=== PATIENT | female | born 1965 | race Caucasian/White ===

== ENCOUNTER → 2017-05-14 15:26 | Outpatient (CLI) | payer OTHER, SELFPAY ==
--- NOTE | 2017-05-14 15:35 | XR_ITS ---
EXAM: XR thoracic spine 2 V HISTORY: Mid back pain ITS.REASON: MID BACK PAIN COMPARISON: None FINDINGS: Normal alignment. No fracture or dislocation. No lytic or blastic change. No significant degenerative change. The disc spaces are preserved. There is minimal thoracic curvature convex left. IMPRESSION: No acute finding
--- NOTE | 2017-05-14 15:36 | XR_ITS ---
EXAM: XR lumbar spine min 4V HISTORY: ITS.REASON: MID BACK PAIN ORDERING PHYSICIAN: RODERICK Olivia PATIENT AGE: 51 years COMPARISON: None FINDINGS: Normal alignment. No fracture or dislocation. No lytic or blastic change. Mild degenerative disc disease is present at L3-L4 with minimal anterolisthesis of L3 of 3 mm and small anterior osteophytes at L4 and L5 IMPRESSION: Mild degenerative disc disease L3-L4
== END ==
PROVIDERS: PCP Family Medicine; Visit Provider Physician Assistant
DX: M54.6 Pain in thoracic spine (principal); M54.5 Low back pain
CPT/HCPCS: 72072; 72110

== ENCOUNTER 2017-12-16 16:59 | Observation (INO) ==
[2017-12-16 18:06] LABS: Basophils # 0.1 K/mm3 (0-0.2); Basophils % 0.7 % (0.1-2.0); Eosinophils % 0.7 % (0.1-12.0); Hematocrit 35.6 % (37.0-47.0); Hemoglobin 12.3 g/dL (12.2-16.2); Lymphocytes # 1.6 K/mm3 (0.7-4.5); Lymphocytes % 23.8 K/mm3 (10-50); Mean Corpuscular HGB Conc 34.5 g/dL (31.8-35.4); Mean Corpuscular Hemoglobin 30.7 pg (27.0-31.2); Mean Platelet Volume 7.4 fl (7.4-10.4); Monocytes # 0.4 K/mm3 (0.1-1.0); Monocytes % 5.2 % (1.7-9.3); Neutrophils # 4.8 K/mm3 (1.8-7.8); Neutrophils % 69.7 % (37.0-80.0); Platelet Count 164 K/mm3 (142-424); Red Cell Distribution Width 14.8 % (11.5-17.5); White Blood Count 6.9 K/mm3 (4.8-10.8)
[2017-12-16 18:23] LABS: Calcium 8.2 mg/dL (8.5-10.1)
[2017-12-16 18:27] LABS: Potassium 4.5 mmoL/L (3.5-5.1)
[2017-12-16 18:33] LABS: Anion Gap 20.5 mEq/L (5-15)
--- NOTE | 2017-12-16 18:57 | Emergency Department Note ---
ED Disposition Clinical Impression: Alcohol withdrawal Qualifiers: Complication of substance-induced condition: uncomplicated Qualified Code(s): F10.230 - Alcohol dependence with withdrawal, uncomplicated Disposition: Still a Patient Condition on Discharge: Fair - Critical Care Critical Care Time: No Attestation: On 12/16/17, the high probability of a clinically significant, sudden or life threatening deterioration of the following system(s) required my full and direct attention, intervention and personal management. The time I documented below is in addition to time spent performing reported procedures but includes the following listed in this critical care notation. Medical Decision Making - Pal Inquiry Pt receiving controlled substance: Yes Pal was queried for this patient: No Reason not queried -: Emergent pt cond-no time Risks and benefits of using a controlled substance: were not discussed with pt by me Comment: Ativan for alcohol withdrawal Vital Signs: 12/16/17 17:48 12/16/17 18:47 12/16/17 19:25 Temperature 97.9 F Temperature Source Oral Pulse Rate [Right Brachial] 92 H 71 93 H Respiratory Rate 18 20 16 Blood Pressure [Right Arm] 139/82 148/68 130/69 Blood Pressure Mean [Right Arm] 101 94 89 Blood Pressure Source [Right Arm] Automatic Cuff Automatic Cuff Blood Pressure Position [Right Arm] Sitting Sitting 02 Sat by Pulse Oximetry 96 100 98 Oxygen Delivery Method Room Air Room Air Oxygen Flow Rate (LPM) 12/16/17 19:37 12/16/17 20:00 12/16/17 20:45 Temperature Temperature Source Pulse Rate [Right Brachial] 81 83 Respiratory Rate 18 16 Blood Pressure [Right Arm] 130/69 123/72 Blood Pressure Mean [Right Arm] 89 89 Blood Pressure Source [Right Arm] Automatic Cuff Blood Pressure Position [Right Arm] Supine 02 Sat by Pulse Oximetry 94 L 96 88 L Oxygen Delivery Method Room Air Room Air Oxygen Flow Rate (LPM) 2 - Lab Data Lab Results 12/16/17 17:35: PT 12.4 H, INR 1.21 H 12/16/17 17:35: Total Bilirubin 2.7 H, Direct Bilirubin 1.0 H, Indirect Bilirubin 1.7 H, AST 202 H, ALT 98 H, Alkaline Phosphatase 110, Troponin I < 0.02, Total Protein 8.3 H, Albumin 4.5 12/16/17 17:55: WBC 6.9, RBC 4.00 L, Hgb 12.3, Hct 35.6 L, MCV 89.0, MCH 30.7, MCHC 34.5, RDW 14.8, Plt Count 164, MPV 7.4, Neut % (Auto) 69.7, Lymph % (Auto) 23.8, [place] % (Auto) 5.2, Eos % (Auto) 0.7, Baso % (Auto) 0.7, Neut # (Auto) 4.8 , Lymph # (Auto) 1.6, [place] # (Auto) 0.4, Eos # (Auto) 0.0, Baso # (Auto) 0.1 12/16/17 17:55: Sodium 119 L, Potassium 4.5, Chloride 77 L, Carbon Dioxide 26, Anion Gap 20.5 H, BUN 20 H, Creatinine 1.64 H, Estimated Creat Clear 36, Estimated GFR 33 L, Est GFR ( Amer) 40 L, Glucose 94, Calcium 8.2 L 12/16/17 17:55: Magnesium 1.0 L, Plasma/Serum Alcohol 0 12/16/17 19:49: Urine Color Yellow, Urine Appearance Clear, Urine pH 6.0, Ur Specific [place] 1.020, Urine Protein Negative, Urine Glucose (UA) Negative, Urine Ketones 2+, Urine Blood Negative, Urine Nitrate Negative, Urine Bilirubin Negative, Urine Urobilinogen 1.0, Ur Leukocyte Esterase Negative, Urine RBC 3-5 , Urine WBC 3-5, Ur Squamous Epith Cells 5-10, Amorphous Sediment Trace, Urine Bacteria 1+, Urine Mucus 1+ 12/16/17 19:49: Urine Opiates Screen Negative, Urine Methadone Screen Negative, Ur Barbituates Screen Negative, Ur Phencyclidine Scrn Negative, Ur Amphetamines Screen Negative, U Benzodiazepines Scrn Positive H, Urine Cocaine Screen Negative, U Marijuana (THC) Screen Negative Result diagrams: 12/16/17 17:55 12/16/17 17:55 Orders (Tests/Meds): ED MEDICATIONS Generic Name Dose Route Start Last Admin Trade Name Freq PRN Reason Stop Dose Admin Multivitamins 10 ml/ Thiamine 1,015 mls @ 150 mls/hr 12/16/17 19:45 12/16/17 20:00 HCl 100 mg/ Magnesium Sulfate IV 12/17/17 02:30 150 mls/hr 2 gm/ Lactated Ringer's .[id number] TERE Administration Discontinued Medications Generic Name Dose Route Start Last Admin Trade Name Osman PRN Reason Stop Dose Admin Folic Acid 1 mg 12/16/17 19:38 12/16/17 19:59 Folic Acid 1mg Tablet PO 12/16/17 19:39 1 mg ONCE ONE Administration Sodium Chloride 1,000 mls @ 999 mls/hr 12/16/17 18:15 12/16/17 18:27 Sod Chlor 0.9% 1000ml Bag IV 12/16/17 19:15 999 mls/hr .[id number] TERE Administration Lorazepam 2 mg 12/16/17 19:39 12/16/17 20:00 Ativan 2mg/Ml Vial IV 12/16/17 19:40 2 mg ONCE ONE Administration Ondansetron HCl 4 mg 12/16/17 18:07 12/16/17 18:26 Zofran 4mg/2ml Vial IV 12/16/17 18:08 4 mg ONCE ONE Administration ORDERS Category Date Time Status CT head/brain wo con Stat Cat Scan 12/16/17 18:57 Taken XR chest portable Stat Exams 12/16/17 19:39 Ordered - CT Data CT Scan: Head Time Received: 19:[address] Reviewed: Yes: I have viewed the radiologist's interpretation Findings Narrative: No acute findings - ECG Data Tracing #1 EKG interpreted by Sivakumar Norman MD: Rhythm: sinus Rate: 83 [place]: normal Ectopy: none Conduction: normal ST Segment Changes: none T Wave Changes: none Q Waves: none No evidence of acute ischemia or injury - Physician Consults Physician Consulted: [facility] Time: 19:30 Reason -: Admission Comment/Response: Agrees to admit the patient to the hospital. We discussed the patient's clinical information, including history, exam, laboratory and radiology results and ED course. Per hospital procedure, I will write temporary bridge inpatient orders on the patient. Specific orders requested by the admitting physician: Serax alcohol withdrawal protocol, rally pack General Adult HPI - General Chief complaint: Urogenital-Female Stated complaint: unable to void Time Seen by Provider: 12/16/17 19:20 Mode of Arrival: Family Vehicle Limitations: No Limitations Description of Symptoms (Recalled from ER Triage Doc. by RN): C/O UNABLE TO VOID DESPITE DRINKING 6 BOTTLES OF WATER TODAY AND DIARRHEA. PATIENT IS HAVING TREMORS AND WHEN QUESTIONED STATES SHE NORMALLY DRINKS ALCOHOL DAILY BUT HAS HAD NO ALCOHOL TODAY. JESUS MANUEL BROUGHT HER TO HOSPITAL AND LEFT HER. 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 Admits to 1/5 of tequila a day for the past 3-4 days along with 3-4 beers. Denies any drug use. Today he is very shaky because she has not drank at all today. History of alcohol withdrawal in the past, states that she was admitted for the same thing last year but also her kidneys shut down and she was transferred to [facility]. She states that she was not ill prior to this. She has had some nausea and vomiting today. - Related Data Home Medications Medication Instructions Recorded Confirmed Unobtainable 12/16/17 12/16/17 Allergies Allergy/AdvReac Type Severity Reaction Status Date / Time No Known Allergies Allergy Verified 12/16/17 17:[address] [facility] History I have reviewed the patient's past medical history: Yes Medical History: Denies:: Cancer, Diabetes Mellitus Type 1, Diabetes Mellitus Type 2, MRSA Amputation: No - Social History Alcohol Intake: current Alcohol Intake Frequency:: 0-2 drinks per day - Psychiatric History Expresses thoughts of harming self/others: None Suicide Plan Description: No Plan ROS Obtained: Yes All systems reviewed & no additional complaints - Constitutional Constitutional: Denies fever(s), Reports weakness - Cardiovascular Cardiovascular: Denies chest pain - Respiratory Respiratory: No cough, No dyspnea - Gastrointestinal Gastrointestingal: Reports: nausea, vomiting. Denies: abdominal pain, diarrhea - Neurologic Neurologic: Denies headache(s) Physical Exam - General General appearance: alert Comment: Tremulous - Head Head exam: atraumatic, normocephalic, normal inspection - Eye Eye exam: Present: normal appearance, PERRL, EOMI - ENT ENT exam: Present: mucous membranes moist - Neck Neck exam: Present: normal inspection, full ROM, trachea midline. Absent: meningismus, lymphadenopathy - Chest Chest inspection: Present: normal inspection, symmetric chest wall rise. Absent : tenderness - Respiratory Respiratory exam: Present: normal lung sounds bilaterally. Absent: respiratory distress - Cardiovascular Cardiovascular exam: Present: regular rate, normal rhythm. Absent: JVD - Abdominal Exam Abdominal exam: Present: soft, normal bowel sounds. Absent: distention, tenderness, guarding - Extremities Exam Extremities exam: Present: normal inspection, full ROM, normal capillary refill. Absent: calf tenderness - Neurological Exam Neurological exam: Present: alert, oriented X3, CN II-XII intact. Absent: motor sensory deficit - Psychiatric Psychiatric exam: Present: normal affect, normal mood - Skin Skin exam: Present: warm, dry, intact, normal color
[2017-12-16 19:50] LABS: INR 1.21 (0.9-1.1); Prothrombin Time 12.4 seconds (9.4-11.8)
[2017-12-16 19:55] LABS: Microscopic, Urine URINE MICROSCOPIC (MICROSCOPIC)
[2017-12-16 19:58] LABS: Appearance,Urine CLEAR (Clear); Blood, Urine Negative (Negative); Color,Urine YELLOW (Yellow); Glucose,Urine (UA) Negative (Negative); Ketones,Urine 2+ (Negative); Leukocyte Esterase,Urine Negative (Negative); Protein,Urine Negative (Negative)
[2017-12-16 20:02] LABS: Alanine Aminotransferase 98 U/L (12-78); Albumin Level 4.5 gm/dL (3.4-5.0); Alkaline Phosphatase 110 U/L (46-116); Aspartate Amino Transferase 202 U/L (15-37); Bilirubin,Indirect 1.7 mg/dL (0.0-0.9); Bilirubin,Total 2.7 mg/dL (0.2-1.0); Total Protein,Serum 8.3 gm/dL (6.4-8.2)
[2017-12-16 20:10] LABS: Amphetamine/Metha Screen,Urine Negative ng/mL (<1000); Barbiturates Screen,Urine Negative ng/mL (<200); Benzodiazepines Screen,Urine Positive ng/mL (<200); Cannabinoid Screen,Urine Negative ng/mL (<50); Cocaine Screen,Urine Negative ng/mL (<300); Methadone Screen,Urine Negative ng/mL (<300); Opiate Screen,Urine Negative ng/mL (<300); Phencyclidine Screen,Urine Negative ng/mL (<25)
[2017-12-16 20:25] LABS: Amorphous Sediment,Urine Trace /lpf; Bacteria,Urine 1+ /lpf; Bilirubin,Urine Negative (Negative); Mucus,Urine 1+ /lpf
[2017-12-16 22:22] LABS: Thyroid Stimulating Hormone 28.63 uIU/ml (0.358-3.740)
[2017-12-17 06:15] LABS: Albumin Level 3.7 gm/dL (3.4-5.0); Albumin/Globulin Ratio 1.2 (1.1-1.8); Anion Gap 10.5 mEq/L (5-15); Calcium 8.4 mg/dL (8.5-10.1); Globulin 3.2 gm/dl (1.3-3.2); Potassium 3.5 mmoL/L (3.5-5.1); Total Protein,Serum 6.9 gm/dL (6.4-8.2)
--- NOTE | 2017-12-17 07:49 | Pharmacy Consult Notes ---
[facility] Pharmacy VTE Monitoring - Patient Demographics Admission date: 12/16/17 Report Date: 12/17/17 Time: 07:49 Allergies/Adverse Reactions: Patient Allergies No Known Allergies Allergy (Verified 12/16/17 17:55) Height: 1.56 m Weight: 62.709 kg Patient Problems: Current Active Problems Alcohol withdrawal (Acute) - VTE Risk Labs: VTE Related Lab Results Hgb 12.3 g/dL (12.2-16.2) 12/16/17 17:55 Hct 35.6 % (37.0-47.0) L 12/16/17 17:55 Plt Count 164 K/mm3 (142-424) 12/16/17 17:55 PT 12.4 seconds (9.4-11.8) H 12/16/17 17:35 INR 1.21 (0.9-1.1) H 12/16/17 17:35 APTT 29.5 seconds (23.6-34.0) 12/16/17 21:50 BUN 18 mg/dL (7-18) 12/17/17 05:46 Creatinine 1.27 mg/dL (0.55-1.02) H D 12/17/17 05:46 Estimated Creat Clear 51 mL/min (0-300) 12/17/17 05:46 Was VTE Risk Assessment Performed: No VTE Score: 3 VTE Risk Level: Low Risk - Prophylaxis VTE Prophylaxis Ordered?: Yes Types of VTE Prophylaxis: TEDS Knee High Location of Applied Device: Bilateral Lower Extremeties - VTE Diagnosis Confirmed Treatment or plan recommended: Continue Current Treatment
--- NOTE | 2017-12-17 08:28 | History & Physical Report ---
*Admission Date: 12/16/17 <RojelioCaleb jaimesa 12/17/17 08:47> *Chief complaint: alcohol withdrawal, decreased UOP, fall at home <Babak Jacqueline 12/17/17 08:47> *History of present illness: Further to above history, she states she started drinking again because she became depressed over some family issues. She had not been eating at home or taking her maintenance medications for past 5 days. When she fell last night prior to arrival, she did hit the back of her head. Her head CT in ER was OK. Of note, she was hospitalized at in November 2016 with acute renal failure, hyponatremia, alcoholic pancreatitis and alcoholic hepatitis. <Patrick Rios - 12/17/17 09:13> Ms. Quinones is a 52-year-old female who is an alcoholic and had quit drinking up until a month ago. She states 2 nights ago she had approximately 1/5 of alcohol and fell in her bathtub. Last night she did not have any alcohol, but was unable to urinate. She drank 6 bottles of water and still could not urinate. She called a friend to bring her to the hospital. She did fall again last night at home and hurt her upper back. <BabakJacqueline 12/17/17 08:47> [facility] History Medical History: Reports:: Hyperlipidemia, Hypertension Denies:: Cancer, Diabetes Mellitus Type 1, Diabetes Mellitus Type 2, MRSA < Jacqueline Hilliard 12/17/17 08:47> Other Medical History: Reports: Hypothyroidism, Thyroid Disease <Jacqueline Hilliard 12/17/17 08:47> Comment: ETOH abuse, Alcoholic pancreatitis, Alcoholic hepatitis <Jacqueline Hilliard 12/17/17 08:47> Other Surgeries: Yes: Cardiac Catheterization, Cholecystectomy, , Tubal Ligation <Jacqueline Hilliard 12/17/17 08:47> Amputation: No <Jacqueline Hilliard 12/17/17 08:47> Fractures: No <Jacqueline Hilliard 12/17/17 08:47> - *Social History Educational Level: Attended College <Jacqueline Hilliard 12/17/17 08:47> Alcohol Intake: former <Jacqueline Hilliard 12/17/17 08:47> Alcohol Intake Frequency:: 0-2 drinks per day <BabakJacqueline - 12/17/17 08:47> Occupational Status: employed <Jacqueline Hilliard 12/17/17 08:47> Housing: house <RojelioJacqueline jaimes 12/17/17 08:47> Household Members: none <RojelioJacqueline jaimes 12/17/17 08:47> - Psychiatric History Expresses thoughts of harming self/others: None <Jacqueline Hilliard 12/17/17 08: 47> Suicide Plan Description: No Plan <Jacqueline Hilliard 12/17/17 08:47> *Family Hx:: Diabetes, Hypertension, Stroke <Jacqueline Hilliard 12/17/17 08:47> Review of Systems - Constitutional Reports weakness, Denies body ache(s), Denies chills <Jacqueline Hilliard 08:47> - Eyes Denies blurry vision, Denies double vision <Jacqueline Hilliard 12/17/17 08:47> - ENT Reports nasal congestion, Denies dizziness, Denies sore throat <Jacqueline Hilliard 12/17/17 08:47> - *Cardiovascular Denies chest pain, Denies shortness of breath <Jacqueline Hilliard 12/17/17 08:47> - *Respiratory Reports cough, Denies chest congestion, Denies shortness of breath <Jacqueline Hilliard 12/17/17 08:47> - *Gastrointestinal Denies abdominal pain, Denies loose stools, Denies nausea, Denies vomiting < Jacqueline Hilliard 12/17/17 08:47> - *Genitourinary Reports difficulty urinating, Denies painful urination <Jacqueline Hilliard 08:47> - *Musculoskeletal Reports back pain (upper back), Denies joint pain <Jacqueline Hilliard 12/17/17 08 :47> - *Neurologic Reports weakness, Denies headache(s), Denies dizziness <Jacqueline Hilliard 08:47> Meds Home Medications Medication Instructions Recorded Confirmed Type Unobtainable 12/16/17 12/16/17 History <Patrick Rios - 12/17/17 09:13> Allergies Allergy/AdvReac Type Severity Reaction Status Date / Time No Known Allergies Allergy Verified 12/16/17 17:55 <Patrick Rios - 12/17/17 09:13> Exam Vital signs and Labs for Last 24 Hours: Temp Pulse Resp BP Pulse Ox 98.0 F 84 18 118/67 92 L 12/17/17 07:55 12/17/17 07:55 12/17/17 07:55 12/17/17 07:55 12/17/17 07:55 Laboratory Results - last 24 hr 12/16/17 17:35: PT 12.4 H, INR 1.21 H 12/16/17 17:35: Total Bilirubin 2.7 H, Direct Bilirubin 1.0 H, Indirect Bilirubin 1.7 H, AST 202 H, ALT 98 H, Alkaline Phosphatase 110, Troponin I < 0.02, Total Protein 8.3 H, Albumin 4.5 12/16/17 17:55: WBC 6.9, RBC 4.00 L, Hgb 12.3, Hct 35.6 L, MCV 89.0, MCH 30.7, MCHC 34.5, RDW 14.8, Plt Count 164, MPV 7.4, Neut % (Auto) 69.7, Lymph % (Auto) 23.8, [place] % (Auto) 5.2, Eos % (Auto) 0.7, Baso % (Auto) 0.7, Neut # (Auto) 4.8 , Lymph # (Auto) 1.6, [place] # (Auto) 0.4, Eos # (Auto) 0.0, Baso # (Auto) 0.1 12/16/17 17:55: Sodium 119 L, Potassium 4.5, Chloride 77 L, Carbon Dioxide 26, Anion Gap 20.5 H, BUN 20 H, Creatinine 1.64 H, Estimated Creat Clear 36, Estimated GFR 33 L, Est GFR ( Amer) 40 L, Glucose 94, Calcium 8.2 L 12/16/17 17:55: Magnesium 1.0 L, Plasma/Serum Alcohol 0 12/16/17 19:49: Urine Color Yellow, Urine Appearance Clear, Urine pH 6.0, Ur Specific [place] 1.020, Urine Protein Negative, Urine Glucose (UA) Negative, Urine Ketones 2+, Urine Blood Negative, Urine Nitrate Negative, Urine Bilirubin Negative, Urine Urobilinogen 1.0, Ur Leukocyte Esterase Negative, Urine RBC 3-5 , Urine WBC 3-5, Ur Squamous Epith Cells 5-10, Amorphous Sediment Trace, Urine Bacteria 1+, Urine Mucus 1+ 12/16/17 19:49: Urine Opiates Screen Negative, Urine Methadone Screen Negative, Ur Barbituates Screen Negative, Ur Phencyclidine Scrn Negative, Ur Amphetamines Screen Negative, U Benzodiazepines Scrn Positive H, Urine Cocaine Screen Negative, U Marijuana (THC) Screen Negative 12/16/17 21:50: APTT 29.5 12/16/17 21:50: Phosphorus 2.9 12/16/17 21:50: Magnesium 2.3 H D, TSH 28.63 H 12/17/17 05:46: Sodium 127 L, Potassium 3.5 D, Chloride 90 L, Carbon Dioxide 30 , Anion Gap 10.5, BUN 18, Creatinine 1.27 H D, Estimated Creat Clear 51, Estimated GFR 44 L, Est GFR ( Amer) 53 L D, Glucose 88, Calcium 8.4 L, Total Bilirubin 2.0 H, AST 130 H D, ALT 70 D, Alkaline Phosphatase 91, Total Protein 6.9, Albumin 3.7 D, Globulin 3.2, Albumin/Globulin Ratio 1.2 <Patrick Rios - 12/17/17 09:13> Temp Pulse Resp BP Pulse Ox 98.0 F 84 18 118/67 92 L 12/17/17 07:55 12/17/17 07:55 12/17/17 07:55 12/17/17 07:55 12/17/17 07:55 Laboratory Results - last 24 hr 12/16/17 17:35: PT 12.4 H, INR 1.21 H 12/16/17 17:35: Total Bilirubin 2.7 H, Direct Bilirubin 1.0 H, Indirect Bilirubin 1.7 H, AST 202 H, ALT 98 H, Alkaline Phosphatase 110, Troponin I < 0.02, Total Protein 8.3 H, Albumin 4.5 12/16/17 17:55: WBC 6.9, RBC 4.00 L, Hgb 12.3, Hct 35.6 L, MCV 89.0, MCH 30.7, MCHC 34.5, RDW 14.8, Plt Count 164, MPV 7.4, Neut % (Auto) 69.7, Lymph % (Auto) 23.8, [place] % (Auto) 5.2, Eos % (Auto) 0.7, Baso % (Auto) 0.7, Neut # (Auto) 4.8 , Lymph # (Auto) 1.6, [place] # (Auto) 0.4, Eos # (Auto) 0.0, Baso # (Auto) 0.1 12/16/17 17:55: Sodium 119 L, Potassium 4.5, Chloride 77 L, Carbon Dioxide 26, Anion Gap 20.5 H, BUN 20 H, Creatinine 1.64 H, Estimated Creat Clear 36, Estimated GFR 33 L, Est GFR ( Amer) 40 L, Glucose 94, Calcium 8.2 L 12/16/17 17:55: Magnesium 1.0 L, Plasma/Serum Alcohol 0 12/16/17 19:49: Urine Color Yellow, Urine Appearance Clear, Urine pH 6.0, Ur Specific [place] 1.020, Urine Protein Negative, Urine Glucose (UA) Negative, Urine Ketones 2+, Urine Blood Negative, Urine Nitrate Negative, Urine Bilirubin Negative, Urine Urobilinogen 1.0, Ur Leukocyte Esterase Negative, Urine RBC 3-5 , Urine WBC 3-5, Ur Squamous Epith Cells 5-10, Amorphous Sediment Trace, Urine Bacteria 1+, Urine Mucus 1+ 12/16/17 19:49: Urine Opiates Screen Negative, Urine Methadone Screen Negative, Ur Barbituates Screen Negative, Ur Phencyclidine Scrn Negative, Ur Amphetamines Screen Negative, U Benzodiazepines Scrn Positive H, Urine Cocaine Screen Negative, U Marijuana (THC) Screen Negative 12/16/17 21:50: APTT 29.5 12/16/17 21:50: Phosphorus 2.9 12/16/17 21:50: Magnesium 2.3 H D, TSH 28.63 H 12/17/17 05:46: Sodium 127 L, Potassium 3.5 D, Chloride 90 L, Carbon Dioxide 30 , Anion Gap 10.5, BUN 18, Creatinine 1.27 H D, Estimated Creat Clear 51, Estimated GFR 44 L, Est GFR ( Amer) 53 L D, Glucose 88, Calcium 8.4 L, Total Bilirubin 2.0 H, AST 130 H D, ALT 70 D, Alkaline Phosphatase 91, Total Protein 6.9, Albumin 3.7 D, Globulin 3.2, Albumin/Globulin Ratio 1.2 <Jacqueline Hilliard - 12/17/17 08:47> I & O for Last 24 hours: Intake & Output 12/14/17 12/15/17 12/16/17 12/17/17 11:59 11:59 11:59 11:59 Intake Total 2230 / 2230 Output Total 1300 / 1300 Balance 930 / 930 Weight 138 lb 4 oz <Patrick Rios - 12/17/17 09:13> Intake & Output 12/14/17 12/15/17 12/16/17 12/17/17 11:59 11:59 11:59 11:59 Intake Total 2230 / 2230 Output Total 1300 / 1300 Balance 930 / 930 Weight 138 lb 4 oz <Jacqueline Hilliard 12/17/17 08:47> - Constitutional no acute distress <Jacqueline Hilliard 12/17/17 08:47> - *Routine HEENT Exam Head: Present: normocephalic, atraumatic <Jacqueline Hilliard 12/17/17 08:47> Eye: Present: EOMI, PERRL <Jacqueline Hilliard 12/17/17 08:47> ENT: Present: mucous membranes dry <Jacqueline Hilliard 12/17/17 08:47> - *Routine Neck Exam Present: supple, full ROM <Jacqueline Hilliard 12/17/17 08:47> - *Routine Respiratory Exam Present: CTA bilaterally <Jacqueline Hilliard 12/17/17 08:47> - *Routine Cardiovascular Exam Present: RRR <Jacqueline Hilliard 12/17/17 08:47> - *Routine Abdominal Exam Present: soft, normoactive bowel sounds. Absent: tenderness <Jacqueline Hilliard 12/17/17 08:47> - *Routine Extremities Exam Absent: edema <Jacqueline Hilliard 12/17/17 08:47> - Routine Back/Spine/Pelvis Exam Back/Spine: Present: vertebral tenderness (T-spine) <BabakJacqueline 12/17/17 08:47> - *Routine Skin Exam Present: intact <BabakJacqueline 12/17/17 08:47> - *Routine Neurological Exam Present: alert, oriented X3 <BabakJacqueline - 12/17/17 08:47> shaky <Jacqueline Hilliard - 12/17/17 08:47> H&P: Result - Labs Labs: Short CBC 12/16/17 Range/Units 17:55 WBC 6.9 (4.8-10.8) K/mm3 Hgb 12.3 (12.2-16.2) g/dL Hct 35.6 L (37.0-47.0) % Plt Count 164 (142-424) K/mm3 BMP 12/16/17 12/17/17 17:55 05:46 Sodium 119 L 127 L Potassium 4.5 3.5 D Chloride 77 L 90 L Carbon Dioxide 26 30 BUN 20 H 18 Creatinine 1.64 H 1.27 H D Glucose 94 88 Calcium 8.2 L 8.4 L Cardiac Enzymes 12/16/17 Range/Units 17:35 Troponin I < 0.02 (0.00-0.06) ng/ml Liver Function 12/16/17 12/17/17 Range/Units 17:35 05:46 Total Bilirubin 2.7 H 2.0 H (0.2-1.0) mg/dL Direct Bilirubin 1.0 H (0.0-0.2) mg/dL AST 202 H 130 H D (15-37) U/L ALT 98 H 70 D (12-78) U/L Alkaline Phosphatase 110 91 (46-116) U/L Albumin 4.5 3.7 D (3.4-5.0) gm/dL Urine 12/16/17 Range/Units 19:49 Urine Color Yellow (Yellow) Urine Appearance Clear (Clear) Urine pH 6.0 (5.0-8.5) Ur Specific [place] 1.020 (1.005-1.030) Urine Protein Negative (Negative) Urine Glucose (UA) Negative (Negative) <Patrick Rios - 12/17/17 09:13> <Jacqueline Hilliard - 12/17/17 08:47> - Impressions Head CT and CXR - normal <RojelioCaleb jaimesa - 12/17/17 08:47> Assessment and Plan (1) Alcohol abuse Current visit: Yes Status: Acute Category: Social Hx Code(s): F10.10 - Alcohol abuse, uncomplicated (2) Decreased urine output Current visit: Yes Status: Acute Category: Medical Code(s): R34 - Anuria and oliguria (3) Fall at home Current visit: Yes Status: Acute Category: Medical Code(s): W19.XXXA - Unspecified fall, initial encounter; Y92.009 - Unspecified place in unspecified non-institutional (private) residence as the place of occurrence of the external cause (4) Hypertension Current visit: Yes Status: Chronic Category: Medical Code(s): I10 - Essential (primary) hypertension (5) Hyperlipidemia Current visit: Yes Status: Chronic Category: Medical Code(s): E78.5 - Hyperlipidemia, unspecified (6) Alcohol withdrawal Current visit: Yes Status: Acute Qualifiers: Complication of substance-induced condition: uncomplicated Qualified Code(s ): F10.230 - Alcohol dependence with withdrawal, uncomplicated Category: Medical Code(s): F10.239 - Alcohol dependence with withdrawal, unspecified (7) Back pain Current visit: Yes Status: Acute Category: Medical Code(s): M54.9 - Dorsalgia, unspecified <Jacqueline Hilliard - 12/17/17 08:25> (1) Acute renal failure Current visit: Yes Status: Acute Category: Medical Code(s): N17.9 - Acute kidney failure, unspecified (2) Hyponatremia Current visit: Yes Status: Acute Category: Medical Code(s): E87.1 - Hypo- osmolality and hyponatremia (3) Alcohol withdrawal Current visit: Yes Status: Acute Qualifiers: Complication of substance-induced condition: uncomplicated Qualified Code(s ): F10.230 - Alcohol dependence with withdrawal, uncomplicated Category: Medical Code(s): F10.239 - Alcohol dependence with withdrawal, unspecified (4) Alcohol abuse Current visit: Yes Status: Acute Category: Social Hx Code(s): F10.10 - Alcohol abuse, uncomplicated (5) Fall at home Current visit: Yes Status: Acute Category: Medical Code(s): W19.XXXA - Unspecified fall, initial encounter; Y92.009 - Unspecified place in unspecified non-institutional (private) residence as the place of occurrence of the external cause (6) Hypertension Current visit: Yes Status: Chronic Category: Medical Code(s): I10 - Essential (primary) hypertension (7) Hyperlipidemia Current visit: Yes Status: Chronic Category: Medical Code(s): E78.5 - Hyperlipidemia, unspecified (8) Back pain Current visit: Yes Status: Acute Category: Medical Code(s): M54.9 - Dorsalgia, unspecified (9) Hypothyroidism Current visit: Yes Status: Acute Category: Medical Code(s): E03.9 - Hypothyroidism, unspecified (10) Hypertriglyceridemia Current visit: Yes Status: Acute Category: Medical Code(s): E78.1 - Pure hyperglyceridemia <Patrick Rios - 12/17/17 09:13> - Assessment and plan all Dx Assessment and Plan for all problems:: Patient seen and examined. She is still tremulous and unsteady when OOB. Will add IV normal saline and continue to monitor electolytes and renal function. Will resume her Synthroid. <Patrick Rios - 12/17/17 09:13> We will start on IV fluids and continue alcohol withdrawal protocol. Will get an x-ray of the back. Will get pancreatic enzymes. <Jacqueline Hilliard - 12/17/17 08:47>
[2017-12-17 11:40] LABS: Chol/HDL Ratio 5.9 (1-3.5)
[2017-12-18 05:32] LABS: Albumin Level 4.1 gm/dL (3.4-5.0); Albumin/Globulin Ratio 1.1 (1.1-1.8); Anion Gap 8.7 mEq/L (5-15); Globulin 3.6 gm/dl (1.3-3.2); Potassium 3.7 mmoL/L (3.5-5.1); Total Protein,Serum 7.7 gm/dL (6.4-8.2)
[2017-12-18 05:59] LABS: Calcium 9.3 mg/dL (8.5-10.1)
--- NOTE | 2017-12-18 08:19 | Progress Note ---
<Jacqueline Hilliard - Last Filed: 12/18/17 08:16> Internal Medicine - PN: Subj *Date: 12/18/17 *Time: 08:16 Interval history: Patient states she is feeling much better today. She denies any abdominal pain and is much more awake and alert. She states she did not rest well last night due to being in the hospital. She wants to go home today. Exam Vital signs and Labs for Last 24 Hours: Temp Pulse Resp BP Pulse Ox 97.8 F 80 18 144/87 94 L 12/18/17 08:00 12/18/17 08:00 12/18/17 08:00 12/18/17 08:00 12/18/17 08:00 Laboratory Results - last 24 hr 12/17/17 05:46: Amylase 27 12/17/17 05:46: Lipase 398 H 12/17/17 05:46: Triglycerides 269 H, Cholesterol 288 H, LDL Cholesterol 185 H, VLDL Cholesterol 54 H, HDL Cholesterol 49, Cholesterol/HDL Ratio 5.9 H 12/18/17 04:35: Sodium 133 L, Potassium 3.7, Chloride 95 L, Carbon Dioxide 33 H , Anion Gap 8.7, BUN 16, Creatinine 1.07 H, Estimated Creat Clear 60, Estimated GFR 54 L, Est GFR ( Amer) 65 D, Glucose 109 H D, Calcium 9.3 D, Total Bilirubin 1.0, AST 150 H, ALT 83 H, Alkaline Phosphatase 101, Total Protein 7.7 , Albumin 4.1 D, Globulin 3.6 H, Albumin/Globulin Ratio 1.1 I & O for Last 24 hours: Intake & Output 12/15/17 12/16/17 12/17/17 12/18/17 11:59 11:59 11:59 11:59 Intake Total 2230 / 2230 2556 / 2556 Output Total 1700 / 1700 3750 / 3750 Balance 530 / 530 -1194 / -1194 Weight 138 lb 4 oz 138 lb 3.959 oz - Constitutional no acute distress - *Routine Respiratory Exam Present: CTA bilaterally - *Routine Cardiovascular Exam Present: RRR - *Routine Abdominal Exam Present: soft, normoactive bowel sounds. Absent: tenderness - *Routine Extremities Exam Absent: edema Assessment and Plan (1) Acute renal failure Status: Acute Category: Medical Code(s): N17.9 - Acute kidney failure, unspecified (2) Hyponatremia Status: Acute Category: Medical Code(s): E87.1 - Hypo-osmolality and hyponatremia (3) Alcohol withdrawal Status: Acute Qualifiers: Complication of substance-induced condition: uncomplicated Qualified Code(s ): F10.230 - Alcohol dependence with withdrawal, uncomplicated Category: Medical Code(s): F10.239 - Alcohol dependence with withdrawal, unspecified (4) Alcohol abuse Status: Acute Category: Social Hx Code(s): F10.10 - Alcohol abuse, uncomplicated (5) Fall at home Status: Acute Category: Medical Code(s): W19.XXXA - Unspecified fall, initial encounter; Y92.009 - Unspecified place in unspecified non-institutional (private) residence as the place of occurrence of the external cause (6) Hypertension Status: Chronic Category: Medical Code(s): I10 - Essential (primary) hypertension (7) Hyperlipidemia Status: Chronic Category: Medical Code(s): E78.5 - Hyperlipidemia, unspecified (8) Back pain Status: Acute Category: Medical Code(s): M54.9 - Dorsalgia, unspecified (9) Hypothyroidism Status: Acute Category: Medical Code(s): E03.9 - Hypothyroidism, unspecified (10) Hypertriglyceridemia Status: Acute Category: Medical Code(s): E78.1 - Pure hyperglyceridemia - Assessment and plan all Dx Assessment and Plan for all problems:: Electrolytes and renal function have improved. Patient's lipase was slightly elevated yesterday, but she denies any pain today. She was able to eat a large breakfast and has been drinking without any pain. She can possibly be discharged home today. Will discuss with Dr. Rios. <Patrick Rios - Last Filed: 12/18/17 18:37> Internal Medicine - PN: Subj *Date: 12/18/17 *Time: 18:36 Exam Vital signs and Labs for Last 24 Hours: Temp Pulse Resp BP Pulse Ox 97.8 F 80 18 144/87 94 L 12/18/17 08:00 12/18/17 08:00 12/18/17 08:00 12/18/17 08:00 12/18/17 08:00 Laboratory Results - last 24 hr 12/18/17 04:35: Sodium 133 L, Potassium 3.7, Chloride 95 L, Carbon Dioxide 33 H , Anion Gap 8.7, BUN 16, Creatinine 1.07 H, Estimated Creat Clear 60, Estimated GFR 54 L, Est GFR ( Amer) 65 D, Glucose 109 H D, Calcium 9.3 D, Total Bilirubin 1.0, AST 150 H, ALT 83 H, Alkaline Phosphatase 101, Total Protein 7.7 , Albumin 4.1 D, Globulin 3.6 H, Albumin/Globulin Ratio 1.1 I & O for Last 24 hours: Intake & Output 12/16/17 12/17/17 12/18/17 12/19/17 11:59 11:59 11:59 11:59 Intake Total 2230 / 2230 2556 / 2556 Output Total 1700 / 1700 3750 / 3750 Balance 530 / 530 -1194 / -1194 Weight 138 lb 4 oz 138 lb 3.959 oz Assessment and Plan (1) Acute renal failure Status: Acute Category: Medical Code(s): N17.9 - Acute kidney failure, unspecified (2) Hyponatremia Status: Acute Category: Medical Code(s): E87.1 - Hypo-osmolality and hyponatremia (3) Alcohol withdrawal Status: Acute Qualifiers: Complication of substance-induced condition: uncomplicated Qualified Code(s ): F10.230 - Alcohol dependence with withdrawal, uncomplicated Category: Medical Code(s): F10.239 - Alcohol dependence with withdrawal, unspecified (4) Alcohol abuse Status: Acute Category: Social Hx Code(s): F10.10 - Alcohol abuse, uncomplicated (5) Fall at home Status: Acute Category: Medical Code(s): W19.XXXA - Unspecified fall, initial encounter; Y92.009 - Unspecified place in unspecified non-institutional (private) residence as the place of occurrence of the external cause (6) Hypertension Status: Chronic Category: Medical Code(s): I10 - Essential (primary) hypertension (7) Hyperlipidemia Status: Chronic Category: Medical Code(s): E78.5 - Hyperlipidemia, unspecified (8) Back pain Status: Acute Category: Medical Code(s): M54.9 - Dorsalgia, unspecified (9) Hypothyroidism Status: Acute Category: Medical Code(s): E03.9 - Hypothyroidism, unspecified (10) Hypertriglyceridemia Status: Acute Category: Medical Code(s): E78.1 - Pure hyperglyceridemia - Assessment and plan all Dx Assessment and Plan for all problems:: Patient seen and examined. Labs improved. She is more alert and less tremulous. SHe is stable for discharge today.
--- NOTE | 2017-12-18 10:59 | Discharge Summary ---
General - General Admission date:: 12/16/17 <Patrick Rios - 12/18/17 18:40> 12/16/17 <RojeliotheodoreJacqueline - 12/18/17 11:01> Discharge date: 12/18/17 <Jacqueline Hilliard - 12/18/17 11:01> HPI HPI: Ms. Quinones is a 52-year-old female who is an alcoholic and had quit drinking up until a month ago. She states 2 nights ago she had approximately 1/ 5 of alcohol and fell in her bathtub. Last night she did not have any alcohol, but was unable to urinate. She drank 6 bottles of water and still could not urinate. She called a friend to bring her to the hospital. She did fall again last night at home and hurt her upper back. Further to above history, she states she started drinking again because she became depressed over some family issues. She had not been eating at home or taking her maintenance medications for the past 5 days. When she fell last night prior to arrival, she did hit the back of her head. Her head CT in ER was OK. She was hospitalized at in November 2016 with acute renal failure, hyponatremia, alcoholic pancreatitis and alcoholic hepatitis. <Jacqueline Hilliard - 12/18/17 11:01> Hospital Course Hospital Course: Patient was started on IVF's and the alcohol withdrawal protocol. Her electrolytes were abnormal and her renal function was elevated. Pancreatic enzymes were ordered and her lipase was slightly elevated. She did c /o pain in her back from her fall but an x-ray showed no fracture. She began feeling better and her electrolytes and renal function improved. She was able to eat without problems and was stable to be discharged home. AA was discussed with the patient. <RojeliotheodoreJacqueline - 12/18/17 11:01> Objective Vital signs: Temp Pulse Resp BP Pulse Ox 97.8 F 80 18 144/87 94 L 12/18/17 08:00 12/18/17 08:00 12/18/17 08:00 12/18/17 08:00 12/18/17 08:00 <Patrick Rios - 12/18/17 18:40> Temp Pulse Resp BP Pulse Ox 97.8 F 80 18 144/87 94 L 12/18/17 08:00 12/18/17 08:00 12/18/17 08:00 12/18/17 08:00 12/18/17 08:00 <Jacqueline Hilliard - 12/18/17 11:01> Narrative: - Constitutional no acute distress - *Routine HEENT Exam Head: Present: normocephalic, atraumatic Eye: Present: EOMI, PERRL ENT: Present: mucous membranes dry - *Routine Neck Exam Present: supple, full ROM - *Routine Respiratory Exam Present: CTA bilaterally - *Routine Cardiovascular Exam Present: RRR - *Routine Abdominal Exam Present: soft, normoactive bowel sounds. Absent: tenderness - *Routine Extremities Exam Absent: edema - Routine Back/Spine/Pelvis Exam Back/Spine: Present: vertebral tenderness (T-spine) - *Routine Skin Exam Present: intact - *Routine Neurological Exam Present: alert, oriented X3 shaky <Jacqueline Hilliard - 12/18/17 11:01> Results Labs on day of discharge: Labs from last 24 hours 12/18/17 04:35 Sodium 133 L Potassium 3.7 Chloride 95 L Carbon Dioxide 33 H Anion Gap 8.7 BUN 16 Creatinine 1.07 H Estimated Creat Clear 60 Estimated GFR 54 L Est GFR ( Amer) 65 D Glucose 109 H D Calcium 9.3 D Total Bilirubin 1.0 AST 150 H ALT 83 H Alkaline Phosphatase 101 Total Protein 7.7 Albumin 4.1 D Globulin 3.6 H Albumin/Globulin Ratio 1.1 <Patrick Rios - 12/18/17 18:40> Labs from last 24 hours 12/18/17 12/17/17 12/17/17 04:35 05:46 05:46 Sodium 133 L Potassium 3.7 Chloride 95 L Carbon Dioxide 33 H Anion Gap 8.7 BUN 16 Creatinine 1.07 H Estimated Creat Clear 60 Estimated GFR 54 L Est GFR ( Amer) 65 D Glucose 109 H D Calcium 9.3 D Total Bilirubin 1.0 AST 150 H ALT 83 H Alkaline Phosphatase 101 Total Protein 7.7 Albumin 4.1 D Globulin 3.6 H Albumin/Globulin Ratio 1.1 Triglycerides 269 H Cholesterol 288 H LDL Cholesterol 185 H VLDL Cholesterol 54 H HDL Cholesterol 49 Cholesterol/HDL Ratio 5.9 H Amylase Lipase 398 H 12/17/17 05:46 Sodium Potassium Chloride Carbon Dioxide Anion Gap BUN Creatinine Estimated Creat Clear Estimated GFR Est GFR ( Amer) Glucose Calcium Total Bilirubin AST ALT Alkaline Phosphatase Total Protein Albumin Globulin Albumin/Globulin Ratio Triglycerides Cholesterol LDL Cholesterol VLDL Cholesterol HDL Cholesterol Cholesterol/HDL Ratio Amylase 27 Lipase <Jacqueline Hilliard - 12/18/17 11:01> DS: Diagnosis - Discharge Diagnosis (1) Acute renal failure Status: Acute (2) Hyponatremia Status: Acute (3) Alcohol withdrawal Status: Acute (4) Alcohol abuse Status: Acute (5) Fall at home Status: Acute (6) Hypertension Status: Chronic (7) Hyperlipidemia Status: Chronic (8) Back pain Status: Acute (9) Hypothyroidism Status: Acute (10) Hypertriglyceridemia Status: Acute <Jacqueline Hilliard - 12/18/17 09:18> (1) Acute renal failure Status: Acute (2) Hyponatremia Status: Acute (3) Alcohol withdrawal Status: Acute (4) Alcohol abuse Status: Acute (5) Fall at home Status: Acute (6) Hypertension Status: Chronic (7) Hyperlipidemia Status: Chronic (8) Back pain Status: Acute (9) Hypothyroidism Status: Acute (10) Hypertriglyceridemia Status: Acute <Patrick Rios - 12/18/17 18:40> Discharge Plan - Patient Discharge Instructions ACTIVITY: Continue current activity <Jacqueline Hilliard - 12/18/17 11:01> DIET: low fat, low cholesterol, other (NO ALCOHOL) <Jacqueline Hilliard - 12/18/17 11:01> Additional Instructions: NO ALCOHOL <Patrick Rios - 12/18/17 18:40> Patient Instructions: Acute Renal Failure, DI for Alcohol Abuse, DI for Hyponatremia <Patrick Rios - 12/18/17 18:40> Forms: <Patrick Rios - 12/18/17 18:40> - Follow up Plan Follow up with: Patrick Rios MD [Primary Care Provider] - < Patrick Rios - 12/18/17 18:40> Disposition: Home, Self-Care <Patrick Rios - 12/18/17 18:40> Home Medications: Home Medications Medication Instructions Recorded Confirmed Type ALPRAZolam [Xanax 0.5mg tab] 0.5 mg PO BIDP PRN 12/17/17 12/17/17 History Allopurinol [Allopurinol 100mg 100 mg PO DAILY 12/17/17 12/17/17 History tablet] Cetirizine HCl [Zyrtec] 10 mg PO DAILY 12/17/17 12/17/17 History Citalopram Hydrobromide [Celexa] 20 mg PO DAILY 12/17/17 12/17/17 History Gabapentin [Gabapentin 300mg Cap] 300 mg PO TID 12/17/17 12/17/17 History Gemfibrozil 600 mg PO DAILY 12/17/17 12/17/17 History Levothyroxine Sodium 112 mcg PO DAILY 12/17/17 12/17/17 History [Levothyroxine 112mcg (0.112mg) Tab] Lisinopril [Lisinopril 20mg Tab] 20 mg PO DAILY 12/17/17 12/17/17 History Mometasone Furoate [Nasonex] 2 sprays NS DAILY 12/17/17 12/17/17 History Potassium Chloride [Klor-Con 10mEq 10 meq PO DAILY 12/17/17 12/17/17 History tab] <Patrick Rios - 12/18/17 18:40> Prescriptions/Medication Reconciliation: Continue Levothyroxine Sodium [Levothyroxine 112mcg (0.112mg) Tab] 112 mcg PO DAILY Mometasone Furoate [Nasonex] 2 sprays NS DAILY Gemfibrozil 600 mg PO DAILY Citalopram Hydrobromide [Celexa] 20 mg PO DAILY Cetirizine HCl [Zyrtec] 10 mg PO DAILY ALPRAZolam [Xanax 0.5mg tab] 0.5 mg PO BIDP PRN PRN Reason: Anxiety Allopurinol [Allopurinol 100mg tablet] 100 mg PO DAILY Gabapentin [Gabapentin 300mg Cap] 300 mg PO TID Potassium Chloride [Klor-Con 10mEq tab] 10 meq PO DAILY Lisinopril [Lisinopril 20mg Tab] 20 mg PO DAILY <Patrick Rios - 12/18/17 18:40> - Additional Information Additional Information: Concur with plan for discharge as outlined above. She is strongly advised to avoid alcohol and is provided information on local AA meeting by our perinatal social worker. <Patrick Rios - 12/18/17 18:40>
== END 2017-12-18 09:20 | disposition home or self-care (01) ==
LOC: ER 16:59 → 2ND 16:59
PROVIDERS: ADMIT Family Medicine; ATTEND Family Medicine

== ENCOUNTER → 2018-08-04 08:48 | Outpatient (CLI) | payer MEDICAID, SELFPAY ==
--- NOTE | 2018-08-04 08:51 | MM_ITS ---
MM Dig screening mamm BI w/CAD ORDERING PHYSICIAN : Patrick Rios MD PATIENT AGE: 53 years GENDER: Female COMPARISON: We were awaiting outside studies from [facility] but study will be dictated at this time without such however there are [id number], [facility] 2011 INDICATION: ITS.REASON: Routine screening mammogram. No hormones. No new complaints. TECHNIQUE: Standard CC and MLO images were obtained. R2 CAD reviewed. FINDINGS: Dense slightly heterogeneous breast bilaterally decreases sensitivity of mammography. However no discrete or significant new areas of concern visualized either breast. However I would encourage a bilateral follow-up ongoing in one year. No dominant mass nor suspicious calcifications IMPRESSION: Dense breast pattern bilaterally-decreases sensitivity of mammography . however no discrete or unique new areas of concern identified . No discrete change since prior studies . Bilateral follow-up in one year recommended & would be encouraged/emphasized BI-RADS Category: 2 Benign Finding(s) RECOMMENDED FOLLOW-UP: 1YR 1 YEAR FOLLOW-UP (A letter has been sent to the patient regarding results of the study.)
== END ==
PROVIDERS: PCP Family Medicine; Visit Provider Family Medicine
DX: Z12.31 Encounter for screening mammogram for malignant neoplasm of breast (principal)
CPT/HCPCS: 77067

== ENCOUNTER → 2018-09-14 11:48 | Outpatient (CLI) | payer MEDICAID, SELFPAY ==
[2018-09-14 12:30] LABS: Basophils % 0.2 % (0.1-2.0); Eosinophils % 0.2 % (0.1-12.0); Hematocrit 43.6 % (37.0-47.0); Hemoglobin 14.7 g/dL (12.2-16.2); Lymphocytes # 1.1 K/mm3 (0.7-4.5); Lymphocytes % 13.5 % (10-50); Mean Corpuscular HGB Conc 33.8 g/dL (31.8-35.4); Mean Corpuscular Hemoglobin 31.6 pg (27.0-31.2); Mean Corpuscular Volume 93.4 fl (81-99); Mean Platelet Volume 7.5 fl (7.4-10.4); Monocytes # 0.5 K/mm3 (0.1-1.0); Monocytes % 5.9 % (1.7-9.3); Neutrophils # 6.4 K/mm3 (1.8-7.8); Neutrophils % 80.1 % (37.0-80.0); Platelet Count 171 K/mm3 (142-424); Red Blood Count 4.67 M/mm3 (4.20-5.40); Red Cell Distribution Width 14.8 % (11.5-17.5)
[2018-09-14 13:18] LABS: Alanine Aminotransferase 121 U/L (12-78); Albumin Level 4.7 gm/dL (3.4-5.0); Albumin/Globulin Ratio 1.3 (1.1-1.8); Alkaline Phosphatase 142 U/L (46-116); Anion Gap 13.5 mEq/L (5-15); Aspartate Amino Transferase 142 U/L (15-37); Bilirubin,Total 1.5 mg/dL (0.2-1.0); Blood Urea Nitrogen 26 mg/dL (7-18); Calcium 9.7 mg/dL (8.5-10.1); Carbon Dioxide 31 mmol/L (21.0-32.0); Chloride 90 mmol/L (98-107); Creatinine,Serum 1.03 mg/dL (0.55-1.02); Estimated Glomerular Filt Rate 56 ml/min (>60); GFR (African American) 68 ML/MIN (>60); Globulin 3.6 gm/dl (1.3-3.2); Glucose 119 mg/dL (74-106); Potassium 4.5 mmoL/L (3.5-5.1); Sodium 130 mmol/L (136-145); Thyroid Stimulating Hormone 1.54 uIU/ml (0.358-3.740); Total Protein,Serum 8.3 gm/dL (6.4-8.2)
[2018-09-16 13:53] LABS: Vitamin B12 465 pg/mL (232-1245)
[2018-09-16 13:54] LABS: Folate 9.5 ng/mL (>3.0)
[2018-09-18 06:19] LABS: Vitamin B1 117.9 nmol/L (66.5-200.0)
== END ==
PROVIDERS: Visit Provider Specialist
DX: G62.9 Polyneuropathy, unspecified (principal); M79.601 Pain in right arm; M79.602 Pain in left arm; M79.604 Pain in right leg; M79.605 Pain in left leg; R20.2 Paresthesia of skin
CPT/HCPCS: 36415; 80053; 82607; 82746; 84425; 84443; 85025

== ENCOUNTER → 2019-02-22 12:27 | Outpatient (POV) | payer OTHER, SELFPAY | PROVIDERS: Visit Provider Specialist | DX: M79.604 Pain in right leg (principal); M79.605 Pain in left leg; R20.2 Paresthesia of skin; M79.601 Pain in right arm; M79.602 Pain in left arm | CPT/HCPCS: 95886; 95911 ==

== ENCOUNTER → 2019-04-05 16:34 | Outpatient (CLI) | payer OTHER, SELFPAY ==
--- NOTE | 2019-04-05 16:45 | XR_ITS ---
PROCEDURE: XR RIBS LT MIN 3V W CXR1V CLINICAL INDICATION: LEFT RIB PAIN Posttraumatic pain, left lateral and posterior rib pain COMPARISON: CXR1VP XR chest portable from 12/16/2017 FINDINGS: A frontal view of the chest shows elevated right hemidiaphragm vascular crowding in the right lung base. Multiple views of the left ribs were obtained. No definite fracture or dislocation. There is a vague lucency through the left 6th rib anterior laterally seen only on one view and may be due to artifact. Consider follow-up in 7-[address] with 3D reformats if pain persists. IMPRESSION: No definite acute finding. Dictated by: Dav Hines MD 04/05/2019 17:50 Electronically signed by Dav Hines MD in [place] 04/05/2019 17:50
== END ==
PROVIDERS: PCP Family Medicine; Visit Provider Family Medicine
DX: R07.89 Other chest pain (principal)
CPT/HCPCS: 71101

== ENCOUNTER 2019-04-15 21:01 | Inpatient (IN) ==
[2019-04-15 21:45] LABS: Basophils % 0.2 % (0.1-2.0); Eosinophils # 0.1 K/mm3 (0.0-0.4); Eosinophils % 0.6 % (0.1-12.0); Hematocrit 38.6 % (37.0-47.0); Hemoglobin 12.2 g/dL (12.2-16.2); Lymphocytes # 1.4 K/mm3 (0.7-4.5); Mean Corpuscular HGB Conc 31.7 g/dL (31.8-35.4); Mean Corpuscular Volume 103.7 fl (81-99); Monocytes # 0.7 K/mm3 (0.1-1.0); Monocytes % 4.8 % (1.7-9.3); Neutrophils % 85.3 % (37.0-80.0); Platelet Count 256 K/mm3 (142-424); Red Blood Count 3.72 M/mm3 (4.20-5.40); Red Cell Distribution Width 15.4 % (11.5-17.5); White Blood Count 15.2 K/mm3 (4.8-10.8)
[2019-04-15 21:48] LABS: ABG Base Excess -2.4 mmol/L (-2.4-2.3); ABG HCO3 22.9 mmhg (22.0-26.0); ABG PCO2 40.5 mmhg (35.0-45.0); ABG PH 7.37 mmol/L (7.35-7.45); ABG PO2 103.2 mmhg (80-100); ABG TCO2 24.1 mmhg (23-27)
[2019-04-15 21:52] LABS: Allen's Test Non Applicable; Oxygen 3LPM %
[2019-04-15 22:04] LABS: Albumin Level 1.9 gm/dL (3.4-5.0); Albumin/Globulin Ratio 0.4 (1.1-1.8); Anion Gap 16.9 mEq/L (5-15); Bilirubin,Total 4.1 mg/dL (0.2-1.0); Calcium 6.6 mg/dL (8.5-10.1); Globulin 4.9 gm/dl (1.3-3.2); Total Protein,Serum 6.8 gm/dL (6.4-8.2)
[2019-04-15 22:06] LABS: Microscopic, Urine URINE MICROSCOPIC (MICROSCOPIC)
[2019-04-15 22:10] LABS: Appearance,Urine CLEAR (Clear); Bilirubin,Urine Negative (Negative); Blood, Urine Negative (Negative); Color,Urine YELLOW (Yellow); Glucose,Urine (UA) Negative (Negative); Ketones,Urine Negative (Negative); Leukocyte Esterase,Urine Negative (Negative); Protein,Urine Negative (Negative); Specific Gravity, Urine <= 1.005 (1.005-1.030); Urobilinogen,Urine 0.2 EU/dl (0.2)
[2019-04-15 22:19] LABS: Amphetamine/Metha Screen,Urine Negative ng/mL (<1000); Barbiturates Screen,Urine Negative ng/mL (<200); Benzodiazepines Screen,Urine Positive ng/mL (<200); Cannabinoid Screen,Urine Negative ng/mL (<50); Cocaine Screen,Urine Negative ng/mL (<300); Methadone Screen,Urine Negative ng/mL (<300); Opiate Screen,Urine Negative ng/mL (<300); Phencyclidine Screen,Urine Negative ng/mL (<25)
[2019-04-15 22:21] LABS: Anisocytosis 1+; Lymphocytes % 9 % (10-50); Macrocytosis 1+; Monocytes % 4 % (2-9); Neutrophils % 87 % (42-76); Total Cells Counted 100
--- NOTE | 2019-04-15 22:28 | Emergency Department Note ---
ED Disposition Clinical Impression: Severe sepsis with acute organ dysfunction Cirrhosis of liver with ascites Qualifiers: Hepatic cirrhosis type: alcoholic cirrhosis Qualified Code(s): K70.31 - Alcoholic cirrhosis of liver with ascites Hypothyroidism Qualifiers: Hypothyroidism type: acquired Qualified Code(s): E03.9 - Hypothyroidism, unspecified Community acquired pneumonia Qualifiers: Laterality: unspecified laterality Qualified Code(s): J18.9 - Pneumonia, unspecified organism Disposition: Admitted As Inpatient Condition on Discharge: Fair - Critical Care Critical Care Time: No Attestation: On 04/15/19, the high probability of a clinically significant, sudden or life threatening deterioration of the following system(s) required my full and direct attention, intervention and personal management. The time I documented below is in addition to time spent performing reported procedures but includes the following listed in this critical care notation. Medical Decision Making - Medical Records Medical records reviewed: Yes: I reviewed the patient's medical records. - Pal Inquiry Pt receiving controlled substance: No Vital Signs: 04/15/19 21:16 04/15/19 21:36 Temperature 99.2 F Temperature Source Oral Pulse Rate 107 H Pulse Rate [Right] 116 H Respiratory Rate 22 Blood Pressure [Right Arm] 142/83 H Blood Pressure Mean [Right Arm] 102 Blood Pressure Source [Right Arm] Automatic Cuff Blood Pressure Position [Right Arm] Supine 02 Sat by Pulse Oximetry 91 L Oxygen Delivery Method Room Air - Lab Data Lab results reviewed: Yes: I reviewed the patient's lab results. Lab Results 04/15/19 00:00: TSH 2.22 D, Thyroxine (T4) 9.3 04/15/19 21:30: PT 15.0 H, INR 1.47 H 04/15/19 21:33: WBC 15.2 H, RBC 3.72 L, Hgb 12.2, Hct 38.6, MCV 103.7 H, MCH 32.8 H, MCHC 31.7 L, RDW 15.4, Plt Count 256, MPV 9.0, Neut % (Auto) 85.3 H, Lymph % (Auto) 9.0 L, [place] % (Auto) 4.8, Eos % (Auto) 0.6, Baso % (Auto) 0.2, Neut # (Auto) 13.0 H, Lymph # (Auto) 1.4, [place] # (Auto) 0.7, Eos # (Auto) 0.1, Baso # (Auto) 0.0, Total Counted 100, Neutrophils % (Manual) 87 H, Lymphocytes % (Manual) 9 L, Monocytes % (Manual) 4, Platelet Estimate Normal, RBC Morphology Not Reportable, Anisocytosis 1+, Macrocytosis 1+ 04/15/19 21:33: Sodium 125 L, Potassium 3.9, Chloride 90 L, Carbon Dioxide 22, Anion Gap 16.9 H, BUN 5 L, Creatinine 0.78, Estimated Creat Clear 89, Estimated GFR 77, Est GFR ( Amer) 93, Glucose 97, Calcium 6.6 L, Total Bilirubin 4.1 H, AST 79 H, ALT 21, Alkaline Phosphatase 294 H, Total Protein 6.8, Albumin 1.9 L, Globulin 4.9 H, Albumin/Globulin Ratio 0.4 L, Amylase 5 L, Lipase 68 L, Plasma/Serum Alcohol 50 04/15/19 21:33: Lactate 2.1 H 04/15/19 21:33: APTT 38.6 H D 04/15/19 21:33: Troponin I < 0.02 04/15/19 21:45: Specimen Source Right brachial, O2 % 3lpm, ABG pH 7.37, ABG pCO2 40.5, ABG pO2 103.2 H, ABG HCO3 22.9, ABG Total CO2 24.1, ABG Base Excess -2.4, Dav Test Non applicable 04/15/19 21:49: Influenza Type A Ag Negative, Influenza Type B Ag Negative 04/15/19 21:49: Group A Strep Rapid Negative 04/15/19 22:01: Urine Color Yellow, Urine Appearance Clear, Urine pH 6.0, Ur Specific Laie <= 1.005, Urine Protein Negative, Urine Glucose (UA) Negative, Urine Ketones Negative, Urine Blood Negative, Urine Nitrate Negative, Urine Bilirubin Negative, Urine Urobilinogen 0.2, Ur Leukocyte Esterase Negative, Urine WBC Occasional, Ur Squamous Epith Cells Occasional 04/15/19 22:01: Urine Opiates Screen Negative, Urine Methadone Screen Negative, Ur Barbituates Screen Negative, Ur Phencyclidine Scrn Negative, Ur Amphetamines Screen Negative, U Benzodiazepines Scrn Positive H, Urine Cocaine Screen Negative, U Marijuana (THC) Screen Negative 04/15/19 22:37: Ammonia 32 Result diagrams: 04/15/19 21:33 04/15/19 21:33 Orders (Tests/Meds): ED MEDICATIONS Generic Name Dose Route Start Last Admin Trade Name Freq PRN Reason Stop Dose Admin Azithromycin 500 mg/ Sodium 250 mls @ 250 mls/hr 04/15/19 23:30 04/15/19 23:57 Chloride IV 04/29/19 23:29 250 mls/hr Q24H TERE Administration Protocol Ceftriaxone Sodium 1 gm/ 50 mls @ 100 mls/hr 04/15/19 23:30 04/15/19 23:43 Sodium Chloride IV 04/29/19 23:29 100 mls/hr Q24H TERE Administration Protocol Discontinued Medications Generic Name Dose Route Start Last Admin Trade Name Freq PRN Reason Stop Dose Admin Albuterol/Ipratropium 3 ml 04/15/19 21:28 04/15/19 21:34 Duoneb 3ml Neb IH 04/15/19 21:29 3 ml ONCE ONE Administration Ioversol 75 ml 04/16/19 00:00 04/15/19 22:30 Rad-Optiray 350 100ml Vial IV 04/16/19 00:01 75 ml ONCE ONE Administration Protocol Methylprednisolone Sodium Succinate 125 mg 04/15/19 21:28 04/15/19 22:08 Solu-Medrol 125mg/2ml Vial IV 04/15/19 21:29 125 mg ONCE ONE Administration Sodium Chloride 10 ml 04/16/19 00:00 04/15/19 22:30 Rad-Saline Flush 10ml Syringe IV 04/16/19 00:01 10 ml ONCE ONE Administration ORDERS Category Date Time Status CT abdomen pelvis w con Stat Cat Scan 04/15/19 21:28 Taken XR chest AP Stat Exams 04/15/19 21:28 Taken Hepatitis Panel (4) Stat Lab 04/15/19 22:37 Received Troponin I Q3H Lab 04/16/19 02:30 Ordered Troponin I Q3H Lab 04/16/19 05:30 Ordered Blood Culture Stat Micro 04/15/19 21:33 Received Strep Screen Confirmation Stat Micro 04/15/19 21:49 Received ABG [Arterial Blood Gas] Stat RT 04/15/19 21:28 Ordered Arterial Blood Gas Routine RT 04/15/19 21:45 Results - Radiology Data #1 Image(s): Chest Image Reviewed: Yes I reviewed the patient's radiology image Preliminary Findings: Abnormal (bilat inflitrates ) - CT Data CT Scan: Abdomen, Pelvis Time Received: 00:[address] Reviewed: Yes: I have viewed the radiologist's interpretation Preliminary Findings: Abnormal (ascites ) - ECG Data Tracing #1 Arrhythmias present: sinus tach Ischemic changes: non-specific ST-T wave changes - Physician Consults Physician Consulted: chato Reason -: Admission - TATIANA Score for Non-Stemi Age of Patient: 50-59 years old Heart Rate: 110-149 bpm Systolic Blood Pressure: 140-159 mmHg Serum Creatinine: 0.40-0.79 mg/dl CHF [place] Class: I-No CHF Other Risk Factors: None Non-Stemi Risk Score: 93 Resp/SOB HPI - General Chief Complaint: Shortness of Breath/Dyspnea Stated Complaint: SOB,Fluid,Cough Time Seen by Provider: 04/15/19 21:30 Mode of Arrival: Wheelchair Source of Information: Patient, Medical Record Limitations: No Limitations Description of Symptoms (Recalled from ER Triage Doc. by RN): Pt c/o SOA since yest. states she has fluid build up for 2 weeks - History of Present Illness progressive abd swelling and sob over the last 2 weeks with leg edema and has hx of etoh use and cirrhosis MD Complaint: shortness of breath, cough Onset (ago): day(s) Severity: moderate Known history of: other (liver disease ) Associated symptoms: denies other symptoms Treatment prior to arrival: none - Related Data Home oxygen amount: none Home Medications Medication Instructions Recorded Confirmed ALPRAZolam [Xanax 0.5mg tab] 0.5 mg PO BIDP PRN 12/17/17 04/15/19 Gemfibrozil 600 mg PO DAILY 12/17/17 04/15/19 Levothyroxine Sodium 112 mcg PO DAILY 12/17/17 04/15/19 [Levothyroxine 112mcg (0.112mg) Tab] Potassium Chloride [Klor-Con 10mEq 10 meq PO DAILY 12/17/17 04/15/19 tab] lisinopriL [Lisinopril 20mg Tab] 20 mg PO DAILY 12/17/17 04/15/19 albuterol sulfate 90 mcg/actuation 1 inh INHALATION Q4-6H PRN 10/03/18 04/15/19 breath activated powder inhaler ropinirole 1 mg tablet 1 mg PO DAILY #30 tab 10/03/18 04/15/19 Thiamine HCl [Vitamin B-1] 100 mg PO DAILY 11/09/18 04/15/19 fluoxetine 20 mg capsule 20 mg PO DAILY #30 cap 03/08/19 04/15/19 gabapentin 400 mg capsule 400 mg PO TID #90 cap 03/08/19 04/15/19 omeprazole 20 mg capsule,delayed 20 mg PO DAILY #30 cap 03/08/19 04/15/19 release ranitidine 300 mg tablet 300 mg PO QHS #30 tab 03/08/19 04/15/19 Allergies Allergy/AdvReac Type Severity Reaction Status Date / Time No Known Allergies Allergy Verified 03/08/19 11:32 [facility] History - Hepatitis A Screen Drug use history?: No High risk sexual behaviors?: No History of sexually transmitted infection?: No Currently employed?: No Childcare worker?: No Do you have indoor plumbing?: Yes Do you have electricity?: Yes Attestation statement:: This patient has been screened for Hepatitis A risk factors. I have reviewed the patient's past medical history: Yes Medical History: Reports:: Anxiety, Depression, Hyperlipidemia, Hypertension, Seizures Denies:: Cancer, Diabetes Mellitus Type 1, Diabetes Mellitus Type 2, Internal Pacemaker, Lung Disease, MRSA Other Medical History: Reports: Hypothyroidism, Thyroid Disease Comment: ETOH abuse, Alcoholic pancreatitis, Alcoholic hepatitis Other Surgeries: Yes: Cardiac Catheterization, Cholecystectomy, , Tubal Ligation. No: Pacemaker Amputation: No Fractures: No - Social History Smoking Status: Current every day smoker Tobacco Type: cigarettes # Packs/Day (cigarettes): 1 Alcohol Intake: current Alcohol Intake Frequency:: a few times a week Occupational Status: employed Housing: house Household Members: none - Psychiatric History Pschychiatric History:: Reports:: Anxiety, Depression Family Hx:: Diabetes, Hypertension, Stroke ROS Obtained: Yes All systems reviewed & no additional complaints - Constitutional Constitutional: Denies fever(s) - Eyes Eyes: Denies change in vision - ENT Ears, Nose, Mouth, and Throat: Denies sore throat - Cardiovascular Cardiovascular: Denies chest pain - Respiratory Respiratory: Yes as per HPI, Yes cough, Yes non-productive cough, No coughing up blood - Gastrointestinal Gastrointestingal: Reports: as per HPI, abdominal pain. Denies: black, tarry stools, vomiting - Genitourinary Female Genitourinary: Denies hematuria, Denies pelvic pain - Musculoskeletal Musculoskeletal: Denies joint pain, Denies joint swelling, Denies limited range of motion - Integumentary/Breasts Skin/Breast: Denies rash - Neurologic Neurologic: Reports as per HPI, Denies focal weakness, Denies seizure-like activity Physical Exam - General General appearance: alert - Head Head exam: normocephalic - Eye Eye exam: Present: PERRL, EOMI. Absent: scleral icterus - ENT ENT exam: Present: mucous membranes dry - Neck Neck exam: Present: trachea midline - Respiratory Respiratory exam: Present: other (dec bs bilat ). Absent: respiratory distress - Cardiovascular Cardiovascular exam: Present: regular rate, systolic murmur, +S4. Absent: rubs - Abdominal Exam Abdominal exam: Present: soft, ascites. Absent: guarding, rebound, rigidity Abdominal tenderness: Present: moderate - Extremities Exam Extremities exam: Present: pedal edema. Absent: calf tenderness - Neurological Exam Neurological exam: Present: alert, oriented X3, CN II-XII intact - Psychiatric Psychiatric exam: Present: normal affect - Skin Skin exam: Absent: rash
[2019-04-15 22:33] LABS: Squamous Epithelial Cell,Urine Occasional #/hpf (0-5); WBC,Urine Occasional #/hpf (0-3)
[2019-04-16 00:06] LABS: INR 1.47 (0.9-1.1)
[2019-04-16 00:35] LABS: Thyroid Stimulating Hormone 2.22 uIU/ml (0.358-3.740)
--- NOTE | 2019-04-16 07:26 | Pharmacy Consult Notes ---
[facility] Pharmacy VTE Monitoring - Patient Demographics Admission date: 04/15/19 Report Date: 04/16/19 Time: 07:26 Allergies/Adverse Reactions: Patient Allergies No Known Allergies Allergy (Verified 03/08/19 11:32) Height: 1.55 m Weight: 69.144 kg Patient Problems: Current Active Problems Hypothyroidism (Acute) Cirrhosis of liver with ascites (Acute) Severe sepsis with acute organ dysfunction (Acute) Community acquired pneumonia (Acute) - VTE Risk Labs: VTE Related Lab Results Hgb 12.2 g/dL (12.2-16.2) 04/15/19 21:33 Hct 38.6 % (37.0-47.0) 04/15/19 21:33 Plt Count 256 K/mm3 (142-424) 04/15/19 21:33 PT 15.0 seconds (9.4-11.8) H 04/15/19 21:30 INR 1.47 (0.9-1.1) H 04/15/19 21:30 APTT 38.6 seconds (23.6-34.0) H D 04/15/19 21:33 BUN 5 mg/dL (7-18) L 04/15/19 21:33 Creatinine 0.78 mg/dL (0.55-1.02) 04/15/19 21:33 Estimated Creat Clear 89 mL/min (50-200) 04/15/19 21:33 Was VTE Risk Assessment Performed: Yes VTE Score: 2 - Prophylaxis VTE Prophylaxis Ordered?: Yes Types of VTE Prophylaxis: TEDS Knee High Location of Applied Device: Bilateral Lower Extremeties - VTE Diagnosis Confirmed Treatment or plan recommended: Continue Current Treatment
--- NOTE | 2019-04-16 08:44 | History & Physical Report ---
*Admission Date: 04/15/19 <Jacqueline Hilliard 04/16/19 08:55> *Chief complaint: shortness of breath, swelling <Jacqueline Hilliard 04/16/19 08:55> *History of present illness: Ms. Quinones is a 53-year-old female with a history of hypertension, hyperlipidemia, alcohol abuse, alcoholic hepatitis, alcoholic pancreatitis, cirrhosis, and hypothyroidism. She states she fell at work a few weeks ago injuring her back. She was seen in the office on 04/05/2019 and had an x-ray of the ribs which showed no fracture. She states she went back to work, but had significant pain. She then started developing some swelling in her abdomen. This progressively got worse. Yesterday she started coughing and began getting short of breath. She also began having some diarrhea. She presented to the emergency room for evaluation and treatment and was found to have a pneumonia and cirrhosis with a moderate amount of ascites. She was admitted for further evaluation and treatment. <Jacqueline Hilliard 04/16/19 08:55> [facility] History I have reviewed the patient's past medical history: Yes <Jacqueline Hilliard 04/16/19 08:55> Medical History: Reports:: Anxiety, Depression, Hyperlipidemia, Hypertension, Seizures Denies:: Cancer, Diabetes Mellitus Type 1, Diabetes Mellitus Type 2, Internal Pacemaker, Lung Disease, MRSA <Jacqueline Hilliard 04/16/19 08:55> *Have you ever received a pneumonia vaccine?: Yes <Jacqueline Hilliard 04/16/19 08:55> *Have you received a flu vaccine this season?: Yes <Jacqueline Hilliard 04/16/19 08:55> Other Medical History: Reports: Arthritis, Hypothyroidism, Thyroid Disease, Other (ETOH abuse, Alcoholic pancreatitis, alcoholic hepatitis, Cirrhosis) <Jacqueline Hilliard 04/16/19 08:55> Other Surgeries: Yes: Cardiac Catheterization, Cholecystectomy, Colonoscopy, C- section, Tubal Ligation. No: Pacemaker <Jacqueline Hilliard 04/16/19 08:55> Amputation: No <Jacqueline Hilliard 04/16/19 08:55> Fractures: No <Jacqueline Hilliard 04/16/19 08:55> - *Social History Educational Level: Attended College <Jacqueline Hilliard - 04/16/19 08:55> Smoking Status: Light tobacco smoker [facility] 08[facility]> Tobacco Type: cigarettes <[facility] 04/16/19 08:55> # Packs/Day (cigarettes): 1 <[facility] 04/16/19 08:55> Alcohol Intake: current <[facility] 04/16/19 08:55> Alcohol Intake Frequency:: 3 or more drinks per day <[facility] 04/16/19 08:55> Substance Use Type: crack/cocaine <[facility] 04/16/19 08:55> *Occupational Status:: employed <[facility] 04/16/19 08:55> [facility]: [facility]> Household Members: none <[facility] 04/16/19 08:55> *Travel in the last 8 weeks: None <[facility] 04/16/19 08:55> - Psychiatric History Pschychiatric History:: Reports:: Anxiety, Depression <[facility] 04/16/19 08:55> Family Hx:: Cancer, Diabetes, Hypertension, Stroke <[facility] 04/16/19 08:55> Review of Systems - Constitutional Reports weakness, Denies fever(s), Denies headache(s) [facility] 08[facility]55> - Eyes Denies blurry vision, Denies double vision <[facility] 04/16/19 08:55> - ENT Denies nasal congestion, Denies sore throat <[facility] 04/16/19 08:55> - *Cardiovascular Reports shortness of breath, Reports leg swelling, Denies chest pain <[facility] 04/16/19 08:55> - *Respiratory Reports chest congestion, Reports cough, Reports shortness of breath <[facility] 04/16/19 08:55> - *Gastrointestinal Reports loose stools, Denies abdominal pain, Denies nausea, Denies vomiting <[facility] 04/16/19 08:55> - *Genitourinary Denies difficulty urinating, Denies painful urination <Jacqueline Hilliard - 04/16/19 08:55> - *Musculoskeletal Reports back pain, Denies joint pain <Jacqueline Hilliard - 04/16/19 08:55> - *Neurologic Reports weakness, Denies localized weakness, Denies headache(s), Denies seizure- like activity, Denies dizziness <Jacqueline Hilliard - 04/16/19 08:55> Meds Home Medications Medication Instructions Recorded Confirmed Type ALPRAZolam [Xanax 0.5mg tab] 0.5 mg PO TIDP PRN 12/17/17 04/16/19 History Levothyroxine Sodium 112 mcg PO DAILY 12/17/17 04/16/19 History [Levothyroxine 112mcg (0.112mg) Tab] lisinopriL [Lisinopril 20mg Tab] 20 mg PO DAILY 12/17/17 04/16/19 History albuterol sulfate 90 mcg/actuation 2 puffs INHALATION Q4HP PRN 10/03/18 04/16/19 History breath activated powder inhaler ropinirole 1 mg tablet 1 mg PO HS #30 tab 10/03/18 04/16/19 History Thiamine HCl [Vitamin B-1] 100 mg PO DAILY 11/09/18 04/16/19 History fluoxetine 20 mg capsule 20 mg PO HS #30 cap 03/08/19 04/16/19 History gabapentin 400 mg capsule 400 mg PO TID #90 cap 03/08/19 04/16/19 History omeprazole 20 mg capsule,delayed 20 mg PO DAILY #30 cap 03/08/19 04/16/19 History release ranitidine 300 mg tablet 300 mg PO HS #30 tab 03/08/19 04/16/19 History Gemfibrozil 600 mg PO DAILY 04/16/19 04/16/19 History <Patrick Rios - 04/17/19 09:38> Allergies Allergy/AdvReac Type Severity Reaction Status Date / Time No Known Allergies Allergy Verified 03/08/19 11:32 <Patrick Rios - 04/17/19 09:38> Exam Vital signs and Labs for Last 24 Hours: Temp Pulse Resp BP Pulse Ox 97.9 F 111 H 20 123/68 91 L 04/16/19 08:00 04/16/19 08:00 04/16/19 08:00 04/16/19 08:00 04/16/19 08:00 Laboratory Results - last 24 hr 04/15/19 00:00: TSH 2.22 D, Thyroxine (T4) 9.3 04/15/19 21:30: PT 15.0 H, INR 1.47 H 04/15/19 21:33: WBC 15.2 H, RBC 3.72 L, Hgb 12.2, Hct 38.6, MCV 103.7 H, MCH 32.8 H, MCHC 31.7 L, RDW 15.4, Plt Count 256, MPV 9.0, Neut % (Auto) 85.3 H, Lymph % (Auto) 9.0 L, Yell % (Auto) 4.8, Eos % (Auto) 0.6, Baso % (Auto) 0.2, Neut # (Auto) 13.0 H, Lymph # (Auto) 1.4, Yell # (Auto) 0.7, Eos # (Auto) 0.1, Baso # (Auto) 0.0, Total Counted 100, Neutrophils % (Manual) 87 H, Lymphocytes % (Manual) 9 L, Monocytes % (Manual) 4, Platelet Estimate Normal, RBC Morphology Not Reportable, Anisocytosis 1+, Macrocytosis 1+ 04/15/19 21:33: Sodium 125 L, Potassium 3.9, Chloride 90 L, Carbon Dioxide 22, Anion Gap 16.9 H, BUN 5 L, Creatinine 0.78, Estimated Creat Clear 89, Estimated GFR 77, Est GFR ( Amer) 93, Glucose 97, Calcium 6.6 L, Total Bilirubin 4.1 H, AST 79 H, ALT 21, Alkaline Phosphatase 294 H, Total Protein 6.8, Albumin 1.9 L, Globulin 4.9 H, Albumin/Globulin Ratio 0.4 L, Amylase 5 L, Lipase 68 L, Plasma/Serum Alcohol 50 04/15/19 21:33: Lactate 2.1 H 04/15/19 21:33: APTT 38.6 H D 04/15/19 21:33: Troponin I < 0.02 04/15/19 21:45: Specimen Source Right brachial, O2 % 3lpm, ABG pH 7.37, ABG pCO2 40.5, ABG pO2 103.2 H, ABG HCO3 22.9, ABG Total CO2 24.1, ABG Base Excess -2.4, Dav Test Non applicable 04/15/19 21:49: Influenza Type A Ag Negative, Influenza Type B Ag Negative 04/15/19 21:49: Group A Strep Rapid Negative 04/15/19 22:01: Urine Color Yellow, Urine Appearance Clear, Urine pH 6.0, Ur Specific [place] <= 1.005, Urine Protein Negative, Urine Glucose (UA) Negative, Urine Ketones Negative, Urine Blood Negative, Urine Nitrate Negative, Urine Bilirubin Negative, Urine Urobilinogen 0.2, Ur Leukocyte Esterase Negative, Urine WBC Occasional, Ur Squamous Epith Cells Occasional 04/15/19 22:01: Urine Opiates Screen Negative, Urine Methadone Screen Negative, Ur Barbituates Screen Negative, Ur Phencyclidine Scrn Negative, Ur Amphetamines Screen Negative, U Benzodiazepines Scrn Positive H, Urine Cocaine Screen Negative, U Marijuana (THC) Screen Negative 04/15/19 22:37: Ammonia 32 04/16/19 02:16: Troponin I < 0.02 04/16/19 02:16: Lactate 1.7 04/16/19 05:44: Troponin I < 0.02 04/16/19 09:45: Stl Aeromonas (PCR) Not detected, Stl C. cayetanensis PCR Not detected, Stool Rotavirus (PCR) Not detected, Stl Adenov F 40/41 PCR Not detected, Stool Astrovirus (PCR) Not detected, Stool Campylobacter PCR Not detected, Stl C.difficile Tox PCR Not detected, Stool Cryptosporidium PCR Not detected, Stl E.coli Shiga Tox PCR Not detected, Stool E coli O157 PCR Not detected, Stl Enterotoxigenic E PCR Not detected, Stool EPEC (PCR) Not detected, Stool EAEC (PCR) Not detected, Stl E. histolytica PCR Not detected, Stool Giardia Lamblia PCR Not detected, Stool Salmonella PCR Not detected, Stool Sapovirus (PCR) Not detected, Stl P. shigelloides PCR Not detected, Stl Shigella/EIEC PCR Not detected, St Y.enterocolitica PCR Not detected, Stool Vibrio (PCR) Not detected, Stl Vibrio cholerae PCR Not detected, Stl Norovirus GI/GII PCR Not detected 04/16/19 12:07: Fluid RBC (Auto) < 10, Fld Tot Nucleated Cell 64 <Patrick Rios - 04/17/19 09:38> Temp Pulse Resp BP Pulse Ox 98.0 F 116 H 20 140/82 93 L 04/16/19 04:00 04/16/19 04:00 04/16/19 04:00 04/16/19 04:00 04/16/19 04:00 Laboratory Results - last 24 hr 04/15/19 00:00: TSH 2.22 D, Thyroxine (T4) 9.3 04/15/19 21:30: PT 15.0 H, INR 1.47 H 04/15/19 21:33: WBC 15.2 H, RBC 3.72 L, Hgb 12.2, Hct 38.6, MCV 103.7 H, MCH 32.8 H, MCHC 31.7 L, RDW 15.4, Plt Count 256, MPV 9.0, Neut % (Auto) 85.3 H, Lymph % (Auto) 9.0 L, Yell % (Auto) 4.8, Eos % (Auto) 0.6, Baso % (Auto) 0.2, Neut # (Auto) 13.0 H, Lymph # (Auto) 1.4, Yell # (Auto) 0.7, Eos # (Auto) 0.1, Baso # (Auto) 0.0, Total Counted 100, Neutrophils % (Manual) 87 H, Lymphocytes % (Manual) 9 L, Monocytes % (Manual) 4, Platelet Estimate Normal, RBC Morphology Not Reportable, Anisocytosis 1+, Macrocytosis 1+ 04/15/19 21:33: Sodium 125 L, Potassium 3.9, Chloride 90 L, Carbon Dioxide 22, Anion Gap 16.9 H, BUN 5 L, Creatinine 0.78, Estimated Creat Clear 89, Estimated GFR 77, Est GFR ( Amer) 93, Glucose 97, Calcium 6.6 L, Total Bilirubin 4.1 H, AST 79 H, ALT 21, Alkaline Phosphatase 294 H, Total Protein 6.8, Albumin 1.9 L, Globulin 4.9 H, Albumin/Globulin Ratio 0.4 L, Amylase 5 L, Lipase 68 L, Plasma/Serum Alcohol 50 04/15/19 21:33: Lactate 2.1 H 04/15/19 21:33: APTT 38.6 H D 04/15/19 21:33: Troponin I < 0.02 04/15/19 21:45: Specimen Source Right brachial, O2 % 3lpm, ABG pH 7.37, ABG pCO2 40.5, ABG pO2 103.2 H, ABG HCO3 22.9, ABG Total CO2 24.1, ABG Base Excess -2.4, Dav Test Non applicable 04/15/19 21:49: Influenza Type A Ag Negative, Influenza Type B Ag Negative 04/15/19 21:49: Group A Strep Rapid Negative 04/15/19 22:01: Urine Color Yellow, Urine Appearance Clear, Urine pH 6.0, Ur Specific [place] <= 1.005, Urine Protein Negative, Urine Glucose (UA) Negative, Urine Ketones Negative, Urine Blood Negative, Urine Nitrate Negative, Urine Bilirubin Negative, Urine Urobilinogen 0.2, Ur Leukocyte Esterase Negative, Urine WBC Occasional, Ur Squamous Epith Cells Occasional 04/15/19 22:01: Urine Opiates Screen Negative, Urine Methadone Screen Negative, Ur Barbituates Screen Negative, Ur Phencyclidine Scrn Negative, Ur Amphetamines Screen Negative, U Benzodiazepines Scrn Positive H, Urine Cocaine Screen Negative, U Marijuana (THC) Screen Negative 04/15/19 22:37: Ammonia 32 04/16/19 02:16: Troponin I < 0.02 04/16/19 02:16: Lactate 1.7 04/16/19 05:44: Troponin I < 0.02 <Jacqueline Hilliard - 04/16/19 08:55> I & O for Last 24 hours: Intake & Output 04/14/19 04/15/19 04/16/19 04/17/19 11:59 11:59 11:59 11:59 Intake Total 40 / 40 Output Total 1300 / 1300 Balance -1260 / -1260 Weight 152 lb 7 oz <Patrick Rios - 04/17/19 09:38> Intake & Output 04/13/19 04/14/19 04/15/19 04/16/19 11:59 11:59 11:59 11:59 Intake Total 40 / 40 Output Total 1300 / 1300 Balance -1260 / -1260 Weight 152 lb 7 oz <Jacqueline Hilliard - 04/16/19 08:55> - Constitutional no acute distress <Jacqueline Hilliard 04/16/19 08:55> - *Routine Respiratory Exam Present: decreased breath sounds, wheezes <Jacqueline Hilliard 04/16/19 08:55> - *Routine Cardiovascular Exam Present: RRR <Caleb Hilliarda 04/16/19 08:55> - *Routine Abdominal Exam Present: soft, normoactive bowel sounds, distended. Absent: tenderness [facility] 04/16/[facility] 08:55> - *Routine Extremities Exam Present: edema (bilateral LE's). Absent: cyanosis, clubbing [facility] 04/16/19 08:55> - *Routine Skin Exam Present: warm. Absent: rash [facility] 04/16/19 08:55> - *Routine Neurological Exam Present: alert, oriented X3 <[facility] 04/16/19 08:55> H&P: Result - Impressions CXR - Diffuse bilateral alveolar disease which may be due to pulmonary edema or pneumonia. Abdominal CT 1. Cirrhosis with moderate amount diffuse ascites and splenomegaly. 2. Bilateral lower lobe pneumonia with trace bilateral effusions. 3. Mild diffuse thickening of the colon which may be seen with cirrhosis. Colitis is also considered. <Jacqueline Hilliard 04/16/19 08:55> Assessment and Plan (1) Community acquired pneumonia Current visit: Yes Status: Acute Qualifiers: Laterality: unspecified laterality Qualified Code(s): J18.9 - Pneumonia, unspecified organism Category: Medical Code(s): J18.9 - Pneumonia, unspecified organism (2) Diarrhea Current visit: Yes Status: Acute Category: Medical Code(s): R19.7 - Diarrhea, unspecified (3) Cirrhosis of liver with ascites Current visit: Yes Status: Chronic Qualifiers: Hepatic cirrhosis type: alcoholic cirrhosis Qualified Code(s): K70.31 - Alcoholic cirrhosis of liver with ascites Category: Medical Code(s): K74.60 - Unspecified cirrhosis of liver; R18.8 - Other ascites (4) Back pain Current visit: No Status: Acute Category: Medical Code(s): M54.9 - Dorsalgia, unspecified (5) Hyponatremia Current visit: No Status: Acute Category: Medical Code(s): E87.1 - Hypo- osmolality and hyponatremia (6) Hypothyroidism Current visit: Yes Status: Chronic Qualifiers: Hypothyroidism type: acquired Qualified Code(s): E03.9 - Hypothyroidism, unspecified Category: Medical Code(s): E03.9 - Hypothyroidism, unspecified (7) Alcohol abuse Current visit: No Status: Chronic Category: Medical Code(s): F10.10 - Alcohol abuse, uncomplicated (8) Hyperlipidemia Current visit: No Status: Chronic Category: Medical Code(s): E78.5 - Hyperlipidemia, unspecified (9) Hypertension Current visit: No Status: Chronic Category: Medical Code(s): I10 - Essential (primary) hypertension <Jacqueline Hilliard - 04/16/19 08:41> (1) Community acquired pneumonia Current visit: Yes Status: Acute Qualifiers: Laterality: unspecified laterality Qualified Code(s): J18.9 - Pneumonia, unspecified organism Category: Medical Code(s): J18.9 - Pneumonia, unspecified organism (2) Diarrhea Current visit: Yes Status: Acute Category: Medical Code(s): R19.7 - Diarrhea, unspecified (3) Cirrhosis of liver with ascites Current visit: Yes Status: Chronic Qualifiers: Hepatic cirrhosis type: alcoholic cirrhosis Qualified Code(s): K70.31 - Alcoholic cirrhosis of liver with ascites Category: Medical Code(s): K74.60 - Unspecified cirrhosis of liver; R18.8 - Other ascites (4) Back pain Current visit: No Status: Acute Category: Medical Code(s): M54.9 - Dorsalgia, unspecified (5) Hyponatremia Current visit: No Status: Acute Category: Medical Code(s): E87.1 - Hypo- osmolality and hyponatremia (6) Hypothyroidism Current visit: Yes Status: Chronic Qualifiers: Hypothyroidism type: acquired Qualified Code(s): E03.9 - Hypothyroidism, unspecified Category: Medical Code(s): E03.9 - Hypothyroidism, unspecified (7) Alcohol abuse Current visit: No Status: Chronic Category: Medical Code(s): F10.10 - Alcohol abuse, uncomplicated (8) Hyperlipidemia Current visit: No Status: Chronic Category: Medical Code(s): E78.5 - Hyperlipidemia, unspecified (9) Hypertension Current visit: No Status: Chronic Category: Medical Code(s): I10 - Essential (primary) hypertension (10) Decompensated liver disease Current visit: Yes Status: Acute Category: Medical Code(s): K74.69 - Other cirrhosis of liver <Patrick Rios - 04/17/19 09:38> - Assessment and plan all Dx Assessment and Plan for all problems:: Concur with above assessment and plan. Her MELD score is 16. <Patrick Rios Brian - 04/17/19 09:38> We will start the patient on Lasix and spironolactone and discontinue her lisinopril. We will start neb treatments as well as an alcohol withdrawal protocol. We will order a paracentesis and get a diarrhea panel. Will await culture results. <Jacqueline Hilliard - 04/16/19 08:55>
[2019-04-16 12:55] LABS: RBC,Body Fluid < 10 cells/uL (< 10 X 10^3); TNC,Body Fluid 64 cells/uL (< 1000)
[2019-04-16 13:48] LABS: Appearance,Body Fld. Normal
[2019-04-16 13:54] LABS: Mononuclear WBCs,Body Fluid 86 %; Polynuclear WBC,Body Fluid 14 %
--- NOTE | 2019-04-16 14:14 | Cardiology Report ---
APPROVED REPORT EXAM: Comprehensive 2D, Doppler, and color-flow Echocardiogram Borough Coordinator: Jacinta Lewis CRT Ht: 5 ft 1 in Wt: 150lbs BSA: 1.67 BP: 142/83 mmHg Indications: sob, sepsis, tristan pleural effusions, cirrhosis, ascites, htn, hld, smoker 2D Dimensions LVOT 1.81 cm (M/F) 1.5-2.5 M-Mode Dimensions RVDd 2.15 cm (0.9-2.6)LVDd 3.85 cm (3.5-5.7) LVDs 1.88 cm (3.5-5.7)IVSd 1.64 cm (0.6-1.1) PWd 0.54 cm (0.6-1.1)EF (Teich) 82.90% FS 51.20% EDV (Teich) 63.90 mL ESV (Teich) 10.90 mL LV Diastology E/A Ratio 7.07 Mitral Valve MV A Velocity 14.00 (40-130 cm/s) Left Ventricle Left atrium is mildly enlarged, left ventricle is normal size, mild concentric left ventricular hypertrophy, visually estimated ejection fraction 55 to 60% with no regional wall motion abnormality. Right Ventricle Right atrium and right ventricle are normal size and contractility. Aortic Valve Aortic valve is minimally thickened and fibrosed. There is no aortic stenosis aortic insufficiency. Mitral Valve Mitral valve is grossly normal, there is mild mitral regurgitation. Tricuspid Valve Tricuspid valve is grossly normal, there is mild tricuspid regurgitation. Tricuspid regurgitation jet velocity is inadequate for calculation of the right ventricular systolic pressure, Pulmonic Valve Pulmonic valve is poorly visualized. Great Vessels Aortic root is normal size. Pericardium No significant pericardial effusion noted. Conclusion 1. Mildly in the left atrium, normal left ventricular size, mild concentric left ventricular hypertrophy, visually estimated ejection fraction 55 to 60% with no regional wall motion abnormality, grade 1 diastolic dysfunction seen without tissue Doppler evidence of raise left atrial pressure. 2. Mild mitral and tricuspid regurgitation. 3. No significant pericardial effusion noted. Electronically signed by : Luan Herring, 04/16/2019 14:13:50
--- NOTE | 2019-04-16 16:36 | Electrocardiograph Report ---
APPROVED REPORT Exam: Resting ECG HR:111 bpm ECG Measurements Heart Rate 111 AXES DC 144 P 27 QRSd 64 QRS -13 QT 354 T34 QTc 481 <Conclusion> Sinus tachycardia Isolated Q wave in III, poor R-wave progression Abnormal ECG Electronically signed by : Clifford Eastman, 04/16/2019 16:35:35
[2019-04-17 06:48] LABS: Albumin Level 1.9 gm/dL (3.4-5.0); Albumin/Globulin Ratio 0.5 (1.1-1.8); Bilirubin,Total 2.3 mg/dL (0.2-1.0); Globulin 3.8 gm/dl (1.3-3.2); Total Protein,Serum 5.7 gm/dL (6.4-8.2)
[2019-04-17 06:49] LABS: Calcium 6.7 mg/dL (8.5-10.1)
[2019-04-17 06:54] LABS: Basophils % 0.1 % (0.1-2.0); Eosinophils # 0.1 K/mm3 (0.0-0.4); Eosinophils % 0.4 % (0.1-12.0); Hematocrit 31.8 % (37.0-47.0); Lymphocytes # 1.2 K/mm3 (0.7-4.5); Lymphocytes % 9.2 % (10-50); Mean Corpuscular HGB Conc 31.6 g/dL (31.8-35.4); Mean Corpuscular Volume 101.2 fl (81-99); Mean Platelet Volume 9.4 fl (7.4-10.4); Monocytes # 0.6 K/mm3 (0.1-1.0); Monocytes % 4.8 % (1.7-9.3); Neutrophils # 11.6 K/mm3 (1.8-7.8); Neutrophils % 85.6 % (37.0-80.0); Platelet Count 197 K/mm3 (142-424); Red Blood Count 3.14 M/mm3 (4.20-5.40); Red Cell Distribution Width 15.3 % (11.5-17.5); White Blood Count 13.5 K/mm3 (4.8-10.8)
[2019-04-17 08:27] LABS: Hepatitis B Surface Antigen Negative (Negative)
[2019-04-17 09:26] LABS: Lymphocytes % 5 % (10-50); Monocytes % 3 % (2-9); Neutrophils % 91 % (42-76); Total Cells Counted 100
[2019-04-17 09:52] LABS: Anisocytosis 1+; Macrocytosis 1+
--- NOTE | 2019-04-17 10:24 | Progress Note ---
Internal Medicine - PN: Subj *Date: 04/17/19 *Time: 10:21 Interval history: She continues with cough which is minimally productive. She was more dyspneic through the night and started on nasal oxygen and O2 sats have been in the low 90s. She denies chest pain. She underwent paracentesis yesterday with removal of 4 L of fluid. This was followed with an albumin infusion. Exam Vital signs and Labs for Last 24 Hours: Temp Pulse Resp BP Pulse Ox 98.4 F 118 H 24 100/58 L 91 L 04/17/19 08:00 04/17/19 08:00 04/17/19 08:00 04/17/19 08:00 04/17/19 08:00 Laboratory Results - last 24 hr 04/16/19 09:45: Stl Aeromonas (PCR) Not detected, Stl C. cayetanensis PCR Not detected, Stool Rotavirus (PCR) Not detected, Stl Adenov F 40/41 PCR Not detected, Stool Astrovirus (PCR) Not detected, Stool Campylobacter PCR Not detected, Stl C.difficile Tox PCR Not detected, Stool Cryptosporidium PCR Not detected, Stl E.coli Shiga Tox PCR Not detected, Stool E coli O157 PCR Not detected, Stl Enterotoxigenic E PCR Not detected, Stool EPEC (PCR) Not detected, Stool EAEC (PCR) Not detected, Stl E. histolytica PCR Not detected, Stool Giardia Lamblia PCR Not detected, Stool Salmonella PCR Not detected, Stool Sapovirus (PCR) Not detected, Stl P. shigelloides PCR Not detected, Stl Shigella/EIEC PCR Not detected, St Y.enterocolitica PCR Not detected, Stool Vibrio (PCR) Not detected, Stl Vibrio cholerae PCR Not detected, Stl Norovirus GI/GII PCR Not detected 04/16/19 12:07: Fluid Source Peritoneal fluid, Fluid Volume 33, Fluid Appearance Normal, Fluid RBC (Auto) < 10, Fld Tot Nucleated Cell 64, Fld Polynuclear WBCs % 14, Fld Mononuclear WBCs % 86 04/17/19 06:10: WBC 13.5 H, RBC 3.14 L, Hgb 10.0 L, Hct 31.8 L, MCV 101.2 H, MCH 32.0 H, MCHC 31.6 L, RDW 15.3, Plt Count 197, MPV 9.4, Neut % (Auto) 85.6 H, Lymph % (Auto) 9.2 L, [place] % (Auto) 4.8, Eos % (Auto) 0.4, Baso % (Auto) 0.1, Neut # (Auto) 11.6 H, Lymph # (Auto) 1.2, [place] # (Auto) 0.6, Eos # (Auto) 0.1, Baso # (Auto) 0.0, Total Counted 100, Neutrophils % (Manual) 91 H, Lymphocytes % (Manual) 5 L, Monocytes % (Manual) 3, Basophils % (Manual) 1.0, Platelet Estimate Normal, Anisocytosis 1+, Macrocytosis 1+ 04/17/19 06:10: Sodium 135 L, Potassium 4.0, Chloride 99, Carbon Dioxide 29 D, Anion Gap 11.0, BUN 6 L, Creatinine 0.64, Estimated Creat Clear 106, Estimated GFR 97, Est GFR ( Amer) 117 D, Glucose 119 H, Calcium 6.7 L, Total Bilirubin 2.3 H, AST 54 H D, ALT 15 D, Alkaline Phosphatase 216 H, Total Protein 5.7 L, Albumin 1.9 L, Globulin 3.8 H, Albumin/Globulin Ratio 0.5 L I & O for Last 24 hours: Intake & Output 04/14/19 04/15/19 04/16/19 04/17/19 11:59 11:59 11:59 11:59 Intake Total 40 / 40 1400 / 1400 Output Total 1300 / 1300 Balance -1260 / -1260 1400 / 1400 Weight 152 lb 7 oz 147 lb 1 oz Microbiology Reports for the Last 24 Hours: Microbiology 04/16/19 12:43 Sputum - Expectorated Sputum Gram Stain - Final Narrative: She is awake and alert. No respiratory distress. Chest reveals coarse breath sounds with scattered rhonchi. No wheezes. Heart is regular. Abdomen is distended but softer and less tense. No tenderness. Assessment and Plan (1) Community acquired pneumonia Current visit: Yes Status: Acute Qualifiers: Laterality: unspecified laterality Qualified Code(s): J18.9 - Pneumonia, unspecified organism Category: Medical Code(s): J18.9 - Pneumonia, unspecified organism (2) Diarrhea Current visit: Yes Status: Acute Category: Medical Code(s): R19.7 - Di arrhea, unspecified (3) Cirrhosis of liver with ascites Current visit: Yes Status: Chronic Qualifiers: Hepatic cirrhosis type: alcoholic cirrhosis Qualified Code(s): K70.31 - Alcoholic cirrhosis of liver with ascites Category: Medical Code(s): K74.60 - Unspecified cirrhosis of liver; R18.8 - Other ascites (4) Back pain Current visit: No Status: Acute Category: Medical Code(s): M54.9 - Dorsalgia, unspecified (5) Hyponatremia Current visit: No Status: Acute Category: Medical Code(s): E87.1 - Hypo- osmolality and hyponatremia (6) Hypothyroidism Current visit: Yes Status: Chronic Qualifiers: Hypothyroidism type: acquired Qualified Code(s): E03.9 - Hypothyroidism, unspecified Category: Medical Code(s): E03.9 - Hypothyroidism, unspecified (7) Alcohol abuse Current visit: No Status: Chronic Category: Medical Code(s): F10.10 - Alcohol abuse, uncomplicated (8) Hyperlipidemia Current visit: No Status: Chronic Category: Medical Code(s): E78.5 - Hyperlipidemia, unspecified (9) Hypertension Current visit: No Status: Chronic Category: Medical Code(s): I10 - Essential (primary) hypertension (10) Decompensated liver disease Current visit: Yes Status: Acute Category: Medical Code(s): K74.69 - Other cirrhosis of liver - Assessment and plan all Dx Assessment and Plan for all problems:: Continue nasal oxygen. Repeat chest x-ray. Sputum culture is pending. Blood pressure has been lower since her paracentesis. She remains tachycardic. Will cautiously start a beta-kelley but would like to keep her MAP ideally above 80 but at least above 70. She is encouraged to be out of bed as much as possible. We will plan to check echocardiogram on Friday to rule out alcoholic cardiomyopathy. GI consultation on Friday for EGD to check for varices. Renal functions are stable. Sodium has improved to 135 and bilirubin is down to 2.4 giving her a MELD score of 14 today. No signs of alcohol withdrawal as yet. Condition remains guarded
[2019-04-17 11:59] LABS: ABG Base Excess 3.3 mmol/L (-2.4-2.3); ABG HCO3 27.1 mmhg (22.0-26.0); ABG Oxygen Saturation 99 % (90-100); ABG PCO2 38.3 mmhg (35.0-45.0); ABG PH 7.47 mmol/L (7.35-7.45); ABG PO2 124.6 mmhg (80-100); ABG TCO2 28.2 mmhg (23-27)
[2019-04-17 12:01] LABS: Allen's Test Acceptable; Oxygen NRB 100% %
[2019-04-17 17:53] LABS: Hepatitis C Antibody <0.1 s/co ratio (0.0-0.9)
[2019-04-18 06:57] LABS: Basophils % 0.1 % (0.1-2.0); Eosinophils % 0.1 % (0.1-12.0); Hematocrit 30.4 % (37.0-47.0); Hemoglobin 9.6 g/dL (12.2-16.2); Lymphocytes # 0.8 K/mm3 (0.7-4.5); Lymphocytes % 10.6 % (10-50); Mean Corpuscular HGB Conc 31.5 g/dL (31.8-35.4); Mean Corpuscular Volume 102.6 fl (81-99); Monocytes # 0.4 K/mm3 (0.1-1.0); Monocytes % 5.4 % (1.7-9.3); Neutrophils # 6.5 K/mm3 (1.8-7.8); Neutrophils % 83.8 % (37.0-80.0); Platelet Count 144 K/mm3 (142-424); Red Blood Count 2.97 M/mm3 (4.20-5.40); Red Cell Distribution Width 15.2 % (11.5-17.5); White Blood Count 7.8 K/mm3 (4.8-10.8)
[2019-04-18 07:11] LABS: Albumin Level 1.7 gm/dL (3.4-5.0); Albumin/Globulin Ratio 0.5 (1.1-1.8); Bilirubin,Total 1.7 mg/dL (0.2-1.0); Globulin 3.5 gm/dl (1.3-3.2); Total Protein,Serum 5.2 gm/dL (6.4-8.2)
[2019-04-18 07:17] LABS: Calcium 6.6 mg/dL (8.5-10.1)
--- NOTE | 2019-04-18 09:02 | Progress Note ---
Internal Medicine - PN: Subj *Date: 04/18/19 *Time: 08:58 Interval history: She became hypoxic through the day yesterday and was placed on nonrebreather mask which improved her oxygenation but she did not tolerate this well. She was then switched to Vapotherm and did well the rest of the day and slept well last night. She looks and feels better this morning. She is less short of breath. She still has a cough which is mostly nonproductive. She actually feels hungry this morning. Exam Vital signs and Labs for Last 24 Hours: Temp Pulse Resp BP Pulse Ox 98.0 F 91 H 22 100/56 L 98 04/18/19 08:00 04/18/19 08:00 04/18/19 08:00 04/18/19 08:00 04/18/19 08:00 Laboratory Results - last 24 hr 04/15/19 22:37: Hepatitis A IgM Ab Negative, Hep Bs Antigen Negative, Hep B Core IgM Ab Negative, Hepatitis C Antibody <0.1 04/16/19 12:07: Fluid Glucose 141, Fluid Total Protein 0.8, Fluid Albumin 0.3, Fluid LDH 49 04/17/19 06:10: Total Counted 100, Neutrophils % (Manual) 91 H, Lymphocytes % (Manual) 5 L, Monocytes % (Manual) 3, Basophils % (Manual) 1.0, Platelet Estimate Normal, Anisocytosis 1+, Macrocytosis 1+ 04/17/19 11:18: Specimen Source Right radial, O2 % Nrb 100%, ABG pH 7.47 H, ABG pCO2 38.3, ABG pO2 124.6 H, ABG HCO3 27.1 H, ABG Total CO2 28.2 H, ABG O2 Saturation 99, ABG Base Excess 3.3 H, Dav Test Acceptable 04/18/19 06:15: WBC 7.8 D, RBC 2.97 L, Hgb 9.6 L, Hct 30.4 L, MCV 102.6 H, MCH 32.3 H, MCHC 31.5 L, RDW 15.2, Plt Count 144 D, MPV 9.0, Neut % (Auto) 83.8 H, Lymph % (Auto) 10.6, [place] % (Auto) 5.4, Eos % (Auto) 0.1, Baso % (Auto) 0.1, Neut # (Auto) 6.5, Lymph # (Auto) 0.8, [place] # (Auto) 0.4, Eos # (Auto) 0.0, Baso # (Auto) 0.0 04/18/19 06:15: Sodium 139, Potassium 4.0, Chloride 102, Carbon Dioxide 30, Anion Gap 11.0, BUN 8 D, Creatinine 0.69, Estimated Creat Clear 98, Estimated GFR 89, Est GFR ( Amer) 107, Glucose 128 H, Calcium 6.6 L, Total Bilirubin 1.7 H, AST 63 H, ALT 19 D, Alkaline Phosphatase 188 H, Total Protein 5.2 L, Albumin 1.7 L D, Globulin 3.5 H, Albumin/Globulin Ratio 0.5 L I & O for Last 24 hours: Intake & Output 04/15/19 04/16/19 04/17/19 04/18/19 11:59 11:59 11:59 11:59 Intake Total 40 / 40 1400 / 1400 940 / 940 Output Total 1300 / 1300 200 / 200 Balance -1260 / -1260 1400 / 1400 740 / 740 Weight 152 lb 7 oz 147 lb 1 oz 147 lb 8 oz Microbiology Reports for the Last 24 Hours: Microbiology 04/15/19 21:33 Blood Blood Culture - Preliminary NO GROWTH AFTER 48 HOURS 04/15/19 21:33 Blood Blood Culture - Preliminary NO GROWTH AFTER 48 HOURS 04/15/19 21:49 Throat Group A Streptococcus Screen ([facility]) - Final Negative for Group A Streptococcus. 04/16/19 12:12 Ascites Fluid Body Fluid Culture - Preliminary NO GROWTH AFTER 24 HOURS 04/16/19 12:43 Sputum - Expectorated Sputum Gram Stain - Final 04/16/19 12:43 Sputum - Expectorated Sputum Sputum Culture - Preliminary Narrative: She is sitting on the side of the bed eating her breakfast. She is much more awake and alert. No respiratory distress. Breath sounds are diminished throughout both lung jarrett with a few rhonchi. No wheezes. Heart is regular. Extremities show 1+ pedal edema. Assessment and Plan (1) Community acquired pneumonia Current visit: Yes Status: Acute Qualifiers: Laterality: unspecified laterality Qualified Code(s): J18.9 - Pneumonia, unspecified organism Category: Medical Code(s): J18.9 - Pneumonia, unspecified organism (2) Diarrhea Current visit: Yes Status: Acute Category: Medical Code(s): R19.7 - Diarrhea, unspecified (3) Cirrhosis of liver with ascites Current visit: Yes Status: Chronic Qualifiers: Hepatic cirrhosis type: alcoholic cirrhosis Qualified Code(s): K70.31 - Alcoholic cirrhosis of liver with ascites Category: Medical Code(s): K74.60 - Unspecified cirrhosis of liver; R18.8 - Other ascites (4) Back pain Current visit: No Status: Acute Category: Medical Code(s): M54.9 - Dorsalgia, unspecified (5) Hyponatremia Current visit: No Status: Acute Category: Medical Code(s): E87.1 - Hypo- osmolality and hyponatremia (6) Hypothyroidism Current visit: Yes Status: Chronic Qualifiers: Hypothyroidism type: acquired Qualified Code(s): E03.9 - Hypothyroidism, unspecified Category: Medical Code(s): E03.9 - Hypothyroidism, unspecified (7) Alcohol abuse Current visit: No Status: Chronic Category: Medical Code(s): F10.10 - [place] abuse, uncomplicated (8) Hyperlipidemia Current visit: No Status: Chronic Category: Medical Code(s): E78.5 - Hyperlipidemia, unspecified (9) Hypertension Current visit: No Status: Chronic Category: Medical Code(s): I10 - Essential (primary) hypertension (10) Decompensated liver disease Current visit: Yes Status: Acute Category: Medical Code(s): K74.69 - Other cirrhosis of liver - Assessment and plan all Dx Assessment and Plan for all problems:: Clinically is improved. Sodium is now normal. H&H is stable. Bilirubin has decreased to 1.7. We will have respiratory therapy try to wean the Vapotherm some today. GI consult for tomorrow.
[2019-04-19 06:17] LABS: Basophils % 0.1 % (0.1-2.0); Eosinophils # 0.2 K/mm3 (0.0-0.4); Eosinophils % 1.5 % (0.1-12.0); Hemoglobin 9.9 g/dL (12.2-16.2); INR 1.51 (0.9-1.1); Lymphocytes % 10.4 % (10-50); Mean Corpuscular Volume 102.8 fl (81-99); Mean Platelet Volume 8.8 fl (7.4-10.4); Monocytes # 0.3 K/mm3 (0.1-1.0); Monocytes % 3.5 % (1.7-9.3); Neutrophils # 8.3 K/mm3 (1.8-7.8); Neutrophils % 84.4 % (37.0-80.0); Platelet Count 131 K/mm3 (142-424); Prothrombin Time 15.4 seconds (9.4-11.8); Red Blood Count 3.11 M/mm3 (4.20-5.40); Red Cell Distribution Width 15.3 % (11.5-17.5); White Blood Count 9.8 K/mm3 (4.8-10.8)
[2019-04-19 06:25] LABS: Albumin Level 1.7 gm/dL (3.4-5.0); Albumin/Globulin Ratio 0.5 (1.1-1.8); Anion Gap 10.6 mEq/L (5-15); Bilirubin,Total 1.9 mg/dL (0.2-1.0); Globulin 3.6 gm/dl (1.3-3.2); Total Protein,Serum 5.3 gm/dL (6.4-8.2)
[2019-04-19 06:31] LABS: Calcium 6.8 mg/dL (8.5-10.1)
--- NOTE | 2019-04-19 08:08 | Progress Note ---
<Erica Foreman - Last Filed: 04/19/19 08:11> Internal Medicine - PN: Subj *Date: 04/19/19 *Time: 08:11 Interval history: Patient states she does not feel well. Her back hurts. She was only able to sleep for brief intervals. Heat to the back helped somewhat. She is not eating very much. She denies nausea. Bowels are moving. She denies shortness of breath. Remains on Vapotherm. Patient states she has anxiety attacks. Nursing states they have tried to wean her oxygen during the night. O2 sats remained stable but patient stated she was short of breath. Sputum culture positive for Klebsiella pneumonia Exam Vital signs and Labs for Last 24 Hours: Temp Pulse Resp BP Pulse Ox 98.4 F 91 H 18 103/59 L 95 04/19/19 04:00 04/19/19 04:00 04/19/19 04:00 04/19/19 04:00 04/19/19 04:00 Laboratory Results - last 24 hr 04/17/19 06:10: Cortisol 4.9 04/19/19 04:15: Stl Aeromonas (PCR) Not detected, Stl C. cayetanensis PCR Not detected, Stool Rotavirus (PCR) Not detected, Stl Adenov F 40/41 PCR Not detected, Stool Astrovirus (PCR) Not detected, Stool Campylobacter PCR Not detected, Stl C.difficile Tox PCR Not detected, Stool Cryptosporidium PCR Not detected, Stl E.coli Shiga Tox PCR Not detected, Stool E coli O157 PCR Not detected, Stl Enterotoxigenic E PCR Not detected, Stool EPEC (PCR) Not detected, Stool EAEC (PCR) Not detected, Stl E. histolytica PCR Not detected, Stool Giardia Lamblia PCR Not detected, Stool Salmonella PCR Not detected, Stool Sapovirus (PCR) Not detected, Stl P. shigelloides PCR Not detected, Stl Shigella/EIEC PCR Not detected, St Y.enterocolitica PCR Not detected, Stool Vibrio (PCR) Not detected, Stl Vibrio cholerae PCR Not detected, Stl Norovirus GI/GII PCR Not detected 04/19/19 05:44: WBC 9.8 D, RBC 3.11 L, Hgb 9.9 L, Hct 32.0 L, MCV 102.8 H, MCH 31.8 H, MCHC 31.0 L, RDW 15.3, Plt Count 131 L, MPV 8.8, Neut % (Auto) 84.4 H, Lymph % (Auto) 10.4, Leon % (Auto) 3.5, Eos % (Auto) 1.5, Baso % (Auto) 0.1, Neut # (Auto) 8.3 H, Lymph # (Auto) 1.0, Leon # (Auto) 0.3, Eos # (Auto) 0.2, Baso # (Auto) 0.0 04/19/19 05:44: PT 15.4 H, INR 1.51 H 04/19/19 05:44: Sodium 139, Potassium 3.6, Chloride 103, Carbon Dioxide 29, Anion Gap 10.6, BUN 10, Creatinine 0.62, Estimated Creat Clear 109, Estimated GFR 100, Est GFR ( Amer) 121, Glucose 101 D, Calcium 6.8 L, Total Bilirubin 1.9 H, AST 108 H D, ALT 29 D, Alkaline Phosphatase 191 H, Total Protein 5.3 L, Albumin 1.7 L, Globulin 3.6 H, Albumin/Globulin Ratio 0.5 L I & O for Last 24 hours: Intake & Output 04/16/19 04/17/19 04/18/19 04/19/19 11:59 11:59 11:59 11:59 Intake Total 40 / 40 1400 / 1400 940 / 940 760 / 760 Output Total 1300 / 1300 200 / 200 200 / 200 Balance -1260 / -1260 1400 / 1400 740 / 740 560 / 560 Weight 152 lb 7 oz 147 lb 1 oz 147 lb 8 oz 147 lb Microbiology Reports for the Last 24 Hours: Microbiology 04/16/19 12:43 Sputum - Expectorated Sputum Gram Stain - Final 04/16/19 12:43 Sputum - Expectorated Sputum Sputum Culture - Preliminary Klebsiella pneumoniae ozaenae 04/16/19 12:12 Ascites Fluid Body Fluid Culture - Preliminary NO GROWTH AFTER 48 HOURS Radiology Reports for the Last 24 Hours: 04/17/2019 chest x-ray IMPRESSION: Progression of diffuse bilateral airspace disease consistent with worsening diffuse bilateral pneumonia - Constitutional no acute distress Comments: Sitting on bedside commode. - *Routine Respiratory Exam Present: CTA bilaterally (Anteriorly and posteriorly) - *Routine Cardiovascular Exam Present: RRR - *Routine Abdominal Exam Present: normoactive bowel sounds, distended - *Routine Extremities Exam Absent: edema - *Routine Neurological Exam Present: alert, oriented X3 Assessment and Plan (1) Community acquired pneumonia Current visit: Yes Status: Acute Qualifiers: Laterality: unspecified laterality Qualified Code(s): J18.9 - Pneumonia, unspecified organism Category: Medical Code(s): J18.9 - Pneumonia, unspecified organism (2) Diarrhea Current visit: Yes Status: Acute Category: Medical Code(s): R19.7 - Diarrhea, unspecified (3) Cirrhosis of liver with ascites Current visit: Yes Status: Chronic Qualifiers: Hepatic cirrhosis type: alcoholic cirrhosis Qualified Code(s): K70.31 - Alcoholic cirrhosis of liver with ascites Category: Medical Code(s): K74.60 - Unspecified cirrhosis of liver; R18.8 - Other ascites (4) Back pain Current visit: No Status: Acute Category: Medical Code(s): M54.9 - Dorsalgia, unspecified (5) Hyponatremia Current visit: No Status: Acute Category: Medical Code(s): E87.1 - Hypo- osmolality and hyponatremia (6) Hypothyroidism Current visit: Yes Status: Chronic Qualifiers: Hypothyroidism type: acquired Qualified Code(s): E03.9 - Hypothyroidism, unspecified Category: Medical Code(s): E03.9 - Hypothyroidism, unspecified (7) Alcohol abuse Current visit: No Status: Chronic Category: Medical Code(s): F10.10 - Alcohol abuse, uncomplicated (8) Hyperlipidemia Current visit: No Status: Chronic Category: Medical Code(s): E78.5 - Hyperlipidemia, unspecified (9) Hypertension Current visit: No Status: Chronic Category: Medical Code(s): I10 - Essential (primary) hypertension (10) Decompensated liver disease Current visit: Yes Status: Acute Category: Medical Code(s): K74.69 - Other cirrhosis of liver (11) Klebsiella pneumoniae pneumonia Current visit: Yes Status: Acute Category: Medical Code(s): J15.0 - Pneumonia due to Klebsiella pneumoniae - Assessment and plan all Dx Assessment and Plan for all problems:: Continue with current antibiotics. Culture reveals sensitivity to Rocephin. Continue to try to wean from Vapotherm. Gastroenterology to see patient today. <Patrick Rios - Last Filed: 04/19/19 13:58> Internal Medicine - PN: Subj *Date: 04/19/19 *Time: 13:56 Exam Vital signs and Labs for Last 24 Hours: Temp Pulse Resp BP Pulse Ox 98.4 F 76 20 93/55 L 100 04/19/19 12:00 04/19/19 12:00 04/19/19 12:00 04/19/19 12:00 04/19/19 12:00 Laboratory Results - last 24 hr 04/17/19 06:10: Cortisol 4.9 04/19/19 04:15: Stl Aeromonas (PCR) Not detected, Stl C. cayetanensis PCR Not detected, Stool Rotavirus (PCR) Not detected, Stl Adenov F 40/41 PCR Not detected, Stool Astrovirus (PCR) Not detected, Stool Campylobacter PCR Not detected, Stl C.difficile Tox PCR Not detected, Stool Cryptosporidium PCR Not detected, Stl E.coli Shiga Tox PCR Not detected, Stool E coli O157 PCR Not detected, Stl Enterotoxigenic E PCR Not detected, Stool EPEC (PCR) Not detected, Stool EAEC (PCR) Not detected, Stl E. histolytica PCR Not detected, Stool Giardia Lamblia PCR Not detected, Stool Salmonella PCR Not detected, Stool Sapovirus (PCR) Not detected, Stl P. shigelloides PCR Not detected, Stl Shigella/EIEC PCR Not detected, St Y.enterocolitica PCR Not detected, Stool Vibrio (PCR) Not detected, Stl Vibrio cholerae PCR Not detected, Stl Norovirus GI/GII PCR Not detected 04/19/19 05:44: WBC 9.8 D, RBC 3.11 L, Hgb 9.9 L, Hct 32.0 L, MCV 102.8 H, MCH 31.8 H, MCHC 31.0 L, RDW 15.3, Plt Count 131 L, MPV 8.8, Neut % (Auto) 84.4 H, Lymph % (Auto) 10.4, Leon % (Auto) 3.5, Eos % (Auto) 1.5, Baso % (Auto) 0.1, Neut # (Auto) 8.3 H, Lymph # (Auto) 1.0, Leon # (Auto) 0.3, Eos # (Auto) 0.2, Baso # (Auto) 0.0 04/19/19 05:44: PT 15.4 H, INR 1.51 H 04/19/19 05:44: Sodium 139, Potassium 3.6, Chloride 103, Carbon Dioxide 29, Anion Gap 10.6, BUN 10, Creatinine 0.62, Estimated Creat Clear 109, Estimated GFR 100, Est GFR ( Amer) 121, Glucose 101 D, Calcium 6.8 L, Total Bilirubin 1.9 H, AST 108 H D, ALT 29 D, Alkaline Phosphatase 191 H, Total Protein 5.3 L, Albumin 1.7 L, Globulin 3.6 H, Albumin/Globulin Ratio 0.5 L I & O for Last 24 hours: Intake & Output 04/17/19 04/18/19 04/19/19 04/20/19 11:59 11:59 11:59 11:59 Intake Total 1400 / 1400 940 / 940 760 / 760 Output Total 200 / 200 200 / 200 Balance 1400 / 1400 740 / 740 560 / 560 Weight 147 lb 1 oz 147 lb 8 oz 147 lb Microbiology Reports for the Last 24 Hours: Microbiology 04/16/19 12:12 Ascites Fluid Gram Stain - Final 04/16/19 12:12 Ascites Fluid Body Fluid Culture - Preliminary NO GROWTH AFTER 72 HOURS 04/16/19 12:43 Sputum - Expectorated Sputum Gram Stain - Final 04/16/19 12:43 Sputum - Expectorated Sputum Sputum Culture - Preliminary Klebsiella pneumoniae ozaenae Gram Positive Cocci Assessment and Plan (1) Community acquired pneumonia Current visit: Yes Status: Acute Qualifiers: Laterality: unspecified laterality Qualified Code(s): J18.9 - Pneumonia, unspecified organism Category: Medical Code(s): J18.9 - Pneumonia, unspecified organism (2) Diarrhea Current visit: Yes Status: Acute Category: Medical Code(s): R19.7 - Diarrhea, unspecified (3) Cirrhosis of liver with ascites Current visit: Yes Status: Chronic Qualifiers: Hepatic cirrhosis type: alcoholic cirrhosis Qualified Code(s): K70.31 - Alcoholic cirrhosis of liver with ascites Category: Medical Code(s): K74.60 - Unspecified cirrhosis of liver; R18.8 - Other ascites (4) Back pain Current visit: No Status: Acute Category: Medical Code(s): M54.9 - Dorsalgia, unspecified (5) Hyponatremia Current visit: No Status: Acute Category: Medical Code(s): E87.1 - Hypo- osmolality and hyponatremia (6) Hypothyroidism Current visit: Yes Status: Chronic Qualifiers: Hypothyroidism type: acquired Qualified Code(s): E03.9 - Hypothyroidism, unspecified Category: Medical Code(s): E03.9 - Hypothyroidism, unspecified (7) Alcohol abuse Current visit: No Status: Chronic Category: Medical Code(s): F10.10 - Alcohol abuse, uncomplicated (8) Hyperlipidemia Current visit: No Status: Chronic Category: Medical Code(s): E78.5 - Hyperlipidemia, unspecified (9) Hypertension Current visit: No Status: Chronic Category: Medical Code(s): I10 - Essential (primary) hypertension (10) Decompensated liver disease Current visit: Yes Status: Acute Category: Medical Code(s): K74.69 - Other cirrhosis of liver (11) Klebsiella pneumoniae pneumonia Current visit: Yes Status: Acute Category: Medical Code(s): J15.0 - Pneumonia due to Klebsiella pneumoniae - Assessment and plan all Dx Assessment and Plan for all problems:: * Patient seen and examined this AM. Concur with above. She complains of dyspnea but her O2 sats are satisfactory on Vapotherm. Sputum cultures growing Klebsiella sensitive to the Rocephin. We will continue current treatment and repeat chest x-ray today. Because of persistent complaints of back pain will infiltrate the thoracic spine. Labs reviewed. MELD score today is 13. GI consult pending
--- NOTE | 2019-04-19 09:03 | Progress Note ---
Internal Medicine - PN: Subj *Date: 04/19/19 *Time: 09:02 Exam Vital signs and Labs for Last 24 Hours: Temp Pulse Resp BP Pulse Ox 98.6 F 69 22 145/90 H 100 04/19/19 08:00 04/19/19 08:00 04/19/19 08:00 04/19/19 08:00 04/19/19 08:00 Laboratory Results - last 24 hr 04/17/19 06:10: Cortisol 4.9 04/19/19 04:15: Stl Aeromonas (PCR) Not detected, Stl C. cayetanensis PCR Not detected, Stool Rotavirus (PCR) Not detected, Stl Adenov F 40/41 PCR Not detected, Stool Astrovirus (PCR) Not detected, Stool Campylobacter PCR Not detected, Stl C.difficile Tox PCR Not detected, Stool Cryptosporidium PCR Not detected, Stl E.coli Shiga Tox PCR Not detected, Stool E coli O157 PCR Not detected, Stl Enterotoxigenic E PCR Not detected, Stool EPEC (PCR) Not detected, Stool EAEC (PCR) Not detected, Stl E. histolytica PCR Not detected, Stool Giardia Lamblia PCR Not detected, Stool Salmonella PCR Not detected, Stool Sapovirus (PCR) Not detected, Stl P. shigelloides PCR Not detected, Stl Shigella/EIEC PCR Not detected, St Y.enterocolitica PCR Not detected, Stool Vibrio (PCR) Not detected, Stl Vibrio cholerae PCR Not detected, Stl Norovirus GI/GII PCR Not detected 04/19/19 05:44: WBC 9.8 D, RBC 3.11 L, Hgb 9.9 L, Hct 32.0 L, MCV 102.8 H, MCH 31.8 H, MCHC 31.0 L, RDW 15.3, Plt Count 131 L, MPV 8.8, Neut % (Auto) 84.4 H, Lymph % (Auto) 10.4, [place] % (Auto) 3.5, Eos % (Auto) 1.5, Baso % (Auto) 0.1, Neut # (Auto) 8.3 H, Lymph # (Auto) 1.0, [place] # (Auto) 0.3, Eos # (Auto) 0.2, Baso # (Auto) 0.0 04/19/19 05:44: PT 15.4 H, INR 1.51 H 04/19/19 05:44: Sodium 139, Potassium 3.6, Chloride 103, Carbon Dioxide 29, Anion Gap 10.6, BUN 10, Creatinine 0.62, Estimated Creat Clear 109, Estimated GFR 100, Est GFR ( Amer) 121, Glucose 101 D, Calcium 6.8 L, Total Bilirubin 1.9 H, AST 108 H D, ALT 29 D, Alkaline Phosphatase 191 H, Total Protein 5.3 L, Albumin 1.7 L, Globulin 3.6 H, Albumin/Globulin Ratio 0.5 L I & O for Last 24 hours: Intake & Output 04/16/19 04/17/19 04/18/19 04/19/19 23:59 23:59 23:59 23:59 Intake Total 1320 / 1320 700 / 700 600 / 1120 520 / 520 Output Total 1300 / 1300 200 / 200 200 / 200 Balance 20 / 20 500 / 500 600 / 1120 320 / 320 Weight 69.144 kg 66.706 kg 66.905 kg 66.678 kg Microbiology Reports for the Last 24 Hours: Microbiology 04/16/19 12:43 Sputum - Expectorated Sputum Gram Stain - Final 04/16/19 12:43 Sputum - Expectorated Sputum Sputum Culture - Preliminary Klebsiella pneumoniae ozaenae 04/16/19 12:12 Ascites Fluid Body Fluid Culture - Preliminary NO GROWTH AFTER 48 HOURS Assessment and Plan (1) Community acquired pneumonia Current visit: Yes Status: Acute Qualifiers: Laterality: unspecified laterality Qualified Code(s): J18.9 - Pneumonia, unspecified organism Category: Medical Code(s): J18.9 - Pneumonia, unspecified organism (2) Diarrhea Current visit: Yes Status: Acute Category: Medical Code(s): R19.7 - Diarrhea, unspecified (3) Cirrhosis of liver with ascites Current visit: Yes Status: Chronic Qualifiers: Hepatic cirrhosis type: alcoholic cirrhosis Qualified Code(s): K70.31 - Alcoholic cirrhosis of liver with ascites Category: Medical Code(s): K74.60 - Unspecified cirrhosis of liver; R18.8 - Other ascites (4) Back pain Current visit: No Status: Acute Category: Medical Code(s): M54.9 - Dorsalgia, unspecified (5) Hyponatremia Current visit: No Status: Acute Category: Medical Code(s): E87.1 - Hypo- osmolality and hyponatremia (6) Hypothyroidism Current visit: Yes Status: Chronic Qualifiers: Hypothyroidism type: acquired Qualified Code(s): E03.9 - Hypothyroidism, unspecified Category: Medical Code(s): E03.9 - Hypothyroidism, unspecified (7) Alcohol abuse Current visit: No Status: Chronic Category: Medical Code(s): F10.10 - Alcohol abuse, uncomplicated (8) Hyperlipidemia Current visit: No Status: Chronic Category: Medical Code(s): E78.5 - Hyperlipidemia, unspecified (9) Hypertension Current visit: No Status: Chronic Category: Medical Code(s): I10 - Essential (primary) hypertension (10) Decompensated liver disease Current visit: Yes Status: Acute Category: Medical Code(s): K74.69 - Other cirrhosis of liver (11) Klebsiella pneumoniae pneumonia Current visit: Yes Status: Acute Category: Medical Code(s): J15.0 - Pneumonia due to Klebsiella pneumoniae The patient's infection will respond to the chosen ABx?: Yes Is the patient receiving the right drug, dose, and route?: Yes Could a more targeted ABx be ordered?: No (KLEBSIELLA SENSITIVE TO ROCEPHIN)
--- NOTE | 2019-04-19 13:04 | Consult Report ---
*Admission Date: 04/15/19 *Reason for consult:: cirrhosis/anemia/ *History of present illness: This is a 53-year-old female with a past medical history of hypertension, hyperlipidemia, alcohol abuse, alcoholic hepatitis, alcoholic pancreatitis, cirrhosis, and hypothyroidism. She reports that she is a daily alcohol user for many years and has attempted rehab and AA meetings multiple times before. She believes she may have been told she had cirrhosis about 3 years ago but has never followed up with any providers about it or seen gastroenterology regarding this issue. She came to the hospital with complaints of shortness of breath and was found to have bilateral lower lobe pneumonia and sepsis. She also had moderate amount of ascites. She reports that she has had increase in her abdominal girth and swelling in her lower legs and ankles for the past 3 weeks. In the ER, she underwent CT scan which showed cirrhosis with a moderate amount of ascites and splenomegaly. It also showed some mild diffuse thickening of the colon consistent with her cirrhosis. Upon arrival, she had a hemoglobin of 1 2.2, macrocytic hyperchromic, with a bilirubin of 4.1 and was found to have a meld score of 26 at the time. She underwent paracentesis removed 4 L of fluid and has been rehydrated by IV. After rehydration, her Hgb dropped to around 10 and has held steady for 3 days, still hyperchromic/macrocytic. She has had no melena or hematochezia or hematemesis. She was started on Lasix and spironolactone and DC'd her lisinopril. Patient is also had some diarrhea, no nausea vomiting or fever, and we are waiting a stool panel. [facility] History Medical History: Reports:: Anxiety, Depression, Hyperlipidemia, Hypertension, Seizures Denies:: Cancer, Diabetes Mellitus Type 1, Diabetes Mellitus Type 2, Internal Pacemaker, Lung Disease, MRSA *Have you ever received a pneumonia vaccine?: Yes *Have you received a flu vaccine this season?: Yes Other Medical History: Reports: Arthritis, Hypothyroidism, Thyroid Disease, Other (ETOH abuse, Alcoholic pancreatitis, alcoholic hepatitis, Cirrhosis) Other Surgeries: Yes: Cardiac Catheterization, Cholecystectomy, Colonoscopy, C- section, Tubal Ligation. No: Pacemaker Amputation: No Fractures: No - *Social History Educational Level: Attended College Smoking Status: Light tobacco smoker Tobacco Type: cigarettes # Packs/Day (cigarettes): 1 Alcohol Intake: current Alcohol Intake Frequency:: 3 or more drinks per day Substance Use Type: crack/cocaine *Occupational Status:: employed Housing: house Household Members: none *Travel in the last 8 weeks: None - Psychiatric History Pschychiatric History:: Reports:: Anxiety, Depression Family Hx:: Cancer, Diabetes, Hypertension, Stroke Review of Systems - Constitutional Reports fatigue, Reports weight gain, Denies body ache(s), Denies chills, Denies fever(s) - Eyes Denies blurry vision, Denies loss of vision - ENT Reports dizziness, Denies hoarseness, Denies pain with swallowing - *Cardiovascular Reports shortness of breath, Reports generalized swelling, Reports leg swelling, Reports fast heart rate - *Respiratory Reports chest congestion, Reports cough, Reports shortness of breath, Denies coughing up blood - *Gastrointestinal Reports change in bowel habits, Reports loose stools, Denies belching, Denies difficulty swallowing, Denies vomiting blood, Denies bright, red blood in stoo ls, Denies black, tarry stools, Denies nausea, Denies vomiting - *Musculoskeletal Reports back pain, Denies abnormal walking Comments: recent fall - Integumentary/Breasts Denies yellowing of the skin, Denies itching, Denies sores - *Neurologic Reports weakness, Denies localized weakness, Denies headache(s), Denies seizure- like activity, Denies dizziness - Endocrine Denies cold intolerance, Denies excessive sweating - Hematologic/Lymphatic Denies easy bleeding, Denies easy bruising Meds Home Medications Medication Instructions Recorded Confirmed Type ALPRAZolam [Xanax 0.5mg tab] 0.5 mg PO TIDP PRN 12/17/17 04/16/19 History Levothyroxine Sodium 112 mcg PO DAILY 12/17/17 04/16/19 History [Levothyroxine 112mcg (0.112mg) Tab] lisinopriL [Lisinopril 20mg Tab] 20 mg PO DAILY 12/17/17 04/16/19 History albuterol sulfate 90 mcg/actuation 2 puffs INHALATION Q4HP PRN 10/03/18 04/16/19 History breath activated powder inhaler ropinirole 1 mg tablet 1 mg PO HS #30 tab 10/03/18 04/16/19 History Thiamine HCl [Vitamin B-1] 100 mg PO DAILY 11/09/18 04/16/19 History fluoxetine 20 mg capsule 20 mg PO HS #30 cap 03/08/19 04/16/19 History gabapentin 400 mg capsule 400 mg PO TID #90 cap 03/08/19 04/16/19 History omeprazole 20 mg capsule,delayed 20 mg PO DAILY #30 cap 03/08/19 04/16/19 History release ranitidine 300 mg tablet 300 mg PO HS #30 tab 03/08/19 04/16/19 History Gemfibrozil 600 mg PO DAILY 04/16/19 04/16/19 History Allergies Allergy/AdvReac Type Severity Reaction Status Date / Time No Known Allergies Allergy Verified 03/08/19 11:32 Exam Vital signs and Labs for Last 24 Hours: Temp Pulse Resp BP Pulse Ox 98.6 F 69 22 145/90 H 100 04/19/19 08:00 04/19/19 08:00 04/19/19 08:00 04/19/19 08:00 04/19/19 08:00 Laboratory Results - last 24 hr 04/17/19 06:10: Cortisol 4.9 04/19/19 04:15: Stl Aeromonas (PCR) Not detected, Stl C. cayetanensis PCR Not detected, Stool Rotavirus (PCR) Not detected, Stl Adenov F 40/41 PCR Not detected, Stool Astrovirus (PCR) Not detected, Stool Campylobacter PCR Not detected, Stl C.difficile Tox PCR Not detected, Stool Cryptosporidium PCR Not detected, Stl E.coli Shiga Tox PCR Not detected, Stool E coli O157 PCR Not detected, Stl Enterotoxigenic E PCR Not detected, Stool EPEC (PCR) Not detected, Stool EAEC (PCR) Not detected, Stl E. histolytica PCR Not detected, Stool Giardia Lamblia PCR Not detected, Stool Salmonella PCR Not detected, Stool Sap ovirus (PCR) Not detected, Stl P. shigelloides PCR Not detected, Stl Shigella/EIEC PCR Not detected, St Y.enterocolitica PCR Not detected, Stool Vibrio (PCR) Not detected, Stl Vibrio cholerae PCR Not detected, Stl Norovirus GI/GII PCR Not detected 04/19/19 05:44: WBC 9.8 D, RBC 3.11 L, Hgb 9.9 L, Hct 32.0 L, MCV 102.8 H, MCH 31.8 H, MCHC 31.0 L, RDW 15.3, Plt Count 131 L, MPV 8.8, Neut % (Auto) 84.4 H, Lymph % (Auto) 10.4, [place] % (Auto) 3.5, Eos % (Auto) 1.5, Baso % (Auto) 0.1, Neut # (Auto) 8.3 H, Lymph # (Auto) 1.0, [place] # (Auto) 0.3, Eos # (Auto) 0.2, Baso # (Auto) 0.0 04/19/19 05:44: PT 15.4 H, INR 1.51 H 04/19/19 05:44: Sodium 139, Potassium 3.6, Chloride 103, Carbon Dioxide 29, Anion Gap 10.6, BUN 10, Creatinine 0.62, Estimated Creat Clear 109, Estimated GFR 100, Est GFR ( Amer) 121, Glucose 101 D, Calcium 6.8 L, Total Bilirubin 1.9 H, AST 108 H D, ALT 29 D, Alkaline Phosphatase 191 H, Total Protein 5.3 L, Albumin 1.7 L, Globulin 3.6 H, Albumin/Globulin Ratio 0.5 L I & O for Last 24 hours: Intake & Output 04/17/19 04/18/19 04/19/19 04/20/19 11:59 11:59 11:59 11:59 Intake Total 1400 940 760 Output Total 200 200 Balance 1400 740 560 Weight 66.706 kg 66.905 kg 66.678 kg Microbiology Reports for the Last 24 Hours: Microbiology 04/16/19 12:12 Ascites Fluid Gram Stain - Final 04/16/19 12:12 Ascites Fluid Body Fluid Culture - Preliminary NO GROWTH AFTER 72 HOURS 04/16/19 12:43 Sputum - Expectorated Sputum Gram Stain - Final 04/16/19 12:43 Sputum - Expectorated Sputum Sputum Culture - Preliminary Klebsiella pneumoniae ozaenae Gram Positive Cocci - Constitutional mild distress, chronically ill appearing, disheveled, cooperative - *Routine HEENT Exam Head: Present: normocephalic, atraumatic Eye: Present: EOMI ENT: Present: mucous membranes moist - *Routine Neck Exam Present: full ROM. Absent: JVD - Routine Chest/Breast/Axilla Exam Chest wall: Absent: tenderness - *Routine Respiratory Exam Present: decreased breath sounds. Absent: rales, respiratory distress, rhonchi - *Routine Cardiovascular Exam Present: RRR, tachycardia - *Routine Abdominal Exam Present: soft, distended. Absent: tenderness, rebound, guarding, rigid, mass, hernia, bruit - *Routine Extremities Exam Present: edema. Absent: cyanosis Comments: edema bilat LE - *Routine Skin Exam Present: dry, warm. Absent: cyanosis, wounds - *Routine Neurological Exam Present: alert, oriented X3, moving all extremities, normal speech. Absent: altered mental status, facial asymmetry - Routine Psychiatric Exam Present: normal affect, normal thought process Internal Medicine - CN: Reslt - Labs CBC & Chem 7: 04/19/19 05:44 04/19/19 05:44 Labs: Short CBC 04/19/19 Range/Units 05:44 WBC 9.8 D (4.8-10.8) K/mm3 Hgb 9.9 L (12.2-16.2) g/dL Hct 32.0 L (37.0-47.0) % Plt Count 131 L (142-424) K/mm3 BMP 04/19/19 05:44 Sodium 139 Potassium 3.6 Chloride 103 Carbon Dioxide 29 BUN 10 Creatinine 0.62 Glucose 101 D Calcium 6.8 L Liver Function 04/19/19 Range/Units 05:44 Total Bilirubin 1.9 H (0.2-1.0) mg/dL AST 108 H D (15-37) U/L ALT 29 D (12-78) U/L Alkaline Phosphatase 191 H (46-116) U/L Albumin 1.7 L (3.4-5.0) gm/dL - ABG Interpretation ABG results: 04/15/19 04/17/19 21:45 11:18 ABG pH 7.37 7.47 H ABG pCO2 40.5 38.3 ABG pO2 103.2 H 124.6 H ABG HCO3 22.9 27.1 H ABG Total CO2 24.1 28.2 H ABG O2 Saturation 99 ABG Base Excess -2.4 3.3 H - Imaging and Cardiology CT scan - abdomen Additional comments: TECHNIQUE: IV Contrast: 75ML OPTIRAY 350 Oral Contrast none Axial images obtained with sagittal and coronal reformats. All CT scans at the facility use one or more dose reduction, viz: automated exposure control, ma/kV adjustment per patient size (including targeted exams where dose is matched to indication, i.e. head), or iterative reconstruction technique. FINDINGS: LOWER THORAX: Ill-defined patchy infiltrates are present in both lower lobes within the right middle lobe, right lower lobe, lingula, and left lower lobe. There are trace bilateral effusions. ABDOMEN & PELVIS: Cirrhotic appearing liver. Mild amount of diffuse ascites. Mild splenomegaly at 15 cm. The adrenal glands, pancreas, and kidneys have an unremarkable appearance. There is a moderate amount of ascites throughout the abdomen and pelvis. There is a Travis catheter present. No intestinal obstruction or free air. There is diffuse subcutaneous edema. No acute bony findings. There is mild diffuse thickening of the colon which may be seen with cirrhosis/portal hypertension and ascites. Colitis is also consideration. No evidence of appendicitis. IMPRESSION: 1. Cirrhosis with moderate amount diffuse ascites and splenomegaly. 2. Bilateral lower lobe pneumonia with trace bilateral effusions. 3. Mild diffuse thickening of the colon which may be seen with cirrhosis. Colitis is also considered. Dictated by: Dav Hines MD 04/16/2019 04:33 Electronically signed by Dav Hines MD in [place] 04/16/2019 04:33 Assessment and Plan (1) Community acquired pneumonia Current visit: Yes Status: Acute Qualifiers: Laterality: unspecified laterality Qualified Code(s): J18.9 - Pneumonia, unspecified organism Category: Medical Code(s): J18.9 - Pneumonia, unspecified organism (2) Diarrhea Current visit: Yes Status: Acute Category: Medical Code(s): R19.7 - Diarrhea, unspecified Awaiting stool panel. Mild diffuse thickening of the colon consistent with her cirrhosis with ascites/anasarca versus withdrawal complication versus possible gastroenteritis versus colitis. If stool panel negative, recommend dicyclomine q6 PRN and follow up as an outpatient in the office. (3) Cirrhosis of liver with ascites Current visit: Yes Status: Chronic Qualifiers: Hepatic cirrhosis type: alcoholic cirrhosis Qualified Code(s): K70.31 - Alcoholic cirrhosis of liver with ascites Category: Medical Code(s): K74.60 - Unspecified cirrhosis of liver; R18.8 - Other ascites Patient reports chronic alcoholism and believes she had a cirrhosis diagnosis about 3 years ago but has never followed up. She has tried and failed rehab and AA meetings previously but is open to the suggestion today. We will check full liver work-up to find if there is any exacerbating underlying liver disease including autoimmune markers, AFP, hepatitis panel, hemochromatosis gene with iron levels, alpha 1 antitrypsin, celiac panel, Winslow fibrosure. Recommend low- sodium diet and she is already on Lasix and spironolactone recommend she continue all 3 of those as an outpatient. Recommend consult for case management team to discuss rehab options and give information regarding AA meetings etc. in this area. Upon arrival labs showed a meld score of 26. This level of potential liver failure would normally place her as a candidate for Consultation for liver transplant. However given that she is still actively drinking alcohol, she would not be a candidate. Likely her anemia is related to splenomegaly and cirrhosis given that it is macrocytic and hyperchromic recommend we check a Hemoccult anyway. She will likely need an endoscopy but can do this as an outpatient. I recommend she follow-up in our office after discharge. (4) Back pain Current visit: No Status: Acute Category: Medical Code(s): M54.9 - Dorsalgia, unspecified (5) Hyponatremia Current visit: No Status: Acute Category: Medical Code(s): E87.1 - Hypo- osmolality and hyponatremia (6) Hypothyroidism Current visit: Yes Status: Chronic Qualifiers: Hypothyroidism type: acquired Qualified Code(s): E03.9 - Hypothyroidism, unspecified Category: Medical Code(s): E03.9 - Hypothyroidism, unspecified (7) Alcohol abuse Current visit: No Status: Chronic Category: Medical Code(s): F10.10 - Alcohol abuse, uncomplicated She admits to chronic alcohol use. Has tried and failed rehab and AA meetings previously but is still open to the conversation. Case management referral (8) Hyperlipidemia Current visit: No Status: Chronic Category: Medical Code(s): E78.5 - Hyperlipidemia, unspecified (9) Hypertension Current visit: No Status: Chronic Category: Medical Code(s): I10 - Essential (primary) hypertension (10) Decompensated liver disease Current visit: Yes Status: Acute Category: Medical Code(s): K74.69 - Other cirrhosis of liver See above plan for cirrhosis (11) Klebsiella pneumoniae pneumonia Current visit: Yes Status: Acute Category: Medical Code(s): J15.0 - Pneumonia due to Klebsiella pneumoniae
--- NOTE | 2019-04-20 08:22 | Progress Note ---
<Erica Foreman - Last Filed: 04/20/19 08:24> Internal Medicine - PN: Subj *Date: 04/20/19 *Time: 08:24 Interval history: Patient slept very little during the night. She was up numerous times to the bedside commode with diarrhea stools. She states she thinks she had about 10. She feels she had about 4 during the day yesterday. She is trying to eat but the food choices have not been good with tuna and chicken salad. We will have dietitian to see her. She feels her back might be just a little bit better. She denies difficulty with breathing and chest pain. Was seen by GI yesterday with the following comments: Hepatic cirrhosis type: alcoholic cirrhosis Qualified Code(s): K70.31 - Alcoholic cirrhosis of liver with ascites Category: Medical Code(s): K74.60 - Unspecified cirrhosis of liver; R18.8 - Other ascites Patient reports chronic alcoholism and believes she had a cirrhosis diagnosis about 3 years ago but has never followed up. She has tried and failed rehab and AA meetings previously but is open to the suggestion today. We will check full liver work-up to find if there is any exacerbating underlying liver disease including autoimmune markers, AFP, hepatitis panel, hemochromatosis gene with iron levels, alpha 1 antitrypsin, celiac panel, Winslow fibrosure. Recommend low- sodium diet and she is already on Lasix and spironolactone recommend she continue all 3 of those as an outpatient. Recommend consult for case management team to discuss rehab options and give information regarding AA meetings etc. in this area. Upon arrival labs showed a meld score of 26. This level of potential liver failure would normally place her as a candidate for Consultation [facility] for liver transplant. However given that she is still actively drinking alcohol, she would not be a candidate. Likely her anemia is related to splenomegaly and cirrhosis given that it is macrocytic and hyperchromic recommend we check a Hemoccult anyway. She will likely need an endoscopy but can do this as an outpatient. I recommend she follow-up in our office after discharge. Chest x-ray revealed improved pneumonia. Thoracic spine x-ray was negative. Exam Vital signs and Labs for Last 24 Hours: Temp Pulse Resp BP Pulse Ox 98.4 F 88 20 137/80 94 L 04/20/19 07:45 04/20/19 07:45 04/20/19 07:45 04/20/19 07:45 04/20/19 07:45 Laboratory Results - last 24 hr 04/19/19 12:50: Stool Occult Blood Negative 04/19/19 13:39: Ferritin 405 H 04/19/19 13:39: Ammonia 67 H I & O for Last 24 hours: Intake & Output 04/17/19 04/18/19 04/19/19 04/20/19 11:59 11:59 11:59 11:59 Intake Total 1400 / 1400 940 / 940 760 / 760 840 / 840 Output Total 200 / 200 200 / 200 Balance 1400 / 1400 740 / 740 560 / 560 840 / 840 Weight 147 lb 1 oz 147 lb 8 oz 147 lb 143 lb Microbiology Reports for the Last 24 Hours: Microbiology 04/16/19 12:12 Ascites Fluid Gram Stain - Final 04/16/19 12:12 Ascites Fluid Body Fluid Culture - Preliminary NO GROWTH AFTER 72 HOURS 04/16/19 12:43 Sputum - Expectorated Sputum Gram Stain - Final 04/16/19 12:43 Sputum - Expectorated Sputum Sputum Culture - Preliminary Klebsiella pneumoniae ozaenae Gram Positive Cocci Radiology Reports for the Last 24 Hours: 04/19/2019 repeat chest x-ray IMPRESSION: Persistent but slightly improved diffuse bilateral pneumonia with some increasing density in the right lung base which may be due to developing atelectatic changes. 04/19/2019 thoracic spine x-ray IMPRESSION: No acute finding of the thoracic spine. - Constitutional no acute distress - *Routine Respiratory Exam Comments: Few bibasilar crackles - *Routine Cardiovascular Exam Present: RRR - *Routine Abdominal Exam Present: distended Comments: Hyperactive bowel sounds - *Routine Extremities Exam Absent: edema, calf tenderness - *Routine Neurological Exam Present: alert, oriented X3 Assessment and Plan (1) Community acquired pneumonia Current visit: Yes Status: Acute Qualifiers: Laterality: unspecified laterality Qualified Code(s): J18.9 - Pneumonia, unspecified organism Category: Medical Code(s): J18.9 - Pneumonia, unspecified organism (2) Diarrhea Current visit: Yes Status: Acute Category: Medical Code(s): R19.7 - Diarrhea, unspecified (3) Cirrhosis of liver with ascites Current visit: Yes Status: Chronic Qualifiers: Hepatic cirrhosis type: alcoholic cirrhosis Qualified Code(s): K70.31 - Alcoholic cirrhosis of liver with ascites Category: Medical Code(s): K74.60 - Unspecified cirrhosis of liver; R18.8 - Other ascites (4) Back pain Current visit: No Status: Acute Category: Medical Code(s): M54.9 - Dorsalgia, unspecified (5) Hyponatremia Current visit: No Status: Acute Category: Medical Code(s): E87.1 - Hypo- osmolality and hyponatremia (6) Hypothyroidism Current visit: Yes Status: Chronic Qualifiers: Hypothyroidism type: acquired Qualified Code(s): E03.9 - Hypothyroidism, unspecified Category: Medical Code(s): E03.9 - Hypothyroidism, unspecified (7) Alcohol abuse Current visit: No Status: Chronic Category: Medical Code(s): F10.10 - Alcohol abuse, uncomplicated (8) Hyperlipidemia Current visit: No Status: Chronic Category: Medical Code(s): E78.5 - Hyperlipidemia, unspecified (9) Hypertension Current visit: No Status: Chronic Category: Medical Code(s): I10 - Essential (primary) hypertension (10) Decompensated liver disease Current visit: Yes Status: Acute Category: Medical Code(s): K74.69 - Other cirrhosis of liver (11) Klebsiella pneumoniae pneumonia Current visit: Yes Status: Acute Category: Medical Code(s): J15.0 - Pneumonia due to Klebsiella pneumoniae - Assessment and plan all Dx Assessment and Plan for all problems:: We will consult dietary for food preferences for her special diet. We will add Imodium for the diarrhea. Repeat labs in the a.m. <Patrick Rios - Last Filed: 04/20/19 08:47> Internal Medicine - PN: Subj *Date: 04/20/19 *Time: 08:45 Exam Vital signs and Labs for Last 24 Hours: Temp Pulse Resp BP Pulse Ox 98.4 F 88 20 137/80 94 L 04/20/19 07:45 04/20/19 07:45 04/20/19 07:45 04/20/19 07:45 04/20/19 07:45 Laboratory Results - last 24 hr 04/19/19 12:50: Stool Occult Blood Negative 04/19/19 13:39: Ferritin 405 H 04/19/19 13:39: Ammonia 67 H I & O for Last 24 hours: Intake & Output 04/17/19 04/18/19 04/19/19 04/20/19 11:59 11:59 11:59 11:59 Intake Total 1400 / 1400 940 / 940 760 / 760 840 / 840 Output Total 200 / 200 200 / 200 Balance 1400 / 1400 740 / 740 560 / 560 840 / 840 Weight 147 lb 1 oz 147 lb 8 oz 147 lb 143 lb Microbiology Reports for the Last 24 Hours: Microbiology 04/16/19 12:12 Ascites Fluid Gram Stain - Final 04/16/19 12:12 Ascites Fluid Body Fluid Culture - Preliminary NO GROWTH AFTER 72 HOURS 04/16/19 12:43 Sputum - Expectorated Sputum Gram Stain - Final 04/16/19 12:43 Sputum - Expectorated Sputum Sputum Culture - Preliminary Klebsiella pneumoniae ozaenae Gram Positive Cocci Assessment and Plan (1) Community acquired pneumonia Current visit: Yes Status: Acute Qualifiers: Laterality: unspecified laterality Qualified Code(s): J18.9 - Pneumonia, unspecified organism Category: Medical Code(s): J18.9 - Pneumonia, unspecified organism (2) Diarrhea Current visit: Yes Status: Acute Category: Medical Code(s): R19.7 - Diarrhea, unspecified (3) Cirrhosis of liver with ascites Current visit: Yes Status: Chronic Qualifiers: Hepatic cirrhosis type: alcoholic cirrhosis Qualified Code(s): K70.31 - Alcoholic cirrhosis of liver with ascites Category: Medical Code(s): K74.60 - Unspecified cirrhosis of liver; R18.8 - Other ascites (4) Back pain Current visit: No Status: Acute Category: Medical Code(s): M54.9 - Dorsalgia, unspecified (5) Hyponatremia Current visit: No Status: Acute Category: Medical Code(s): E87.1 - Hypo- osmolality and hyponatremia (6) Hypothyroidism Current visit: Yes Status: Chronic Qualifiers: Hypothyroidism type: acquired Qualified Code(s): E03.9 - Hypothyroidism, unspecified Category: Medical Code(s): E03.9 - Hypothyroidism, unspecified (7) Alcohol abuse Current visit: No Status: Chronic Category: Medical Code(s): F10.10 - Alcohol abuse, uncomplicated (8) Hyperlipidemia Current visit: No Status: Chronic Category: Medical Code(s): E78.5 - Hyperlipidemia, unspecified (9) Hypertension Current visit: No Status: Chronic Category: Medical Code(s): I10 - Essential (primary) hypertension (10) Decompensated liver disease Current visit: Yes Status: Acute Category: Medical Code(s): K74.69 - Other cirrhosis of liver (11) Klebsiella pneumoniae pneumonia Current visit: Yes Status: Acute Category: Medical Code(s): J15.0 - Pneumonia due to Klebsiella pneumoniae - Assessment and plan all Dx Assessment and Plan for all problems:: Patient seen and examined this AM. Concur with above. GI consult noted and appreciated. Her CXR yesterday showed improvement. Will continue to wean Vapotherm.
[2019-04-20 09:10] LABS: Hepatitis B Surface Antigen Negative (Negative)
--- NOTE | 2019-04-20 14:14 | Pharmacy Consult Notes ---
- Pharmacy Consult Date: 04/20/19 Time: 14:11 Referring provider: DR. ANDERS Reason for Consult:: VANCOMYCIN DOSING Allergies and ADEs:: Allergies Allergy/AdvReac Type Severity Reaction Status Date / Time No Known Allergies Allergy Verified 03/08/19 11:32 Home Medications:: Home Medications Medication Instructions Recorded Confirmed Type ALPRAZolam [Xanax 0.5mg tab] 0.5 mg PO TIDP PRN 12/17/17 04/16/19 History Levothyroxine Sodium 112 mcg PO DAILY 12/17/17 04/16/19 History [Levothyroxine 112mcg (0.112mg) Tab] lisinopriL [Lisinopril 20mg Tab] 20 mg PO DAILY 12/17/17 04/16/19 History albuterol sulfate 90 mcg/actuation 2 puffs INHALATION Q4HP PRN 10/03/18 04/16/19 History breath activated powder inhaler ropinirole 1 mg tablet 1 mg PO HS #30 tab 10/03/18 04/16/19 History Thiamine HCl [Vitamin B-1] 100 mg PO DAILY 11/09/18 04/16/19 History fluoxetine 20 mg capsule 20 mg PO HS #30 cap 03/08/19 04/16/19 History gabapentin 400 mg capsule 400 mg PO TID #90 cap 03/08/19 04/16/19 History omeprazole 20 mg capsule,delayed 20 mg PO DAILY #30 cap 03/08/19 04/16/19 History release ranitidine 300 mg tablet 300 mg PO HS #30 tab 03/08/19 04/16/19 History Gemfibrozil 600 mg PO DAILY 04/16/19 04/16/19 History Height: 1.55 m Weight: 64.864 kg Laboratory Results:: Laboratory Results - last 24 hr 04/19/19 12:50: Stool Occult Blood Negative 04/19/19 13:39: Ferritin 405 H 04/19/19 13:39: Ammonia 67 H Medical History: Reports:: Anxiety, Depression, Hyperlipidemia, Hypertension, Seizures Denies:: Cancer, Diabetes Mellitus Type 1, Diabetes Mellitus Type 2, Internal Pacemaker, Lung Disease, MRSA Assessment and Plan (1) Community acquired pneumonia Current visit: Yes Status: Acute Qualifiers: Laterality: unspecified laterality Qualified Code(s): J18.9 - Pneumonia, unspecified organism Category: Medical Code(s): J18.9 - Pneumonia, unspecified organism (2) Diarrhea Current visit: Yes Status: Acute Category: Medical Code(s): R19.7 - Diarrhea, unspecified (3) Cirrhosis of liver with ascites Current visit: Yes Status: Chronic Qualifiers: Hepatic cirrhosis type: alcoholic cirrhosis Qualified Code(s): K70.31 - Alcoholic cirrhosis of liver with ascites Category: Medical Code(s): K74.60 - Unspecified cirrhosis of liver; R18.8 - Other ascites (4) Back pain Current visit: No Status: Acute Category: Medical Code(s): M54.9 - Dorsalgia, unspecified (5) Hyponatremia Current visit: No Status: Acute Category: Medical Code(s): E87.1 - Hypo- osmolality and hyponatremia (6) Hypothyroidism Current visit: Yes Status: Chronic Qualifiers: Hypothyroidism type: acquired Qualified Code(s): E03.9 - Hypothyroidism, unspecified Category: Medical Code(s): E03.9 - Hypothyroidism, unspecified (7) Alcohol abuse Current visit: No Status: Chronic Category: Medical Code(s): F10.10 - Alcohol abuse, uncomplicated (8) Hyperlipidemia Current visit: No Status: Chronic Category: Medical Code(s): E78.5 - Hyperlipidemia, unspecified (9) Hypertension Current visit: No Status: Chronic Category: Medical Code(s): I10 - Essential (primary) hypertension (10) Decompensated liver disease Current visit: Yes Status: Acute Category: Medical Code(s): K74.69 - Other cirrhosis of liver (11) Klebsiella pneumoniae pneumonia Current visit: Yes Status: Acute Category: Medical Code(s): J15.0 - Pneumonia due to Klebsiella pneumoniae - Assessment and plan all Dx Assessment and Plan for all problems:: BASED ON PATIENT'S FACTORS, RECOMMEND STARTING WITH VANCOMYCIN 1000 MG Q12H AT THIS TIME.
[2019-04-20 14:48] LABS: Hepatitis C Antibody <0.1 s/co ratio (0.0-0.9)
[2019-04-21 06:26] LABS: Basophils % 0.1 % (0.1-2.0); Eosinophils # 0.2 K/mm3 (0.0-0.4); Eosinophils % 2.2 % (0.1-12.0); Hematocrit 30.4 % (37.0-47.0); Hemoglobin 9.7 g/dL (12.2-16.2); Lymphocytes # 1.5 K/mm3 (0.7-4.5); Lymphocytes % 14.7 % (10-50); Mean Corpuscular HGB Conc 31.8 g/dL (31.8-35.4); Mean Corpuscular Volume 101.5 fl (81-99); Monocytes # 0.5 K/mm3 (0.1-1.0); Monocytes % 4.3 % (1.7-9.3); Neutrophils # 8.2 K/mm3 (1.8-7.8); Neutrophils % 78.7 % (37.0-80.0); Platelet Count 135 K/mm3 (142-424); Red Blood Count 2.99 M/mm3 (4.20-5.40); White Blood Count 10.4 K/mm3 (4.8-10.8)
[2019-04-21 06:50] LABS: Albumin Level 1.8 gm/dL (3.4-5.0); Albumin/Globulin Ratio 0.5 (1.1-1.8); Anion Gap 11.3 mEq/L (5-15); Bilirubin,Total 1.4 mg/dL (0.2-1.0); Globulin 3.6 gm/dl (1.3-3.2); Total Protein,Serum 5.4 gm/dL (6.4-8.2)
[2019-04-21 06:57] LABS: Calcium 6.8 mg/dL (8.5-10.1)
[2019-04-21 06:57] LABS: ABG Oxygen Saturation 98 % (90-100)
--- NOTE | 2019-04-21 07:40 | Progress Note ---
<Erica Foreman - Last Filed: 04/21/19 07:37> Internal Medicine - PN: Subj *Date: 04/21/19 *Time: 07:37 Interval history: Patient states she feels a little bit better this morning. She was able to eat more yesterday. She has to watch her ability of food intake at a time. She has had less diarrhea. She had 3 stools during the night. Her abdomen is more comfortable. Back pain is less. She states that heat helps. She denies shortness of breath and is being weaned from the Vapotherm. No function is good. Potassium is low at 3.3. Sputum grew an additional bacteria staph aureus and vancomycin was added to her antibiotic regime Exam Vital signs and Labs for Last 24 Hours: Temp Pulse Resp BP Pulse Ox 97.6 F 77 21 103/58 L 96 04/21/19 04:00 04/21/19 04:00 04/21/19 04:00 04/21/19 04:00 04/21/19 04:00 Laboratory Results - last 24 hr 04/15/19 21:45: ABG O2 Saturation 98 04/19/19 13:39: Iron 44, TIBC 108 L, Iron Saturation 41, Unsaturated IBC 64 L, Opbpy-2-Joruvzjyysg 234 H, Tumor Marker AFP 6.8, Endomysial IgA Ab Negative, Hepatitis A IgM Ab Negative, Hep Bs Antigen Negative, Hep B Core IgM Ab Negative, Hepatitis C Antibody <0.1 04/21/19 05:30: WBC 10.4, RBC 2.99 L, Hgb 9.7 L, Hct 30.4 L, MCV 101.5 H, MCH 32.3 H, MCHC 31.8, RDW 16.0, Plt Count 135 L, MPV 9.0, Neut % (Auto) 78.7, Lymph % (Auto) 14.7, [place] % (Auto) 4.3, Eos % (Auto) 2.2, Baso % (Auto) 0.1, Neut # (Auto) 8.2 H, Lymph # (Auto) 1.5, Montgomery # (Auto) 0.5, Eos # (Auto) 0.2, Baso # (Auto) 0.0 04/21/19 05:30: Sodium 136, Potassium 3.3 L, Chloride 100, Carbon Dioxide 28, Anion Gap 11.3, BUN 8, Creatinine 0.54 L, Estimated Creat Clear 119, Estimated GFR 118, Est GFR ( Amer) 142, Glucose 89, Calcium 6.8 L, Total Bilirubin 1.4 H, AST 90 H, ALT 44 D, Alkaline Phosphatase 164 H, Total Protein 5.4 L, Albumin 1.8 L, Globulin 3.6 H, Albumin/Globulin Ratio 0.5 L I & O for Last 24 hours: Intake & Output 04/18/19 04/19/19 04/20/19 04/21/19 11:59 11:59 11:59 11:59 Intake Total 940 / 940 760 / 760 840 / 840 600 / 600 Output Total 200 / 200 200 / 200 Balance 740 / 740 560 / 560 840 / 840 600 / 600 Weight 147 lb 8 oz 147 lb 143 lb 140 lb 0.7 oz Microbiology Reports for the Last 24 Hours: Microbiology 04/15/19 21:33 Blood Blood Culture - Final NO GROWTH AFTER 5 DAYS 04/15/19 21:33 Blood Blood Culture - Final NO GROWTH AFTER 5 DAYS 04/16/19 12:43 Sputum - Expectorated Sputum Gram Stain - Final 04/16/19 12:43 Sputum - Expectorated Sputum Sputum Culture - Final Klebsiella pneumoniae ozaenae Staphylococcus aureus 04/16/19 12:12 Ascites Fluid Gram Stain - Final 04/16/19 12:12 Ascites Fluid Body Fluid Culture - Preliminary NO GROWTH AFTER 4 DAYS - Constitutional no acute distress Comments: Sitting up in the bed and appears comfortable. She smiles with conversation. - *Routine Respiratory Exam Present: CTA bilaterally (Anteriorly and posteriorly with better air movement) - *Routine Cardiovascular Exam Present: RRR - *Routine Abdominal Exam Present: distended (ascites) Comments: Hyperactive bowel sounds - *Routine Extremities Exam Present: edema (1+) - *Routine Neurological Exam Present: alert, oriented X3 - Routine Psychiatric Exam Comments: Relaxed this a.m. Assessment and Plan (1) Community acquired pneumonia Current visit: Yes Status: Acute Qualifiers: Laterality: unspecified laterality Qualified Code(s): J18.9 - Pneumonia, unspecified organism Category: Medical Code(s): J18.9 - Pneumonia, unspecified organism (2) Diarrhea Current visit: Yes Status: Acute Category: Medical Code(s): R19.7 - Diarrhea, unspecified (3) Cirrhosis of liver with ascites Current visit: Yes Status: Chronic Qualifiers: Hepatic cirrhosis type: alcoholic cirrhosis Qualified Code(s): K70.31 - Alcoholic cirrhosis of liver with ascites Category: Medical Code(s): K74.60 - Unspecified cirrhosis of liver; R18.8 - Other ascites (4) Back pain Current visit: No Status: Acute Category: Medical Code(s): M54.9 - Dorsalgia, unspecified (5) Hyponatremia Current visit: No Status: Acute Category: Medical Code(s): E87.1 - Hypo- osmolality and hyponatremia (6) Hypothyroidism Current visit: Yes Status: Chronic Qualifiers: Hypothyroidism type: acquired Qualified Code(s): E03.9 - Hypothyroidism, unspecified Category: Medical Code(s): E03.9 - Hypothyroidism, unspecified (7) Alcohol abuse Current visit: No Status: Chronic Category: Medical Code(s): F10.10 - Alcohol abuse, uncomplicated (8) Hyperlipidemia Current visit: No Status: Chronic Category: Medical Code(s): E78.5 - Hyperlipidemia, unspecified (9) Hypertension Current visit: No Status: Chronic Category: Medical Code(s): I10 - Essential (primary) hypertension (10) Decompensated liver disease Current visit: Yes Status: Acute Category: Medical Code(s): K74.69 - Other cirrhosis of liver (11) Klebsiella pneumoniae pneumonia Current visit: Yes Status: Acute Category: Medical Code(s): J15.0 - Pneumonia due to Klebsiella pneumoniae (12) Staphylococcus aureus pneumonia Current visit: Yes Status: Acute Category: Medical Code(s): J15.211 - Pneumonia due to Methicillin susceptible Staphylococcus aureus (13) Hypokalemia Current visit: Yes Status: Acute Category: Medical Code(s): E87.6 - Hypokalemia - Assessment and plan all Dx Assessment and Plan for all problems:: Vancomycin has been added to antibiotic med regime. We will add low-dose potassium continue to monitor potassium. Continue to wean from Vapotherm <Patrick Rios - Last Filed: 04/21/19 08:25> Internal Medicine - PN: Subj *Date: 04/21/19 *Time: 08:23 Exam Vital signs and Labs for Last 24 Hours: Temp Pulse Resp BP Pulse Ox 97.6 F 77 21 103/58 L 96 12/11/19 04:00 04/21/19 04:00 04/21/19 04:00 04/21/19 04:00 04/21/19 04:00 Laboratory Results - last 24 hr 04/15/19 21:45: ABG O2 Saturation 98 04/19/19 13:39: Iron 44, TIBC 108 L, Iron Saturation 41, Unsaturated IBC 64 L, Gdtgl-1-Jjasysrynwt 234 H, Tumor Marker AFP 6.8, Endomysial IgA Ab Negative, Hepatitis A IgM Ab Negative, Hep Bs Antigen Negative, Hep B Core IgM Ab Negative, Hepatitis C Antibody <0.1 04/21/19 05:30: WBC 10.4, RBC 2.99 L, Hgb 9.7 L, Hct 30.4 L, MCV 101.5 H, MCH 32.3 H, MCHC 31.8, RDW 16.0, Plt Count 135 L, MPV 9.0, Neut % (Auto) 78.7, Lymph % (Auto) 14.7, Montgomery % (Auto) 4.3, Eos % (Auto) 2.2, Baso % (Auto) 0.1, Neut # (Auto) 8.2 H, Lymph # (Auto) 1.5, [place] # (Auto) 0.5, Eos # (Auto) 0.2, Baso # (Auto) 0.0 04/21/19 05:30: Sodium 136, Potassium 3.3 L, Chloride 100, Carbon Dioxide 28, Anion Gap 11.3, BUN 8, Creatinine 0.54 L, Estimated Creat Clear 119, Estimated GFR 118, Est GFR ( Amer) 142, Glucose 89, Calcium 6.8 L, Total Bilirubin 1.4 H, AST 90 H, ALT 44 D, Alkaline Phosphatase 164 H, Total Protein 5.4 L, Albumin 1.8 L, Globulin 3.6 H, Albumin/Globulin Ratio 0.5 L I & O for Last 24 hours: Intake & Output 04/18/19 04/19/19 04/20/19 04/21/19 11:59 11:59 11:59 11:59 Intake Total 940 / 940 760 / 760 840 / 840 900 / 900 Output Total 200 / 200 200 / 200 Balance 740 / 740 560 / 560 840 / 840 900 / 900 Weight 147 lb 8 oz 147 lb 143 lb 140 lb 0.7 oz Microbiology Reports for the Last 24 Hours: Microbiology 04/15/19 21:33 Blood Blood Culture - Final NO GROWTH AFTER 5 DAYS 04/15/19 21:33 Blood Blood Culture - Final NO GROWTH AFTER 5 DAYS 04/16/19 12:43 Sputum - Expectorated Sputum Gram Stain - Final 04/16/19 12:43 Sputum - Expectorated Sputum Sputum Culture - Final Klebsiella pneumoniae ozaenae Staphylococcus aureus 04/16/19 12:12 Ascites Fluid Gram Stain - Final 04/16/19 12:12 Ascites Fluid Body Fluid Culture - Preliminary NO GROWTH AFTER 4 DAYS Assessment and Plan (1) Community acquired pneumonia Current visit: Yes Status: Acute Qualifiers: Laterality: unspecified laterality Qualified Code(s): J18.9 - Pneumonia, unspecified organism Category: Medical Code(s): J18.9 - Pneumonia, unspecified organism (2) Diarrhea Current visit: Yes Status: Acute Category: Medical Code(s): R19.7 - Diarrhea, unspecified (3) Cirrhosis of liver with ascites Current visit: Yes Status: Chronic Qualifiers: Hepatic cirrhosis type: alcoholic cirrhosis Qualified Code(s): K70.31 - Alcoholic cirrhosis of liver with ascites Category: Medical Code(s): K74.60 - Unspecified cirrhosis of liver; R18.8 - Other ascites (4) Back pain Current visit: No Status: Acute Category: Medical Code(s): M54.9 - Dorsalgia, unspecified (5) Hyponatremia Current visit: No Status: Acute Category: Medical Code(s): E87.1 - Hypo- osmolality and hyponatremia (6) Hypothyroidism Current visit: Yes Status: Chronic Qualifiers: Hypothyroidism type: acquired Qualified Code(s): E03.9 - Hypothyroidism, unspecified Category: Medical Code(s): E03.9 - Hypothyroidism, unspecified (7) Alcohol abuse Current visit: No Status: Chronic Category: Medical Code(s): F10.10 - Alcohol abuse, uncomplicated (8) Hyperlipidemia Current visit: No Status: Chronic Category: Medical Code(s): E78.5 - Hyperlipidemia, unspecified (9) Hypertension Current visit: No Status: Chronic Category: Medical Code(s): I10 - Essential (primary) hypertension (10) Decompensated liver disease Current visit: Yes Status: Acute Category: Medical Code(s): K74.69 - Other cirrhosis of liver (11) Klebsiella pneumoniae pneumonia Current visit: Yes Status: Acute Category: Medical Code(s): J15.0 - Pneumonia due to Klebsiella pneumoniae (12) Staphylococcus aureus pneumonia Current visit: Yes Status: Acute Category: Medical Code(s): J15.211 - Pneumonia due to Methicillin susceptible Staphylococcus aureus (13) Hypokalemia Current visit: Yes Status: Acute Category: Medical Code(s): E87.6 - Hypokalemia - Assessment and plan all Dx Assessment and Plan for all problems:: Patient seen and examined. Concur with above assessment plan as outlined above.
[2019-04-21 15:28] LABS: Tissue Transglutaminase IgA Ab <2 U/mL (0-3); Tissue Transglutaminase IgG Ab <2 U/mL (0-5)
--- NOTE | 2019-04-22 08:13 | Progress Note ---
<Jacqueline Hilliard - Last Filed: 04/22/19 08:11> Internal Medicine - PN: Subj *Date: 04/22/19 *Time: 08:11 Interval history: Patient states she thought her diarrhea was improving, but last night, she began having watery diarrhea and this continued throughout the night. She denies any abdominal pain. She states she was unable to rest due to the diarrhea. Her cough and shortness of breath have improved. Exam Vital signs and Labs for Last 24 Hours: Temp Pulse Resp BP Pulse Ox 98.1 F 78 20 124/73 97 04/22/19 03:39 04/22/19 03:39 04/22/19 03:39 04/22/19 03:39 04/22/19 03:39 Laboratory Results - last 24 hr 04/19/19 13:39: Mitochondria M2 Ab <20.0, Tiss Transglutamin IgG <2, Tiss Transglutamin IgA <2, Gliadin (Deamidat) IgG 2, Gliadin (Deamidat) IgA 6 04/22/19 02:52: Vancomycin Trough 16.7 I & O for Last 24 hours: Intake & Output 04/19/19 04/20/19 04/21/19 04/22/19 11:59 11:59 11:59 11:59 Intake Total 760 / 760 840 / 840 1380 / 1380 2019 Output Total 200 / 200 500 / 500 Balance 560 / 560 840 / 840 1380 / 1380 1520 / 1520 Weight 147 lb 143 lb 140 lb 0.7 oz 139 lb 6 oz Microbiology Reports for the Last 24 Hours: Microbiology 04/16/19 12:12 Ascites Fluid Gram Stain - Final 04/16/19 12:12 Ascites Fluid Body Fluid Culture - Final NO GROWTH AFTER 5 DAYS - Constitutional no acute distress - *Routine Respiratory Exam Present: CTA bilaterally - *Routine Cardiovascular Exam Present: RRR - *Routine Abdominal Exam Present: soft, normoactive bowel sounds, distended. Absent: tenderness - *Routine Extremities Exam Absent: cyanosis, clubbing, edema - *Routine Skin Exam Present: warm. Absent: rash - *Routine Neurological Exam Present: alert, oriented X3 Assessment and Plan (1) Community acquired pneumonia Current visit: Yes Status: Acute Qualifiers: Laterality: unspecified laterality Qualified Code(s): J18.9 - Pneumonia, unspecified organism Category: Medical Code(s): J18.9 - Pneumonia, unspecified organism (2) Diarrhea Current visit: Yes Status: Acute Category: Medical Code(s): R19.7 - Diarrhea, unspecified (3) Cirrhosis of liver with ascites Current visit: Yes Status: Chronic Qualifiers: Hepatic cirrhosis type: alcoholic cirrhosis Qualified Code(s): K70.31 - Alcoholic cirrhosis of liver with ascites Category: Medical Code(s): K74.60 - Unspecified cirrhosis of liver; R18.8 - O ther ascites (4) Back pain Current visit: No Status: Acute Category: Medical Code(s): M54.9 - Dorsalgia, unspecified (5) Hyponatremia Current visit: No Status: Acute Category: Medical Code(s): E87.1 - Hypo- osmolality and hyponatremia (6) Hypothyroidism Current visit: Yes Status: Chronic Qualifiers: Hypothyroidism type: acquired Qualified Code(s): E03.9 - Hypothyroidism, unspecified Category: Medical Code(s): E03.9 - Hypothyroidism, unspecified (7) Alcohol abuse Current visit: No Status: Chronic Category: Medical Code(s): F10.10 - Alcohol abuse, uncomplicated (8) Hyperlipidemia Current visit: No Status: Chronic Category: Medical Code(s): E78.5 - Hyperlipidemia, unspecified (9) Hypertension Current visit: No Status: Chronic Category: Medical Code(s): I10 - Essential (primary) hypertension (10) Decompensated liver disease Current visit: Yes Status: Acute Category: Medical Code(s): K74.69 - Other cirrhosis of liver (11) Klebsiella pneumoniae pneumonia Current visit: Yes Status: Acute Category: Medical Code(s): J15.0 - Pneumonia due to Klebsiella pneumoniae (12) Staphylococcus aureus pneumonia Current visit: Yes Status: Acute Category: Medical Code(s): J15.211 - Pneumonia due to Methicillin susceptible Staphylococcus aureus (13) Hypokalemia Current visit: Yes Status: Acute Category: Medical Code(s): E87.6 - Hypokalemia - Assessment and plan all Dx Assessment and Plan for all problems:: Patient is improving other than her diarrhea. Will discuss further care with Dr. Rios. <Patrick Rios - Last Filed: 04/22/19 08:22> Internal Medicine - PN: Subj *Date: 04/22/19 *Time: 08:18 Exam Vital signs and Labs for Last 24 Hours: Temp Pulse Resp BP Pulse Ox 98.1 F 78 20 124/73 97 04/22/19 03:39 04/22/19 03:39 04/22/19 03:39 04/22/19 03:39 04/22/19 03:39 Laboratory Results - last 24 hr 04/19/19 13:39: Mitochondria M2 Ab <20.0, Tiss Transglutamin IgG <2, Tiss Transglutamin IgA <2, Gliadin (Deamidat) IgG 2, Gliadin (Deamidat) IgA 6 04/22/19 02:52: Vancomycin Trough 16.7 I & O for Last 24 hours: Intake & Output 04/19/19 04/20/19 04/21/19 04/22/19 11:59 11:59 11:59 11:59 Intake Total 760 / 760 840 / 840 1380 / 1380 2019 Output Total 200 / 200 500 / 500 Balance 560 / 560 840 / 840 1380 / 1380 1520 / 1520 Weight 147 lb 143 lb 140 lb 0.7 oz 139 lb 6 oz Microbiology Reports for the Last 24 Hours: Microbiology 04/16/19 12:12 Ascites Fluid Gram Stain - Final 04/16/19 12:12 Ascites Fluid Body Fluid Culture - Final NO GROWTH AFTER 5 DAYS Assessment and Plan (1) Community acquired pneumonia Current visit: Yes Status: Acute Qualifiers: Laterality: unspecified laterality Qualified Code(s): J18.9 - Pneumonia, unspecified organism Category: Medical Code(s): J18.9 - Pneumonia, unspecified organism (2) Diarrhea Current visit: Yes Status: Acute Category: Medical Code(s): R19.7 - Diarrhea, unspecified (3) Cirrhosis of liver with ascites Current visit: Yes Status: Chronic Qualifiers: Hepatic cirrhosis type: alcoholic cirrhosis Qualified Code(s): K70.31 - Alcoholic cirrhosis of liver with ascites Category: Medical Code(s): K74.60 - Unspecified cirrhosis of liver; R18.8 - Other ascites (4) Back pain Current visit: No Status: Acute Category: Medical Code(s): M54.9 - Dorsalgia, unspecified (5) Hyponatremia Current visit: No Status: Acute Category: Medical Code(s): E87.1 - Hypo- osmolality and hyponatremia (6) Hypothyroidism Current visit: Yes Status: Chronic Qualifiers: Hypothyroidism type: acquired Qualified Code(s): E03.9 - Hypothyroidism, unspecified Category: Medical Code(s): E03.9 - Hypothyroidism, unspecified (7) Alcohol abuse Current visit: No Status: Chronic Category: Medical Code(s): F10.10 - Alcohol abuse, uncomplicated (8) Hyperlipidemia Current visit: No Status: Chronic Category: Medical Code(s): E78.5 - Hyperlipidemia, unspecified (9) Hypertension Current visit: No Status: Chronic Category: Medical Code(s): I10 - Essential (primary) hypertension (10) Decompensated liver disease Current visit: Yes Status: Acute Category: Medical Code(s): K74.69 - Other cirrhosis of liver (11) Klebsiella pneumoniae pneumonia Current visit: Yes Status: Acute Category: Medical Code(s): J15.0 - Pneumonia due to Klebsiella pneumoniae (12) Staphylococcus aureus pneumonia Current visit: Yes Status: Acute Category: Medical Code(s): J15.211 - Pneumonia due to Methicillin susceptible Staphylococcus aureus (13) Hypokalemia Current visit: Yes Status: Acute Category: Medical Code(s): E87.6 - Hypokalemia - Assessment and plan all Dx Assessment and Plan for all problems:: Patient seen and examined. She was weaned from Vapotherm yesterday and is tolerating nasal O2 with sats in upper 90s. Will attempt to wean to RA today. Diarrhea waxes and wanes. Lungs sounds are improved. Encourage activity. Home soon.
--- NOTE | 2019-04-22 10:11 | Pharmacy Consult Notes ---
- Pharmacy Consult Date: 04/22/19 Time: 10:08 Referring provider: DR. ANDERS Reason for Consult:: VANCOMYCIN TROUGH LEVEL Allergies and ADEs:: Allergies Allergy/AdvReac Type Severity Reaction Status Date / Time No Known Allergies Allergy Verified 03/08/19 11:32 Home Medications:: Home Medications Medication Instructions Recorded Confirmed Type ALPRAZolam [Xanax 0.5mg tab] 0.5 mg PO TIDP PRN 12/17/17 04/16/19 History Levothyroxine Sodium 112 mcg PO DAILY 12/17/17 04/16/19 History [Levothyroxine 112mcg (0.112mg) Tab] lisinopriL [Lisinopril 20mg Tab] 20 mg PO DAILY 12/17/17 04/16/19 History albuterol sulfate 90 mcg/actuation 2 puffs INHALATION Q4HP PRN 10/03/18 04/16/19 History breath activated powder inhaler ropinirole 1 mg tablet 1 mg PO HS #30 tab 10/03/18 04/16/19 History Thiamine HCl [Vitamin B-1] 100 mg PO DAILY 11/09/18 04/16/19 History fluoxetine 20 mg capsule 20 mg PO HS #30 cap 03/08/19 04/16/19 History gabapentin 400 mg capsule 400 mg PO TID #90 cap 03/08/19 04/16/19 History omeprazole 20 mg capsule,delayed 20 mg PO DAILY #30 cap 03/08/19 04/16/19 History release ranitidine 300 mg tablet 300 mg PO HS #30 tab 03/08/19 04/16/19 History Gemfibrozil 600 mg PO DAILY 04/16/19 04/16/19 History Height: 1.55 m Weight: 63.219 kg Laboratory Results:: Laboratory Results - last 24 hr 04/19/19 13:39: Mitochondria M2 Ab <20.0, Tiss Transglutamin IgG <2, Tiss Transglutamin IgA <2, Gliadin (Deamidat) IgG 2, Gliadin (Deamidat) IgA 6 04/22/19 02:52: Vancomycin Trough 16.7 Medical History: Reports:: Anxiety, Depression, Hyperlipidemia, Hypertension, Seizures Denies:: Cancer, Diabetes Mellitus Type 1, Diabetes Mellitus Type 2, Internal Pacemaker, Lung Disease, MRSA Assessment and Plan (1) Community acquired pneumonia Current visit: Yes Status: Acute Qualifiers: Laterality: unspecified laterality Qualified Code(s): J18.9 - Pneumonia, unspecified organism Category: Medical Code(s): J18.9 - Pneumonia, unspecified organism (2) Diarrhea Current visit: Yes Status: Acute Category: Medical Code(s): R19.7 - Diarrhea, unspecified (3) Cirrhosis of liver with ascites Current visit: Yes Status: Chronic Qualifiers: Hepatic cirrhosis type: alcoholic cirrhosis Qualified Code(s): K70.31 - Alcoholic cirrhosis of liver with ascites Category: Medical Code(s): K74.60 - Unspecified cirrhosis of liver; R18.8 - Other ascites (4) Back pain Current visit: No Status: Acute Category: Medical Code(s): M54.9 - Dorsalgia, unspecified (5) Hyponatremia Current visit: No Status: Acute Category: Medical Code(s): E87.1 - Hypo- osmolality and hyponatremia (6) Hypothyroidism Current visit: Yes Status: Chronic Qualifiers: Hypothyroidism type: acquired Qualified Code(s): E03.9 - Hypothyroidism, unspecified Category: Medical Code(s): E03.9 - Hypothyroidism, unspecified (7) Alcohol abuse Current visit: No Status: Chronic Category: Medical Code(s): F10.10 - Alcohol abuse, uncomplicated (8) Hyperlipidemia Current visit: No Status: Chronic Category: Medical Code(s): E78.5 - Hyperlipidemia, unspecified (9) Hypertension Current visit: No Status: Chronic Category: Medical Code(s): I10 - Essential (primary) hypertension (10) Decompensated liver disease Current visit: Yes Status: Acute Category: Medical Code(s): K74.69 - Other cirrhosis of liver (11) Klebsiella pneumoniae pneumonia Current visit: Yes Status: Acute Category: Medical Code(s): J15.0 - Pneumonia due to Klebsiella pneumoniae (12) Staphylococcus aureus pneumonia Current visit: Yes Status: Acute Category: Medical Code(s): J15.211 - Pneumonia due to Methicillin susceptible Staphylococcus aureus (13) Hypokalemia Current visit: Yes Status: Acute Category: Medical Code(s): E87.6 - Hypokalemia - Assessment and plan all Dx Assessment and Plan for all problems:: PATIENT'S VANCOMYCIN TROUGH LEVEL WAS 16.7 MCG/ML OVERNIGHT. RECOMMEND CONTINUING WITH VANCOMYCIN 1 GM Q12H AT THIS TIME. PHARMACY WILL FOLLOW DAILY AND ADJUST APPROPRIATE.
--- NOTE | 2019-04-22 10:57 | Progress Note ---
Internal Medicine - PN: Subj *Date: 04/22/19 *Time: 10:56 Exam Vital signs and Labs for Last 24 Hours: Temp Pulse Resp BP Pulse Ox 98.5 F 73 18 112/70 2 L 04/22/19 08:00 04/22/19 08:00 04/22/19 08:00 04/22/19 08:00 04/22/19 08:00 Laboratory Results - last 24 hr 04/19/19 13:39: Mitochondria M2 Ab <20.0, Tiss Transglutamin IgG <2, Tiss Transglutamin IgA <2, Gliadin (Deamidat) IgG 2, Gliadin (Deamidat) IgA 6 04/22/19 02:52: Vancomycin Trough 16.7 I & O for Last 24 hours: Intake & Output 04/19/19 04/20/19 04/21/19 04/22/19 23:59 23:59 23:59 23:59 Intake Total 1000 / 1000 960 / 960 2460 / 2460 580 / 580 Output Total 200 / 200 500 / 500 Balance 800 / 800 960 / 960 1960 / 1960 580 / 580 Weight 66.678 kg 64.864 kg 63.523 kg 63.219 kg Microbiology Reports for the Last 24 Hours: Microbiology 04/16/19 12:12 Ascites Fluid Gram Stain - Final 04/16/19 12:12 Ascites Fluid Body Fluid Culture - Final NO GROWTH AFTER 5 DAYS Assessment and Plan (1) Community acquired pneumonia Current visit: Yes Status: Acute Qualifiers: Laterality: unspecified laterality Qualified Code(s): J18.9 - Pneumonia, unspecified organism Category: Medical Code(s): J18.9 - Pneumonia, unspecified organism (2) Diarrhea Current visit: Yes Status: Acute Category: Medical Code(s): R19.7 - Diarrhea, unspecified (3) Cirrhosis of liver with ascites Current visit: Yes Status: Chronic Qualifiers: Hepatic cirrhosis type: alcoholic cirrhosis Qualified Code(s): K70.31 - Alcoholic cirrhosis of liver with ascites Category: Medical Code(s): K74.60 - Unspecified cirrhosis of liver; R18.8 - Other ascites (4) Back pain Current visit: No Status: Acute Category: Medical Code(s): M54.9 - Dorsalgia, unspecified (5) Hyponatremia Current visit: No Status: Acute Category: Medical Code(s): E87.1 - Hypo- osmolality and hyponatremia (6) Hypothyroidism Current visit: Yes Status: Chronic Qualifiers: Hypothyroidism type: acquired Qualified Code(s): E03.9 - Hypothyroidism, unspecified Category: Medical Code(s): E03.9 - Hypothyroidism, unspecified (7) Alcohol abuse Current visit: No Status: Chronic Category: Medical Code(s): F10.10 - Alcohol abuse, uncomplicated (8) Hyperlipidemia Current visit: No Status: Chronic Category: Medical Code(s): E78.5 - Hyperlipidemia, unspecified (9) Hypertension Current visit: No Status: Chronic Category: Medical Code(s): I10 - Essential (primary) hypertension (10) Decompensated liver disease Current visit: Yes Status: Acute Category: Medical Code(s): K74.69 - Other cirrhosis of liver (11) Klebsiella pneumoniae pneumonia Current visit: Yes Status: Acute Category: Medical Code(s): J15.0 - Pneumonia due to Klebsiella pneumoniae (12) Staphylococcus aureus pneumonia Current visit: Yes Status: Acute Category: Medical Code(s): J15.211 - Pneumonia due to Methicillin susceptible Staphylococcus aureus (13) Hypokalemia Current visit: Yes Status: Acute Category: Medical Code(s): E87.6 - Hypokalemia The patient's infection will respond to the chosen ABx?: Yes Is the patient receiving the right drug, dose, and route?: Yes Could a more targeted ABx be ordered?: No (PATIENT CONDITION IMPROVING. ABX COVERING CULTURES.)
[2019-04-22 13:17] LABS: Reticulin IgA Antibody Negative titer (Neg:<1:2.5)
--- NOTE | 2019-04-23 08:18 | Progress Note ---
<Jacqueline Hilliard - Last Filed: 04/23/19 08:16> Internal Medicine - PN: Subj *Date: 04/23/19 *Time: 08:16 Interval history: Patient states she was up all night with diarrhea again. The stool is more loose rather than watery, but still continues. She denies any abdominal pain but does feel like her abdomen is more distended today. She is going to try to eat some breakfast this morning. Exam Vital signs and Labs for Last 24 Hours: Temp Pulse Resp BP Pulse Ox 99.1 F 92 H 18 111/60 92 L 04/23/19 04:00 04/23/19 04:00 04/23/19 04:00 04/23/19 04:00 04/23/19 07:50 Laboratory Results - last 24 hr 04/19/19 13:39: Reticulin IgA Antibody Negative I & O for Last 24 hours: Intake & Output 04/20/19 04/21/19 04/22/19 04/23/19 11:59 11:59 11:59 11:59 Intake Total 840 / 840 1380 / 1380 2260 / 2260 1730 / 1730 Output Total 500 / 500 150 / 150 Balance 840 / 840 1380 / 1380 1760 / 1760 1580 / 1580 Weight 143 lb 140 lb 0.7 oz 139 lb 6 oz 141 lb 6 oz - Constitutional no acute distress - *Routine Respiratory Exam Present: decreased breath sounds, CTA bilaterally - *Routine Cardiovascular Exam Present: RRR - *Routine Abdominal Exam Present: soft, normoactive bowel sounds, distended. Absent: tenderness - *Routine Extremities Exam Absent: cyanosis, clubbing, edema - *Routine Skin Exam Present: warm. Absent: rash - *Routine Neurological Exam Present: alert, oriented X3 Assessment and Plan (1) Community acquired pneumonia Status: Acute Qualifiers: Laterality: unspecified laterality Qualified Code(s): J18.9 - Pneumonia, unspecified organism Category: Medical Code(s): J18.9 - Pneumonia, unspecified organism (2) Diarrhea Status: Acute Category: Medical Code(s): R19.7 - Diarrhea, unspecified (3) Cirrhosis of liver with ascites Status: Chronic Qualifiers: Hepatic cirrhosis type: alcoholic cirrhosis Qualified Code(s): K70.31 - Alcoholic cirrhosis of liver with ascites Category: Medical Code(s): K74.60 - Unspecified cirrhosis of liver; R18.8 - Other ascites (4) Back pain Status: Acute Category: Medical Code(s): M54.9 - Dorsalgia, unspecified (5) Hyponatremia Status: Acute Category: Medical Code(s): E87.1 - Hypo-osmolality and hyponatremia (6) Hypothyroidism Status: Chronic Qualifiers: Hypothyroidism type: acquired Qualified Code(s): E03.9 - Hypothyroidism, unspecified Category: Medical Code(s): E03.9 - Hypothyroidism, unspecified (7) Alcohol abuse Status: Chronic Category: Medical Code(s): F10.10 - Alcohol abuse, uncomplicated (8) Hyperlipidemia Status: Chronic Category: Medical Code(s): E78.5 - Hyperlipidemia, unspecified (9) Hypertension Status: Chronic Category: Medical Code(s): I10 - Essential (primary) hypertension (10) Decompensated liver disease Status: Acute Category: Medical Code(s): K74.69 - Other cirrhosis of liver (11) Klebsiella pneumoniae pneumonia Status: Acute Category: Medical Code(s): J15.0 - Pneumonia due to Klebsiella pneumoniae (12) Staphylococcus aureus pneumonia Status: Acute Category: Medical Code(s): J15.211 - Pneumonia due to Methi cillin susceptible Staphylococcus aureus (13) Hypokalemia Status: Acute Category: Medical Code(s): E87.6 - Hypokalemia - Assessment and plan all Dx Assessment and Plan for all problems:: We will get labs this morning and discuss further care with Dr. Rios. <Patrick Rios - Last Filed: 04/23/19 13:20> Internal Medicine - PN: Subj *Date: 04/23/19 *Time: 13:18 Exam Vital signs and Labs for Last 24 Hours: Temp Pulse Resp BP Pulse Ox 98.5 F 88 20 122/73 90 L 04/23/19 08:00 04/23/19 08:00 04/23/19 08:00 04/23/19 08:00 04/23/19 08:00 Laboratory Results - last 24 hr 04/19/19 13:39: Glucose 95, AST 139 H, DEGROOT Limitations Comment, DEGROOT Fibrosis Stage Comment, Liver Fibrosis GGTP 445 H, Liver Total Bilirubin 1.7 H, Liver Apolipoprotein A1 65 L, Liver Fibrosis ALT 34, Liver Haptoglobin 120, DEGROOT Fibrosis Score TNP, DEGROOT Scoring Comment, DEGROOT Interpretation Comment, DEGROOT Comment 2 Comment, Fibrosis Scoring Cmmt Comment, DEGROOT Steatosis Score TNP, DEGROOT Score TNP, DEGROOT Steatosis Grade TNP, DEGROOT Steatosis Grd Com Comment, DEGROOT Grade TNP, [id number] 179, Total Cholesterol 177, Patient Height Inches TNP, Patient Weight Pounds TNP, Hemochromatosis DNA PCR Comment 04/23/19 10:00: WBC 17.0 H D, RBC 3.55 L, Hgb 11.6 L, Hct 36.0 L, MCV 101.4 H, MCH 32.5 H, MCHC 32.1, RDW 16.1, Plt Count 193 D, MPV 9.1, Neut % (Auto) 81.7 H , Lymph % (Auto) 11.1, [place] % (Auto) 4.9, Eos % (Auto) 1.9, Baso % (Auto) 0.5, Neut # (Auto) 13.9 H, Lymph # (Auto) 1.9, [place] # (Auto) 0.8, Eos # (Auto) 0.3, Baso # (Auto) 0.1 04/23/19 10:00: Sodium 135 L, Potassium 4.5 D, Chloride 97 L, Carbon Dioxide 30, Anion Gap 12.5, BUN 6 L, Creatinine 0.62, Estimated Creat Clear 105, Estimated GFR 100, Est GFR ( Amer) 121, Glucose 106, Calcium 7.2 L, Total Bilirubin 1.4 H, AST 143 H D, ALT 88 H D, Alkaline Phosphatase 166 H, Total Protein 6.5, Albumin 2.2 L, Globulin 4.3 H, Albumin/Globulin Ratio 0.5 L I & O for Last 24 hours: Intake & Output 04/21/19 04/22/19 04/23/19 04/24/19 11:59 11:59 11:59 11:59 Intake Total 1380 / 1380 2260 / 2260 1730 / 1730 Output Total 500 / 500 150 / 150 Balance 1380 / 1380 1760 / 1760 1580 / 1580 Weight 140 lb 0.7 oz 139 lb 6 oz 141 lb 6 oz Assessment and Plan (1) Community acquired pneumonia Status: Acute Qualifiers: Laterality: unspecified laterality Qualified Code(s): J18.9 - Pneumonia, unspecified organism Category: Medical Code(s): J18.9 - Pneumonia, unspecified organism (2) Diarrhea Status: Acute Category: Medical Code(s): R19.7 - Diarrhea, unspecified (3) Cirrhosis of liver with ascites Status: Chronic Qualifiers: Hepatic cirrhosis type: alcoholic cirrhosis Qualified Code(s): K70.31 - Alcoholic cirrhosis of liver with ascites Category: Medical Code(s): K74.60 - Unspecified cirrhosis of liver; R18.8 - O ther ascites (4) Back pain Status: Acute Category: Medical Code(s): M54.9 - Dorsalgia, unspecified (5) Hyponatremia Status: Acute Category: Medical Code(s): E87.1 - Hypo-osmolality and hyponatremia (6) Hypothyroidism Status: Chronic Qualifiers: Hypothyroidism type: acquired Qualified Code(s): E03.9 - Hypothyroidism, unspecified Category: Medical Code(s): E03.9 - Hypothyroidism, unspecified (7) Alcohol abuse Status: Chronic Category: Medical Code(s): F10.10 - Alcohol abuse, uncomplicated (8) Hyperlipidemia Status: Chronic Category: Medical Code(s): E78.5 - Hyperlipidemia, unspecified (9) Hypertension Status: Chronic Category: Medical Code(s): I10 - Essential (primary) hypertension (10) Decompensated liver disease Status: Acute Category: Medical Code(s): K74.69 - Other cirrhosis of liver (11) Klebsiella pneumoniae pneumonia Status: Acute Category: Medical Code(s): J15.0 - Pneumonia due to Klebsiella pneumoniae (12) Staphylococcus aureus pneumonia Status: Acute Category: Medical Code(s): J15.211 - Pneumonia due to Methicillin susceptible Staphylococcus aureus (13) Hypokalemia Status: Acute Category: Medical Code(s): E87.6 - Hypokalemia - Assessment and plan all Dx Assessment and Plan for all problems:: Patient seen and examined this AM. SHe was weaned to RA last night and sats are good. SHe is eating better. SHe is eager to go home. Will discharge home on continued antibiotics and diuretics. F/u with ROSALIND and Dr. Alonso next week.
[2019-04-23 10:10] LABS: Basophils # 0.1 K/mm3 (0-0.2); Basophils % 0.5 % (0.1-2.0); Eosinophils # 0.3 K/mm3 (0.0-0.4); Eosinophils % 1.9 % (0.1-12.0); Hemoglobin 11.6 g/dL (12.2-16.2); Lymphocytes # 1.9 K/mm3 (0.7-4.5); Lymphocytes % 11.1 % (10-50); Mean Corpuscular HGB Conc 32.1 g/dL (31.8-35.4); Mean Corpuscular Volume 101.4 fl (81-99); Mean Platelet Volume 9.1 fl (7.4-10.4); Monocytes # 0.8 K/mm3 (0.1-1.0); Monocytes % 4.9 % (1.7-9.3); Neutrophils # 13.9 K/mm3 (1.8-7.8); Neutrophils % 81.7 % (37.0-80.0); Platelet Count 193 K/mm3 (142-424); Red Blood Count 3.55 M/mm3 (4.20-5.40); Red Cell Distribution Width 16.1 % (11.5-17.5)
[2019-04-23 10:22] LABS: Albumin Level 2.2 gm/dL (3.4-5.0); Albumin/Globulin Ratio 0.5 (1.1-1.8); Anion Gap 12.5 mEq/L (5-15); Bilirubin,Total 1.4 mg/dL (0.2-1.0); Calcium 7.2 mg/dL (8.5-10.1); Globulin 4.3 gm/dl (1.3-3.2); Total Protein,Serum 6.5 gm/dL (6.4-8.2)
--- NOTE | 2019-04-23 11:16 | Discharge Summary ---
General - General Admission date:: 04/16/19 <Patrick Rios - 05/01/19 08:49> 04/16/19 <Jacqueline Hilliard - 04/23/19 11:44> Discharge date: 04/23/19 <Jacqueline Hilliard - 04/23/19 11:44> HPI HPI: Ms. Quinones is a 53-year-old female with a history of hypertension, hyperlipidemia, alcohol abuse, alcoholic hepatitis, alcoholic pancreatitis, cirrhosis, and hypothyroidism. She states she fell at work a few weeks ago injuring her back. She was seen in the office on 04/05/2019 and had an x-ray of the ribs which showed no fracture. She states she went back to work, but had significant pain. She then started developing some swelling in her abdomen. This progressively got worse. Yesterday she started coughing and began getting short of breath. She also began having some diarrhea. She presented to the emergency room for evaluation and treatment and was found to have a pneumonia and cirrhosis with a moderate amount of ascites. She was admitted for further evaluation and treatment. <Jacqueline Hilliard - 04/23/19 11:44> Hospital Course Hospital Course: The patient had an echo showing an ejection fraction of 55 to 60% with grade 1 diastolic dysfunction. The patient was started on neb treatments and antibiotics for her pneumonia as well as Lasix and spironolactone due to her edema and ascites. Her lisinopril was discontinued and she was started on alcohol withdrawal protocol. A paracentesis was ordered due to the significant amount of ascites. A diarrhea panel was also ordered and was negative. The patient had 4 L of fluid removed during paracentesis. This was followed with an albumin infusion. Her shortness of breath did improve. A repeat chest x-ray was ordered and showed progression of diffuse bilateral pneumonia. The patient's heart rate remained elevated, however blood pressure was lower since paracentesis. A beta-kelley was cautiously added. The patient then began getting more short of breath and became hypoxic. She had to be placed on a nonrebreather which improved her oxygenation, however she did not tolerate this well. She was then switched to Vapotherm and did well with this. Her blood cultures returned with no growth. The culture from her paracentesis returned with no growth. Her sputum returned positive for Klebsiella pneumoniae with sensitivity to Rocephin. Rocephin was continued. She continued to complain of some back pain therefore repeat chest x-ray as well as a thoracic spine x-ray were ordered. The chest x-ray showed a persistent but slightly improved diffuse bilateral pneumonia with some increasing density in the right lung base. The thoracic spine x-ray showed nothing acute. A GI consult was placed for the patient. She was seen by Dr. Cross. He ordered a repeat stool panel and recommended if it was negative to start on dicyclomine every 6 hours as needed. He ordered a full liver work-up as well and recommended a low-sodium diet. He felt she should continue on the Lasix and spironolactone. He felt that her initial meld score of [address] her as a candidate for consultation at for liver transplant, however given the fact that she is actively drinking alcohol, she would not be a candidate. He felt she would need an endoscopy on an outpatient basis and wanted to follow-up with her in his office when she was discharged. The patient's diarrhea continued, but her repeat diarrhea panel was also negative. Imodium was added for the diarrhea. She was able to be weaned off of the Vapotherm. Her diarrhea seemed to improve slightly. Her abdomen was more comfortable. Her sputum grew an additional staph aureus bacteria, therefore vancomycin was added to her antibiotic regimen. Potassium was added due to h ypokalemia. The patient began feeling much better other than her diarrhea. Her oxygen stats stayed in the upper 90s on nasal cannula. She was able to eat. She was able to be weaned off of the oxygen and had stable oxygen saturations on room air. She was stable to be discharged home on Bactrim and Ceftin for her pneumonia as well as spironolactone, dicyclomine, and Lasix for the cirrhosis and ascites. She will also be sent home on Imodium for her diarrhea. She will need to follow-up with both Dr. Rios and Dr. Cross on an outpatient basis. <Jacqueline Hilliard - 04/23/19 11:44> Objective Vital signs: Temp Pulse Resp BP Pulse Ox 98.5 F 88 20 122/73 90 L 04/23/19 08:00 04/23/19 08:00 04/23/19 08:00 04/23/19 08:00 04/23/19 08:00 <Patrick Rios - 05/01/19 08:49> Temp Pulse Resp BP Pulse Ox 98.5 F 88 20 122/73 90 L 04/23/19 08:00 04/23/19 08:00 04/23/19 08:00 04/23/19 08:00 04/23/19 08:00 <Jacqueline Hilliard - 04/23/19 11:44> Narrative: - Constitutional no acute distress - *Routine Respiratory Exam Present: decreased breath sounds, CTA bilaterally - *Routine Cardiovascular Exam Present: RRR - *Routine Abdominal Exam Present: soft, normoactive bowel sounds, distended. Absent: tenderness - *Routine Extremities Exam Absent: cyanosis, clubbing, edema - *Routine Skin Exam Present: warm. Absent: rash - *Routine Neurological Exam Present: alert, oriented X3 <Jacqueline Hilliard - 04/23/19 11:44> Results Labs on day of discharge: Labs from last 24 hours 04/23/19 04/23/19 04/19/19 10:00 10:00 13:39 WBC 17.0 H D RBC 3.55 L Hgb 11.6 L Hct 36.0 L MCV 101.4 H MCH 32.5 H MCHC 32.1 RDW 16.1 Plt Count 193 D MPV 9.1 Neut % (Auto) 81.7 H Lymph % (Auto) 11.1 [place] % (Auto) 4.9 Eos % (Auto) 1.9 Baso % (Auto) 0.5 Neut # (Auto) 13.9 H Lymph # (Auto) 1.9 [place] # (Auto) 0.8 Eos # (Auto) 0.3 Baso # (Auto) 0.1 Sodium 135 L Potassium 4.5 D Chloride 97 L Carbon Dioxide 30 Anion Gap 12.5 BUN 6 L Creatinine 0.62 Estimated Creat Clear 105 Estimated GFR 100 Est GFR ( Amer) 121 Glucose 106 95 Calcium 7.2 L Total Bilirubin 1.4 H AST 143 H D 139 H ALT 88 H D Alkaline Phosphatase 166 H DEGROOT Limitations Comment DEGROOT Fibrosis Stage Comment Liver Fibrosis GGTP 445 H Liver Total Bilirubin 1.7 H Liver Apolipoprotein A1 65 L Liver Fibrosis ALT 34 Liver Haptoglobin 120 DEGROOT Fibrosis Score TNP DEGROOT Scoring Comment DEGROOT Interpretation Comment DEGROOT Comment 2 Comment Fibrosis Scoring Cmmt Comment DEGROOT Steatosis Score TNP DEGROOT Score TNP DEGROOT Steatosis Grade TNP DEGROOT Steatosis Grd Com Comment DEGROOT Grade TNP Total Protein 6.5 Albumin 2.2 L Globulin 4.3 H Albumin/Globulin Ratio 0.5 L [id number] 179 Total Cholesterol 177 Patient Height Inches TNP Patient Weight Pounds TNP Reticulin IgA Antibody Negative Hemochromatosis DNA PCR Comment <Jacqueline Hilliard - 04/23/19 11:44> DS: Diagnosis - Discharge Diagnosis (1) Community acquired pneumonia Status: Acute (2) Diarrhea Status: Acute (3) Cirrhosis of liver with ascites Status: Chronic (4) Back pain Status: Acute (5) Hyponatremia Status: Acute (6) Hypothyroidism Status: Chronic (7) Alcohol abuse Status: Chronic (8) Hyperlipidemia Status: Chronic (9) Hypertension Status: Chronic (10) Decompensated liver disease Status: Acute (11) Klebsiella pneumoniae pneumonia Status: Acute (12) Staphylococcus aureus pneumonia Status: Acute (13) Hypokalemia Status: Acute <Jacqueline Hilliard 04/23/19 11:05> (1) Community acquired pneumonia Status: Acute (2) Diarrhea Status: Acute (3) Cirrhosis of liver with ascites Status: Chronic (4) Back pain Status: Acute (5) Hyponatremia Status: Acute (6) Hypothyroidism Status: Chronic (7) Alcohol abuse Status: Chronic (8) Hyperlipidemia Status: Chronic (9) Hypertension Status: Chronic (10) Decompensated liver disease Status: Acute (11) Klebsiella pneumoniae pneumonia Status: Acute (12) Staphylococcus aureus pneumonia Status: Acute (13) Hypokalemia Status: Acute <Patrick Rios - 05/01/19 08:49> Discharge Plan - Patient Discharge Instructions ACTIVITY: Continue current activity <Jacqueline Hilliard - 04/23/19 11:44> DIET: regular diet <Jacqueline Hilliard 04/23/19 11:44> Patient Instructions: Alcohol and Stress: There are Safer Ways to [place], Pneumonia-Adult, Cirrhosis, Ascites, DI for Pneumonia -- Adult, DI for Ascites, DI for Abdominal Paracentesis, Abdominal Paracentesis, DI for Cirrhosis, DI for Alcohol Abuse <Patrick Rios - 05/01/19 08:49> Forms: <Patrick Rios - 05/01/19 08:49> - Follow up Plan Follow up with: Vj Cross MD [Staff Physician] - 04/26/19 10:00 am Patrick Rios MD [Primary Care Provider] - 04/27/19 11:00 am <Patrick Rios - 05/01/19 08:49> Disposition: Home, Self-Care <Patrick Rios - 05/01/19 08:49> Home Medications: Home Medications Medication Instructions Recorded Confirmed Type ALPRAZolam [Xanax 0.5mg tab] 0.5 mg PO TIDP PRN 12/17/17 04/16/19 History Levothyroxine Sodium 112 mcg PO DAILY 12/17/17 04/16/19 History [Levothyroxine 112mcg (0.112mg) Tab] albuterol sulfate 90 mcg/actuation 2 puffs INHALATION Q4HP PRN 10/03/18 04/16/19 History breath activated powder inhaler ropinirole 1 mg tablet 1 mg PO HS #30 tab 10/03/18 04/16/19 History Thiamine HCl [Vitamin B-1] 100 mg PO DAILY 11/09/18 04/16/19 History fluoxetine 20 mg capsule 20 mg PO HS #30 cap 03/08/19 04/16/19 History gabapentin 400 mg capsule 400 mg PO TID #90 cap 03/08/19 04/16/19 History omeprazole 20 mg capsule,delayed 20 mg PO DAILY #30 cap 03/08/19 04/16/19 History release ranitidine HCl 300 mg tablet 300 mg PO HS #30 tab 03/08/19 04/16/19 History Dicyclomine HCl [Bentyl 10mg 10 mg PO QIDP PRN #30 cap 04/23/19 Rx capsule] Folic Acid [Folic Acid 1mg tablet] 1 mg PO DAILY #30 tab 04/23/19 Rx Furosemide [Lasix 20mg tablet] 20 mg PO DAILY #30 tab 04/23/19 Rx Loperamide HCl [Imodium 2 mg 2 mg PO NEEDED PRN #20 cap 04/23/19 Rx capsule] Multivitamin [Multi-Vitamin Plain] 1 each PO 1700 #30 tab 04/23/19 Rx Potassium Chloride [Klor-Con 10mEq 10 meq PO DAILY #30 tablet.er 04/23/19 Rx tab] Spironolactone [Aldactone 25mg 50 mg PO DAILY #30 tab 04/23/19 Rx Tab] Sulfamethoxazole/Trimethoprim 1 each PO BID #14 tab 04/23/19 Rx [Bactrim DS tablet] cefUROXime axetil [Ceftin 500mg 500 mg PO BID #10 tab 04/23/19 Rx Tab (GEQ)] <Patrick Rios - 05/01/19 08:49> Prescriptions/Medication Reconciliation: New Spironolactone [Aldactone 25mg Tab] 50 mg PO DAILY #30 tab Sulfamethoxazole/Trimethoprim [Bactrim DS tablet] 1 each PO BID #14 tab Dicyclomine HCl [Bentyl 10mg capsule] 10 mg PO QIDP PRN #30 cap PRN Reason: Diarrhea Folic Acid [Folic Acid 1mg tablet] 1 mg PO DAILY #30 tab Loperamide HCl [Imodium 2 mg capsule] 2 mg PO NEEDED PRN #20 cap PRN Reason: Diarrhea Potassium Chloride [Klor-Con 10mEq tab] 10 meq PO DAILY #30 tablet.er Furosemide [Lasix 20mg tablet] 20 mg PO DAILY #30 tab Multivitamin [Multi-Vitamin Plain] 1 each PO 1700 #30 tab cefUROXime axetil [Ceftin 500mg Tab (GEQ)] 500 mg PO BID #10 tab Continued albuterol sulfate 90 mcg/actuation breath activated powder inhaler 2 puffs INHALATION Q4HP PRN PRN Reason: Shortness Of Breath ropinirole 1 mg tablet 1 mg PO HS #30 tab fluoxetine 20 mg capsule 20 mg PO HS #30 cap omeprazole 20 mg capsule,delayed release 20 mg PO DAILY #30 cap ranitidine HCl 300 mg tablet 300 mg PO HS #30 tab gabapentin 400 mg capsule 400 mg PO TID #90 cap Levothyroxine Sodium [Levothyroxine 112mcg (0.112mg) Tab] 112 mcg PO DAILY ALPRAZolam [Xanax 0.5mg tab] 0.5 mg PO TIDP PRN PRN Reason: Anxiety Thiamine HCl [Vitamin B-1] 100 mg PO DAILY Discontinued lisinopriL [Lisinopril 20mg Tab] 20 mg PO DAILY Gemfibrozil 600 mg PO DAILY <Patrick Rios - 05/01/19 08:49> - Problem Reconciliation Problems Reviewed?: Yes <Patrick Rios - 05/01/19 08:49> Yes <Jacqueline Hilliard - 04/23/19 11:44> - Additional Information Additional Information: Patient seen and examined. Concur with plan for discharge as outlined above. <Patrick Rios - 05/01/19 08:49>
[2019-04-23 14:52] LABS: Anisocytosis 1+; Lymphocytes % 14 % (10-50); Monocytes % 7 % (2-9); Neutrophils % 76 % (42-76); Total Cells Counted 100
[2019-04-23 14:53] LABS: Macrocytosis 1+
== END 2019-04-23 10:39 | disposition home or self-care (01) | DRG 178 ==
LOC: 2ND 21:01 → ER 21:01 → OBSVTOIN 04-16 01:26 → 2ND 04-16 01:27
PROVIDERS: ADMIT Family Medicine; ATTEND Family Medicine
CPT/HCPCS: 36415; 49083; 71010; 71020; 71045; 71046; 72070; 74177; 80053; 80074; 80202; 80305; 81001; 81256; 82042; 82103; 82105; 82140; 82150; 82272; 82533; 82728; 82803; 82945; 83516; 83540; 83550; 83605; 83615; 83690; 84155; 84436; 84443; 84484; 85007; 85025; 85610; 85730; 86038; 86225; 86235; 86255; 86256; 87040; 87070; 87077; 87186; 87205; 87275; 87276; 87430; 87506; 87507; 89051; 93005; 93306; 94640; 94761; 99203; G0328; J0456; J2405; J3370; P9047; Q9967

== ENCOUNTER → 2019-05-06 16:02 | Outpatient (CLI) | payer OTHER, SELFPAY ==
--- NOTE | 2019-05-06 | ECG_ITS ---
APPROVED REPORT Exam: Resting ECG HR:119 bpm ECG Measurements Heart Rate 119 AXES NC 142 P 75 QRSd 70 QRS 59 QT 326 T 57 QTc 458 <Conclusion> Sinus tachycardia Otherwise normal ECG Electronically signed by : Clifford Eastman, 05/09/2019 14:32:32
--- NOTE | 2019-05-06 16:15 | XR_ITS ---
PROCEDURE: XR CHEST 2V CLINICAL HISTORY: PNEUMONIA COMPARISON: CXR1VP XR chest portable from 12/16/2017 XR CHEST 2V from 04/19/2019 FINDINGS: The cardiomediastinal silhouette and pulmonary vascularity are within normal limits. There is a benign 2 millimeter calcified nodule either in the left lung base or lingula. The remainder of the lung jarrett are clear. There are nipple shadows projected over the lower hemithorax bilaterally and these were present on the prior study. Lungs are mildly hypoaerated. No acute bony abnormalities. IMPRESSION: No acute findings. Dictated by: Reese Murrell 05/06/2019 16:50 Electronically signed by Reese Murrell in [place] 05/06/2019 16:50
== END ==
PROVIDERS: PCP Physician Assistant; Visit Provider Physician Assistant
DX: J15.20 Pneumonia due to staphylococcus, unspecified (principal); R00.0 Tachycardia, unspecified
CPT/HCPCS: 71046; 93005

== ENCOUNTER → 2019-09-24 13:19 | Outpatient (CLI) | payer OTHER, SELFPAY ==
--- NOTE | 2019-09-24 13:26 | XR_ITS ---
PROCEDURE: XR KNEE RT 3V CLINICAL INDICATION: RT KNEE PAIN medially COMPARISON: No exams were available for comparison FINDINGS: No fracture or dislocation. No lytic or blastic change. There is normal mineralization. There is mild joint space narrowing medially. There is minor spurring of the tibial spines. There is mild narrowing of the patellofemoral space. There is no definite effusion. IMPRESSION: Mild degenerate changes as noted, no acute bony pathology seen Dictated by: Dr. Ty Damon MD 09/24/2019 13:[address] Ty Damon MD in [place] 09/24/2019 13:50
== END ==
PROVIDERS: PCP Family Medicine; Visit Provider Family Medicine
DX: M25.561 Pain in right knee (principal)
CPT/HCPCS: 73562

== ENCOUNTER → 2019-10-21 16:45 | Outpatient (CLI) | payer OTHER, SELFPAY ==
--- NOTE | 2019-10-21 16:58 | XR_ITS ---
PROCEDURE: XR CHEST 2V CLINICAL HISTORY: SHORTNESS OF BREATH COMPARISON: XR CHEST 2V from 04/19/2019 XR CHEST 2V from 05/06/2019 XR CHEST PORTABLE from 07/21/2019 FINDINGS: There has been interval development of a large right pleural effusion. Compressive atelectasis is noted. There is some patchy density in the left perihilar region suggesting a patchy area of infiltrate. No acute bony abnormalities. No evidence of CHF. Right heart border is obscured IMPRESSION: Large right pleural effusion with compressive atelectatic changes with possible patchy left perihilar infiltrate Dictated by: Dav Hines MD 10/21/2019 18:45 Electronically signed by Dav Hines MD in [place] 10/21/2019 18:45
== END ==
PROVIDERS: PCP Family Medicine; Visit Provider Physician Assistant
DX: R06.02 Shortness of breath (principal)
CPT/HCPCS: 71046

== ENCOUNTER → 2019-10-22 11:13 | Outpatient (CLI) | payer OTHER, SELFPAY ==
--- NOTE | 2019-10-22 | XR_ITS ---
PROCEDURE: XR CHEST 2V CLINICAL HISTORY: POST THORACENTESIS, shortness of breath, right pleural effusion, follow-up thoracentesis COMPARISON: XR CHEST 2V from 05/06/2019 XR CHEST PORTABLE from 07/21/2019 XR CHEST 2V from 10/21/2019 FINDINGS: Status post right-sided thoracentesis. No evidence of pneumothorax. Consolidation is present in the right lower lobe. There has been decrease in size of the right pleural effusion. 2000 mL was drained. There may be a small amount of fluid remaining however, on the ultrasound there was no significant amount of fluid apparent. Most of the opacity in the right lung base is likely related to elevated hemidiaphragm and lung consolidation/collapse. Air bronchograms are present in the right lung base medially. No acute bony abnormalities. IMPRESSION: Status post right-sided thoracentesis. No evidence of pneumothorax. There is dense consolidation in the right lung base with small right effusion and probable elevated hemidiaphragm Dictated by: Dav Hines MD 10/22/2019 13:07 Electronically signed by Dav Hines MD in [place] 10/22/2019 13:07
--- NOTE | 2019-10-22 11:27 | US_ITS ---
PROCEDURE: US THORACENTESIS CLINICAL INDICATION: PLEURAL EFFUSION Large right effusion COMPARISON: No exams were available for comparison TECHNIQUE: Informed consent was obtain prior to procedure. After appropriate Time out, under aseptic conditions and local anesthesia with 1% buffered lidocaine using sonographic guidance a 6 Spanish Fneh-Y-Mpamugym catheter was inserted into posterior axillary line in the lower chest Approximately 2000 mL of Serosanguineous fluid was drained. The patient tolerated the procedure well and left the radiology suite in stable condition. Post thoracentesis radiograph showed no evidence of pneumothorax. The patient was sent to outpatient for observation in stable condition. FINDINGS: Large right pleural effusion which decreased during the procedure IMPRESSION: Successful sonographic guided right-sided thoracentesis without complication. Dictated by: Dav Hines MD 10/22/2019 15:29 Electronically signed by Dav Hines MD in [place] 10/22/2019 15:29
[2019-10-22 13:39] LABS: Appearance,Body Fld. Hazy; Source, Body Fld. Pleural Fluid; Volume,Body Fld. 23 mL
[2019-10-22 13:40] LABS: RBC,Body Fluid < 10 cells/uL (< 10 X 10^3); TNC,Body Fluid 173 cells/uL (< 1000)
[2019-10-22 14:29] LABS: Mononuclear WBCs,Body Fluid 79 %; Polynuclear WBC,Body Fluid 21 %
--- NOTE | 2019-10-22 17:00 | XR_ITS ---
PROCEDURE: XR CHEST 2V CLINICAL HISTORY: 4 HOURS POST THOROCENTESIS COMPARISON: XR CHEST PORTABLE from 07/21/2019 XR CHEST 2V from 10/21/2019 XR CHEST 2V from 10/22/2019 FINDINGS: There is no evidence of pneumothorax. Dense consolidation is noted in the right lower lobe similar slightly improved with some improvement in the right lower lobe volume loss. There is some consolidation now in the inferior aspect of the right upper lobe.. These findings may be related to re-expansion edema. The left lung is clear IMPRESSION: Probable re-expansion edema on the right with residual consolidation/volume loss in the right lung base with small right effusion. No evidence of pneumothorax Dictated by: Dav Hines MD 10/22/2019 16:50 Electronically signed by Dav Hines MD in [place] 10/22/2019 16:50
[2019-10-23 15:44] LABS: Glucose, Body Fluid 116 mg/dL (.); LD, Body Fluid 119 IU/L (.); Protein, Body Fluid 1.8 g/dL (.)
== END ==
PROVIDERS: PCP Family Medicine; Visit Provider Physician Assistant
DX: J90 Pleural effusion, not elsewhere classified (principal)
CPT/HCPCS: 32555; 71046; 82945; 83615; 84155; 89051

== ENCOUNTER 2020-06-09 01:40 | Emergency (ER) | payer OTHER, SELFPAY ==
[2020-06-09 01:22] VITALS: BP 112/75; PULSE 111; RESP 16; TEMP 36.8; O2SAT 94; BMI 26.8
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
[2020-06-09 01:35] LABS: ABG Base Excess 1.6 mmol/L (-2.4-2.3); ABG HCO3 25.4 mmhg (22.0-26.0); ABG Oxygen Saturation 93 % (90-100); ABG PCO2 36.3 mmhg (35.0-45.0); ABG PH 7.46 mmol/L (7.35-7.45); ABG PO2 67.2 mmhg (80-100); ABG TCO2 26.5 mmhg (23-27)
[2020-06-09 01:37] LABS: Allen's Test Non Applicable; Source Left Radial
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
[2020-06-09 01:46] LABS: Basophils # 0.1 K/mm3 (0-0.2); Basophils % 0.4 % (0.1-2.0); Chloride 89 mmol/L (98-107); Eosinophils % 0.4 % (0.1-12.0); Hematocrit 36.8 % (37.0-47.0); Hemoglobin 11.8 g/dL (12.2-16.2); Lymphocytes # 1.4 K/mm3 (0.7-4.5); Lymphocytes % 12.9 % (10-50); Mean Corpuscular HGB Conc 32.1 g/dL (31.8-35.4); Mean Corpuscular Hemoglobin 31.9 pg (27.0-31.2); Mean Corpuscular Volume 99.4 fl (81-99); Mean Platelet Volume 9.2 fl (7.4-10.4); Monocytes # 0.5 K/mm3 (0.1-1.0); Neutrophils # 8.7 K/mm3 (1.8-7.8); Neutrophils % 81.3 % (37.0-80.0); Platelet Count 97 K/mm3 (142-424); Potassium 3.9 mmoL/L (3.5-5.1); Sodium 130 mmol/L (136-145); White Blood Count 10.7 K/mm3 (4.8-10.8)
[2020-06-09 01:49] LABS: Blood Urea Nitrogen 12 mg/dl (7-17); Creatinine Clearance Estimated 50 mL/min (50-200); Estimated Glomerular Filt Rate 43 ml/min (>60); GFR (African American) 51 ML/MIN (>60)
[2020-06-09 01:50] LABS: Anion Gap 14.9 mEq/L (5-15); Calcium 7.8 mg/dl (8.4-10.2); Carbon Dioxide 30 mmol/L (22.0-30.0); Glucose 147 mg/dl (74-100)
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
--- NOTE | 2020-06-09 01:52 | PC.NURSE ---
[facility] [place] [facility] on standyby @ this time
--- NOTE | 2020-06-09 01:53 | PC.NURSE ---
Carboxy HGB 3.[address] Godinez
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
--- NOTE | 2020-06-09 02:01 | PC.NURSE ---
[facility] notified of pt's acceptance to Er. [facility] ETA 13 mins
--- NOTE | 2020-06-09 02:01 | ECG_ITS ---
APPROVED REPORT Exam: Resting ECG HR:101 bpm ECG Measurements Heart Rate 101 AXES ME 178 P 68 QRSd 70 QRS 45 QT 378 T 76 QTc 490 Conclusion Sinus tachycardia Otherwise normal ECG Electronically signed by : Clifford Eastman, 06/09/2020 18:45:05
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
[2020-06-09 02:07] VITALS: BP 131/85; PULSE 73; RESP 16; O2SAT 95
--- NOTE | 2020-06-09 02:10 | PC.NURSE ---
CALL REC'D FROM TRANSFER CENTER AT . SPOKE WITH MAURO. WAS GIVEN [phone]. CALLED AND SPOKE WITH MITZI HAYES AT THE ED. REPORT GIVEN
[2020-06-09 02:14] LABS: Troponin I < 0.01 ng/ml (0.00-0.034)
--- NOTE | 2020-06-09 02:24 | PC.NURSE ---
HOUSE NOTIFIED OF [facility] ARRIVAL IMPENDING TIME.
[2020-06-09 02:30] VITALS: BP 123/71; PULSE 99; RESP 18; O2SAT 98
--- NOTE | 2020-06-09 02:35 | PC.NURSE ---
[facility] at bedside.
[2020-06-09 02:37] VITALS: BP 132/75; PULSE 110; RESP 16; TEMP 36.7; O2SAT 99
--- NOTE | 2020-06-09 02:42 | PC.NURSE ---
called back to speak to Dr. Godinez. speaking to .
== END 2020-06-09 02:39 | disposition short-term general hospital (02) ==
PROVIDERS: Emergency Provider Emergency Medicine; PCP Emergency Medicine
DX: T23.452A Corrosion of unspecified degree of left palm, initial encounter (principal); T23.451A Corrosion of unspecified degree of right palm, initial encounter; T23.421A Corrosion of unspecified degree of single right finger (nail) except thumb, initial encounter; Y92.019 Unspecified place in single-family (private) house as the place of occurrence of the external cause; W36.2XXA Explosion and rupture of air tank, initial encounter; J44.9 Chronic obstructive pulmonary disease, unspecified; Z99.81 Dependence on supplemental oxygen; E03.9 Hypothyroidism, unspecified; F41.8 Other specified anxiety disorders; I10 Essential (primary) hypertension; F10.10 Alcohol abuse, uncomplicated; F17.210 Nicotine dependence, cigarettes, uncomplicated
CPT/HCPCS: 71045; 73130; 80048; 82803; 84484; 85025; 90714; 93005; 96365; 99284

== ENCOUNTER → 2020-06-15 15:16 | Outpatient (CLI) | payer OTHER, SELFPAY ==
--- NOTE | 2020-06-15 15:30 | XR_ITS ---
PROCEDURE: XR COCCYX 2V CLINICAL INDICATION: Injury with pain COMPARISON: No exams were available for comparison FINDINGS: There is anterior displacement of the proximal coccyx by proximally 4 mm. There does appear to be a fracture along the superior aspect of the C1 coccyx segment. IMPRESSION: C1 coccyx fracture with mild anterior displacement Dictated by: Dav Hines MD 06/15/2020 16:41 Dav Hines MD in [place] 06/15/2020 16:41
--- NOTE | 2020-06-15 15:30 | XR_ITS ---
PROCEDURE: XR LUMBAR SPINE MIN 4V CLINICAL INDICATION: LOW BACK PAIN COMPARISON: CR [id number] XR lumbar spine min 4V from 05/14/[address] ABDOMEN PELVIS W CON from 04/15/2019 FINDINGS: Compression fracture involves the L1 vertebral body with loss of height anteriorly of approximately 30 percent. No obvious retropulsion. There is kyphosis at T12-L1. Endplate osteophyte is present at L4 superiorly and anteriorly. In addition, there is anterior displacement of the C1 segment of the coccyx by approximately 4 mm. This was not present on 05/14/2017. Other findings:Generalized vascular calcification is noted. IMPRESSION: Acute wedge compression fracture of L1 with loss of height anteriorly of 30 percent with mild kyphosis. Anterior displacement of C1 segment of the coccyx. Dictated by: Dav Hines MD 06/15/2020 16:40 Dav Hines MD in [place] 06/15/2020 16:40
== END ==
PROVIDERS: PCP Family Medicine; Visit Provider Family Medicine
DX: M54.5 Low back pain (principal)
CPT/HCPCS: 72110; 72220

== ENCOUNTER 2020-09-09 12:52 | Inpatient (IN) | payer OTHER, SELFPAY ==
[2020-09-09] VITALS (42 sets, daily range): BP systolic 70–153; BP diastolic 34–101; PULSE 63–133; RESP 16–22; TEMP 36.6–37.6; O2SAT 94–100; BMI 23.6; BMI 24.0
[2020-09-09 13:53] LABS: Basophils % 0.1 % (0.1-2.0); Eosinophils % 0.1 % (0.1-12.0); Hematocrit 26.6 % (37.0-47.0); Hemoglobin 8.5 g/dL (12.2-16.2); Lymphocytes # 0.8 K/mm3 (0.7-4.5); Lymphocytes % 7.1 % (10-50); Mean Corpuscular HGB Conc 31.9 g/dL (31.8-35.4); Mean Corpuscular Hemoglobin 33.2 pg (27.0-31.2); Mean Platelet Volume 11.2 fl (7.4-10.4); Monocytes # 0.3 K/mm3 (0.1-1.0); Monocytes % 2.9 % (1.7-9.3); Neutrophils # 10.4 K/mm3 (1.8-7.8); Neutrophils % 89.7 % (37.0-80.0); Platelet Count 62 K/mm3 (142-424); Red Blood Count 2.56 M/mm3 (4.20-5.40); Red Cell Distribution Width 15.5 % (11.5-17.5); White Blood Count 11.6 K/mm3 (4.8-10.8)
[2020-09-09 13:57] LABS: MANUAL DIFFERENTIAL MANUAL DIFFERENTIAL (MANUAL DIFF)
--- NOTE | 2020-09-09 13:57 | HMH.EDGENADL ---
ED Disposition Clinical Impression: Septic shock, Enteritis Alcoholic cirrhosis Qualifiers: Ascites presence: without ascites Qualified Code(s): K70.30 - Alcoholic cirrhosis of liver without ascites Gxprw-uz-lhjpeuf kidney injury Qualifiers: Chronic kidney disease stage: unspecified stage Disposition: Admitted As Inpatient Condition on Discharge: Serious - Critical Care Critical Care Time: Yes Attestation: On 09/09/20, the high probability of a clinically significant, sudden or life threatening deterioration of the following system(s) required my full and direct attention, intervention and personal management. The time I documented below is in addition to time spent performing reported procedures but includes the following listed in this critical care notation. Total Critical Care Time: 45 Vital system(s) involved:: Circulatory Failure, Renal Failure, Shock (Septic) My critical care processes included: Assessment & monitoring of V/S, Initial and Re-exams, Data Review/Interpretation, Coordinating Care, Medication Orders and management, Documentation Medical Decision Making - Pal Inquiry Pt receiving controlled substance: No Vital Signs: 09/09/20 12:52 09/09/20 13:04 09/09/20 13:13 Temperature 99.7 F H 97.8 F 98.4 F Temperature Source Oral Pulse Rate 126 H 120 H Pulse Rate [Left Radial] 125 H Respiratory Rate 20 19 22 Blood Pressure 70/34 L 72/36 L Blood Pressure [Right Arm] 71/42 L Blood Pressure Mean [Right Arm] 51 Blood Pressure Source Blood Pressure Source [Right Arm] Automatic Cuff Blood Pressure Position Blood Pressure Position [Right Arm] Sitting 02 Sat by Pulse Oximetry 100 100 99 Oxygen Delivery Method Room Air 09/09/20 13:15 09/09/20 13:34 09/09/20 13:49 Temperature 97.8 F 97.8 F 97.8 F Temperature Source Pulse Rate 110 H 112 H 116 H Pulse Rate [Left Radial] Respiratory Rate 19 16 18 Blood Pressure 90/39 L 79/35 L 93/39 L Blood Pressure [Right Arm] Blood Pressure Mean [Right Arm] Blood Pressure Source Blood Pressure Source [Right Arm] Blood Pressure Position Blood Pressure Position [Right Arm] 02 Sat by Pulse Oximetry 99 99 100 Oxygen Delivery Method 09/09/20 14:01 09/09/20 14:15 09/09/20 14:16 Temperature 97.9 F 98.0 F 98.4 F Temperature Source Pulse Rate 111 H 117 H 118 H Pulse Rate [Left Radial] Respiratory Rate 16 19 19 Blood Pressure 97/59 L 79/38 L 86/39 L Blood Pressure [Right Arm] Blood Pressure Mean [Right Arm] Blood Pressure Source Blood Pressure Source [Right Arm] Blood Pressure Position Sitting Blood Pressure Position [Right Arm] 02 Sat by Pulse Oximetry 99 98 98 Oxygen Delivery Method 09/09/20 14:23 09/09/20 15:10 09/09/20 15:33 Temperature 98.4 F 98.0 F Temperature Source Oral Pulse Rate 127 H 110 H Pulse Rate [Left Radial] 105 H Respiratory Rate 19 18 Blood Pressure 71/42 L 95/65 L Blood Pressure [Right Arm] 95/65 L Blood Pressure Mean [Right Arm] 75 Blood Pressure Source Automatic Cuff Blood Pressure Source [Right Arm] Blood Pressure Position Sitting Sitting Blood Pressure Position [Right Arm] 02 Sat by Pulse Oximetry 99 98 99 Oxygen Delivery Method Room Air Room Air 09/09/20 16:00 Temperature Temperature Source Pulse Rate Pulse Rate [Left Radial] 104 H Respiratory Rate 18 Blood Pressure Blood Pressure [Right Arm] 95/67 L Blood Pressure Mean [Right Arm] 76 Blood Pressure Source Blood Pressure Source [Right Arm] Blood Pressure Position Blood Pressure Position [Right Arm] 02 Sat by Pulse Oximetry 98 Oxygen Delivery Method - Lab Data Lab Results 09/09/20 13:33: WBC 11.6 H, RBC 2.56 L, Hgb 8.5 L, Hct 26.6 L, MCV 104.0 H, MCH 33.2 H, MCHC 31.9, RDW 15.5, Plt Count 62 L, MPV 11.2 H, Neut % (Auto) 89.7 H, Lymph % (Auto) 7.1 L, [place] % (Auto) 2.9, Eos % (Auto) 0.1, Baso % (Auto) 0.1, Neut # (Auto) 10.4 H, Lymph # (Auto) 0.8, [place] # (Auto
[2020-09-09 14:15] LABS: Chloride 102 mmol/L (98-107); Sodium 136 mmol/L (136-145)
[2020-09-09 14:16] LABS: Potassium 3.7 mmoL/L (3.5-5.1)
[2020-09-09 14:18] LABS: Alanine Aminotransferase 26 U/L (12-78); Albumin Level 2.4 g/dl (3.5-5.0); Albumin/Globulin Ratio 0.6 (1.1-1.8); Alkaline Phosphatase 43 U/L (38-126); Anion Gap 22.7 mEq/L (5-15); Aspartate Amino Transferase 60 U/L (14-36); Bilirubin,Total 4.9 mg/dl (0.2-1.3); Blood Urea Nitrogen 14 mg/dl (7-17); Carbon Dioxide 15 mmol/L (22.0-30.0); Creatinine Clearance Estimated 24 mL/min (50-200); Estimated Glomerular Filt Rate 22 ml/min (>60); GFR (African American) 27 ML/MIN (>60); Globulin 3.8 g/dL (1.3-3.2); Glucose 91 mg/dl (74-100); Lipase 14 U/L (23-300); Total Protein,Serum 6.2 g/dl (6.3-8.2)
[2020-09-09 14:21] LABS: Amylase < 30 U/L (30-110); Calcium 6.6 mg/dl (8.4-10.2); Lactic Acid 11.5 mmol/L (0.7-2.1)
--- NOTE | 2020-09-09 14:22 | PC.NURSE ---
Critical labs called to lory
--- NOTE | 2020-09-09 14:24 | PC.NURSE ---
MADE AWARE OF CRITICAL LABS
[2020-09-09 14:26] LABS: Anisocytosis 1+; Lymphocytes % 5 % (10-50); Macrocytosis 1+; Monocytes % 3 % (2-9); Neutrophils % 89 % (42-76); Platelet Estimate Marked Decrease; Total Cells Counted 100
[2020-09-09 14:31] LABS: Troponin I < 0.01 ng/ml (0.00-0.034)
--- NOTE | 2020-09-09 14:36 | PC.NURSE ---
Pt moved from room 9 to room 7 for radiographer cardiac catheterization.
--- NOTE | 2020-09-09 14:46 | CT_ITS ---
PROCEDURE INFORMATION: Exam: CT Abdomen And Pelvis Without Contrast Exam date and time: 09/09/2020 2:46 PM Age: 55 years old Clinical indication: Abdominal pain; Generalized TECHNIQUE: Imaging protocol: Computed tomography of the abdomen and pelvis without contrast. Radiation optimization: All CT scans at this facility use at least one of these dose optimization techniques: automated exposure control; mA and/or kV adjustment per patient size (includes targeted exams where dose is matched to clinical indication); or iterative reconstruction. COMPARISON: CT ABDOMEN WO CON 07/21/2019 1:16 PM FINDINGS: Liver: Mild hepatomegaly. Gallbladder and bile ducts: There has been a cholecystectomy. Mild prominence of the common bile duct measuring up to 8 mm. Pancreas: Normal. No ductal dilation. Spleen: Mild splenomegaly. The spleen demonstrates punctate calcifications, consistent with remote granulomatous organism exposure. Adrenal glands: Normal. No mass. Kidneys and ureters: Normal. No hydronephrosis. Stomach and bowel: Unremarkable. No obstruction. No mucosal thickening. Appendix: No evidence of appendicitis. Intraperitoneal space: There is a small amount of free intraperitoneal fluid present. Vasculature: The vasculature demonstrates diffuse mild atherosclerotic calcification. Lymph nodes: There are multiple nonspecific nonpathologic but prominent lymph nodes in the mesentery. There are no mesenteric lymph nodes of pathologic dimensions. Urinary bladder: Unremarkable as visualized. Reproductive: Unremarkable as visualized. Bones/joints: Compression deformity L1 is noted which is a change from the prior study. Soft tissues: Fat filled umbilical hernia. IMPRESSION: 1. Mild splenomegaly. 2. Mild prominence of the common bile duct measuring up to 8 mm. 3. Fat filled umbilical hernia. 4. Mild hepatomegaly. 5. Compression deformity L1 is noted which is a change from the prior study.
--- NOTE | 2020-09-09 14:58 | XR_ITS ---
PROCEDURE INFORMATION: Exam: XR Chest Exam date and time: 09/09/2020 2:58 PM Age: 55 years old Clinical indication: Other: Low blood pressure; Additional info: Low BP TECHNIQUE: Imaging protocol: XR of the chest. Views: 1 view. COMPARISON: CR XR CHEST PORTABLE 06/09/2020 1:45 AM FINDINGS: Lungs: Granulomatous density noted within the left lung base. No focal pneumonia or pneumothorax. Pleural spaces: See Lungs finding. Heart/Mediastinum: Unremarkable. No cardiomegaly. Diaphragm: There is nonspecific elevation of the right hemidiaphragm. Bones/joints: The thoracic spine demonstrates mild degenerative changes at multiple levels. IMPRESSION: No focal pneumonia or pneumothorax.
[2020-09-09 15:13] LABS: Ethyl Alcohol < 10 mg/dl (0-10); Magnesium 0.3 mg/dl (1.6-2.3)
--- NOTE | 2020-09-09 15:13 | PC.NURSE ---
OFF THE FLOOR WITH PATIENT TO CT
--- NOTE | 2020-09-09 15:13 | PC.NURSE ---
aware of mag level
[2020-09-09 15:17] LABS: C-Reactive Protein 91.1 mg/L (0-4)
--- NOTE | 2020-09-09 15:19 | PC.NURSE ---
Pt to rad.
[2020-09-09 15:27] LABS: Erythrocyte Sedimentation Rate > 140 mm/hr (0-30)
[2020-09-09 15:30] LABS: Procalcitonin 6.66 ng/mL (0.0-2.0)
--- NOTE | 2020-09-09 15:32 | PC.NURSE ---
Pt returned from rad.
[2020-09-09 15:50] LABS: Thyroid Stimulating Hormone 0.25 uIU/mL (0.465-4.68)
--- NOTE | 2020-09-09 16:06 | PC.NURSE ---
PATIENT UNSURE OF MEDICATION LIST PHARMACY CLOSED AT THIS TIME
--- NOTE | 2020-09-09 16:43 | ECG_ITS ---
APPROVED REPORT Exam: Resting ECG HR:119 bpm ECG Measurements Heart Rate 119 AXES NC 134 P 53 QRSd 68 QRS 5 QT 360 T 36 QTc 506 Conclusion Sinus tachycardia Late r wave progression - unchanged since 06/01 Abnormal ECG Electronically signed by : Clifford Eastman, 09/10/2020 07:30:53
[2020-09-09 17:03] LABS: Microscopic, Urine URINE MICROSCOPIC (MICROSCOPIC)
[2020-09-09 17:04] LABS: Reflex Lactic Add Lactic Reflex
--- NOTE | 2020-09-09 17:05 | PC.NURSE ---
PATIENT STATED ALL MEDICATIONS ARE THE SAME SINCE LAST ADMISSION
[2020-09-09 17:11] LABS: Adenovirus,PCR Not Detected (NotDetected); Bordetella Pertussis Not Detected (NotDetected); Chlamydophila Pneumoniae, PCR Not Detected (NotDetected); Coronavirus 19, PCR Not Detected (NotDetected); Coronavirus 229E Not Detected (NotDetected); Coronavirus NL63 Not Detected (NotDetected); Coronavirus OC43 Not Detected (NotDetected); Coronovirus HKU1,PCR Not Detected (NotDetected); Human Metapneumovirus Not Detected (NotDetected); Influenza A, PCR Not Detected (NotDetected); Influenza AH1, 2009 Not Detected (NotDetected); Influenza AH1, PCR Not Detected (NotDetected); Influenza AH3,PCR Not Detected (NotDetected); Influenza B, PCR Not Detected (NotDetected); Mycoplasma Pneumoniae, PCR Not Detected (NotDetected); Parainfluenza 1, PCR Not Detected (NotDetected); Parainfluenza 2, PCR Not Detected (NotDetected); Parainfluenza 3, PCR Not Detected (NotDetected); Parainfluenza 4, PCR Not Detected (NotDetected); Respiratory Syncytial Virus Not Detected (NotDetected); Rhinovirus/Enterovirus Not Detected (NotDetected)
[2020-09-09 17:11] LABS: Appearance,Urine CLEAR (Clear); Blood, Urine Negative (Negative); Color,Urine DK YELLOW (Yellow); Glucose,Urine (UA) Negative (Negative); Ketones,Urine Negative (Negative); Leukocyte Esterase,Urine Negative (Negative); Nitrate,Urine Negative (Negative); PH,Urine 5.5 (5.0-8.5); Protein,Urine Negative (Negative); Specific Gravity, Urine 1.015 (1.005-1.030)
[2020-09-09 17:16] LABS: Bacteria,Urine 1+ /lpf; Bilirubin,Urine 2+ (Negative); Mucus,Urine 2+ /lpf; RBC,Urine Occasional #/hpf (0-3); WBC,Urine Occasional #/hpf (0-3)
[2020-09-09 17:29] LABS: Adenovirus F 40/41, stool Not Detected (NotDetected); Astrovirus Not Detected (NotDetected); Campylobacter Not Detected (NotDetected); Clostridium Difficile A/B, PCR Not Detected (NotDetected); Cryptosporidium Not Detected (NotDetected); Cyclospora Cayetanesis Not Detected (NotDetected); Entamoeba histolytica Not Detected (NotDetected); Enteroaggregative E coli Not Detected (NotDetected); Enteropathogenic E coli Not Detected (NotDetected); Enterotoxigenic E coli Not Detected (NotDetected); Giardia lamblia Not Detected (NotDetected); Norovirus Not Detected (NotDetected); Plesimonas Shigalloides, PCR Not Detected (NotDetected); Rotavirus A Not Detected (NotDetected); Salmonella, PCR Not Detected (NotDetected); Sapovirus Not Detected (NotDetected); Shiga-like toxin E coli Not Detected (NotDetected); Shigella Enterovasive E coli Not Detected (NotDetected); Vibrio Cholerae Not Detected (NotDetected); Vibrio, PCR Not Detected (NotDetected); Yersinia Entercolitica, PCR Not Detected (NotDetected)
[2020-09-09 17:52] LABS: Lactic Acid Follow Up (RFLX 1) 5.8 mmol/L (0.7-2.1)
[2020-09-09 18:04] LABS: Troponin I < 0.01 ng/ml (0.00-0.034)
--- NOTE | 2020-09-09 18:07 | PC.NURSE ---
16 MALAY BILLY ESTABLISHED WITH ASEPTIC TECHNIQUE. UNABLE TO CHART ON ORDER DUE TO ORDER BEING CROSSED OVER. ANCHORED WITH 10ML'S NORMAL SALINE. BED DRAINAGE BAG ATTACHED.
[2020-09-09 19:39] LABS: Reflex Lactic (2 hrs) Add Lactic Reflex
--- NOTE | 2020-09-09 19:59 | HMH.HP ---
*Admission Date: 09/09/20 *Chief complaint: Nausea, vomiting and diarrhea *History of present illness: This 55-year-old white female has chronic alcoholism and cirrhosis of the liver. She admits to having some drinks a few days ago. She presented in the emergency room complaining of nausea vomiting and diarrhea. She is denies any bloody stools or dark stools. Her blood pressure was running low in the emergency room. She was given supplemental fluids and admitted for further evaluation and treatment. She suffers from depression. She is hypothyroid and takes levothyroxine 125 mcg a day. Her medications also include spironolactone 25 mg twice a day and Lasix 20 mg once a day. She uses supplemental oxygen at 2 L. [facility] History Medical History: Reports:: Anxiety, Depression, Hyperlipidemia, Hypertension, Seizures Denies:: Cancer, Diabetes Mellitus Type 1, Diabetes Mellitus Type 2, Internal Pacemaker, Lung Disease, MRSA *Have you ever received a pneumonia vaccine?: No *Have you received a flu vaccine this season?: No Other Medical History: Reports: Arthritis, Hypothyroidism, Thyroid Disease, Other (ETOH abuse, Alcoholic pancreatitis, alcoholic hepatitis, Cirrhosis) Other Surgeries: Yes: Cardiac Catheterization, Cholecystectomy, Colonoscopy, , Tubal Ligation. No: Pacemaker Amputation: No Fractures: No - *Social History Smoking Status: Current every day smoker Tobacco Type: cigarettes # Packs/Day (cigarettes): 1 Alcohol Intake: current Alcohol Intake Frequency:: other (She states that vodka is her drink of choice. She also drinks beer.) Substance Use Type: crack/cocaine Last Used Substance: days (ago) *Occupational Status:: other Housing: house Household Members: none *Travel in the last 8 weeks: None - Psychiatric History Pschychiatric History:: Reports:: Anxiety (Alprazolam 0.5 mg 3 times daily as needed), Depression (Fluoxetine 20 mg a day) Family Hx:: Cancer, Coronary Artery Disease (Her father at age 70 with heart disease), Diabetes, Hypertension, Stroke, Other (She states she has 2 living sisters and a third that in a house fire.) Comment: 1 son. Her mother is 76 years old. Review of Systems - Constitutional Reports anorexia, Reports malaise, Reports weakness - Eyes Denies blurry vision - *Cardiovascular Reports shortness of breath, Reports shortness of breath with activity, Denies chest pain, Denies chest pain at rest - *Respiratory Reports shortness of breath (Nasal O2 at 2 L), Denies cough - *Musculoskeletal Reports joint pain (Right knee pain) - Integumentary/Breasts Reports yellowing of the skin - *Neurologic Reports weakness, Denies seizure-like activity - Psychiatric Reports lack of enjoyment, Reports anxiety Meds Home Medications Medication Instructions Recorded Confirmed Type ALPRAZolam [Xanax 0.5mg tab] 0.5 mg PO TIDP PRN 12/17/17 09/09/20 History Levothyroxine Sodium 112 mcg PO DAILY 12/17/17 09/09/20 History [Levothyroxine 112mcg (0.112mg) Tab] albuterol sulfate 90 mcg/actuation 2 puffs INHALATION Q4HP PRN 10/03/18 09/09/20 History breath activated powder inhaler ropinirole 1 mg tablet 1 mg PO HS #30 tab 10/03/18 09/09/20 History Thiamine HCl [Vitamin B-1] 100 mg PO DAILY 11/09/18 09/09/20 History fluoxetine 20 mg capsule 20 mg PO HS #30 cap 03/08/19 09/09/20 History gabapentin 400 mg capsule 400 mg PO TID #90 cap 03/08/19 09/09/20 History omeprazole 20 mg capsule,delayed 20 mg PO DAILY #30 cap 03/08/19 09/09/20 History release ranitidine HCl 300 mg tablet 300 mg PO HS #30 tab 03/08/19 09/09/20 History Dicyclomine HCl [Bentyl 10mg 10 mg PO QIDP PRN #30 cap 04/23/19 09/09/20 Rx capsule] Loperamide HCl [Imodium 2 mg 2 mg PO NEEDED PRN #20 cap 04/23/19 09/09/20 Rx capsule] Folic Acid [Folic Acid 1mg tablet] 1 mg PO DAILY 09/09/20 09/09/20 History Furosemide [Lasix 20mg tablet] 20 mg PO DAILY 09/09/20 09/09/20 History Multivitamin [Multi-Vitamin Plain
[2020-09-09 20:32] LABS: Lactic Acid Follow up (RFLX 2) 4.5 mmol/L (0.7-2.1)
[2020-09-10] VITALS (70 sets, daily range): BP systolic 72–143; BP diastolic 39–81; PULSE 100–137; RESP 16–25; TEMP 36.8–37.2; O2SAT 91–100; BMI 25.2
--- NOTE | 2020-09-10 05:40 | PC.NURSE ---
sydni has had multiple watery stools this shift ,sample sent to lab to test for c.diff per protocol.
[2020-09-10 05:54] LABS: Basophils % 0.2 % (0.1-2.0); Eosinophils # 0.2 K/mm3 (0.0-0.4); Eosinophils % 1.4 % (0.1-12.0); Hematocrit 26.5 % (37.0-47.0); Hemoglobin 8.7 g/dL (12.2-16.2); Lymphocytes # 1.2 K/mm3 (0.7-4.5); Lymphocytes % 7.4 % (10-50); Mean Corpuscular HGB Conc 32.7 g/dL (31.8-35.4); Mean Corpuscular Hemoglobin 33.1 pg (27.0-31.2); Mean Corpuscular Volume 101.2 fl (81-99); Mean Platelet Volume 9.5 fl (7.4-10.4); Monocytes # 0.5 K/mm3 (0.1-1.0); Monocytes % 3.1 % (1.7-9.3); Neutrophils # 14.1 K/mm3 (1.8-7.8); Neutrophils % 87.8 % (37.0-80.0); Platelet Count 84 K/mm3 (142-424); Red Blood Count 2.62 M/mm3 (4.20-5.40); Red Cell Distribution Width 15.8 % (11.5-17.5); White Blood Count 16.1 K/mm3 (4.8-10.8)
[2020-09-10 05:57] LABS: Anion Gap 12.9 mEq/L (5-15); Blood Urea Nitrogen 14 mg/dl (7-17); Carbon Dioxide 15 mmol/L (22.0-30.0); Chloride 109 mmol/L (98-107); Creatinine Clearance Estimated 41 mL/min (50-200); Estimated Glomerular Filt Rate 42 ml/min (>60); GFR (African American) 51 ML/MIN (>60); Glucose 123 mg/dl (74-100); Sodium 134 mmol/L (136-145)
[2020-09-10 06:02] LABS: Adenovirus F 40/41, stool Not Detected (NotDetected); Astrovirus Not Detected (NotDetected); Campylobacter Not Detected (NotDetected); Clostridium Difficile A/B, PCR Not Detected (NotDetected); Cryptosporidium Not Detected (NotDetected); Cyclospora Cayetanesis Not Detected (NotDetected); Entamoeba histolytica Not Detected (NotDetected); Enteroaggregative E coli Not Detected (NotDetected); Enteropathogenic E coli Not Detected (NotDetected); Enterotoxigenic E coli Not Detected (NotDetected); Giardia lamblia Not Detected (NotDetected); Norovirus Not Detected (NotDetected); Plesimonas Shigalloides, PCR Not Detected (NotDetected); Rotavirus A Not Detected (NotDetected); Salmonella, PCR Not Detected (NotDetected); Sapovirus Not Detected (NotDetected); Shiga-like toxin E coli Not Detected (NotDetected); Shigella Enterovasive E coli Not Detected (NotDetected); Vibrio Cholerae Not Detected (NotDetected); Vibrio, PCR Not Detected (NotDetected); Yersinia Entercolitica, PCR Not Detected (NotDetected)
[2020-09-10 06:06] LABS: MANUAL DIFFERENTIAL MANUAL DIFFERENTIAL (MANUAL DIFF)
[2020-09-10 06:12] LABS: Potassium 2.9 mmoL/L (3.5-5.1)
[2020-09-10 06:27] LABS: Magnesium 0.2 mg/dl (1.6-2.3)
[2020-09-10 08:13] LABS: Anisocytosis 1+; Eosinophils % 3 % (0-3); Lymphocytes % 6 % (10-50); Macrocytosis 1+; Monocytes % 3 % (2-9); Neutrophils % 86 % (42-76); Platelet Estimate Marked Decrease; Total Cells Counted 100
--- NOTE | 2020-09-10 09:50 | HMH.ACPN2 ---
Internal Medicine - PN: Subj *Date: 09/10/20 *Time: 09:50 Interval history: She actually looks better this morning. She is a little more alert it seems. She seems comfortable. Her tongue is hydrated her heart has regular rate and rhythm her lungs are clear she has no leg edema. Her potassium is low at 2.9 this morning. Her calcium remains low. Adjustments will be made including adding potassium to IV fluids and adding p.o. potassium. P.o. calcium is ordered. The low calcium is directly related to her low albumin. Exam Vital signs and Labs for Last 24 Hours: Temp Pulse Resp BP Pulse Ox 98.5 F 120 H 18 112/60 98 09/10/20 08:00 09/10/20 07:31 09/10/20 07:31 09/10/20 07:31 09/10/20 07:31 Laboratory Results - last 24 hr 09/09/20 13:33: WBC 11.6 H, RBC 2.56 L, Hgb 8.5 L, Hct 26.6 L, MCV 104.0 H, MCH 33.2 H, MCHC 31.9, RDW 15.5, Plt Count 62 L, MPV 11.2 H, Neut % (Auto) 89.7 H, Lymph % (Auto) 7.1 L, [place] % (Auto) 2.9, Eos % (Auto) 0.1, Baso % (Auto) 0.1, Neut # (Auto) 10.4 H, Lymph # (Auto) 0.8, [place] # (Auto) 0.3, Eos # (Auto) 0.0, Baso # (Auto) 0.0, Total Counted 100, Neutrophils % (Manual) 89 H, Band Neutrophils % 2.0, Lymphocytes % (Manual) 5 L, Monocytes % (Manual) 3, Metamyelocytes % 1.0, Platelet Estimate Marked decrease, RBC Morphology Not Reportable, Anisocytosis 1+, Macrocytosis 1+ 09/09/20 13:33: Sodium 136, Potassium 3.7, Chloride 102, Carbon Dioxide 15 L, Anion Gap 22.7 H, BUN 14, Creatinine 2.30 H, Estimated Creat Clear 24, Estimated GFR 22 L, Est GFR ( Amer) 27 L, Glucose 91, Calcium 6.6 L, Total Bilirubin 4.9 H, AST 60 H, ALT 26, Alkaline Phosphatase 43, Troponin I < 0.01, Total Protein 6.2 L, Albumin 2.4 L, Globulin 3.8 H, Albumin/Globulin Ratio 0.6 L, Amylase < 30 L, Lipase 14 L 09/09/20 13:33: Lactate 11.5 H 09/09/20 13:33: Magnesium 0.3 L, C-Reactive Protein 91.1 H 09/09/20 13:33: Plasma/Serum Alcohol < 10 09/09/20 13:33: ESR > 140 H 09/09/20 13:33: Procalcitonin 6.66 H 09/09/20 13:33: TSH 0.25 L 09/09/20 16:10: Chlamy pneumoniae PCR Not detected, Adenovirus (PCR) Not detected, B. pertussis DNA (PCR) Not detected, Coronavirus OC43 (PCR) Not detected, Coronavirus HKU1 (PCR) Not detected, Coronavirus 229E (PCR) Not detected, SARS-CoV-2 (PCR) Not detected, Coronavirus NL63 (PCR) Not detected, Human Metapneumovir PCR Not detected, Influenza A (H1) PCR Not detected, Influ A (H1N1/09) PCR Not detected, Influenza A (H3) PCR Not detected, Influenza Type A (PCR) Not detected, Influenza Type B (PCR) Not detected, M. pneumoniae (PCR) Not detected, Parainfluenza 1 (PCR) Not detected, Parainfluenza 2 (PCR) Not detected, Parainfluenza 3 (PCR) Not detected, Parainfluenza 4 (PCR) Not detected, RSV (PCR) Not detected, Entero/Rhino (PCR) Not detected 09/09/20 16:55: Urine Color Dk yellow, Urine Appearance Clear, Urine pH 5.5, Ur Specific [place] 1.015, Urine Protein Negative, Urine Glucose (UA) Negative, Urine Ketones Negative, Urine Blood Negative, Urine Nitrate Negative, Urine Bilirubin 2+ A, Urine Urobilinogen 2.0, Ur Leukocyte Esterase Negative, Urine RBC Occasional, Urine WBC Occasional, Ur Squamous Epith Cells 5-10, Ur Transition Epith Cell 3-5, Urine Bacteria 1+, Urine Mucus 2+ 09/09/20 17:22: Stl Aeromonas (PCR) Not detected, Stl C. cayetanensis PCR Not detected, Stool Rotavirus (PCR) Not detected, Stl Adenov F 40/41 PCR Not detected, Stool Astrovirus (PCR) Not detected, Stool Campylobacter PCR Not detected, Stl C.difficile Tox PCR Not detected, Stool Cryptosporidium PCR Not detected, Stl E.coli Shiga Tox PCR Not detected, Stool E coli O157 PCR Not detected, Stl Enterotoxigenic E PCR Not detected, Stool EPEC (PCR) Not detected, Stool EAEC (PCR) Not detected, Stl E. histolytica PCR Not detected, Stool Giardia Lamblia PCR Not detected, Stool Salmonella PCR Not detected, Stool Sapovirus (PCR) Not detected, Stl P. shigelloides PCR Not detected, Stl Shigella/EIEC PCR Not detected, St Y.enterocolitica PCR Not detected, Stool Vibrio (PCR) N
--- NOTE | 2020-09-10 12:49 | HMH.PHAVTE ---
[facility] Pharmacy VTE Monitoring - Patient Demographics Admission date: 09/09/20 Report Date: 09/10/20 Time: 12:49 Allergies/Adverse Reactions: Patient Allergies No Known Allergies Allergy (Verified 09/09/20 20:54) Height: 1.5 m Weight: 56.869 kg Patient Problems: Current Active Problems Hypertension (Chronic) Hypothyroidism (Chronic) Cirrhosis of liver with ascites (Chronic) Diarrhea (Acute) Septic shock (Acute) Enteritis (Acute) Alcoholic cirrhosis (Acute) Uqrkp-ei-myqjbsm kidney injury (Acute) Right knee pain (Acute) Dehydration (Acute) Nausea and vomiting (Acute) Alcohol abuse (Chronic) - VTE Risk Labs: VTE Related Lab Results Hgb 8.7 g/dL (12.2-16.2) L 09/10/20 05:20 Hct 26.5 % (37.0-47.0) L 09/10/20 05:20 Plt Count 84 K/mm3 (142-424) L D 09/10/20 05:20 BUN 14 mg/dl (7-17) 09/10/20 05:20 Creatinine 1.30 mg/dl (0.52-1.04) H D 09/10/20 05:20 Estimated Creat Clear 41 mL/min (50-200) 09/10/20 05:20 VTE Score: 4 VTE Risk Level: Low Risk - Prophylaxis VTE Prophylaxis Ordered?: Yes Types of VTE Prophylaxis: TEDS Knee High Location of Applied Device: Bilateral Lower Extremeties
--- NOTE | 2020-09-10 12:56 | HMH.PHAINT ---
MEDICATION RECONCILIATION COMPLETED ON PATIENT USING EXTERNAL FILL HISTORY FROM PHARMACY. -ELAINE MUNGUIA, BARBARAD
--- NOTE | 2020-09-10 16:14 | PC.NURSE ---
Levophed gtt titrated to 13 mcg/min from 17 mcg/min thus far this shift. BP is labile. Pt remains tachycardic. Afebrile. Pt wears 2 L O2 per nasal cannula, this is baseline for her. Lungs CTA. Skin appears jaundice, as well as sclera. Abdomen soft, round w/ hyperactive BS in all quads. She has had numerous watery yellow stools this shift, she had episodes of incontinence as well. Travis cath to drain @ bedside w/ clear bright yellow urine noted. Pt is weak and requires assistance x1 when transferring back and forth to [facility]. She has had very little intake PO this shift, only drinking water and refusing all trays, stating she is not hungry. Staff have offered to get her something that appetizes her w/ no luck. She is currently resting in bed. Denies pain. No needs voiced. Pt offered bath, she has refused. Call ruthy w/in reach.
--- NOTE | 2020-09-10 21:35 | PC.NURSE ---
RA SAT=91%. PT WEARS 02 @ HOME NEEDED
[2020-09-11] VITALS (49 sets, daily range): BP systolic 86–140; BP diastolic 42–78; PULSE 100–123; RESP 17–20; TEMP 36.9–37.2; O2SAT 89–100; BMI 25.7
[2020-09-11 06:18] LABS: Basophils % 0.2 % (0.1-2.0); Eosinophils # 0.1 K/mm3 (0.0-0.4); Eosinophils % 1.2 % (0.1-12.0); Hematocrit 27.1 % (37.0-47.0); Lymphocytes # 1.1 K/mm3 (0.7-4.5); Lymphocytes % 9.6 % (10-50); Mean Corpuscular HGB Conc 33.2 g/dL (31.8-35.4); Mean Corpuscular Volume 99.4 fl (81-99); Mean Platelet Volume 9.8 fl (7.4-10.4); Monocytes # 0.6 K/mm3 (0.1-1.0); Monocytes % 5.6 % (1.7-9.3); Neutrophils # 9.3 K/mm3 (1.8-7.8); Neutrophils % 83.4 % (37.0-80.0); Platelet Count 66 K/mm3 (142-424); Red Blood Count 2.72 M/mm3 (4.20-5.40); Red Cell Distribution Width 15.7 % (11.5-17.5); White Blood Count 11.2 K/mm3 (4.8-10.8)
--- NOTE | 2020-09-11 06:20 | PC.NURSE ---
patient bp remains labile, titrating levophed back and forth from 10 mcq to 12 mcq of levophed this shift. patient has had multiple large,watery incontinent stools throughout shift. patient awaken to name or soft shaking but does seem to be more tired and weak than previous night. remains able to answer orientation questions
[2020-09-11 06:24] LABS: Anion Gap 9.7 mEq/L (5-15); Blood Urea Nitrogen 14 mg/dl (7-17); Carbon Dioxide 15 mmol/L (22.0-30.0); Chloride 109 mmol/L (98-107); Creatinine Clearance Estimated 57 mL/min (50-200); Estimated Glomerular Filt Rate 57 ml/min (>60); GFR (African American) 69 ML/MIN (>60); Glucose 93 mg/dl (74-100); Potassium 3.7 mmoL/L (3.5-5.1); Sodium 130 mmol/L (136-145)
[2020-09-11 06:33] LABS: Calcium 6.1 mg/dl (8.4-10.2)
--- NOTE | 2020-09-11 08:40 | HMH.ACPN2 ---
<Erica Foreman - Last Filed: 09/11/20 08:48> Internal Medicine - PN: Subj *Date: 09/11/20 *Time: 08:48 Interval history: Per nursing: Patient remains on Levophed drip. She has had an adequate urinary output per Travis catheter.. She remains tachycardic with heart rate 100 -120. CBC this a.m. show white blood cell count 11,200 with a hemoglobin of 9 hematocrit of 27.1. Blood chemistries show sodium of 130 potassium 3.7 chloride 109; calcium remains low at 6.1. Magnesium yesterday was 0.2. Blood cultures are positive per PCR for E. coli. Patient is not eating. Patient is difficult to understand. She states she continues to have diarrhea and hurts all over. Nursing confirms this. She denies chest pain and shortness of breath. Patient does state that her stomach hurts and she has some nausea. She requested ice chips. Exam Vital signs and Labs for Last 24 Hours: Temp Pulse Resp BP Pulse Ox 98.8 F 110 H 18 87/45 L 99 09/11/20 08:00 09/11/20 06:05 09/11/20 06:05 09/11/20 06:05 09/11/20 06:05 Laboratory Results - last 24 hr 09/10/20 05:13: Stl Aeromonas (PCR) Not detected, Stl C. cayetanensis PCR Not detected, Stool Rotavirus (PCR) Not detected, Stl Adenov F 40/41 PCR Not detected, Stool Astrovirus (PCR) Not detected, Stool Campylobacter PCR Not detected, Stl C.difficile Tox PCR Not detected, Stool Cryptosporidium PCR Not detected, Stl E.coli Shiga Tox PCR Not detected, Stool E coli O157 PCR Not detected, Stl Enterotoxigenic E PCR Not detected, Stool EPEC (PCR) Not detected, Stool EAEC (PCR) Not detected, Stl E. histolytica PCR Not detected, Stool Giardia Lamblia PCR Not detected, Stool Salmonella PCR Not detected, Stool Sapovirus (PCR) Not detected, Stl P. shigelloides PCR Not detected, Stl Shigella/EIEC PCR Not detected, St Y.enterocolitica PCR Not detected, Stool Vibrio (PCR) Not detected, Stl Vibrio cholerae PCR Not detected, Stl Norovirus GI/GII PCR Not detected 09/11/20 05:32: WBC 11.2 H D, RBC 2.72 L, Hgb 9.0 L, Hct 27.1 L, MCV 99.4 H, MCH 33.0 H, MCHC 33.2, RDW 15.7, Plt Count 66 L, MPV 9.8, Neut % (Auto) 83.4 H, Lymph % (Auto) 9.6 L, [place] % (Auto) 5.6, Eos % (Auto) 1.2, Baso % (Auto) 0.2, Neut # (Auto) 9.3 H, Lymph # (Auto) 1.1, [place] # (Auto) 0.6, Eos # (Auto) 0.1, Baso # (Auto) 0.0 09/11/20 05:32: Sodium 130 L, Potassium 3.7 D, Chloride 109 H, Carbon Dioxide 15 L, Anion Gap 9.7, BUN 14, Creatinine 1.00 D, Estimated Creat Clear 57, Estimated GFR 57 L, Est GFR ( Amer) 69 D, Glucose 93, Calcium 6.1 L I & O for Last 24 hours: Intake & Output 09/08/20 09/09/20 09/10/20 09/11/20 11:59 11:59 11:59 11:59 Intake Total 2344.140 / 2344.140 3807.333 / 3807.333 Output Total 475 / 475 1025 / 1025 Balance 1869.140 / 9545.041 3093.333 / 2782.333 Weight 125 lb 6 oz 127 lb 7 oz Microbiology Reports for the Last 24 Hours: Microbiology 09/09/20 13:33 Blood Blood Culture - Preliminary 09/09/20 13:33 Blood Blood Culture - Preliminary - Constitutional no acute distress, thin - *Routine Respiratory Exam Present: CTA bilaterally (Anteriorly and posteriorly) - *Routine Cardiovascular Exam Present: RRR, tachycardia (Monitor showing sinus tach) - *Routine Abdominal Exam Present: soft, normoactive bowel sounds. Absent: tenderness, distended - *Routine Extremities Exam Absent: edema - *Routine Neurological Exam Present: alert. Absent: oriented X3 Assessment and Plan (1) Dehydration Status: Acute Category: Medical Code(s): E86.0 - Dehydration (2) Nausea and vomiting Status: Acute Category: Medical Code(s): R11.2 - Nausea with vomiting, unspecified (3) Diarrhea Status: Acute Category: Medical Code(s): R19.7 - Diarrhea, unspecified (4) [id number] kidney injury Status: Acute Qualifiers: Chronic kidney disease stage: unspecified stage Category: Medical Code(s): N17.9 - Acute kidney failure, unspecified; N18.9 - Chronic kidney disease, unspeci
[2020-09-11 09:00] LABS: Phosphorous 2.4 mg/dl (2.5-4.5)
--- NOTE | 2020-09-11 09:53 | CA_ITS ---
APPROVED REPORT Paste Mixer: Shruthi Zuniga RVT Laterality: Bilateral Study Quality: Good Indications: Bruit right Risk Factors Hypertension: Doppler Spectral Velocity Analysis ECA (R) 167.00/37.70 cm/s ECA (L) 254.00/60.30 cm/s dICA (R) 111.00/29.90 cm/s dICA (L) 155.00/45.60 cm/s Britton (R) 113.00/31.40 cm/s Britton (L) 156.00/41.60 cm/s pICA (R) 138.00/26.70 cm/s pICA (L) 138.00/44.80 cm/s dCCA (R) 120.00/35.40 cm/s dCCA (L) 135.00/34.60 cm/s pCCA (R) 112.00/25.90 cm/s pCCA (L) 141.00/30.60 cm/s Vert (R) 53.40/17.30 cm/s Vert (L) 63.10/11.20 cm/s ICA/CCA 1.15 ICA/CCA 1.16 Findings Study suggests 20-49% stenosis of the right internal cartoid artery. Study suggests 20-49% stenosis of the left internal cartoid artery. Antegrade flow seen bilateral vertebral arteries. Conclusion Study suggests 20-49% stenosis of the right internal cartoid artery. Study suggests 20-49% stenosis of the left internal cartoid artery. Antegrade flow seen bilateral vertebral arteries. Electronically signed by : Dav Hines MD 09/11/2020 17:11:10
[2020-09-11 10:30] LABS: Magnesium 0.4 mg/dl (1.6-2.3)
--- NOTE | 2020-09-11 10:30 | PC.NURSE ---
Addendum entered by Karine Lilly RN 09/11/20 14:00: 1030 Original Note: late entry: notified Dr Shaver office that the pt has a critical Magnesium level of 0.4. order for Magnesium IV to be given has already been entered and will be infused.
[2020-09-11 10:34] LABS: Ammonia 44 umol/L (9-30)
--- NOTE | 2020-09-11 12:04 | PC.NURSE ---
Addendum entered by Karine Lilly RN 09/11/20 19:40: 1248 drip titrated to 8mcg Original Note: Titration of Levophed drip: 0725 at beginning of shift drip is at 10mcg 0915 decreased to 8mcg 1037 decreased to 6mcg
--- NOTE | 2020-09-11 13:06 | HMH.CONS ---
*Admission Date: 09/09/20 *Reason for consult:: alcoholic cirrhosis *History of present illness: This is a 54-year-old female with a history of hypertension, hyperlipidemia alcoholic pancreatitis, hypothyroidism as well as chronic alcoholic cirrhosis of the liver with ascites. She reported being a daily alcohol user for many years and has attempted both rehab and AA meetings multiple times before. She believes she might have been told she had cirrhosis about 4 years ago but never followed up about it until this past year. She was hospitalized a year ago with pneumonia and was noted to have cirrhosis, ascites and renal failure. She was seen in the office by Dr. Cross and myself for chronic alcoholic cirrhosis. She also has chronic diarrhea and is status post cholecystectomy. The patient has been unable to remain abstinent from alcohol and has failed to follow-up for any testing for the cirrhosis or the diarrhea in our office unfortunately. She was readmitted to the hospital a couple of days ago with sepsis, positive blood cultures for gram-negative rods and confusion. CT notes mild hepatomegaly she does have a bilirubin of 4.9, AST of 60, ALT of 26 and an alk phos of 43. We are awaiting ammonia level. She has chronic macrocytic hyperchromic anemia consistent with her cirrhosis diagnosis and low platelets. She is unable to answer any questions and is quite ill and noted to be hypotensive requiring Levophed to maintain pressures. Her last colonoscopy was in [address] Box who found diverticulosis and polyps. [facility] History Medical History: Reports:: Anxiety (Alprazolam 0.5 mg 3 times daily as needed), Depression (Fluoxetine 20 mg a day), Hyperlipidemia, Hypertension, Seizures Denies:: Cancer, Diabetes Mellitus Type 1, Diabetes Mellitus Type 2, Internal Pacemaker, Lung Disease, MRSA *Have you ever received a pneumonia vaccine?: No *Have you received a flu vaccine this season?: No Other Medical History: Reports: Arthritis, Hypothyroidism, Thyroid Disease, Other (ETOH abuse, Alcoholic pancreatitis, alcoholic hepatitis, Cirrhosis) Other Surgeries: Yes: Cardiac Catheterization, Cholecystectomy, Colonoscopy, , EGD, Tubal Ligation, Other. No: Pacemaker Amputation: No Fractures: No - *Social History Last grade of school completed: Some college Smoking Status: Current every day smoker Tobacco Type: cigarettes # Packs/Day (cigarettes): 1 Alcohol Intake: current Alcohol Intake Frequency:: 0-2 drinks per day Substance Use Type: crack/cocaine Last Used Substance: days (ago) *Occupational Status:: unemployed Housing: house Household Members: none *Travel in the last 8 weeks: None - Psychiatric History Pschychiatric History:: Reports:: Anxiety (Alprazolam 0.5 mg 3 times daily as needed), Depression (Fluoxetine 20 mg a day) Family Hx:: Cancer, Coronary Artery Disease, Diabetes, Hypertension, Stroke Review of Systems - Review of Systems Review of systems:: unable to obtain Patient is unable to answer any questions secondary to acute confusion. - *Neurologic Reports weakness, Denies seizure-like activity Meds Home Medications Medication Instructions Recorded Confirmed Type ALPRAZolam [Xanax 0.5mg tab] 0.5 mg PO TID 12/17/17 09/09/20 History albuterol sulfate 90 mcg/actuation 2 puffs IH Q4HP PRN 10/03/18 09/10/20 History breath activated powder inhaler Thiamine HCl [Vitamin B-1] 100 mg PO DAILY 11/09/18 09/09/20 History fluoxetine 20 mg capsule 20 mg PO HS #30 cap 03/08/19 09/09/20 History omeprazole 20 mg capsule,delayed 20 mg PO DAILY #30 cap 03/08/19 09/09/20 History release Loperamide HCl [Imodium 2 mg 2 mg PO NEEDED PRN #20 cap 04/23/19 09/09/20 Rx capsule] Folic Acid [Folic Acid 1mg tablet] 1 mg PO DAILY 09/09/20 09/09/20 History Furosemide [Lasix 20mg tablet] 20 mg PO DAILY 09/09/20 09/09/20 History Multivitamin [Multi-Vitamin Plain] 1 each PO 1700 09/09/20 09/09/20 History Potassium Chloride [Klor-Con 10mEq
--- NOTE | 2020-09-11 13:56 | PC.NURSE ---
LAte entry: 804 spoke with Aman Foreman and requested labs for pt: Magnesium level and ammonia level and also inquired if they would want Dr Cross consulted on the pt. also notified Erica that pt Calcium is 6.1 (was 6.0 yesterday) new orders: enter orders for [place] consult, ammonia level and magnesium level.
--- NOTE | 2020-09-11 14:53 | PC.NURSE ---
1415 called A office and spoke with Dr Rios r/t change in status of pt. at start of shift pt was on 2lpm and O2 sats were 98-100 (Dr Snyder was notified of o2 sats previously but gave order to previous nurse to keep [address] is what she wears at home.) o2 sats currently 89-90%. pt has mixture of rhonchi and crackles throughout. crackles are audible from the doorway. pt has ns @ 100 and is currently still on levo @ 8 that i am attempting to wean. new orders from Dr Rios, decrease IVF to NS @ 50ml/hr and give 20mg of lasix x1 dose.
[2020-09-11 15:48] LABS: Adenovirus F 40/41, stool Not Detected (NotDetected); Astrovirus Not Detected (NotDetected); Campylobacter Not Detected (NotDetected); Clostridium Difficile A/B, PCR Not Detected (NotDetected); Cryptosporidium Not Detected (NotDetected); Cyclospora Cayetanesis Not Detected (NotDetected); Entamoeba histolytica Not Detected (NotDetected); Enteroaggregative E coli Not Detected (NotDetected); Enteropathogenic E coli Not Detected (NotDetected); Enterotoxigenic E coli Not Detected (NotDetected); Giardia lamblia Not Detected (NotDetected); Norovirus Not Detected (NotDetected); Plesimonas Shigalloides, PCR Not Detected (NotDetected); Rotavirus A Not Detected (NotDetected); Salmonella, PCR Not Detected (NotDetected); Sapovirus Not Detected (NotDetected); Shiga-like toxin E coli Not Detected (NotDetected); Shigella Enterovasive E coli Not Detected (NotDetected); Vibrio Cholerae Not Detected (NotDetected); Vibrio, PCR Not Detected (NotDetected); Yersinia Entercolitica, PCR Not Detected (NotDetected)
--- NOTE | 2020-09-11 18:51 | PC.NURSE ---
pt is difficult to understand, is semi coherent when speaking to staff but when asked to complete a task or follow directions pt is unable to complete it appropriately. i.e. pivot from bed to bsc with assist. pt is an assist x 2 when transferring. lungs still have scattered crackles. bowel sounds are hyperactive in all quads.
[2020-09-12] VITALS (12 sets, daily range): BP systolic 93–115; BP diastolic 53–74; PULSE 74–108; RESP 17–27; TEMP 36.8–37; O2SAT 95–100; BMI 28.0
--- NOTE | 2020-09-12 01:30 | PC.NURSE ---
She has been resting in bed. Was able to say her name when asked but it was difficult to understand. Her speech is mumbled. She continues on levophed gtt. F/c is patent with yellow, clear urine. She continues with O2 @ 2LPM n/c.
--- NOTE | 2020-09-12 06:14 | PC.NURSE ---
Incontinent of liquid stool at this time.
[2020-09-12 07:04] LABS: Alanine Aminotransferase 15 U/L (12-78); Albumin Level 2.4 g/dl (3.5-5.0); Albumin/Globulin Ratio 0.6 (1.1-1.8); Alkaline Phosphatase 111 U/L (38-126); Anion Gap 11.3 mEq/L (5-15); Aspartate Amino Transferase 70 U/L (14-36); Bilirubin,Total 3.2 mg/dl (0.2-1.3); Blood Urea Nitrogen 14 mg/dl (7-17); Carbon Dioxide 15 mmol/L (22.0-30.0); Chloride 112 mmol/L (98-107); Creatinine Clearance Estimated 64 mL/min (50-200); Estimated Glomerular Filt Rate 65 ml/min (>60); GFR (African American) 78 ML/MIN (>60); Globulin 3.8 g/dL (1.3-3.2); Glucose 108 mg/dl (74-100); Potassium 4.3 mmoL/L (3.5-5.1); Sodium 134 mmol/L (136-145); Total Protein,Serum 6.2 g/dl (6.3-8.2)
[2020-09-12 07:05] LABS: Basophils % 0.1 % (0.1-2.0); Eosinophils % 0.2 % (0.1-12.0); Hematocrit 27.5 % (37.0-47.0); Hemoglobin 8.8 g/dL (12.2-16.2); Lymphocytes # 0.7 K/mm3 (0.7-4.5); Mean Corpuscular HGB Conc 31.9 g/dL (31.8-35.4); Mean Corpuscular Hemoglobin 32.4 pg (27.0-31.2); Mean Corpuscular Volume 101.6 fl (81-99); Mean Platelet Volume 9.5 fl (7.4-10.4); Monocytes # 0.9 K/mm3 (0.1-1.0); Monocytes % 10.6 % (1.7-9.3); Neutrophils # 6.7 K/mm3 (1.8-7.8); Red Cell Distribution Width 16.1 % (11.5-17.5); White Blood Count 8.2 K/mm3 (4.8-10.8)
[2020-09-12 07:10] LABS: Platelet Count 49 K/mm3 (142-424)
[2020-09-12 07:11] LABS: C-Reactive Protein 107.1 mg/L (0-4)
[2020-09-12 07:53] LABS: Calcium 7.2 mg/dl (8.4-10.2)
--- NOTE | 2020-09-12 08:00 | PC.NURSE ---
pt on RA. O2 sat 100%
--- NOTE | 2020-09-12 08:58 | HMH.ACPN2 ---
<Erica Foreman - Last Filed: 09/12/20 08:58> Internal Medicine - PN: Amy *Date: 09/12/20 *Time: 08:58 Interval history: Patient continues with abdominal discomfort. She also has continued with diarrhea stools. She has a Travis catheter to bedside drainage with adequate urinary output. She continues not to eat. Patient remains on Levophed drip. She received IV magnesium and potassium and calcium yesterday. Blood chemistries this morning show sodium of 134. Potassium is good at 4.3. BUN is 14 and creatinine 0.9. Lactate remains elevated at 7.2. Magnesium is normal at 2 and calcium has increased to 7.2. Bilirubin has decreased to 3.2. White blood cell count is normal today with a hemoglobin of 8.8 and hematocrit of 27.5. Platelet count is low at 49,000. Stool studies were repeated and were all negative. Gastroenterology note/help appreciated Exam Vital signs and Labs for Last 24 Hours: Temp Pulse Resp BP Pulse Ox 98.6 F 98 H 27 H 98/53 L 100 09/12/20 08:00 09/12/20 06:00 09/12/20 04:00 09/12/20 06:00 09/12/20 06:00 Laboratory Results - last 24 hr 09/11/20 08:36: Phosphorus 2.4 L 09/11/20 08:36: Magnesium 0.4 L D 09/11/20 08:36: Ammonia 44 H 09/11/20 15:40: Stl Aeromonas (PCR) Not detected, Stl C. cayetanensis PCR Not detected, Stool Rotavirus (PCR) Not detected, Stl Adenov F 40/41 PCR Not detected, Stool Astrovirus (PCR) Not detected, Stool Campylobacter PCR Not detected, Stl C.difficile Tox PCR Not detected, Stool Cryptosporidium PCR Not detected, Stl E.coli Shiga Tox PCR Not detected, Stool E coli O157 PCR Not detected, Stl Enterotoxigenic E PCR Not detected, Stool EPEC (PCR) Not detected, Stool EAEC (PCR) Not detected, Stl E. histolytica PCR Not detected, Stool Giardia Lamblia PCR Not detected, Stool Salmonella PCR Not detected, Stool Sapovirus (PCR) Not detected, Stl P. shigelloides PCR Not detected, Stl Shigella/EIEC PCR Not detected, St Y.enterocolitica PCR Not detected, Stool Vibrio (PCR) Not detected, Stl Vibrio cholerae PCR Not detected, Stl Norovirus GI/GII PCR Not detected 09/12/20 06:08: WBC 8.2 D, RBC 2.70 L, Hgb 8.8 L, Hct 27.5 L, MCV 101.6 H, MCH 32.4 H, MCHC 31.9, RDW 16.1, Plt Count 49 L* D, MPV 9.5, Neut % (Auto) 81.0 H, Lymph % (Auto) 8.0 L, [place] % (Auto) 10.6 H, Eos % (Auto) 0.2, Baso % (Auto) 0.1, Neut # (Auto) 6.7, Lymph # (Auto) 0.7, [place] # (Auto) 0.9, Eos # (Auto) 0.0, Baso # (Auto) 0.0 09/12/20 06:08: Sodium 134 L, Potassium 4.3, Chloride 112 H, Carbon Dioxide 15 L, Anion Gap 11.3, BUN 14, Creatinine 0.90, Estimated Creat Clear 64, Estimated GFR 65, Est GFR ( Amer) 78, Glucose 108 H, Calcium 7.2 L D, Magnesium 2.0 D, Total Bilirubin 3.2 H, AST 70 H, ALT 15 D, Alkaline Phosphatase 111, C-Reactive Protein 107.1 H, Total Protein 6.2 L, Albumin 2.4 L, Globulin 3.8 H, Albumin/Globulin Ratio 0.6 L I & O for Last 24 hours: Intake & Output 09/09/20 09/10/20 09/11/20 09/12/20 11:59 11:59 11:59 11:59 Intake Total 2344.140 / 2344.140 3807.333 / 3807.333 2354.337 / 2354.337 Output Total 475 / 475 1025 / 1025 1800 / 1800 Balance 1869.140 / 8048.044 6560.333 / 2782.333 554.337 / 554.337 Weight 125 lb 6 oz 127 lb 7 oz 139 lb Microbiology Reports for the Last 24 Hours: Microbiology 09/09/20 13:33 Blood Blood Culture - Preliminary Gram Negative Rods 09/09/20 13:33 Blood Blood Culture - Preliminary Gram Negative Rods - Constitutional no acute distress, somnolent - *Routine Respiratory Exam Present: CTA bilaterally (Anteriorly and posteriorly with diminished breath sounds) - *Routine Cardiovascular Exam Present: RRR - *Routine Abdominal Exam Present: soft, normoactive bowel sounds, tenderness - *Routine Extremities Exam Absent: edema, calf tenderness - *Routine Skin Exam Present: jaundice - *Routine Neurological Exam Present: alert. Absent: normal speech Somewhat lethargic. Speech is very soft a
--- NOTE | 2020-09-12 12:04 | HMH.ACPN ---
Internal Medicine - PN: Subj *Date: 09/12/20 *Time: 12:05 Exam Vital signs and Labs for Last 24 Hours: Temp Pulse Resp BP Pulse Ox 98.6 F 97 H 22 103/64 L 100 09/12/20 08:00 09/12/20 10:00 09/12/20 10:00 09/12/20 10:00 09/12/20 10:00 Laboratory Results - last 24 hr 09/11/20 15:40: Stl Aeromonas (PCR) Not detected, Stl C. cayetanensis PCR Not detected, Stool Rotavirus (PCR) Not detected, Stl Adenov F 40/41 PCR Not detected, Stool Astrovirus (PCR) Not detected, Stool Campylobacter PCR Not detected, Stl C.difficile Tox PCR Not detected, Stool Cryptosporidium PCR Not detected, Stl E.coli Shiga Tox PCR Not detected, Stool E coli O157 PCR Not detected, Stl Enterotoxigenic E PCR Not detected, Stool EPEC (PCR) Not detected, Stool EAEC (PCR) Not detected, Stl E. histolytica PCR Not detected, Stool Giardia Lamblia PCR Not detected, Stool Salmonella PCR Not detected, Stool Sapovirus (PCR) Not detected, Stl P. shigelloides PCR Not detected, Stl Shigella/EIEC PCR Not detected, St Y.enterocolitica PCR Not detected, Stool Vibrio (PCR) Not detected, Stl Vibrio cholerae PCR Not detected, Stl Norovirus GI/GII PCR Not detected 09/12/20 06:08: WBC 8.2 D, RBC 2.70 L, Hgb 8.8 L, Hct 27.5 L, MCV 101.6 H, MCH 32.4 H, MCHC 31.9, RDW 16.1, Plt Count 49 L* D, MPV 9.5, Neut % (Auto) 81.0 H, Lymph % (Auto) 8.0 L, [place] % (Auto) 10.6 H, Eos % (Auto) 0.2, Baso % (Auto) 0.1, Neut # (Auto) 6.7, Lymph # (Auto) 0.7, [place] # (Auto) 0.9, Eos # (Auto) 0.0, Baso # (Auto) 0.0 09/12/20 06:08: Sodium 134 L, Potassium 4.3, Chloride 112 H, Carbon Dioxide 15 L, Anion Gap 11.3, BUN 14, Creatinine 0.90, Estimated Creat Clear 64, Estimated GFR 65, Est GFR ( Amer) 78, Glucose 108 H, Calcium 7.2 L D, Magnesium 2.0 D, Total Bilirubin 3.2 H, AST 70 H, ALT 15 D, Alkaline Phosphatase 111, C-Reactive Protein 107.1 H, Total Protein 6.2 L, Albumin 2.4 L, Globulin 3.8 H, Albumin/Globulin Ratio 0.6 L I & O for Last 24 hours: Intake & Output 09/09/20 09/10/20 09/11/20 09/12/20 23:59 23:59 23:59 23:59 Intake Total 180.438 / 785.366 2481.015 / 4282.015 2954.02 / 2954.02 1109.337 / 1109.337 Output Total 1000 / 1000 2300 / 2300 Balance 180.438 / 874.371 1740.015 / 3282.015 654.02 / 654.02 1109.337 / 1109.337 Weight 54.091 kg 56.869 kg 57.805 kg 63.049 kg Microbiology Reports for the Last 24 Hours: Microbiology 09/09/20 13:33 Blood Blood Culture - Final Escherichia coli 09/09/20 13:33 Blood Blood Culture - Final Escherichia coli Assessment and Plan (1) E. coli sepsis Status: Acute Category: Medical Code(s): A41.51 - Sepsis due to Escherichia coli [E. coli] (2) Hypotension Status: Acute Category: Medical Code(s): I95.9 - Hypotension, unspecified (3) Dehydration Status: Acute Category: Medical Code(s): E86.0 - Dehydration (4) Nausea and vomiting Status: Acute Category: Medical Code(s): R11.2 - Nausea with vomiting, unspecified (5) Diarrhea Status: Acute Category: Medical Code(s): R19.7 - Diarrhea, unspecified (6) Lgxop-du-zwmhxnz kidney injury Status: Acute Qualifiers: Chronic kidney disease stage: unspecified stage Category: Medical Code(s): N17.9 - Acute kidney failure, unspecified; N18.9 - Chronic kidney disease, unspecified (7) Alcoholic cirrhosis Status: Acute Qualifiers: Ascites presence: without ascites Qualified Code(s): K70.30 - Alcoholic cirrhosis of liver without ascites Category: Medical Code(s): K70.30 - Alcoholic cirrhosis of liver without ascites (8) Cirrhosis of liver with ascites Status: Chronic Qualifiers: Hepatic cirrhosis type: alcoholic cirrhosis Qualified Code(s): K70.31 - Alcoholic cirrhosis of liver with ascites Category: Medical Code(s): K74.60 - Unspecified cirrhosis of liver; R18.8 - Other ascites (9) Alcohol abuse Status: Chronic Category: Social Hx Code(s): F10.10 - Alcohol
--- NOTE | 2020-09-12 17:07 | PC.NURSE ---
BP 83 (73). Levo gtt decreased to 2mcg/min.
--- NOTE | 2020-09-12 17:57 | PC.NURSE ---
BP 104/59 (74). Levo gtt turned OFF.
[2020-09-12 18:30] LABS: Basophils % 0.1 % (0.1-2.0); Eosinophils # 0.1 K/mm3 (0.0-0.4); Hematocrit 26.9 % (37.0-47.0); Hemoglobin 8.8 g/dL (12.2-16.2); Lymphocytes # 0.9 K/mm3 (0.7-4.5); Lymphocytes % 14.6 % (10-50); Mean Corpuscular HGB Conc 32.5 g/dL (31.8-35.4); Mean Corpuscular Hemoglobin 32.8 pg (27.0-31.2); Mean Corpuscular Volume 100.7 fl (81-99); Mean Platelet Volume 10.2 fl (7.4-10.4); Monocytes # 0.9 K/mm3 (0.1-1.0); Monocytes % 14.9 % (1.7-9.3); Neutrophils # 4.3 K/mm3 (1.8-7.8); Neutrophils % 69.4 % (37.0-80.0); Red Blood Count 2.67 M/mm3 (4.20-5.40); Red Cell Distribution Width 16.3 % (11.5-17.5); White Blood Count 6.2 K/mm3 (4.8-10.8)
--- NOTE | 2020-09-12 18:55 | PC.NURSE ---
Dr. Rios notified that platelet count is 37
[2020-09-12 18:56] LABS: Platelet Count 37 K/mm3 (142-424)
--- NOTE | 2020-09-12 20:00 | PC.NURSE ---
Patient has requested that name not on census. Multiple calls requesting information and where patient has been transferred to. Spoke with patient, request that her name not be on census. Information only given to Consuelo. I spoke with [place] password set up.
--- NOTE | 2020-09-12 20:24 | PC.NURSE ---
after receiving multiple calls from visitors, warehouse guard spoke with patient. patient very weak, speech soft and mumbled, can state month, name and current location. continues to say she wants to be opted off of census. only person staff is allowed to talk to per patient is manuel, number listed as person to notify. warehouse guard set up password with manuel which is truong.
[2020-09-13] VITALS (9 sets, daily range): BP systolic 96–135; BP diastolic 53–86; PULSE 88–109; RESP 12–27; TEMP 36.2–37; O2SAT 94–98; BMI 25.1; BMI 24.8
--- NOTE | 2020-09-13 06:11 | PC.NURSE ---
patient has been lethargic throughout shift, requiring persistent loud repetitive requests during assessment. after performing oral care patient will mumble softly orientation answers clear enough to understand with effort. oriented to person, place and date of . patient able to answer questions regarding census opt out and who can be informed of situation. again this requires much prompting. pupils round, equal and briskly reactive. able to follow commands, hand lease attendant equally weak bilaterally. patient has again had multiple watery stools. voiding clear yellow urine per doll.
[2020-09-13 06:22] LABS: Alanine Aminotransferase 16 U/L (12-78); Albumin Level 2.4 g/dl (3.5-5.0); Albumin/Globulin Ratio 0.6 (1.1-1.8); Alkaline Phosphatase 117 U/L (38-126); Anion Gap 11.5 mEq/L (5-15); Aspartate Amino Transferase 67 U/L (14-36); Bilirubin,Total 2.8 mg/dl (0.2-1.3); Blood Urea Nitrogen 14 mg/dl (7-17); Carbon Dioxide 15 mmol/L (22.0-30.0); Chloride 118 mmol/L (98-107); Estimated Glomerular Filt Rate 87 ml/min (>60); GFR (African American) 105 ML/MIN (>60); Globulin 3.8 g/dL (1.3-3.2); Glucose 90 mg/dl (74-100); Magnesium 1.6 mg/dl (1.6-2.3); Phosphorous 3.2 mg/dl (2.5-4.5); Potassium 4.5 mmoL/L (3.5-5.1); Sodium 140 mmol/L (136-145); Total Protein,Serum 6.2 g/dl (6.3-8.2)
[2020-09-13 07:09] LABS: Creatinine Clearance Estimated 80 mL/min (50-200)
[2020-09-13 08:09] LABS: Basophils % 0.2 % (0.1-2.0); Eosinophils % 0.6 % (0.1-12.0); Hematocrit 27.7 % (37.0-47.0); Hemoglobin 9.1 g/dL (12.2-16.2); Lymphocytes # 0.8 K/mm3 (0.7-4.5); Lymphocytes % 14.1 % (10-50); Mean Corpuscular HGB Conc 32.6 g/dL (31.8-35.4); Mean Corpuscular Hemoglobin 32.5 pg (27.0-31.2); Mean Corpuscular Volume 99.6 fl (81-99); Mean Platelet Volume 10.1 fl (7.4-10.4); Monocytes # 0.8 K/mm3 (0.1-1.0); Monocytes % 14.7 % (1.7-9.3); Neutrophils # 3.8 K/mm3 (1.8-7.8); Neutrophils % 70.5 % (37.0-80.0); Red Blood Count 2.79 M/mm3 (4.20-5.40); Red Cell Distribution Width 16.3 % (11.5-17.5); White Blood Count 5.4 K/mm3 (4.8-10.8)
--- NOTE | 2020-09-13 08:19 | HMH.ACPN2 ---
<Jacqueline Hilliard - Last Filed: 09/13/20 08:19> Internal Medicine - PN: Subj *Date: 09/13/20 *Time: 08:19 Interval history: Patient is very weak and difficult to understand. Her sodium has normalized and her calcium has improved. Her bilirubin continues to decrease. Blood cultures are growing E. coli sensitive to Rocephin. She remains on a norepinephrine drip. Exam Vital signs and Labs for Last 24 Hours: Temp Pulse Resp BP Pulse Ox 97.2 F L 92 H 22 96/59 L 95 09/13/20 08:00 09/13/20 06:00 09/13/20 06:00 09/13/20 06:00 09/13/20 06:00 Laboratory Results - last 24 hr 09/12/20 18:20: WBC 6.2, RBC 2.67 L, Hgb 8.8 L, Hct 26.9 L, MCV 100.7 H, MCH 32.8 H, MCHC 32.5, RDW 16.3, Plt Count 37 L*, MPV 10.2, Neut % (Auto) 69.4, Lymph % (Auto) 14.6, [place] % (Auto) 14.9 H, Eos % (Auto) 1.0, Baso % (Auto) 0.1, Neut # (Auto) 4.3, Lymph # (Auto) 0.9, [place] # (Auto) 0.9, Eos # (Auto) 0.1, Baso # (Auto) 0.0 09/13/20 05:47: Sodium 140, Potassium 4.5, Chloride 118 H, Carbon Dioxide 15 L, Anion Gap 11.5, BUN 14, Creatinine 0.70 D, Estimated Creat Clear 80, Estimated GFR 87, Est GFR ( Amer) 105 D, Glucose 90, Calcium 8.0 L D, Phosphorus 3.2 D, Magnesium 1.6 D, Total Bilirubin 2.8 H, AST 67 H, ALT 16, Alkaline Phosphatase 117, Total Protein 6.2 L, Albumin 2.4 L, Globulin 3.8 H, Albumin/Globulin Ratio 0.6 L I & O for Last 24 hours: Intake & Output 09/10/20 09/11/20 09/12/20 09/13/20 11:59 11:59 11:59 11:59 Intake Total 2344.140 / 2344.140 3807.333 / 3807.333 2354.337 / 2354.337 1396 / 1396 Output Total 475 / 475 1025 / 1025 1800 / 1800 1175 / 1175 Balance 1869.140 / 2500.728 5145.333 / 2782.333 554.337 / 554.337 221 / 221 Weight 125 lb 6 oz 127 lb 7 oz 139 lb 124 lb 9 oz Microbiology Reports for the Last 24 Hours: Microbiology 09/09/20 13:33 Blood Blood Culture - Final Escherichia coli 09/09/20 13:33 Blood Blood Culture - Final Escherichia coli - Constitutional Comments: Tries to wake during exam and mumbles - *Routine Respiratory Exam Present: CTA bilaterally - *Routine Cardiovascular Exam Present: RRR - *Routine Abdominal Exam Present: soft, normoactive bowel sounds, tenderness (diffuse) - *Routine Extremities Exam Absent: cyanosis, clubbing, edema - *Routine Skin Exam Present: warm. Absent: rash - *Routine Neurological Exam Present: altered mental status Assessment and Plan (1) E. coli sepsis Status: Acute Category: Medical Code(s): A41.51 - Sepsis due to Escherichia coli [E. coli] (2) Hypotension Status: Acute Category: Medical Code(s): I95.9 - Hypotension, unspecified (3) Dehydration Status: Acute Category: Medical Code(s): E86.0 - Dehydration (4) Nausea and vomiting Status: Acute Category: Medical Code(s): R11.2 - Nausea with vomiting, unspecified (5) Diarrhea Status: Acute Category: Medical Code(s): R19.7 - Diarrhea, unspecified (6) Zmlcd-by-nshiksc kidney injury Status: Acute Qualifiers: Chronic kidney disease stage: unspecified stage Category: Medical Code(s): N17.9 - Acute kidney failure, unspecified; N18.9 - Chronic kidney disease, unspecified (7) Alcoholic cirrhosis Status: Acute Qualifiers: Ascites presence: without ascites Qualified Code(s): K70.30 - Alcoholic cirrhosis of liver without ascites Category: Medical Code(s): K70.30 - Alcoholic cirrhosis of liver without ascites (8) Cirrhosis of liver with ascites Status: Chronic Qualifiers: Hepatic cirrhosis type: alcoholic cirrhosis Qualified Code(s): K70.31 - Alcoholic cirrhosis of liver with ascites Category: Medical Code(s): K74.60 - Unspecified cirrhosis of liver; R18.8 - Other ascites (9) Alcohol abuse Status: Chronic Category: Social Hx Code(s): F10.10 - Alcohol abuse, uncomplicated (10) Right knee pain Status: Acute Category: Medical Code(s): M25.561 -
[2020-09-13 08:56] LABS: Platelet Count 41 K/mm3 (142-424)
--- NOTE | 2020-09-13 09:11 | PC.NURSE ---
Dr. Rios notified that platelet count is 41.
[2020-09-13 11:25] LABS: Opiate Screen,Urine Negative ng/ml (<300); Phencyclidine Screen,Urine Negative ng/ml (<25)
[2020-09-13 11:28] LABS: Amphetamine/Metha Screen,Urine Negative ng/ml (<1000)
[2020-09-13 11:29] LABS: Barbiturates Screen,Urine Negative ng/ml (<200); Benzodiazepines Screen,Urine Positive ng/ml (<200)
[2020-09-13 11:30] LABS: Cannabinoid Screen,Urine Negative ng/ml (<50)
[2020-09-13 11:31] LABS: Cocaine Screen,Urine Negative ng/ml (<300); Methadone Screen,Urine Negative ng/ml (<300)
--- NOTE | 2020-09-13 15:30 | PC.NURSE ---
Audible rattling/gurgling noted from pt's door. NT suctioned performed. Secretions yellow/greenish and copious in amount. Rattling/gurgling no longer noted.
--- NOTE | 2020-09-13 16:20 | DIET.NUTRFU ---
Pt with severe protein calorie malnutrition rt Cirrhosis. She has continued to refuse all offers nourishment t/o stay. She will shake her head no at times or just stare, refuses to open mouth or communicate. She has had TID supplements on diet order but has refused all, removing from order at this time, will monitor and alter as needed. Please continue to offer supplements/snacks t/o day and encourage/cue at meal times.
--- NOTE | 2020-09-13 21:23 | PC.NURSE ---
patient more alert this shift than previous day but more disoriented. Twilla (friend) at bedside. with persistent, loud and repetitive instruction patient will follow commands, all program manager rn equal. patient continues to voice her name, and hospital. patient is unaware who twilla is.
--- NOTE | 2020-09-13 23:55 | PC.NURSE ---
Patient stated she wanted to talk to Rodo. When asked who Rodo was she stated her son. Rodo Edwards is listed as next of kin in patient's contact as her son. The number listed was called and patient spoke to Rodo and his , Shalini. Rodo and his asked if they could come see the patient tomorrow along with the patient's granddaughter and the patient stated yes. Patient's nurse was in the room with me to witness conversation; patient able to state name, year, and that she is in the hospital.
[2020-09-14] VITALS (8 sets, daily range): BP systolic 109–150; BP diastolic 58–86; PULSE 100–114; RESP 18–32; TEMP 36.6–37; O2SAT 94–100; BMI 24.6
--- NOTE | 2020-09-14 00:27 | PC.NURSE ---
patient has been opening eyes spontaneously throughout shift, moaning and mumbling. with loud, repetitative questioning patient was asked who corky was, patient stated her son. corky is listed as next of kin in computer with phone number. when questioned if she wanted to talk to her son pt stated yes. due to patient census status, household refrigeration mechanic was called to witness request. with household refrigeration mechanic at bedside patient was able to state name, and hospital with loud, repetitive questioning. patient able to express that she wanted to talk to son. household refrigeration mechanic called number listed as next of kin and patient spoke with corky and [place] on speaker phone. family requested to come see her [place] and patient stated yes.
--- NOTE | 2020-09-14 02:55 | PC.NURSE ---
patient had had a continuous cough the last few hours, able to spit clear, frothy secretions at times, other times patient needs to be suctioned. o2 sats sustaining mid 90s on r/a respiratory pattern has become more labored with increase in rate to 30s. breath sounds coarse throughout all jarrett.
--- NOTE | 2020-09-14 03:32 | PC.NURSE ---
0300 have attempted to deep suction patient due to coarse breath sounds and continuous cough, sats have slowly begin to decrease down to 91%, o2 at 2l nc applied. respiratory rate has increased to mid 30s. dr. hu paged and notified of breath sounds, frothy secretions, decrease in o2 sats, increase in rr. also notified of + intake balance of 6000ml since admission. new order received and carried out. doll catheter emptied at this time to evaluate effectiveness of lasix. patient is waking more easily and responding easier than earlier in the shift. patietn now awakens with just saying name from the doorway.
--- NOTE | 2020-09-14 05:47 | PC.NURSE ---
0500 dr hu called for status update. rn informed dr. hu of decreased work with breath and coughing as well as urinary output of 0600 since lasix ivp given. no new orders received
--- NOTE | 2020-09-14 08:54 | HMH.ACPN2 ---
<Jacqueline Hilliard - Last Filed: 09/14/20 08:54> Internal Medicine - PN: Subj *Date: 09/14/20 *Time: 08:54 Interval history: Patient had some difficulty breathing through the night and had to be suctioned and also received Lasix. She had good diuresis with the Lasix. Her mental status is about the same today. She still is unable to answer any questions. Exam Vital signs and Labs for Last 24 Hours: Temp Pulse Resp BP Pulse Ox 98.6 F 112 H 28 H 150/86 H 97 09/14/20 04:00 09/14/20 04:00 09/14/20 04:00 09/14/20 04:00 09/14/20 04:00 Laboratory Results - last 24 hr 09/13/20 05:47: WBC 5.4, RBC 2.79 L, Hgb 9.1 L, Hct 27.7 L, MCV 99.6 H, MCH 32.5 H, MCHC 32.6, RDW 16.3, Plt Count 41 L*, MPV 10.1, Neut % (Auto) 70.5, Lymph % (Auto) 14.1, [place] % (Auto) 14.7 H, Eos % (Auto) 0.6, Baso % (Auto) 0.2, Neut # (Auto) 3.8, Lymph # (Auto) 0.8, [place] # (Auto) 0.8, Eos # (Auto) 0.0, Baso # (Auto) 0.0 09/13/20 10:15: Urine Opiates Screen Negative, Urine Methadone Screen Negative, Ur Barbituates Screen Negative, Ur Phencyclidine Scrn Negative, Ur Amphetamines Screen Negative, U Benzodiazepines Scrn Positive H, Urine Cocaine Screen Negative, U Marijuana (THC) Screen Negative I & O for Last 24 hours: Intake & Output 09/11/20 09/12/20 09/13/20 09/14/20 11:59 11:59 11:59 11:59 Intake Total 3807.333 / 3807.333 2354.337 / 2354.337 1396 / 1396 1207 / 1207 Output Total 1025 / 1025 1800 / 1800 1175 / 1175 1625 / 1625 Balance 2782.333 / 2782.333 554.337 / 554.337 221 / 221 -418 / -418 Weight 127 lb 7 oz 139 lb 124 lb 9 oz 122 lb 4.8 oz - Constitutional Comments: Mumbles answers to questions - *Routine Respiratory Exam Present: decreased breath sounds, rhonchi - *Routine Cardiovascular Exam Present: RRR - *Routine Abdominal Exam Present: soft, normoactive bowel sounds, tenderness, distended - *Routine Extremities Exam Absent: cyanosis, clubbing, edema - *Routine Skin Exam Present: warm. Absent: rash - *Routine Neurological Exam Present: altered mental status Assessment and Plan (1) E. coli sepsis Status: Acute Category: Medical Code(s): A41.51 - Sepsis due to Escherichia coli [E. coli] (2) Hypotension Status: Acute Category: Medical Code(s): I95.9 - Hypotension, unspecified (3) Cirrhosis of liver with ascites Status: Chronic Qualifiers: Hepatic cirrhosis type: alcoholic cirrhosis Qualified Code(s): K70.31 - Alcoholic cirrhosis of liver with ascites Category: Medical Code(s): K74.60 - Unspecified cirrhosis of liver; R18.8 - Other ascites (4) Encephalopathy Status: Acute Category: Medical Code(s): G93.40 - Encephalopathy, unspecified (5) Dehydration Status: Acute Category: Medical Code(s): E86.0 - Dehydration (6) Nausea and vomiting Status: Acute Category: Medical Code(s): R11.2 - Nausea with vomiting, unspecified (7) Diarrhea Status: Acute Category: Medical Code(s): R19.7 - Diarrhea, unspecified (8) Qrkoj-wf-bcegpus kidney injury Status: Acute Qualifiers: Chronic kidney disease stage: unspecified stage Category: Medical Code(s): N17.9 - Acute kidney failure, unspecified; N18.9 - Chronic kidney disease, unspecified (9) Alcoholic cirrhosis Status: Acute Qualifiers: Ascites presence: without ascites Qualified Code(s): K70.30 - Alcoholic cirrhosis of liver without ascites Category: Medical Code(s): K70.30 - Alcoholic cirrhosis of liver without ascites (10) Alcohol abuse Status: Chronic Category: Social Hx Code(s): F10.10 - Alcohol abuse, uncomplicated (11) Right knee pain Status: Acute Category: Medical Code(s): M25.561 - Pain in right knee (12) Hypertension Status: Chronic Category: Medical Code(s): I10 - Essential (primary) hypertension (13) Hypothyroidism Status: Chronic Qualifiers: Hypothyroidism type: acquired Qualified Code(s): E03.9 - Hypothyroidism, unspecified Category
--- NOTE | 2020-09-14 08:59 | XR_ITS ---
PROCEDURE: XR CHEST PORTABLE CLINICAL HISTORY: Rhonchi COMPARISON: No exams were available for comparison FINDINGS: The cardiomediastinal silhouette and pulmonary vascularity are within normal limits. There has been interval development of consolidation in the right upper lobe, right lower lobe, and left perihilar region. There are low lung volumes. No acute bony abnormalities. IMPRESSION: Bilateral pneumonia which is developed since the previous exam right lung more extensive left. Dictated by: Dav Hines MD 09/14/2020 10:24 Dav Hines MD in [facility] 09/14/2020 10:24
[2020-09-15] VITALS (8 sets, daily range): BP systolic 118–145; BP diastolic 65–91; PULSE 78–120; RESP 18–28; TEMP 36.3–36.8; O2SAT 95–100; BMI 24.0
--- NOTE | 2020-09-15 04:14 | PC.NURSE ---
Pt responds to pain. She has moaned at times this shift. Pt turned and repositioned Q2 H. Barium cream applied to bottom. Buttocks noted to be excoriated due to frequent stools. She has remained on 2L O2 NC. Lungs noted to have coarse crackles and rhonchi t/o. Frequent cough noted. Oral care provided this shift. F/C draining to bedside with dark, yellow urine. Medications administered per mar. No other concerns at this time. Will continue to monitor.
[2020-09-15 06:09] LABS: Alanine Aminotransferase 21 U/L (12-78); Albumin Level 2.7 g/dl (3.5-5.0); Albumin/Globulin Ratio 0.6 (1.1-1.8); Alkaline Phosphatase 153 U/L (38-126); Anion Gap 14.4 mEq/L (5-15); Aspartate Amino Transferase 71 U/L (14-36); Bilirubin,Total 3.4 mg/dl (0.2-1.3); Blood Urea Nitrogen 18 mg/dl (7-17); Calcium 8.6 mg/dl (8.4-10.2); Carbon Dioxide 14 mmol/L (22.0-30.0); Creatinine Clearance Estimated 79 mL/min (50-200); Estimated Glomerular Filt Rate 87 ml/min (>60); GFR (African American) 105 ML/MIN (>60); Globulin 4.2 g/dL (1.3-3.2); Glucose 90 mg/dl (74-100); Magnesium 1.3 mg/dl (1.6-2.3); Phosphorous 4.7 mg/dl (2.5-4.5); Potassium 4.4 mmoL/L (3.5-5.1); Total Protein,Serum 6.9 g/dl (6.3-8.2)
[2020-09-15 06:23] LABS: Chloride 127 mmol/L (98-107); Sodium 151 mmol/L (136-145)
--- NOTE | 2020-09-15 06:35 | PC.NURSE ---
Critical lab reported NA 151 and notification of chloride 127. Change fluids from NS @ 50 ml/hr to D5 W @ 50 ml/hr
--- NOTE | 2020-09-15 08:45 | HMH.ACPN2 ---
<Hansa Ricketts - Last Filed: 09/15/20 08:45> Internal Medicine - PN: Subj *Date: 09/15/20 *Time: 08:05 Interval history: She is resting quietly this morning. She will answer questions by nodding her head yes or no. She is nonverbal other than saying I need to pee although she has catheter in place. She denies pain and nausea. She denies SOB. She does have a frequent congested cough. Exam Vital signs and Labs for Last 24 Hours: Temp Pulse Resp BP Pulse Ox 98.3 F 104 H 20 141/85 H 98 09/15/20 04:00 09/15/20 04:00 09/15/20 04:00 09/15/20 04:00 09/15/20 04:00 Laboratory Results - last 24 hr 09/15/20 05:30: Sodium 151 H*, Potassium 4.4, Chloride 127 H, Carbon Dioxide 14 L, Anion Gap 14.4, BUN 18 H D, Creatinine 0.70, Estimated Creat Clear 79, Estimated GFR 87, Est GFR ( Amer) 105, Glucose 90, Calcium 8.6, Phosphorus 4.7 H D, Magnesium 1.3 L D, Total Bilirubin 3.4 H, AST 71 H, ALT 21 D, Alkaline Phosphatase 153 H, Total Protein 6.9, Albumin 2.7 L, Globulin 4.2 H, Albumin/Globulin Ratio 0.6 L I & O for Last 24 hours: Intake & Output 09/12/20 09/13/20 09/14/20 09/15/20 11:59 11:59 11:59 11:59 Intake Total 2354.337 / 2354.337 1396 / 1396 1207 / 1207 1213 / 1213 Output Total 1800 / 1800 1175 / 1175 2050 / 2050 675 / 675 Balance 554.337 / 554.337 221 / 221 -843 / -843 538 / 538 Weight 139 lb 124 lb 9 oz 122 lb 4.8 oz 119 lb 4 oz - Constitutional no acute distress Comments: thin, ill-appearing - *Routine HEENT Exam Head: Present: normocephalic, atraumatic ENT: Present: mucous membranes moist - *Routine Respiratory Exam Comments: generally diminished with rhonchi throughout - *Routine Cardiovascular Exam Present: RRR - *Routine Abdominal Exam Present: soft, normoactive bowel sounds, distended. Absent: tenderness, guarding - *Routine Extremities Exam Present: pulses intact, DIEUDONNE stockings. Absent: edema - *Routine Neurological Exam Present: alert Assessment and Plan (1) E. coli sepsis Status: Acute Category: Medical Code(s): A41.51 - Sepsis due to Escherichia coli [E. coli] (2) Hypotension Status: Acute Category: Medical Code(s): I95.9 - Hypotension, unspecified (3) Cirrhosis of liver with ascites Status: Chronic Qualifiers: Hepatic cirrhosis type: alcoholic cirrhosis Qualified Code(s): K70.31 - Alcoholic cirrhosis of liver with ascites Category: Medical Code(s): K74.60 - Unspecified cirrhosis of liver; R18.8 - Other ascites (4) Encephalopathy Status: Acute Category: Medical Code(s): G93.40 - Encephalopathy, unspecified (5) Dehydration Status: Acute Category: Medical Code(s): E86.0 - Dehydration (6) Nausea and vomiting Status: Acute Category: Medical Code(s): R11.2 - Nausea with vomiting, unspecified (7) Diarrhea Status: Acute Category: Medical Code(s): R19.7 - Diarrhea, unspecified (8) Zsdef-ba-qdmkpqy kidney injury Status: Acute Qualifiers: Chronic kidney disease stage: unspecified stage Category: Medical Code(s): N17.9 - Acute kidney failure, unspecified; N18.9 - Chronic kidney disease, unspecified (9) Alcoholic cirrhosis Status: Acute Qualifiers: Ascites presence: without ascites Qualified Code(s): K70.30 - Alcoholic cirrhosis of liver without ascites Category: Medical Code(s): K70.30 - Alcoholic cirrhosis of liver without ascites (10) Alcohol abuse Status: Chronic Category: Social Hx Code(s): F10.10 - Alcohol abuse, uncomplicated (11) Right knee pain Status: Acute Category: Medical Code(s): M25.561 - Pain in right knee (12) Hypertension Status: Chronic Category: Medical Code(s): I10 - Essential (primary) hypertension (13) Hypothyroidism Status: Chronic Qualifiers: Hypothyroidism type: acquired Qualified Code(s): E03.9 - Hypothyroidism, unspecified Category: Medical Code(s): E03.9 - Hypothyroidism, unspecified (14) Altered menta
--- NOTE | 2020-09-15 12:44 | DIET.NUTRFU ---
Addendum entered by Ana Knowles 09/20/20 13:57: Pt remains refusing most nourishment, minimal intake. She did drink a whole ensure this morning which is significant for her. Have attempted diet edu/counseling for malnutrition with cirrhosis as pt's mentation has improved. She remains unwilling to contribute any meaningful conversation or reasoning for lack of appetite and continually states she is trying, despite refusing all but 2 meals t/o stay. Samir conversation had with pt today about importance nutrition and dangers malnutrition. Strongly encouraged her to take advantage of resources and methods for increasing nutrition that will continue to be available to her at [facility] at or. Also encouraged pt to reach out/have family reach out with any nutritional questions/concerns at any time post or. Pt has been provided with in depth written diet education for malnutrition with cirrhosis. Addendum entered by Ana Knowles 09/18/20 15:48: Pt tolerated tube feeds well prior to pulling out her NG. Had speech eval and given soft mechanical diet. Though mentation seems to be somewhat improved, she continues to refuse nourishment. Attempted to get her to try a nutritional supplement and she refused. Will continue to encourage, efforts encouragement/cueing at mealtimes from nursing greatly appreciated. Supplements on diet order BID. Original Note: Pt with severe protein calorie malnutrition on day 6 with 0 PO intake. She did eat a couple bites of oatmeal this morning but remains with significant AMS/lethargy, unable to communicate coherently. Per nursing some s/s aspiration with meds. Electrolytes significantly altered, she was switched to D5 IVF today. Nutritional care plan to initiate NG tube feedings as tolerated, will monitor tolerance and mentation to alter plan as indicated. Pt with minimal PO intake for unknown amount of time, loss 20% BW past year rt severe Alcoholic Cirrhosis, at least 6 days 0 intake, and labs indicating nutritional depletion. Pt is at high risk refeeding syndrome, will advance TF slow and low with close monitoring to alter as indicated. Recommend initiating continuous tube feeding regimen of Osmolite 1.2 at 13ml/h and advancing by 10ml/h q 8 hours as tolerated to goal rate of 43ml/h. Pt currently meeting fluid needs through IVF, recommend minimal water flushes of 30-60ml q 4h/at GRV checks. This regimen provides 1238kcal, 57g protein, 41g fat, 163g cho, and 846ml free water.
--- NOTE | 2020-09-15 13:00 | XR_ITS ---
PROCEDURE: XR KUB CLINICAL INDICATION: verify ng tube placement for tube feedings COMPARISON: CT CT ABDOMEN PELVIS WO CON from 09/09/2020 FINDINGS: NG tube tip is in the region the body of the stomach. Bowel gas pattern is nonspecific. No acute bony anomalies or abnormal calcifications. Surgical clips right upper quadrant. IMPRESSION: NG tube tip in the region of the body of the stomach Dictated by: Dav Hines MD 09/15/2020 14:02 Dav Hines MD in [facility] 09/15/2020 14:02
--- NOTE | 2020-09-15 20:11 | PC.NURSE ---
PT IS RESTING IN BED. PT WILL ANSWER SIMPLE QUESTIONS WITH YES OR NO ANSWER ON OCCASION. PT HAS BEEN VERY LETHARGIC THIS SHIFT BUT ACCORDING TO PCP PT IS MORE ALERT NOW THAN SHE HAS BEEN SINCE SHE HAS BEEN HERE. NG TUBE WAS INSERTED THIS SHIFT 58 AT THE RT NARE. CONTINUOUS TUBE FEEDINGS STARTED AT 13ML'S/HR. NO RESIDUAL AT 1830. ATTEMPTED TO GIVE PT'S PO MEDICATIONS THIS MORNING CRUSHED IN APPLESAUCE WHICH PT DID NOT TOLERATE WELL AT ALL. PCP NOTIFIED AND HE STATED IT WAS OKAY TO GIVE PT'S MEDICATIONS THROUGH THE NG TUBE. PT HAS HAD AT LEAST 5 YELLOW/LOOSE BOWEL MOVEMENTS THIS SHIFT. BUTTOCKS EXTREMELY EXCORIATED (ZINC OXIDE APPLIED). TURNED AND REPOSITIONED FREQUENTLY. ABDOMEN DISTENDED/TENDER WITH PALPATION. SKIN JAUNDICED. TEDS NOTED TO BLE. LUNG SOUNDS DIMINISHED. SINUS TACH ON THE MONITOR. REPORT HANDOFF TO ERI MCKEON RN.
[2020-09-16] VITALS (7 sets, daily range): BP systolic 95–150; BP diastolic 50–89; PULSE 79–120; RESP 20–30; TEMP 36.4–37.2; O2SAT 94–96; BMI 24.3
--- NOTE | 2020-09-16 04:33 | PC.NURSE ---
PT UNABLE TO ANSWER ANY QUESTIONS THIS SHIFT. PT TOLERATING 2LNC WELL. PT DOES RESPOND TO COMMANDS, BUT IS A X2 ASSIST WITH CARE. NG PRESENT TO RT NARE AT 58 . RESIDUAL CHECKED Q4 HOURS. RESIDUAL 5 ML, 20ML, AND 20ML. FEED RATE INCREASED BY 10ML Q8H. PT HAS TOLERATED WELL. PT ABD IS DISTENDED AND TENDER PER PALPATION. BOWEL SOUNDS ACTIVE IN ALL 4 QUADS. PT HAD 1 DARK BROWN RUNNY BM. FC PRESENT DRAINING DARK YELLOW URINE. PT BATHED AND ORAL CARE PROVIDED THIS SHIFT. PT BOTTOM EXCORIATED, CREAM APPLIED, KEPT DRY, TURNED Q2H. TEDS APPLIED TO BLE. PT HAS HAD NO C/O THUS FAR THIS SHIFT. VSS WILL CONTINUE TO MONITOR.
--- NOTE | 2020-09-16 11:25 | HMH.ACPN2 ---
Internal Medicine - PN: Subj *Date: 09/16/20 *Time: 09:05 Interval history: Tube feedings were started yesterday and she is tolerating these so far. No acute respiratory issues. She is still very somnolent but will follow commands. Exam Vital signs and Labs for Last 24 Hours: Temp Pulse Resp BP Pulse Ox 97.6 F 105 H 24 126/56 L 96 09/16/20 08:00 09/16/20 08:00 09/16/20 08:00 09/16/20 08:00 09/16/20 08:00 I & O for Last 24 hours: Intake & Output 09/13/20 09/14/20 09/15/20 09/16/20 11:59 11:59 11:59 11:59 Intake Total 1396 / 1396 1207 / 1207 1453 / 1453 1692 / 1692 Output Total 1175 / 1175 2050 / 2050 675 / 675 900 / 900 Balance 221 / 221 -843 / -843 778 / 778 792 / 792 Weight 124 lb 9 oz 122 lb 4.8 oz 119 lb 4 oz 121 lb Narrative: Opens eyes when name is called. Speech is still garbled and difficult to understand. Breath sounds are generally diminished with scattered rhonchi. No wheezes. Heart is regular. Abdomen is distended with bowel sounds present. Minimal tenderness. Assessment and Plan (1) E. coli sepsis Status: Acute Category: Medical Code(s): A41.51 - Sepsis due to Escherichia coli [E. coli] (2) Hypotension Status: Acute Category: Medical Code(s): I95.9 - Hypotension, unspecified (3) Cirrhosis of liver with ascites Status: Chronic Qualifiers: Hepatic cirrhosis type: alcoholic cirrhosis Qualified Code(s): K70.31 - Alcoholic cirrhosis of liver with ascites Category: Medical Code(s): K74.60 - Unspecified cirrhosis of liver; R18.8 - Other ascites (4) Encephalopathy Status: Acute Category: Medical Code(s): G93.40 - Encephalopathy, unspecified (5) Dehydration Status: Acute Category: Medical Code(s): E86.0 - Dehydration (6) Nausea and vomiting Status: Acute Category: Medical Code(s): R11.2 - Nausea with vomiting, unspecified (7) Diarrhea Status: Acute Category: Medical Code(s): R19.7 - Diarrhea, unspecified (8) Cbaka-gu-ppwehnm kidney injury Status: Acute Qualifiers: Chronic kidney disease stage: unspecified stage Category: Medical Code(s): N17.9 - Acute kidney failure, unspecified; N18.9 - Chronic kidney disease, unspecified (9) Alcoholic cirrhosis Status: Acute Qualifiers: Ascites presence: without ascites Qualified Code(s): K70.30 - Alcoholic cirrhosis of liver without ascites Category: Medical Code(s): K70.30 - Alcoholic cirrhosis of liver without ascites (10) Alcohol abuse Status: Chronic Category: Social Hx Code(s): F10.10 - Alcohol abuse, uncomplicated (11) Right knee pain Status: Acute Category: Medical Code(s): M25.561 - Pain in right knee (12) Hypertension Status: Chronic Category: Medical Code(s): I10 - Essential (primary) hypertension (13) Hypothyroidism Status: Chronic Qualifiers: Hypothyroidism type: acquired Qualified Code(s): E03.9 - Hypothyroidism, unspecified Category: Medical Code(s): E03.9 - Hypothyroidism, unspecified (14) Altered mental status Status: Acute Category: Medical Code(s): R41.82 - Altered mental status, unspecified (15) Low magnesium level Status: Acute Category: Medical Code(s): R79.0 - Abnormal level of blood mineral (16) Hypokalemia Status: Acute Category: Medical Code(s): E87.6 - Hypokalemia (17) Anemia Status: Acute Category: Medical Code(s): D64.9 - Anemia, unspecified (18) Hyponatremia Status: Acute Category: Medical Code(s): E87.1 - Hypo-osmolality and hyponatremia (19) Community acquired pneumonia Status: Acute Qualifiers: Laterality: unspecified laterality Qualified Code(s): J18.9 - Pneumonia, unspecified organism Category: Medical Code(s): J18.9 - Pneumonia, unspecified organism - Assessment and plan all Dx Assessment and Plan for all problems:: Continue current orders. Repeat labs in the morning.
--- NOTE | 2020-09-16 13:48 | PC.NURSE ---
pt tolerating tubefeeds well. Increased rate to goal of 43mL/hr.
[2020-09-17] VITALS (8 sets, daily range): BP systolic 81–124; BP diastolic 46–67; PULSE 70–100; RESP 18–27; TEMP 36.6–36.8; O2SAT 93–98; BMI 24.3
[2020-09-17 06:11] LABS: Ammonia < 9 umol/L (9-30)
[2020-09-17 06:12] LABS: Alanine Aminotransferase 24 U/L (12-78); Albumin Level 2.3 g/dl (3.5-5.0); Albumin/Globulin Ratio 0.5 (1.1-1.8); Alkaline Phosphatase 158 U/L (38-126); Anion Gap 9.1 mEq/L (5-15); Aspartate Amino Transferase 67 U/L (14-36); Bilirubin,Total 3.2 mg/dl (0.2-1.3); Blood Urea Nitrogen 16 mg/dl (7-17); Calcium 7.8 mg/dl (8.4-10.2); Carbon Dioxide 18 mmol/L (22.0-30.0); Chloride 123 mmol/L (98-107); Creatinine Clearance Estimated 60 mL/min (50-200); Estimated Glomerular Filt Rate 65 ml/min (>60); GFR (African American) 78 ML/MIN (>60); Globulin 4.3 g/dL (1.3-3.2); Glucose 126 mg/dl (74-100); Magnesium 1.1 mg/dl (1.6-2.3); Potassium 5.1 mmoL/L (3.5-5.1); Sodium 145 mmol/L (136-145); Total Protein,Serum 6.6 g/dl (6.3-8.2)
[2020-09-17 06:13] LABS: Basophils # 0.1 K/mm3 (0-0.2); Basophils % 0.8 % (0.1-2.0); Eosinophils # 0.2 K/mm3 (0.0-0.4); Eosinophils % 1.3 % (0.1-12.0); Hematocrit 29.2 % (37.0-47.0); Lymphocytes # 2.2 K/mm3 (0.7-4.5); Lymphocytes % 12.8 % (10-50); Mean Corpuscular HGB Conc 30.8 g/dL (31.8-35.4); Mean Corpuscular Hemoglobin 31.9 pg (27.0-31.2); Mean Corpuscular Volume 103.3 fl (81-99); Mean Platelet Volume 10.4 fl (7.4-10.4); Monocytes # 0.4 K/mm3 (0.1-1.0); Monocytes % 2.3 % (1.7-9.3); Neutrophils % 82.8 % (37.0-80.0); Platelet Count 91 K/mm3 (142-424); Red Blood Count 2.82 M/mm3 (4.20-5.40); Red Cell Distribution Width 18.2 % (11.5-17.5); White Blood Count 16.9 K/mm3 (4.8-10.8)
[2020-09-17 06:17] LABS: MANUAL DIFFERENTIAL MANUAL DIFFERENTIAL (MANUAL DIFF)
--- NOTE | 2020-09-17 07:00 | PC.NURSE ---
pt found in the floor by [employer] SUPERVISOR (Blanquita Valenzuela and Nargis Davila). They notified nightshift RN (Samara Leyva). See her note as I have not received report yet.
[2020-09-17 07:48] LABS: Anisocytosis 1+; Lymphocytes % 17 % (10-50); Macrocytosis 1+; Monocytes % 2 % (2-9); Myelocytes % 2 (0-1); Neutrophils % 75 % (42-76); Platelet Estimate Moderate Decrease; Total Cells Counted 100
--- NOTE | 2020-09-17 08:21 | PC.NURSE ---
@ 0732 pt was found in the floor, assisted back to bed. Pt denies any pain, is A&O to person and yr. She is holding light conversation, asked for Nataliya . Pt able to move legs and arms with baseline range of motion. No obvious s/s fractures, no new bruising or redness noted to coccyx or limbs. Pt has also pulled out her NG and 1 PIV. Travis cath still in place and patent. @ 0747 Dr. Barlow notified, no new orders at this time. stated he would let Dr. Rios decide if the NG would be replaced. research contracts supervisor notified also. Post fall assessment, q30min rounding added, bed alarm active, and red star placed on door.
--- NOTE | 2020-09-17 09:30 | PC.NURSE ---
pt able to swallow thickened water and applesauce with crushed meds. No dysphagia noted.
--- NOTE | 2020-09-17 09:36 | HMH.ACPN2 ---
Internal Medicine - PN: Subj *Date: 09/17/20 *Time: 09:36 Interval history: She had an uneventful day yesterday. Tube feedings were increased to the goal rate and she tolerated these well. She remained somnolent and mostly noncommunicative during the day yesterday. Earlier this morning, she was found by nursing staff sitting on the floor. She apparently had tried to get out of bed and slid to the floor. There were no injuries noted. She did pull out her NG tube and one IV. At the present time she is more awake alert. She answers questions appropriately. She denies pain. Exam Vital signs and Labs for Last 24 Hours: Temp Pulse Resp BP Pulse Ox 98.2 F 85 22 100/67 L 94 L 09/17/20 08:00 09/17/20 08:00 09/17/20 08:00 09/17/20 08:00 09/17/20 08:00 Laboratory Results - last 24 hr 09/17/20 05:45: WBC 16.9 H, RBC 2.82 L, Hgb 9.0 L, Hct 29.2 L, MCV 103.3 H, MCH 31.9 H, MCHC 30.8 L, RDW 18.2 H, Plt Count 91 L D, MPV 10.4, Neut % (Auto) 82.8 H, Lymph % (Auto) 12.8, [place] % (Auto) 2.3, Eos % (Auto) 1.3, Baso % (Auto) 0.8, Neut # (Auto) 14.0 H, Lymph # (Auto) 2.2, [place] # (Auto) 0.4, Eos # (Auto) 0.2, Baso # (Auto) 0.1, Total Counted 100, Neutrophils % (Manual) 75, Lymphocytes % (Manual) 17, Monocytes % (Manual) 2, Metamyelocytes % 4.0 H, Myelocytes % 2 H, Platelet Estimate Moderate decrease, Anisocytosis 1+, Macrocytosis 1+ 09/17/20 05:45: Sodium 145, Potassium 5.1, Chloride 123 H, Carbon Dioxide 18 L D, Anion Gap 9.1, BUN 16, Creatinine 0.90 D, Estimated Creat Clear 60, Estimated GFR 65, Est GFR ( Amer) 78 D, Glucose 126 H, Calcium 7.8 L, Magnesium 1.1 L D, Total Bilirubin 3.2 H, AST 67 H, ALT 24, Alkaline Phosphatase 158 H, Total Protein 6.6, Albumin 2.3 L, Globulin 4.3 H, Albumin/Globulin Ratio 0.5 L 09/17/20 05:45: Ammonia < 9 L I & O for Last 24 hours: Intake & Output 09/14/20 09/15/20 09/16/20 09/17/20 11:59 11:59 11:59 11:59 Intake Total 1207 / 1207 1453 / 1453 1692 / 1692 2023 Output Total 2049 675 / 675 900 / 900 500 / 500 Balance -843 / -843 778 / 778 792 / 792 1524 / 1524 Weight 122 lb 4.8 oz 119 lb 4 oz 121 lb 120 lb 15.976 oz Narrative: Color remains jaundice. No respiratory distress. Breast sounds are diminished with bibasilar rales. No wheezes. Heart is regular. Abdomen is distended and nontender. Extremities no edema Assessment and Plan (1) E. coli sepsis Status: Acute Category: Medical Code(s): A41.51 - Sepsis due to Escherichia coli [E. coli] (2) Hypotension Status: Acute Category: Medical Code(s): I95.9 - Hypotension, unspecified (3) Cirrhosis of liver with ascites Status: Chronic Qualifiers: Hepatic cirrhosis type: alcoholic cirrhosis Qualified Code(s): K70.31 - Alcoholic cirrhosis of liver with ascites Category: Medical Code(s): K74.60 - Unspecified cirrhosis of liver; R18.8 - Other ascites (4) Encephalopathy Status: Acute Category: Medical Code(s): G93.40 - Encephalopathy, unspecified (5) Dehydration Status: Acute Category: Medical Code(s): E86.0 - Dehydration (6) Nausea and vomiting Status: Acute Category: Medical Code(s): R11.2 - Nausea with vomiting, unspecified (7) Diarrhea Status: Acute Category: Medical Code(s): R19.7 - Diarrhea, unspecified (8) Ciyqn-fc-dgsnuvt kidney injury Status: Acute Qualifiers: Chronic kidney disease stage: unspecified stage Category: Medical Code(s): N17.9 - Acute kidney failure, unspecified; N18.9 - Chronic kidney disease, unspecified (9) Alcoholic cirrhosis Status: Acute Qualifiers: Ascites presence: without ascites Qualified Code(s): K70.30 - Alcoholic cirrhosis of liver without ascites Category: Medical Code(s): K70.30 - Alcoholic cirrhosis of liver without ascites (10) Alcohol abuse Status: Chronic Category: Social Hx Code(s): F10.10 - Alcohol abuse, uncomplicated (11) Right knee pain Status: Acute Category: Medica
[2020-09-17 11:40] LABS: Vitamin B12 > 1000 pg/mL (239-931)
--- NOTE | 2020-09-17 14:43 | PC.NURSE ---
pt ate an entire container of vanilla pudding and some applesauce without difficulty.
--- NOTE | 2020-09-17 16:00 | PC.NURSE ---
Automatic BP 81/52 (61). Manual BP 90/54.
--- NOTE | 2020-09-17 18:00 | PC.NURSE ---
Automatic BP 86/51 (62). Manual BP 94/64.
--- NOTE | 2020-09-17 18:42 | PC.NURSE ---
pt ate about 25% of dinner (peas, mashed potatoes with gravy, and ground meat with gravy) without difficulty. No dysphagia noted. She is a total feed. Liquids are honey thick. She is A&O. Knows her , name and year. She has had 3 loose BMs today.
[2020-09-18] VITALS (11 sets, daily range): BP systolic 78–126; BP diastolic 43–68; PULSE 70–90; RESP 17–26; TEMP 36.6–37.1; O2SAT 92–99; BMI 24.3
[2020-09-18 06:14] LABS: Basophils # 0.1 K/mm3 (0-0.2); Basophils % 0.3 % (0.1-2.0); Eosinophils # 0.2 K/mm3 (0.0-0.4); Eosinophils % 1.3 % (0.1-12.0); Hemoglobin 8.3 g/dL (12.2-16.2); Mean Corpuscular HGB Conc 31.9 g/dL (31.8-35.4); Mean Corpuscular Hemoglobin 32.6 pg (27.0-31.2); Monocytes # 0.5 K/mm3 (0.1-1.0); Monocytes % 3.3 % (1.7-9.3); Neutrophils # 12.9 K/mm3 (1.8-7.8); Neutrophils % 82.1 % (37.0-80.0); Platelet Count 81 K/mm3 (142-424); Red Blood Count 2.54 M/mm3 (4.20-5.40); Red Cell Distribution Width 18.8 % (11.5-17.5); White Blood Count 15.7 K/mm3 (4.8-10.8)
[2020-09-18 06:19] LABS: Hematocrit 25.9 % (37.0-47.0)
[2020-09-18 06:21] LABS: MANUAL DIFFERENTIAL MANUAL DIFFERENTIAL (MANUAL DIFF)
[2020-09-18 06:22] LABS: Alanine Aminotransferase 20 U/L (12-78); Albumin Level 2.2 g/dl (3.5-5.0); Albumin/Globulin Ratio 0.5 (1.1-1.8); Alkaline Phosphatase 157 U/L (38-126); Anion Gap 8.6 mEq/L (5-15); Aspartate Amino Transferase 62 U/L (14-36); Bilirubin,Total 3.3 mg/dl (0.2-1.3); Blood Urea Nitrogen 19 mg/dl (7-17); Calcium 7.8 mg/dl (8.4-10.2); Carbon Dioxide 17 mmol/L (22.0-30.0); Chloride 125 mmol/L (98-107); Creatinine Clearance Estimated 60 mL/min (50-200); Estimated Glomerular Filt Rate 65 ml/min (>60); GFR (African American) 78 ML/MIN (>60); Globulin 4.1 g/dL (1.3-3.2); Glucose 107 mg/dl (74-100); Magnesium 1.1 mg/dl (1.6-2.3); Potassium 5.6 mmoL/L (3.5-5.1); Sodium 145 mmol/L (136-145); Total Protein,Serum 6.3 g/dl (6.3-8.2)
--- NOTE | 2020-09-18 08:28 | XR_ITS ---
PROCEDURE: XR CHEST PORTABLE CLINICAL HISTORY: f/u pneumonia COMPARISON: CR XR CHEST PORTABLE from 06/09/2020 CR XR CHEST PORTABLE from 09/09/2020 CR XR CHEST PORTABLE from 09/14/2020 FINDINGS: The cardiomediastinal silhouette and pulmonary vascularity are within normal limits. Calcified granuloma in the left lower zone. Right upper lobe segmental consolidation appears marginally improved compared to the prior study. Minor hazy infiltrates noted in the right upper and mid zones. Raise right hemidiaphragm is noted. No evidence of pleural effusions. The cardiac size and central pulmonary vasculature are within normal limits. Visualized osseous structures are unremarkable. IMPRESSION: Right upper lobe segmental consolidation, marginally improved compared to prior study. Hazy infiltrates in the lungs bilaterally. Dictated by: Zaria Andrea 09/18/2020 11:56 Zaria Andrea in [facility] 09/18/2020 11:56
--- NOTE | 2020-09-18 08:48 | HMH.ACPN2 ---
<Erica Foreman - Last Filed: 09/18/20 08:59> Internal Medicine - PN: Subj *Date: 09/18/20 *Time: 08:59 Interval history: Patient cognition has improved. She does answer questions although responses are slow. Speech is more clear. She even asked Dr. Rios how he was feeling today. She denies chest pain and shortness of breath. She denies abdominal pain. CBC with a white blood cell count of 15,700 and hemoglobin of 8.3 and hematocrit of 25.9. Blood chemistries show sodium of 145 and potassium of 5.6, chloride 125 and carbon dioxide of 17. BUN is 19 and creatinine 0.9. Serum is low at 7.8. Magnesium is low at 1.1. Bilirubin is 3.3. AST is 67 with an ALT vitamin B12 is greater than at thousand and folate is normal at 11.10 of 20. Blood cultures are positive for E. coli which is sensitive to the Rocephin which patient is on. Exam Vital signs and Labs for Last 24 Hours: Temp Pulse Resp BP Pulse Ox 98.0 F 74 17 78/46 L 94 L 09/18/20 04:00 09/18/20 04:00 09/18/20 04:00 09/18/20 04:00 09/18/20 08:00 Laboratory Results - last 24 hr 09/17/20 05:45: Vitamin B12 > 1000 H, Folate 11.10 09/18/20 05:35: WBC 15.7 H, RBC 2.54 L, Hgb 8.3 L, Hct 25.9 L, MCV 102.0 H, MCH 32.6 H, MCHC 31.9, RDW 18.8 H, Plt Count 81 L, MPV 11.0 H, Neut % (Auto) 82.1 H, Lymph % (Auto) 13.0, King % (Auto) 3.3, Eos % (Auto) 1.3, Baso % (Auto) 0.3, Neut # (Auto) 12.9 H, Lymph # (Auto) 2.0, King # (Auto) 0.5, Eos # (Auto) 0.2, Baso # (Auto) 0.1 09/18/20 05:35: Sodium 145, Potassium 5.6 H, Chloride 125 H, Carbon Dioxide 17 L, Anion Gap 8.6, BUN 19 H, Creatinine 0.90, Estimated Creat Clear 60, Estimated GFR 65, Est GFR ( Amer) 78, Glucose 107 H, Calcium 7.8 L, Magnesium 1.1 L, Total Bilirubin 3.3 H, AST 62 H, ALT 20, Alkaline Phosphatase 157 H, Total Protein 6.3, Albumin 2.2 L, Globulin 4.1 H, Albumin/Globulin Ratio 0.5 L I & O for Last 24 hours: Intake & Output 09/15/20 09/16/20 09/17/20 09/18/20 11:59 11:59 11:59 11:59 Intake Total 1453 / 1453 1692 / 1692 202 / 202 3628 / 3628 Output Total 675 / 675 900 / 900 500 / 500 100 / 100 Balance 778 / 778 792 / 792 1524 / 1524 3528 / 3528 Weight 119 lb 4 oz 121 lb 120 lb 15.976 oz 120 lb 15.976 oz - Constitutional no acute distress, cachectic - *Routine Respiratory Exam Present: CTA bilaterally (Anteriorly and posteriorly. Patient did assist with turning.) - *Routine Cardiovascular Exam Present: RRR - *Routine Abdominal Exam Present: soft, normoactive bowel sounds, distended - *Routine Extremities Exam Absent: edema, calf tenderness - *Routine Neurological Exam Present: alert More oriented today and answers questions appropriately. Assessment and Plan (1) E. coli sepsis Status: Acute Category: Medical Code(s): A41.51 - Sepsis due to Escherichia coli [E. coli] (2) Hypotension Status: Acute Category: Medical Code(s): I95.9 - Hypotension, unspecified (3) Cirrhosis of liver with ascites Status: Chronic Qualifiers: Hepatic cirrhosis type: alcoholic cirrhosis Qualified Code(s): K70.31 - Alcoholic cirrhosis of liver with ascites Category: Medical Code(s): K74.60 - Unspecified cirrhosis of liver; R18.8 - Other ascites (4) Encephalopathy Status: Acute Category: Medical Code(s): G93.40 - Encephalopathy, unspecified (5) Dehydration Status: Acute Category: Medical Code(s): E86.0 - Dehydration (6) Nausea and vomiting Status: Acute Category: Medical Code(s): R11.2 - Nausea with vomiting, unspecified (7) Diarrhea Status: Acute Category: Medical Code(s): R19.7 - Diarrhea, unspecified (8) Ermte-iz-xovjuaq kidney injury Status: Acute Qualifiers: Chronic kidney disease stage: unspecified stage Category: Medical Code(s): N17.9 - Acute kidney failure, unspecified; N18.9 - Chronic kidney disease, unspecified (9) Alcoholic cirrhosis Status: Acute Qualifiers: Ascites presence: without ascites Quali
[2020-09-18 09:10] LABS: Eosinophils % 1 % (0-3); Lymphocytes % 10 % (10-50); Macrocytosis 1+; Monocytes % 5 % (2-9); Neutrophils % 83 % (42-76); Platelet Estimate Marked Decrease; Total Cells Counted 100
--- NOTE | 2020-09-18 09:22 | HMH.PTEV ---
Physical Therapy Evaluation Rehab PT IP Evaluation Start: 09/18/20 08:33 Freq: ONCE Status: Active Protocol: Document 09/18/20 09:14 MOUNIKA (Rec: 09/18/20 09:22 MOUNIKA [id number]) Subjective/History History History 2-day history of generalized abdominal pain, vomiting, diarrhea. She thinks she has had 3 episodes of diarrhea today. She denies fever. She has not seen any blood in her diarrhea. Denies hematemesis . Denies chest pain or shortness of breath. She has alcoholic cirrhosis. She says she tries not to drink , but admits to drinking a couple of days ago. No known exposures. COPIED FROM ER H&P Subjective Subjective Pt is very delayed in response to questions w/ difficulty answering complex question Rehab PT IP Eval Objective Appearance Patient Behavior Sedated,Fatigued Patient Orientation Person,Place,Year Difficulty following instructions moderate Speech Pattern Clear,Delayed Ambulation Patient Able to Ambulate No Balance Ability to Arise Unable Sitting Balance Leans or slides in chair Dynamic Sitting Balance Ability Fair Dynamic Standing Balance Ability Poor Transfers Bed Transfer Ability Maximum x 2 (75% assist) ROM RUE PT ROM Status ABN Abnormal ROM Comment 50% AROM LUE PT ROM Status ABN Abnormal ROM Comment 50% AROM MMT All Extremities PT MMT ABN Abnormal MMT Grade 3-/5 to 3/5 Rehab PT IP prob,goals,plan Problems Date of Evaluation: 09/18/20 PT IP Problems Bed Mobility,Transfers,Gait, Balance,Self care,Safety Rehab Potential Rehab Potential Fair Equipment Needs Assistive Devices Rolling / Wheeled Walker Plan PT Intervention Plan Bed Mobility,Transfers,Gait, Balance,Self care,Safety, Therapeutic Exercise PT Plan Frequency BID Duration LOS Discharge Goals Bed Transfer Ability Maximum x 1 (75% assist) Sit to Stand Chair Transfer Ability Maximum x 1 (75% assist) Ambulation Assistive Device Rolling Walker Ambulation Distance (feet) 2
--- NOTE | 2020-09-18 10:15 | SW/DCPLANNER ---
Addendum entered by [facility] 09/21/20 09:23: Dr Devi has agreed to follow at [facility]. Addendum entered by [facility] 09/21/20 09:15: This patient will discharge to [facility] today. I have informed Leann with [facility] and Dr Rios informed patient during morning rounds. Addendum entered by Rocio Victoria 09/20/20 09:41: I have informed Leann with [facility] that the plan is for this patient to discharge tomorrow. Patient will receive blood transfusion today. Leann has stated no further COVID testing is needed at this time. Patient is aware of plan. Addendum entered by [facility] 09/18/20 14:33: Leann with [facility] has stated that she can accept this patient at time of discharge. I have explained to discharge plan to patient and she is agreeable with plan. Discharge date is unknown at this time but I will continue to update patient and Leann with [facility]. Addendum entered by [facility] 09/18/20 11:07: Patient information has also been faxed to [facility] and [facility] at this time. Original Note: I have spoke with this patient regarding discharge plans. Patient understands that she is at [facility] and will need placement at time of discharge. Patient stated I am not happy about this but I know I have to . I explained to patient that she will have to go under Medicaid pendin days and monthly income minus $40. Patient verbalized that she understood and would like to proceed. Patient did not have a preference as to which facility. I did ask patient if I could contact her son regarding situation and she preferred that I did not contact him at this time. Patient information has been faxed to [facility] and [facility]. I am currently waiting to hear back from [facility] and [facility] regarding bed availability. Discharge date is unknown at this time.
--- NOTE | 2020-09-18 13:52 | HMH.SLDYSPHA ---
Speech & Language Evaluation Speech/Language Dysphagia Evaluation Start: 09/18/20 13:38 Freq: ONCE Status: Active Protocol: Document 09/18/20 13:42 LISETH (Rec: 09/18/20 13:52 LISETH [id number]) Dysphagia Assess/Goals/Plan Assessment Date of Evaluation: 09/18/20 Evaluation Type Initial Certification Assessment/Problems Dysphagia Does Patient Qualify for Service No Qualify/Failure Comment Patient placed on Least Restrictive Diet. Therapy not warranted. Recommendations PHYSICIAN CERTIFICATION: The specified therapy services are required, authorized, and reviewed every 30 days. Diet Recommendations Mechanical Soft Liquid Type Recommendations Normal/Thin SL Swallow Guidelines Standard Aspiration Prec. Dysphagia Swallow Precautions/Strategies Sitting Upright (90 deg),Small Bites and Sips,Alternate Liquids/Solids Plan Pt/Guardian verbally ack understanding Yes of dx/prognosis/goals G -code Required No Speech & Language HPI Language Primary Language [place] General Information General Current Food Consistancy Dysphagia Mechanical Soft, Honey Liquids Dentition Upper & Lower Dentures Comment: ill fitting Oxygen Status Nasal Cannula Facial Symmetry Symmetrical Patient Orientation Person,Place,Time Ability to Follow Directions Excellent Communication Ability No Impairment Dysphagia:Food Presentation Evaluation Food Type Mechanical Soft,Liquid Dysphagia Evaluation Summary Ms. Quinones was given the following consistencies: thins via straw and open cup and mechanical soft. She refused all other consistencies. No overt signs or symptoms noted with thins or mechanical soft. At this time, it is recommended that she be placed on mechanical soft diet with chopped meats with thin liquids. Aspiration precautions in place. ST will follow for diet modifications. Stroke Dysphagia Assessment PHYSICIAN CERTIFICATION: I certify the specified therapy services for Rosa Maria Quinones are required, authorized, and reviewed every 30 days.
--- NOTE | 2020-09-18 15:32 | PC.NURSE ---
PT has refused to work w/ PT/OT today. Staff have offered to assist pt up to chair multiple times this shift, pt continues to refuse. Remains very weak and requires assistance Q2H when turning and repositioning. Pt only sat on side of bed for very brief period of time before requesting to lie back down. Remains on 2 L O2 per nasal cannula. Crackles noted throughout. Denies being SOA. HR regular. Abdomen soft, tender w/ active BS in all quads. PT has been incontinent of bowel x3 this shift. Attends changed, zinc applied to excoriated area of gluteal fold and luiz area. Affected skin area cleaned frequently and pt dry. Travis cath to drain @ bedside w/ orville colored urine noted. Pt has refused to eat both breakfast and dinner tray today. Seen by speech therapy today and changes made to pt's diet. She is currently lying in bed watching TV. No needs voiced. Call ruthy w/in reach. Safety in place, pt remains on Q30min checks d/t fall risk.
--- NOTE | 2020-09-18 16:10 | HMH.ACPN ---
Internal Medicine - PN: Subj *Date: 09/18/20 *Time: 16:10 Exam Vital signs and Labs for Last 24 Hours: Temp Pulse Resp BP Pulse Ox 98.4 F 78 24 101/61 L 94 L 09/18/20 15:30 09/18/20 15:30 09/18/20 15:30 09/18/20 15:30 09/18/20 15:30 Laboratory Results - last 24 hr 09/18/20 05:35: WBC 15.7 H, RBC 2.54 L, Hgb 8.3 L, Hct 25.9 L, MCV 102.0 H, MCH 32.6 H, MCHC 31.9, RDW 18.8 H, Plt Count 81 L, MPV 11.0 H, Neut % (Auto) 82.1 H, Lymph % (Auto) 13.0, Chambers % (Auto) 3.3, Eos % (Auto) 1.3, Baso % (Auto) 0.3, Neut # (Auto) 12.9 H, Lymph # (Auto) 2.0, Chambers # (Auto) 0.5, Eos # (Auto) 0.2, Baso # (Auto) 0.1, Total Counted 100, Neutrophils % (Manual) 83 H, Lymphocytes % (Manual) 10, Monocytes % (Manual) 5, Eosinophils % (Manual) 1, Metamyelocytes % 1.0, Platelet Estimate Marked decrease, Macrocytosis 1+ 09/18/20 05:35: Sodium 145, Potassium 5.6 H, Chloride 125 H, Carbon Dioxide 17 L, Anion Gap 8.6, BUN 19 H, Creatinine 0.90, Estimated Creat Clear 60, Estimated GFR 65, Est GFR ( Amer) 78, Glucose 107 H, Calcium 7.8 L, Magnesium 1.1 L, Total Bilirubin 3.3 H, AST 62 H, ALT 20, Alkaline Phosphatase 157 H, Total Protein 6.3, Albumin 2.2 L, Globulin 4.1 H, Albumin/Globulin Ratio 0.5 L I & O for Last 24 hours: Intake & Output 09/15/20 09/16/20 09/17/20 09/18/20 23:59 23:59 23:59 23:59 Intake Total 1578 / 1578 2501 / 2501 2429 / 2429 1726 / 1726 Output Total 950 / 950 650 / 650 350 / 350 Balance 628 / 628 1851 / 1851 2078 / 2078 1726 / 1726 Weight 54.091 kg 54.885 kg 54.884 kg 54.884 kg Assessment and Plan (1) E. coli sepsis Status: Acute Category: Medical Code(s): A41.51 - Sepsis due to Escherichia coli [E. coli] (2) Hypotension Status: Acute Category: Medical Code(s): I95.9 - Hypotension, unspecified (3) Cirrhosis of liver with ascites Status: Chronic Qualifiers: Hepatic cirrhosis type: alcoholic cirrhosis Qualified Code(s): K70.31 - Alcoholic cirrhosis of liver with ascites Category: Medical Code(s): K74.60 - Unspecified cirrhosis of liver; R18.8 - Other ascites (4) Encephalopathy Status: Acute Category: Medical Code(s): G93.40 - Encephalopathy, unspecified (5) Dehydration Status: Acute Category: Medical Code(s): E86.0 - Dehydration (6) Nausea and vomiting Status: Acute Category: Medical Code(s): R11.2 - Nausea with vomiting, unspecified (7) Diarrhea Status: Acute Category: Medical Code(s): R19.7 - Diarrhea, unspecified (8) Smivk-rr-duxawco kidney injury Status: Acute Qualifiers: Chronic kidney disease stage: unspecified stage Category: Medical Code(s): N17.9 - Acute kidney failure, unspecified; N18.9 - Chronic kidney disease, unspecified (9) Alcoholic cirrhosis Status: Acute Qualifiers: Ascites presence: without ascites Qualified Code(s): K70.30 - Alcoholic cirrhosis of liver without ascites Category: Medical Code(s): K70.30 - Alcoholic cirrhosis of liver without ascites (10) Alcohol abuse Status: Chronic Category: Social Hx Code(s): F10.10 - Alcohol abuse, uncomplicated (11) Right knee pain Status: Acute Category: Medical Code(s): M25.561 - Pain in right knee (12) Hypertension Status: Chronic Category: Medical Code(s): I10 - Essential (primary) hypertension (13) Hypothyroidism Status: Chronic Qualifiers: Hypothyroidism type: acquired Qualified Code(s): E03.9 - Hypothyroidism, unspecified Category: Medical Code(s): E03.9 - Hypothyroidism, unspecified (14) Altered mental status Status: Acute Category: Medical Code(s): R41.82 - Altered mental status, unspecified (15) Low magnesium level Status: Acute Category: Medical Code(s): R79.0 - Abnormal level of blood mineral (16) Hypokalemia Status: Acute Category: Medical Code(s): E87.6 - Hypokalemia (17) Anemia Status: Acute Category: Medical Code(s): D64.9 - Anemia, unspecified (18) Hyponatrem
[2020-09-19] VITALS (11 sets, daily range): BP systolic 91–104; BP diastolic 41–65; PULSE 65–93; RESP 20–25; TEMP 36.6–37.3; O2SAT 89–98; BMI 24.8
--- NOTE | 2020-09-19 03:35 | PC.NURSE ---
Pt requested to get up to chair early in shift. Was not able to bear weight and required assist x2. SHe tolerated sitting in chair well. She is currently back in bed and sleeping well at this time. Has had 2 liquid stools this shift. Bottom remains excoriated. Ointment applied. F/C draining to bedside with orville urine. VSS. Pt remains on 2L O2 NC. Lungs noted to have crackles t/o. BS active. No other concerns. Will continue to monitor.
--- NOTE | 2020-09-19 08:25 | HMH.ACPN2 ---
<Erica Foreman - Last Filed: 09/19/20 08:25> Internal Medicine - PN: Subj *Date: 09/19/20 *Time: 08:25 Interval history: Per nursing: Patient refusing to eat and drink. Blood pressure is low when asleep but with activity is normal. She refused to get up in the chair yesterday and refused physical therapy. She did request to get up last night and did sit in the chair. She was basically lifted to the chair. She continues with Travis catheter to bedside drainage. Disposition was discussed with her yesterday. Patient denies chest pain and shortness of breath. She denies abdominal pain. Repeat chest x-ray 09/18/2020: IMPRESSION: Right upper lobe segmental consolidation, marginally improved compared to prior study. Hazy infiltrates in the lungs bilaterally. Patient continues with Rocephin, clindamycin, and Zithromax. Exam Vital signs and Labs for Last 24 Hours: Temp Pulse Resp BP Pulse Ox 97.9 F 67 22 91/41 L 93 L 09/19/20 07:52 09/19/20 07:52 09/19/20 07:52 09/19/20 07:52 09/19/20 07:52 Laboratory Results - last 24 hr 09/18/20 05:35: Total Counted 100, Neutrophils % (Manual) 83 H, Lymphocytes % (Manual) 10, Monocytes % (Manual) 5, Eosinophils % (Manual) 1, Metamyelocytes % 1.0, Platelet Estimate Marked decrease, Macrocytosis 1+ I & O for Last 24 hours: Intake & Output 09/16/20 09/17/20 09/18/20 09/19/20 11:59 11:59 11:59 11:59 Intake Total 1692 / 1692 2023 / 2023 3628 / 3628 1488 / 1488 Output Total 900 / 900 500 / 500 100 / 100 1375 / 1375 Balance 792 / 792 1524 / 1524 3528 / 3528 113 / 113 Weight 121 lb 120 lb 15.976 oz 120 lb 15.976 oz 123 lb 4 oz - Constitutional no acute distress Comments: Patient more alert today and answers questions even more readily. - *Routine Respiratory Exam Present: CTA bilaterally (Anteriorly and posteriorly) - *Routine Cardiovascular Exam Present: RRR - *Routine Abdominal Exam Present: soft, normoactive bowel sounds, distended. Absent: tenderness - *Routine Extremities Exam Absent: edema, calf tenderness - *Routine Neurological Exam Present: alert (Orientation has improved.), normal speech Assessment and Plan (1) E. coli sepsis Status: Acute Category: Medical Code(s): A41.51 - Sepsis due to Escherichia coli [E. coli] (2) Hypotension Status: Acute Category: Medical Code(s): I95.9 - Hypotension, unspecified (3) Cirrhosis of liver with ascites Status: Chronic Qualifiers: Hepatic cirrhosis type: alcoholic cirrhosis Qualified Code(s): K70.31 - Alcoholic cirrhosis of liver with ascites Category: Medical Code(s): K74.60 - Unspecified cirrhosis of liver; R18.8 - Other ascites (4) Encephalopathy Status: Acute Category: Medical Code(s): G93.40 - Encephalopathy, unspecified (5) Dehydration Status: Acute Category: Medical Code(s): E86.0 - Dehydration (6) Nausea and vomiting Status: Acute Category: Medical Code(s): R11.2 - Nausea with vomiting, unspecified (7) Diarrhea Status: Acute Category: Medical Code(s): R19.7 - Diarrhea, unspecified (8) Lxgvn-pb-qpyzvgu kidney injury Status: Acute Qualifiers: Chronic kidney disease stage: unspecified stage Category: Medical Code(s): N17.9 - Acute kidney failure, unspecified; N18.9 - Chronic kidney disease, unspecified (9) Alcoholic cirrhosis Status: Acute Qualifiers: Ascites presence: without ascites Qualified Code(s): K70.30 - Alcoholic cirrhosis of liver without ascites Category: Medical Code(s): K70.30 - Alcoholic cirrhosis of liver without ascites (10) Alcohol abuse Status: Chronic Category: Social Hx Code(s): F10.10 - Alcohol abuse, uncomplicated (11) Hypertension Status: Chronic Category: Medical Code(s): I10 - Essential (primary) hypertension (12) Hypothyroidism Status: Chronic Qualifiers: Hypothyroidism type: acquired Qualified Code(s): E03.9 - Hypothyroidism, unspecified
--- NOTE | 2020-09-19 11:20 | SW/DCPLANNER ---
MADE ROUNDS WITH DR ANDERS THIS AM, HE STATED IF PATIENT REMAINS STABLE SHE CAN DISCHARGE TO [facility] ([facility]).... I HAD A LONG CONSERVATION WITH HER ABOUT HER CHECK SHE STATED SHE HAS JUST STARTED DRAWING, I EXPLAINED TO HER THAT WAS HER LIABILITY AND SHE WOULD BE RESPONSIBLE FOR GIVING HER CHECK TO THE FACILITY AND COULD KEEP 40$....SHE TOLD ME SHE HAS NOWHERE TO GO AND WAS IN AGREEMENT OF GOING TO [facility]..... PATIENT WAS TOLD SHE NEEDS TO DISCUSS HER DISCHARGE PLANS WITH HER FAMIILY, THAT IS HER RESPONSIBILITY... SHE ACKNOWLEDGED A CLEAR UNDERSTANDING, PATIENT WILL D/C [facility]...
--- NOTE | 2020-09-19 13:42 | PC.NURSE ---
Pt continues to refuse to work w/ PT/OT. Pt initally refused to take clindamycin (1300 dose), educated pt on importance of taking antibiotics and she was agreeable.
--- NOTE | 2020-09-19 16:36 | PC.NURSE ---
Addendum entered by Krystle Jose RN 09/19/20 17:21: Bed bath and linen change performed this shift, pt's hair washed and combed as well. Original Note: Refused to work w/ PT/OT this afternoon. Staff have offered to assist pt up to chair, pt states no, its been a long day . She remains on room air. Lungs diminished throughout. HR regular, rate 80's. Abdomen soft, tender w/ active BS in all quads. Continues to be incontinent of bowel, BM's have seemed to have slowed down compared to yesterday. Travis cath to drain @ bedside w/ clear yellow urine noted. Gladys area noted to be excoriated, zinc applied as indicated per JUL. PT turned and repositioned Q2H. Continues to refuse all meal trays, minimal PO intake this shift. Bed safety remains in place. Call ruthy w/in reach.
--- NOTE | 2020-09-19 19:45 | PC.NURSE ---
RETURN PT TO 2LPM N/C
[2020-09-20] VITALS (29 sets, daily range): BP systolic 90–112; BP diastolic 44–76; PULSE 70–100; RESP 16–23; TEMP 36.6–37.2; O2SAT 92–100; BMI 24.5
--- NOTE | 2020-09-20 04:19 | PC.NURSE ---
Pt has rested well this shift. Has not c/o any discomfort. VSS. Pt remains on 2L O2 NC. Lungs are diminished with crackles also noted. BS active. Ascites present. Pt continues to have frequent loose stools. SHe remains excoriated to gluteal fold. F/C draining to bedside with dark, yellow urine. SKin is jaundice. Medications administered per jul. Pt has tolerated PO medication administration. No other concerns. Will continue to monitor.
[2020-09-20 06:35] LABS: Basophils # 0.1 K/mm3 (0-0.2); Basophils % 0.3 % (0.1-2.0); Eosinophils # 0.1 K/mm3 (0.0-0.4); Eosinophils % 0.9 % (0.1-12.0); Lymphocytes # 1.7 K/mm3 (0.7-4.5); Lymphocytes % 10.8 % (10-50); Mean Corpuscular HGB Conc 32.4 g/dL (31.8-35.4); Mean Corpuscular Hemoglobin 33.1 pg (27.0-31.2); Mean Corpuscular Volume 102.1 fl (81-99); Mean Platelet Volume 10.7 fl (7.4-10.4); Monocytes # 0.6 K/mm3 (0.1-1.0); Monocytes % 4.1 % (1.7-9.3); Neutrophils # 12.9 K/mm3 (1.8-7.8); Platelet Count 81 K/mm3 (142-424); Red Blood Count 2.21 M/mm3 (4.20-5.40); Red Cell Distribution Width 21.1 % (11.5-17.5); White Blood Count 15.4 K/mm3 (4.8-10.8)
[2020-09-20 06:40] LABS: Hematocrit 22.6 % (37.0-47.0); Hemoglobin 7.3 g/dL (12.2-16.2)
[2020-09-20 06:41] LABS: MANUAL DIFFERENTIAL MANUAL DIFFERENTIAL (MANUAL DIFF)
--- NOTE | 2020-09-20 06:46 | PC.NURSE ---
MD Rios notified about critical labs H&H 7.07/31.6. No new orders at this time.
[2020-09-20 07:00] LABS: Anion Gap 11.3 mEq/L (5-15); Blood Urea Nitrogen 17 mg/dl (7-17); Calcium 7.4 mg/dl (8.4-10.2); Carbon Dioxide 15 mmol/L (22.0-30.0); Chloride 115 mmol/L (98-107); Creatinine Clearance Estimated 61 mL/min (50-200); Estimated Glomerular Filt Rate 65 ml/min (>60); GFR (African American) 78 ML/MIN (>60); Glucose 69 mg/dl (74-100); Potassium 4.3 mmoL/L (3.5-5.1); Sodium 137 mmol/L (136-145)
[2020-09-20 08:00] LABS: Eosinophils % 1 % (0-3); Lymphocytes % 8 % (10-50); Monocytes % 4 % (2-9); Neutrophils % 87 % (42-76); Nucleated Red Blood Cells 1; Total Cells Counted 100
--- NOTE | 2020-09-20 08:03 | HMH.ACPN2 ---
<Erica Foreman - Last Filed: 09/20/20 08:03> Internal Medicine - PN: Subj *Date: 09/20/20 *Time: 08:04 Interval history: Patient is being showered this morning during visit. She states she is not short of breath. She continues to have diarrhea stools. Nursing states her bottom is excoriated. She continues not to eat. She states she will try to eat some breakfast. Laboratory data this morning show a hemoglobin of 7.3 with hematocrit of 22.6 and white blood cell count of 15,400. Platelet count is low at 81,000. Blood chemistries show a sodium of 137 and potassium of 4.3. BUN is 17 and creatinine 0.9. Calcium is low at 7.4. Exam Vital signs and Labs for Last 24 Hours: Temp Pulse Resp BP Pulse Ox 97.8 F 86 20 94/52 L 95 09/20/20 04:00 09/20/20 04:00 09/20/20 04:00 09/20/20 04:00 09/20/20 04:00 Laboratory Results - last 24 hr 09/20/20 05:45: WBC 15.4 H, RBC 2.21 L, Hgb 7.3 L*, Hct 22.6 L*, MCV 102.1 H, MCH 33.1 H, MCHC 32.4, RDW 21.1 H, Plt Count 81 L, MPV 10.7 H, Neut % (Auto) 84.0 H, Lymph % (Auto) 10.8, [place] % (Auto) 4.1, Eos % (Auto) 0.9, Baso % (Auto) 0.3, Neut # (Auto) 12.9 H, Lymph # (Auto) 1.7, [place] # (Auto) 0.6, Eos # (Auto) 0.1, Baso # (Auto) 0.1 09/20/20 05:45: Sodium 137, Potassium 4.3 D, Chloride 115 H, Carbon Dioxide 15 L, Anion Gap 11.3, BUN 17, Creatinine 0.90, Estimated Creat Clear 61, Estimated GFR 65, Est GFR ( Amer) 78, Glucose 69 L, Calcium 7.4 L I & O for Last 24 hours: Intake & Output 09/17/20 09/18/20 09/19/20 09/20/20 11:59 11:59 11:59 11:59 Intake Total 2023 3628 / 3628 1488 / 1488 150 / 150 Output Total 500 / 500 100 / 100 1875 / 1875 400 / 400 Balance 1524 / 1524 3528 / 3528 -387 / -387 -250 / -250 Weight 120 lb 15.976 oz 120 lb 15.976 oz 123 lb 4 oz 122 lb - Constitutional no acute distress Comments: Sitting in the shower chair receiving a shower with nursing staff. - *Routine Respiratory Exam Present: CTA bilaterally (Anteriorly and posteriorly) - *Routine Cardiovascular Exam Present: RRR - *Routine Abdominal Exam Present: normoactive bowel sounds, distended - *Routine Extremities Exam Absent: edema - *Routine Neurological Exam Present: alert, oriented X3 Speaks clearly. Answers questions readily Assessment and Plan (1) E. coli sepsis Status: Acute Category: Medical Code(s): A41.51 - Sepsis due to Escherichia coli [E. coli] (2) Hypotension Status: Acute Category: Medical Code(s): I95.9 - Hypotension, unspecified (3) Cirrhosis of liver with ascites Status: Chronic Qualifiers: Hepatic cirrhosis type: alcoholic cirrhosis Qualified Code(s): K70.31 - Alcoholic cirrhosis of liver with ascites Category: Medical Code(s): K74.60 - Unspecified cirrhosis of liver; R18.8 - Other ascites (4) Encephalopathy Status: Acute Category: Medical Code(s): G93.40 - Encephalopathy, unspecified (5) Dehydration Status: Acute Category: Medical Code(s): E86.0 - Dehydration (6) Nausea and vomiting Status: Acute Category: Medical Code(s): R11.2 - Nausea with vomiting, unspecified (7) Diarrhea Status: Acute Category: Medical Code(s): R19.7 - Diarrhea, unspecified (8) Mibyz-cb-nreciqc kidney injury Status: Acute Qualifiers: Chronic kidney disease stage: unspecified stage Category: Medical Code(s): N17.9 - Acute kidney failure, unspecified; N18.9 - Chronic kidney disease, unspecified (9) Alcoholic cirrhosis Status: Acute Qualifiers: Ascites presence: without ascites Qualified Code(s): K70.30 - Alcoholic cirrhosis of liver without ascites Category: Medical Code(s): K70.30 - Alcoholic cirrhosis of liver without ascites (10) Alcohol abuse Status: Chronic Category: Social Hx Code(s): F10.10 - Alcohol abuse, uncomplicated (11) Hypertension Status: Chronic Category: Medical Code(s): I10 - Essential (primary) hypertension (12) Hypothyroidism Stat
[2020-09-20 08:04] LABS: Anisocytosis 1+; Macrocytosis 1+; Platelet Estimate Moderate Decrease
[2020-09-20 17:24] LABS: Basophils # 0.1 K/mm3 (0-0.2); Basophils % 0.3 % (0.1-2.0); Eosinophils # 0.1 K/mm3 (0.0-0.4); Eosinophils % 0.6 % (0.1-12.0); Lymphocytes # 1.8 K/mm3 (0.7-4.5); Mean Corpuscular HGB Conc 32.1 g/dL (31.8-35.4); Mean Corpuscular Hemoglobin 30.1 pg (27.0-31.2); Mean Platelet Volume 10.8 fl (7.4-10.4); Monocytes # 0.7 K/mm3 (0.1-1.0); Neutrophils # 15.2 K/mm3 (1.8-7.8); Neutrophils % 85.1 % (37.0-80.0); Platelet Count 73 K/mm3 (142-424); Red Blood Count 3.41 M/mm3 (4.20-5.40); Red Cell Distribution Width 20.3 % (11.5-17.5); White Blood Count 17.9 K/mm3 (4.8-10.8)
[2020-09-20 17:32] LABS: MANUAL DIFFERENTIAL MANUAL DIFFERENTIAL (MANUAL DIFF)
[2020-09-20 17:52] LABS: Eosinophils % 1 % (0-3); Lymphocytes % 9 % (10-50); Neutrophils % 90 % (42-76); RBC Morphology Normal; Total Cells Counted 100
[2020-09-20 17:53] LABS: Anisocytosis 1+; Platelet Estimate Slight Decrease
[2020-09-20 17:54] LABS: Poikilocytosis 1+
--- NOTE | 2020-09-20 19:22 | PC.NURSE ---
reduced o2 to 1lm n/c
--- NOTE | 2020-09-20 19:40 | PC.NURSE ---
She is A&Ox3. Her speech is clear and is appropriate. She is sitting up in bed watching television. HOB 30 degrees. She took her meds crushed in pudding but is requesting that she take them whole next time. Turned in bed with assist x1. F/c patent and is draining [place], cloudy urine. Skin is jaundiced and sclera is yellow. She denies pain. Gladys-area reddened with tx in place. Respiratory weaned her oxygen to 1LPM n/c. NSR on telemetry. She continues on q 30 min checks. Safety set and call light within reach.
[2020-09-20 20:23] LABS: Hemoglobin 10.3 g/dL (12.2-16.2)
[2020-09-21] VITALS: BP 91/48; PULSE 78; PULSE 90; RESP 22; TEMP 37.2; O2SAT 95
[2020-09-21 04:00] VITALS: BP 108/55; PULSE 77; PULSE 80; RESP 22; TEMP 36.8; O2SAT 95
[2020-09-21 05:00] VITALS: BMI 24.3
[2020-09-21 07:54] VITALS: BP 103/52; PULSE 105; RESP 26; TEMP 36.6; O2SAT 98
--- NOTE | 2020-09-21 08:14 | HMH.ACPN2 ---
<Jacqueline Hilliard - Last Filed: 09/21/20 08:14> Internal Medicine - PN: Subj *Date: 09/21/20 *Time: 08:14 Interval history: Patient states she is feeling better today. She is awake and alert and has been up to the bedside commode numerous times throughout the night with diarrhea. She states she does have a yeast infection and would like something for this. She has some diffuse abdominal pain but it is better than it was yesterday. She states her shortness of breath has also improved. Exam Vital signs and Labs for Last 24 Hours: Temp Pulse Resp BP Pulse Ox 97.8 F 105 H 26 H 103/52 L 98 09/21/20 07:54 09/21/20 07:54 09/21/20 07:54 09/21/20 07:54 09/21/20 07:54 Laboratory Results - last 24 hr 09/20/20 09:03: Blood Type O Positive, Antibody Screen Negative, Crossmatch (AHG) See Detail 09/20/20 09:55: Blood Type Confirm O Positive 09/20/20 16:47: WBC 17.9 H, RBC 3.41 L D, Hgb 10.3 L D, Hct 32.0 L, MCV 94.0, MCH 30.1, MCHC 32.1, RDW 20.3 H, Plt Count 73 L, MPV 10.8 H, Neut % (Auto) 85.1 H, Lymph % (Auto) 10.0, [place] % (Auto) 4.0, Eos % (Auto) 0.6, Baso % (Auto) 0.3, Neut # (Auto) 15.2 H, Lymph # (Auto) 1.8, [place] # (Auto) 0.7, Eos # (Auto) 0.1, Baso # (Auto) 0.1, Total Counted 100, Neutrophils % (Manual) 90 H, Lymphocytes % (Manual) 9 L, Eosinophils % (Manual) 1, Platelet Estimate Slight decrease, RBC Morphology Normal, Poikilocytosis 1+, Anisocytosis 1+ I & O for Last 24 hours: Intake & Output 09/18/20 09/19/20 09/20/20 09/21/20 11:59 11:59 11:59 11:59 Intake Total 3628 / 3628 1488 / 1488 150 / 150 930 / 930 Output Total 100 / 100 1875 / 1875 400 / 400 625 / 625 Balance 3528 / 3528 -387 / -387 -250 / -250 305 / 305 Weight 120 lb 15.976 oz 123 lb 4 oz 122 lb 120 lb 9 oz - Constitutional no acute distress - *Routine Respiratory Exam Present: decreased breath sounds, CTA bilaterally - *Routine Cardiovascular Exam Present: RRR - *Routine Abdominal Exam Present: soft, normoactive bowel sounds, tenderness (diffuse), distended - *Routine Extremities Exam Absent: cyanosis, clubbing, edema - *Routine Skin Exam Present: warm. Absent: rash - *Routine Neurological Exam Present: alert, oriented X3 Assessment and Plan (1) E. coli sepsis Status: Acute Category: Medical Code(s): A41.51 - Sepsis due to Escherichia coli [E. coli] (2) Hypotension Status: Acute Category: Medical Code(s): I95.9 - Hypotension, unspecified (3) Cirrhosis of liver with ascites Status: Chronic Qualifiers: Hepatic cirrhosis type: alcoholic cirrhosis Qualified Code(s): K70.31 - Alcoholic cirrhosis of liver with ascites Category: Medical Code(s): K74.60 - Unspecified cirrhosis of liver; R18.8 - Other ascites (4) Encephalopathy Status: Acute Category: Medical Code(s): G93.40 - Encephalopathy, unspecified (5) Dehydration Status: Acute Category: Medical Code(s): E86.0 - Dehydration (6) Nausea and vomiting Status: Acute Category: Medical Code(s): R11.2 - Nausea with vomiting, unspecified (7) Diarrhea Status: Acute Category: Medical Code(s): R19.7 - Diarrhea, unspecified (8) Svvrr-ix-eemxvpq kidney injury Status: Acute Qualifiers: Chronic kidney disease stage: unspecified stage Category: Medical Code(s): N17.9 - Acute kidney failure, unspecified; N18.9 - Chronic kidney disease, unspecified (9) Alcoholic cirrhosis Status: Acute Qualifiers: Ascites presence: without ascites Qualified Code(s): K70.30 - Alcoholic cirrhosis of liver without ascites Category: Medical Code(s): K70.30 - Alcoholic cirrhosis of liver without ascites (10) Alcohol abuse Status: Chronic Category: Social Hx Code(s): F10.10 - Alcohol abuse, uncomplicated (11) Hypertension Status: Chronic Category: Medical Code(s): I10 - Essential (primary) hypertension (12) Hypothyroidism Status: Chronic Qualifiers: Hypothyroidism type: acquired Qualified C
--- NOTE | 2020-09-21 08:37 | HMH.DCSUM ---
General - General Admission date:: 09/09/20 <Patrick Rios - 09/21/20 10:28> 09/09/20 <Jacqueline Hilliard - 09/21/20 09:10> Discharge date: 09/21/20 <Jacqueline Hilliard - 09/21/20 09:10> HPI HPI: This 55-year-old white female has chronic alcoholism and cirrhosis of the liver. She admits to having some drinks a few days ago. She presented in the emergency room complaining of nausea vomiting and diarrhea. She denies any bloody stools or dark stools. Her blood pressure was running low in the emergency room. She was given supplemental fluids and admitted for further evaluation and treatment. She suffers from depression. She is hypothyroid and takes levothyroxine 125 mcg a day. Her medications also include spironolactone 25 mg twice a day and Lasix 20 mg once a day. She uses supplemental oxygen at 2 L. <RojeliotheodoreJacqueline - 09/21/20 09:10> Hospital Course Hospital Course: Patient was placed on withdrawal protocol and IV fluids were ordered. An initial work-up showed that her lactic acid was elevated and her sed rate and procalcitonin were both elevated as well. Her white count was mildly elevated. Her bilirubin was 4.9 and her AST was 60. Her creatinine was 2.3 on admission. She had an abdominal pelvic CT showing mild splenomegaly, mild prominence of the common bile duct measuring up to 8 mm, fat filled umbilical hernia, mild hepatomegaly, and compression deformity of L1. She had a chest x-ray which showed nothing acute. Her potassium was low and had to be replaced. A carotid duplex was ordered showing 20 to 49% stenosis of the bilateral carotid arteries. The patient's blood pressure dropped and she had to be started on a Levophed drip. She became tachycardic and very confused. Her blood cultures were growing E. coli. She was having diarrhea, but her stool studies were all normal. Her calcium and magnesium were low and were replaced. GI was consulted. She was seen in consultation by Marian tripp. She felt her diarrhea was multifactorial, but recommended starting colestipol 1 mg twice daily. She felt she should be started on Xifaxan twice daily as opposed to lactulose and that cessation of alcohol was paramount. She felt she could be a candidate for liver transplant, but would have to remain abstinent from alcohol prior to consideration for this. The patient continued with abdominal pain and diarrhea. She had to receive additional IV calcium along with phosphorus. Her labs began improving. She remained weak and confused. Her oxygen and Levophed were weaned. She was able to be taken off of the Levophed drip with normal blood pressures. Her sodium normalized and her calcium improved. Her bilirubin decreased. Her blood cultures were growing E. coli sensitive to Rocephin, therefore she was continued on antibiotics. The patient continued to remain altered with her mental status. All potential sedating medicines were discontinued. By 09/14/2020, the patient had some difficulty breathing and had to be suctioned and received Lasix. She did have good diuresis with the Lasix. A chest x-ray was ordered. She continued to remain very somnolent and required a lot of verbal stimulation to get a response, but was able to answer a few questions. Her chest x-ray showed bilateral pneumonia, which had developed since the previous chest x-ray. Zithromax was added. An NG tube was placed to begin tube feedings. She tolerated these well. On 09/17/2020, she did have an episode where she tried to get out of bed and slid to the floor. Nursing staff found her sitting on the floor. There were no injuries but she had pulled out her NG tube and one IV. She did seem more alert and was able to answer questions appropriately. Her NG tube was discontinued and a bedside swallowing evaluation was ordered. Her white blood cell count had increased and there was concern for aspiration pneumonia, therefore clindamycin was added. She had a repeat ch
--- NOTE | 2020-09-21 11:00 | PC.NURSE ---
report called to Jumana @ [facility].
[2020-09-21 11:52] VITALS: BP 97/41; PULSE 96; RESP 18; TEMP 36.9; O2SAT 97
[2020-09-24 10:28] LABS: Vitamin B1 147.7 nmol/L (66.5-200.0)
== END 2020-09-21 11:52 | DRG 871 ==
LOC: ER 13:01 → 2ND 17:21
PROVIDERS: Nurse Practitioner Family; Admitting Provider Family Medicine; Emergency Provider Emergency Medicine; PCP Family Medicine; Visit Provider Family Medicine
DX: J69.0 Pneumonitis due to inhalation of food and vomit; J96.00 Acute respiratory failure, unspecified whether with hypoxia or hypercapnia; J18.9 Pneumonia, unspecified organism; N17.9 Acute kidney failure, unspecified; G93.40 Encephalopathy, unspecified; E87.1 Hypo-osmolality and hyponatremia; E86.0 Dehydration; Z20.822 Contact with and (suspected) exposure to COVID-19; K70.31 Alcoholic cirrhosis of liver with ascites; A41.51 Sepsis due to Escherichia coli [E. coli]; E03.9 Hypothyroidism, unspecified; N18.9 Chronic kidney disease, unspecified; E87.6 Hypokalemia; F17.210 Nicotine dependence, cigarettes, uncomplicated; E78.5 Hyperlipidemia, unspecified; M19.90 Unspecified osteoarthritis, unspecified site; I12.9 Hypertensive chronic kidney disease with stage 1 through stage 4 chronic kidney disease, or unspecified chronic kidney disease; E83.42 Hypomagnesemia; R19.7 Diarrhea, unspecified; D69.59 Other secondary thrombocytopenia; D53.9 Nutritional anemia, unspecified; D50.9 Iron deficiency anemia, unspecified; E87.5 Hyperkalemia; Z99.81 Dependence on supplemental oxygen; I65.23 Occlusion and stenosis of bilateral carotid arteries; B37.9 Candidiasis, unspecified; F41.9 Anxiety disorder, unspecified; F32.9 Major depressive disorder, single episode, unspecified; M25.561 Pain in right knee; F10.20 Alcohol dependence, uncomplicated
CPT/HCPCS: 36415; 71045; 74018; 74176; 80048; 80053; 80305; 81001; 82140; 82150; 82607; 82746; 83605; 83690; 83735; 84100; 84145; 84425; 84443; 84484; 85007; 85025; 85651; 86140; 86850; 87040; 87077; 87186; 87506; 87507; 87581; 87633; 87798; 92610; 93005; 93880; 94761; 96365; 96367; 96375; 97110; 97162; 97166; 97530; 97535; 99284; J0456; J1335; J2405; P9016

== ENCOUNTER 2020-09-28 14:29 | Emergency (ER) | payer OTHER, SELFPAY ==
[2020-09-28 14:30] VITALS: BP 108/65; PULSE 101; RESP 18; TEMP 37.3; O2SAT 97; BMI 23.4
[2020-09-28 15:01] VITALS: BP 130/76; PULSE 90; RESP 18; O2SAT 100
--- NOTE | 2020-09-28 15:06 | HMH.EDGENADL ---
ED Disposition Clinical Impression: Alcoholic cirrhosis Qualifiers: Ascites presence: with ascites Qualified Code(s): K70.31 - Alcoholic cirrhosis of liver with ascites Ascites Qualifiers: Ascites type: due to alcoholic cirrhosis Qualified Code(s): K70.31 - Alcoholic cirrhosis of liver with ascites Disposition: Xfer SNF Condition on Discharge: Good Instructions: DI for Altered Mental Status Additional Instructions: Follow-up with your primary care provider in 2 to 3 days for reevaluation. Return to the emergency department for any acute new concerns. - Critical Care Critical Care Time: No Attestation: On 09/28/20, the high probability of a clinically significant, sudden or life threatening deterioration of the following system(s) required my full and direct attention, intervention and personal management. The time I documented below is in addition to time spent performing reported procedures but includes the following listed in this critical care notation. Medical Decision Making - Medical Records Medical records reviewed: Yes: I reviewed the patient's medical records. - Pal Inquiry Pt receiving controlled substance: No Vital Signs: 09/28/20 14:30 09/28/20 15:01 Temperature 99.1 F Temperature Source Oral Pulse Rate 90 Pulse Rate [Right] 101 H Respiratory Rate 18 18 Blood Pressure 130/76 Blood Pressure [Right Arm] 108/65 L Blood Pressure Mean [Right Arm] 79 02 Sat by Pulse Oximetry 97 100 Oxygen Delivery Method Room Air - Lab Data Lab results reviewed: Yes: I reviewed the patient's lab results. Lab Results 09/28/20 15:03: WBC 8.7, RBC 3.22 L, Hgb 10.4 L, Hct 31.3 L, MCV 97.3, MCH 32.3 H, MCHC 33.2, RDW 21.2 H, Plt Count 125 L, MPV 10.2, Neut % (Auto) 74.4, Lymph % (Auto) 14.9, [place] % (Auto) 7.9, Eos % (Auto) 2.3, Baso % (Auto) 0.5, Neut # (Auto) 6.4, Lymph # (Auto) 1.3, [place] # (Auto) 0.7, Eos # (Auto) 0.2, Baso # (Auto) 0.0 09/28/20 15:03: Sodium 135 L, Potassium 3.7, Chloride 108 H, Carbon Dioxide 19 L, Anion Gap 11.7, BUN 7, Creatinine 0.90, Estimated Creat Clear 62, Estimated GFR 65, Est GFR ( Amer) 78, Glucose 134 H, Calcium 7.9 L, Total Bilirubin 2.4 H, AST 74 H, ALT 35, Alkaline Phosphatase 158 H, Total Protein 7.3, Albumin 2.7 L, Globulin 4.6 H, Albumin/Globulin Ratio 0.6 L, Lipase 206 09/28/20 15:03: Ammonia 27 Result diagrams: 09/28/20 15:03 09/28/20 15:03 Medical Decision Narrative: She is alert and oriented x4 here. Her abdomen is nontender on exam and she is afebrile, low suspicion for acute spontaneous bacterial peritonitis. Ammonia is only 27. Bilirubin lower than previous values. No clinically significant metabolic derangement. Discharged home to follow-up outpatient with PCP in 2 to 3 days for reevaluation. General Adult HPI - General Chief complaint: Altered Mental Status Stated complaint: Abdominal Swelling Time Seen by Provider: 09/28/20 15:07 Mode of Arrival: Family Vehicle Limitations: No Limitations Description of Symptoms (Recalled from ER Triage Doc. by RN): EMS REPORTS THEY WERE CALLED OUT DUE TO PATIENT SEEMING DISOREINTED AND ALTERED MENTAL STATUS. PT ALERT AND OREINTED TIMES FOUR UPON ARRIVAL. EMS REPORTS A HX OF CIRRHOSIS OF THE LIVER. [facility] REPORTS THAT PATIEN'S ABDOMINAL GIRTH HAS INCREASED TWO INCHES IN THE LAST TWO DAYS. PT REPORTS HX OF THORACENTESIS. PT HAS NO NEUROLOGICAL DEFICITS IN ED TRIAGE. - History of Present Illness HPI narrative: This is a 55-year-old female with a past medical history significant for alcoholic cirrhosis who presents to the emergency department for reports of confusion at her shelter, though she arrives alert and oriented x4. They also noted a 2 inch increasing girth around her abdomen. She states her abdomen always hurts and there is no change. She denies any fevers, vomiting. She states her bowel movements and urination is at baseline. She has no acute complaints. - Related Data Home Medications
[2020-09-28 15:15] LABS: Basophils % 0.5 % (0.1-2.0); Eosinophils # 0.2 K/mm3 (0.0-0.4); Eosinophils % 2.3 % (0.1-12.0); Hematocrit 31.3 % (37.0-47.0); Hemoglobin 10.4 g/dL (12.2-16.2); Lymphocytes # 1.3 K/mm3 (0.7-4.5); Lymphocytes % 14.9 % (10-50); Mean Corpuscular HGB Conc 33.2 g/dL (31.8-35.4); Mean Corpuscular Hemoglobin 32.3 pg (27.0-31.2); Mean Corpuscular Volume 97.3 fl (81-99); Mean Platelet Volume 10.2 fl (7.4-10.4); Monocytes # 0.7 K/mm3 (0.1-1.0); Monocytes % 7.9 % (1.7-9.3); Neutrophils # 6.4 K/mm3 (1.8-7.8); Neutrophils % 74.4 % (37.0-80.0); Platelet Count 125 K/mm3 (142-424); Red Blood Count 3.22 M/mm3 (4.20-5.40); Red Cell Distribution Width 21.2 % (11.5-17.5); White Blood Count 8.7 K/mm3 (4.8-10.8)
[2020-09-28 15:24] LABS: Chloride 108 mmol/L (98-107); Potassium 3.7 mmoL/L (3.5-5.1); Sodium 135 mmol/L (136-145)
[2020-09-28 15:26] LABS: Alanine Aminotransferase 35 U/L (12-78); Alkaline Phosphatase 158 U/L (38-126); Anion Gap 11.7 mEq/L (5-15); Aspartate Amino Transferase 74 U/L (14-36); Bilirubin,Total 2.4 mg/dl (0.2-1.3); Blood Urea Nitrogen 7 mg/dl (7-17); Carbon Dioxide 19 mmol/L (22.0-30.0); Creatinine Clearance Estimated 62 mL/min (50-200); Estimated Glomerular Filt Rate 65 ml/min (>60); GFR (African American) 78 ML/MIN (>60); Lipase 206 U/L (23-300)
[2020-09-28 15:27] LABS: Albumin Level 2.7 g/dl (3.5-5.0); Albumin/Globulin Ratio 0.6 (1.1-1.8); Calcium 7.9 mg/dl (8.4-10.2); Globulin 4.6 g/dL (1.3-3.2); Glucose 134 mg/dl (74-100); Total Protein,Serum 7.3 g/dl (6.3-8.2)
[2020-09-28 15:28] LABS: Ammonia 27 umol/L (9-30)
[2020-09-28 15:30] VITALS: BP 111/85; PULSE 71; O2SAT 99
[2020-09-28 16:23] VITALS: BP 130/76; PULSE 70; RESP 18; TEMP 36.7; O2SAT 97
--- NOTE | 2020-09-28 16:54 | PC.NURSE ---
ATTEMPTED TO CALL REPORT TO [facility] NURSE WITHOUT ANSWER. NURSE IS SUPPOSED TO CALL ME BACK FOR REPORT. EMS HAS PATIENT REPORT WITH THEM TO GIVE TO [facility]
--- NOTE | 2020-09-28 17:24 | PC.NURSE ---
GAVE REPORT TO [facility] NURSEKRANTHI AT THIS TIME
--- NOTE | 2020-10-25 09:52 | SW/DCPLANNER ---
Dr Rios spoke with me today regarding this patient and recent office follow up visit. Patient informed Dr Rios that her insurance had ended once she left [facility]. I called and spoke with Carmen Hutson: once admitting to [facility] they changed insurance to straight Medicaid and once discharging she will have this insurance until November 09 it will change back to her [employer]. I called and informed patient of this information. Patient also voiced that she was interested in home health services. Home health was not set up at time of discharge from [facility]. I have asked Dr Rios that his office set up home health services or fax me an order and recent office documentation and I would set up. I will follow up with patient and Dr Rios and make sure home health services are established for this patient.
== END 2020-09-28 16:49 ==
PROVIDERS: Emergency Provider Emergency Medicine
DX: K70.31 Alcoholic cirrhosis of liver with ascites (principal); F41.8 Other specified anxiety disorders; E78.5 Hyperlipidemia, unspecified; I10 Essential (primary) hypertension; E03.9 Hypothyroidism, unspecified; F17.210 Nicotine dependence, cigarettes, uncomplicated; Z79.899 Other long term (current) drug therapy
CPT/HCPCS: 80053; 82140; 83690; 85025; 99283

== ENCOUNTER 2020-10-27 12:48 | Outpatient (CLI) | payer MEDICAID, SELFPAY ==
--- NOTE | 2020-10-27 13:02 | US_ITS ---
PROCEDURE: US PARACENTESIS CLINICAL INDICATION: Alcoholic cirrhosis of liver with ascites COMPARISON: No exams were available for comparison FINDINGS: Procedure explained to patient and signed informed consent obtained. Short form history and physical performed and time-out performed prior to procedure. Initial ultrasound of the abdomen showed a large amount of ascites. Skin over the right lower quadrant region of the abdomen was cleansed with sterile Betadine and anesthetized with 1 percent Xylocaine. Next with ultrasound guidance a 6 Palestinian needle and sheath catheter assembly was advanced into the ascites and there was removal of about 3.3 liters of yellowish ascites. Samples of the fluid sent to the lab for ordered studies. Patient tolerated procedure well. No immediate complications. IMPRESSION: Ultrasound-guided paracentesis as described above. Dictated by: Moises Mcghee MD 10/27/2020 16:45 Moises Mcghee MD in [facility] 10/27/2020 16:45
[2020-10-27 13:39] VITALS: BMI 24.2
[2020-10-27 14:07] LABS: Creatinine Clearance Estimated 32 mL/min (50-200); Estimated Glomerular Filt Rate 31 ml/min (>60); GFR (African American) 38 ML/MIN (>60)
[2020-10-27 18:00] LABS: Appearance,Body Fld. CL; Source, Body Fld. Peritoneal Fluid
[2020-10-27 18:01] LABS: RBC,Body Fluid < 10 cells/uL (< 10 X 10^3); TNC,Body Fluid 22 cells/uL (< 1000)
[2020-10-27 18:09] LABS: Mononuclear WBCs,Body Fluid 85 %; Polynuclear WBC,Body Fluid 15 %
== END 2020-10-27 16:07 | disposition home or self-care (01) ==
PROVIDERS: PCP Family Medicine; Visit Provider Family Medicine
DX: K70.31 Alcoholic cirrhosis of liver with ascites (principal)
CPT/HCPCS: 49083; 82565; 89051

== ENCOUNTER 2020-11-01 11:07 | Emergency (ER) | payer MEDICAID, SELFPAY ==
[2020-11-01] VITALS (76 sets, daily range): BP systolic 74–111; BP diastolic 32–80; PULSE 95–115; RESP 8–20; TEMP 34.7–36.8; O2SAT 90–100; BMI 24.0; BMI 27.3
--- NOTE | 2020-11-01 11:21 | PC.NURSE ---
heart rate 43 no pulse, PEA cpr started
--- NOTE | 2020-11-01 11:21 | XR_ITS ---
PROCEDURE: XR CHEST PORTABLE CLINICAL HISTORY: TUBE PLACEMENT COMPARISON: CR XR CHEST PORTABLE from 09/09/2020 CR XR CHEST PORTABLE from 09/14/2020 CR XR CHEST PORTABLE from 09/18/2020 FINDINGS: The endotracheal tube extends into the right mainstem bronchus and needs to be withdrawn approximately 2.5 cm. A 2nd films obtained showing the endotracheal 2 to be pulled back somewhat but still projects right into the the right mainstem bronchus. Pull back another 1/2 to 2 cm. Prominent ill-defined opacity seen in left perihilar region suggesting acute pneumonic infiltrate. A similar but less prominent ill-defined opacities seen in the right suprahilar region and at the right base. There is a large right pleural effusion layering on the right lung of to the apex. Resuscitation paddles are seen overlying the lower chest. There are no obvious rib fracture seen. There is an endotracheal tube seen extending off the lower edge of the field of view but likely within the upper portion of the stomach. Overall cardiac size appears normal. IMPRESSION: Large right pleural effusion with bilateral perihilar and upper lobe ill-defined opacity suggesting acute pneumonic infiltrates, suggest additional pullback of the endotracheal tube as discussed above Dictated by: Dr. Ty Damon MD 11/01/2020 11:43 Dr. Ty Damon MD in [facility] 11/01/2020 11:43
--- NOTE | 2020-11-01 11:22 | CT_ITS ---
PROCEDURE: CT HEAD/BRAIN WO CON CLINICAL INDICATION: UNRESPONSIVE COMPARISON: CT CT HEAD/BRAIN WO CON from 07/21/2019 TECHNIQUE: Axial images obtained. All CT scans at the facility use one or more dose reduction, viz: automated exposure control, ma/kV adjustment per patient size (including targeted exams where dose is matched to indication, i.e. head), or iterative reconstruction technique. FINDINGS: No midline shift, mass effect, intracranial hemorrhage, hydrocephalus, or extra-axial fluid collection is evident. The sylvian fissures are mildly prominent and the cortical sulci frontal lobes. There are no significant chronic ischemic white matter changes. The calvarium has an unremarkable appearance. There is minimal streak artifact secondary to metallic right ear piercing. No mastoid effusion. No sinus air-fluid level. IMPRESSION: No acute intracranial finding Dictated by: Dr. Ty Damon MD 11/01/2020 13:23 Dr. Ty Damon MD in [facility] 11/01/2020 13:23
--- NOTE | 2020-11-01 11:25 | PC.NURSE ---
pulse check asystole cpr resumed
--- NOTE | 2020-11-01 11:27 | PC.NURSE ---
pulse check +pulses HR 117
--- NOTE | 2020-11-01 11:36 | XR_ITS ---
PROCEDURE: XR KUB CLINICAL INDICATION: TUBE PLACEMENT COMPARISON: CT CT ABDOMEN PELVIS WO CON from 09/09/2020 FINDINGS: The NG tube is seen extending into the body of the stomach in good position. Bowel gas pattern is unremarkable. There is no evidence of free air. IMPRESSION: Satisfactory position of endotracheal tube Dictated by: Dr. Ty Damon MD 11/01/2020 11:45 Dr. Ty Damon MD in [facility] 11/01/2020 11:45
--- NOTE | 2020-11-01 11:36 | ECG_ITS ---
APPROVED REPORT Exam: Resting ECG HR:110 bpm ECG Measurements Heart Rate 110 AXES MI 144 P 91 QRSd 122 QRS 27 QT 340 T 69 QTc 460 Conclusion Sinus tachycardia with occasional premature ventricular complexes Possible Left atrial enlargement Nonspecific intraventricular conduction delay Nonspecific T wave abnormality Abnormal ECG Electronically signed by : Clifford Eastman, 11/02/2020 18:06:08
--- NOTE | 2020-11-01 11:39 | HMH.EDGENADL ---
ED Disposition Clinical Impression: Status epilepticus, Septic shock, Multiorgan failure, NSTEMI (non-ST elevated myocardial infarction), PEA (Pulseless electrical activity) Respiratory failure with hypoxia Qualifiers: Chronicity: acute Qualified Code(s): J96.01 - Acute respiratory failure with hypoxia Disposition: Xfer Short-Term Hosp Condition on Discharge: Critical Instructions: DI for Altered Mental Status Referrals: Provider,Referral, MD [Referring] - Forms: Transfer Record - ED - Critical Care Critical Care Time: Yes Attestation: On 11/01/20, the high probability of a clinically significant, sudden or life threatening deterioration of the following system(s) required my full and direct attention, intervention and personal management. The time I documented below is in addition to time spent performing reported procedures but includes the following listed in this critical care notation. Total Critical Care Time: 245 Vital system(s) involved:: Circulatory Failure, Central Nervous System, Metabolic Failure, Respiratory Failure, Renal Failure, Shock (Septic) My critical care processes included: Assessment & monitoring of V/S, Initial and Re-exams, Data Review/Interpretation, Coordinating Care, Medication Orders and management, Documentation Medical Decision Making - Medical Records Medical records reviewed: Yes: I reviewed the patient's medical records. - Pal Inquiry Pt receiving controlled substance: No Vital Signs: 11/01/20 11:07 11/01/20 11:46 11/01/20 11:55 Temperature Temperature Source Pulse Rate 107 H 104 H Pulse Rate [Radial] 99 H Respiratory Rate 8 L 16 16 Blood Pressure 92/49 L 98/47 L Blood Pressure [Right Radial Artery] 94/51 L Blood Pressure Mean Blood Pressure Mean [Right Radial Artery] 65 02 Sat by Pulse Oximetry 90 L 100 100 Oxygen Delivery Method Non-Rebreather Oxygen Flow Rate (LPM) 15 11/01/20 12:02 11/01/20 12:05 11/01/20 12:10 Temperature Temperature Source Pulse Rate 107 H 105 H 106 H Pulse Rate [Radial] Respiratory Rate 14 16 16 Blood Pressure 83/38 L 86/41 L 87/47 L Blood Pressure [Right Radial Artery] Blood Pressure Mean Blood Pressure Mean [Right Radial Artery] 02 Sat by Pulse Oximetry 100 100 100 Oxygen Delivery Method Mechanical Ventilation Oxygen Flow Rate (LPM) 11/01/20 12:15 11/01/20 12:25 11/01/20 12:30 Temperature 94.4 F L Temperature Source Rectal Pulse Rate 112 H 106 H Pulse Rate [Radial] Respiratory Rate 15 16 16 Blood Pressure 95/43 L 86/45 L 94/40 L Blood Pressure [Right Radial Artery] Blood Pressure Mean Blood Pressure Mean [Right Radial Artery] 02 Sat by Pulse Oximetry 97 Oxygen Delivery Method Oxygen Flow Rate (LPM) 11/01/20 12:40 11/01/20 12:50 11/01/20 12:55 Temperature Temperature Source Pulse Rate 106 H Pulse Rate [Radial] Respiratory Rate 16 16 16 Blood Pressure 91/45 L 88/40 L 87/39 L Blood Pressure [Right Radial Artery] Blood Pressure Mean Blood Pressure Mean [Right Radial Artery] 02 Sat by Pulse Oximetry Oxygen Delivery Method Oxygen Flow Rate (LPM) 11/01/20 13:00 11/01/20 13:17 11/01/20 13:25 Temperature Temperature Source Pulse Rate Pulse Rate [Radial] Respiratory Rate 16 16 16 Blood Pressure 96/49 L 83/45 L 87/47 L Blood Pressure [Right Radial Artery] Blood Pressure Mean Blood Pressure Mean [Right Radial Artery] 02 Sat by Pulse Oximetry 99 Oxygen Delivery Method Mechanical Ventilation Oxygen Flow Rate (LPM) 11/01/20 13:30 11/01/20 13:35 11/01/20 13:40 Temperature Temperature Source Pulse Rate 105 H 107 H Pulse Rate [Radial] Respiratory Rate 16 16 18 Blood Pressure 100/46 L 86/47 L 83/46 L Blood Pressure [Right Radial Artery] Blood Pressure Mean Blood Pressure Mean [Right Radial Artery] 02 Sat by Pulse Oximetry 95 95 Oxygen Delivery Method Mechanical Ventil
[2020-11-01 11:49] LABS: Microscopic, Urine URINE MICROSCOPIC (MICROSCOPIC)
[2020-11-01 11:53] LABS: Appearance,Urine CLEAR (Clear); Bilirubin,Urine Negative (Negative); Blood, Urine Negative (Negative); Color,Urine YELLOW (Yellow); Glucose,Urine (UA) Negative (Negative); Ketones,Urine Negative (Negative); Leukocyte Esterase,Urine Negative (Negative); Nitrate,Urine Negative (Negative); PH,Urine 5.5 (5.0-8.5); Protein,Urine Negative (Negative); Specific Gravity, Urine 1.025 (1.005-1.030); Urobilinogen,Urine 0.2 EU/dl (0.2)
[2020-11-01 12:01] LABS: Basophils # 0.1 K/mm3 (0-0.2); Basophils % 0.4 % (0.1-2.0); Eosinophils # 0.1 K/mm3 (0.0-0.4); Eosinophils % 0.4 % (0.1-12.0); Hemoglobin 11.7 g/dL (12.2-16.2); Lymphocytes # 2.1 K/mm3 (0.7-4.5); Lymphocytes % 5.8 % (10-50); Mean Corpuscular HGB Conc 32.4 g/dL (31.8-35.4); Mean Corpuscular Volume 95.6 fl (81-99); Mean Platelet Volume 8.7 fl (7.4-10.4); Monocytes % 2.8 % (1.7-9.3); Neutrophils # 32.9 K/mm3 (1.8-7.8); Neutrophils % 90.7 % (37.0-80.0); Platelet Count 348 K/mm3 (142-424); Red Blood Count 3.76 M/mm3 (4.20-5.40); Red Cell Distribution Width 16.8 % (11.5-17.5); White Blood Count 36.3 K/mm3 (4.8-10.8)
[2020-11-01 12:05] LABS: MANUAL DIFFERENTIAL MANUAL DIFFERENTIAL (MANUAL DIFF)
--- NOTE | 2020-11-01 12:06 | PC.NURSE ---
notified pharmacy of levophed drip needed
[2020-11-01 12:07] LABS: ABG Base Excess -15.7 mmol/L (-2.4-2.3); ABG HCO3 14.9 mmhg (22.0-26.0); ABG Oxygen Saturation 98 % (90-100); ABG PO2 135.6 mmhg (80-100); ABG TCO2 16.7 mmhg (23-27)
--- NOTE | 2020-11-01 12:07 | PC.NURSE ---
notified rad of additional chest xray needed for tube placement
[2020-11-01 12:08] LABS: Alanine Aminotransferase 36 U/L (12-78); Albumin Level 2.7 g/dl (3.5-5.0); Alkaline Phosphatase 200 U/L (38-126); Aspartate Amino Transferase 89 U/L (14-36); Bilirubin,Direct 1.3 mg/dl (0.0-0.4); Bilirubin,Indirect 0.9 mg/dL (0.0-0.9); Bilirubin,Total 2.2 mg/dl (0.2-1.3); Bilirubin,Unconjugated 0.9 mg/dL (0.0-1.1); Total Protein,Serum 6.6 g/dl (6.3-8.2)
[2020-11-01 12:08] LABS: Oxygen 100 %; PEEP 5; Source L RADIAL; Tidal Volume 400; Vent Rate 16
--- NOTE | 2020-11-01 12:08 | XR_ITS ---
PROCEDURE: XR CHEST PORTABLE CLINICAL HISTORY: tube placement COMPARISON: CR XR CHEST PORTABLE from 09/14/2020 CR XR CHEST PORTABLE from 09/18/2020 CR XR CHEST PORTABLE from 11/01/2020 FINDINGS: The endotracheal tube has been repositioned and is now in satisfactory position just above the shaista. The significant parenchymal lung changes described previously are basically unchanged and the large right pleural effusion is again seen. No acute bony abnormalities. IMPRESSION: Satisfactory reposition of endotracheal tube Dictated by: Dr. Ty Damon MD 11/01/2020 12:26 Dr. Ty Damon MD in OV 11/01/2020 12:26
[2020-11-01 12:09] LABS: ABG PH 7.04 mmol/L (7.35-7.45)
[2020-11-01 12:09] LABS: Anion Gap 18.7 mEq/L (5-15); Blood Urea Nitrogen 23 mg/dl (7-17); Carbon Dioxide 17 mmol/L (22.0-30.0); Chloride 105 mmol/L (98-107); Creatinine Clearance Estimated 27 mL/min (50-200); Estimated Glomerular Filt Rate 22 ml/min (>60); GFR (African American) 27 ML/MIN (>60); Glucose 116 mg/dl (74-100); Sodium 138 mmol/L (136-145)
[2020-11-01 12:09] LABS: Lactic Acid 5.4 mmol/L (0.7-2.1)
--- NOTE | 2020-11-01 12:09 | PC.NURSE ---
critical labs reported per galdino in lab, lactic acid 5.4 (verified pt name and )- reported result to ER MD at this time critical result also call on abg per tiara in RT- pH 7.0, CO2 56.4, bicarb 14.9, base excess -15.7 notified ER MD of results
[2020-11-01 12:10] LABS: ABG PCO2 56.4 mmhg (35.0-45.0)
--- NOTE | 2020-11-01 12:16 | PC.NURSE ---
Critical lab values called to Mikayla Arshad, retanned leather roller
--- NOTE | 2020-11-01 12:17 | PC.NURSE ---
RT at making vent setting adjustments
[2020-11-01 12:19] LABS: RBC,Urine Occasional #/hpf (0-3)
[2020-11-01 12:20] LABS: Mucus,Urine Trace /lpf
[2020-11-01 12:20] LABS: Troponin I 0.12 ng/ml (0.00-0.034)
[2020-11-01 12:22] LABS: Lymphocytes % 2 % (10-50); Monocytes % 4 % (2-9); Neutrophils % 93 % (42-76); Nucleated Red Blood Cells 2; Total Cells Counted 100
[2020-11-01 12:23] LABS: Anisocytosis 1+; Hypochromasia 3+; Macrocytosis 1+; Platelet Estimate Normal
[2020-11-01 12:24] LABS: Potassium 2.7 mmoL/L (3.5-5.1)
--- NOTE | 2020-11-01 12:24 | PC.NURSE ---
ER Physician notified of critical potassium
[2020-11-01 12:34] LABS: NT Pro Brain Natriuretic Pep. 5150 pg/mL (0-125)
--- NOTE | 2020-11-01 13:00 | PC.NURSE ---
levophed drip increased 12mcg
[2020-11-01 13:20] LABS: INR 1.77 (0.9-1.1)
--- NOTE | 2020-11-01 13:25 | PC.NURSE ---
increased levophed drip increased to 15mcg
[2020-11-01 13:30] LABS: Amphetamine/Metha Screen,Urine Negative ng/ml (<1000)
[2020-11-01 13:31] LABS: Barbiturates Screen,Urine Negative ng/ml (<200)
[2020-11-01 13:32] LABS: Benzodiazepines Screen,Urine Positive ng/ml (<200); Cannabinoid Screen,Urine Negative ng/ml (<50)
[2020-11-01 13:33] LABS: Coronavirus 19, PCR Not Detected (NotDetected); Influenza A, PCR Not Detected (NotDetected); Influenza B, PCR Not Detected (NotDetected)
[2020-11-01 13:33] LABS: Cocaine Screen,Urine Negative ng/ml (<300)
[2020-11-01 13:34] LABS: Methadone Screen,Urine Negative ng/ml (<300); Opiate Screen,Urine Negative ng/ml (<300)
[2020-11-01 13:35] LABS: Phencyclidine Screen,Urine Negative ng/ml (<25)
--- NOTE | 2020-11-01 13:39 | HMH.PHACONS ---
- Pharmacy Consult Date: 11/01/20 Time: 13:39 Referring provider: DR. LINARES Reason for Consult:: VANCOMYCIN DOSING Allergies and ADEs:: Allergies Allergy/AdvReac Type Severity Reaction Status Date / Time No Known Allergies Allergy Verified 09/09/20 20:54 Home Medications:: Home Medications Medication Instructions Recorded Confirmed Type Thiamine HCl [Vitamin B-1] 100 mg PO DAILY 11/09/18 09/09/20 History Loperamide HCl [Imodium 2 mg 2 mg PO NEEDED PRN #20 cap 04/23/19 09/09/20 Rx capsule] Multivitamin [Multi-Vitamin Plain] 1 each PO 1700 09/09/20 09/09/20 History Calcium Carbonate [Oscal-500 500 mg PO BID tab 09/21/20 Rx tablet] Ibuprofen [Motrin 400mg 400 mg PO Q6HP PRN tab 09/21/20 Rx tablet] Zinc Oxide [Zinc Oxide ointment 0 gm TP Q1HP PRN tube 09/21/20 Rx 28gm tube] levoFLOXacin [Levaquin 500mg 500 mg PO DAILY #5 tab 09/21/20 Rx tab] gabapentin 300 mg capsule 300 mg PO TID #90 cap 10/03/20 Rx fluoxetine 20 mg capsule 20 mg PO HS #30 cap 10/20/20 Rx folic acid 1 mg tablet 1 mg PO DAILY #30 tab 10/20/20 Rx levothyroxine 100 mcg tablet 100 mcg PO DAILY #30 tab 10/20/20 Rx magnesium oxide 400 mg (241.3 mg 400 mg PO BID #60 tab 10/20/20 Rx magnesium) tablet pantoprazole 40 mg tablet,delayed 40 mg PO HS #30 tab 10/20/20 Rx release rifaximin 550 mg tablet 550 mg PO BID #60 tab 10/20/20 Rx ropinirole 1 mg tablet 1 mg PO HS #30 tab 10/20/20 Rx spironolactone 25 mg tablet 25 mg PO BID #60 tab 10/20/20 Rx Height: 1.52 m Weight: 63.503 kg Laboratory Results:: Laboratory Results - last 24 hr 11/01/20 11:43: Urine Color Yellow, Urine Appearance Clear, Urine pH 5.5, Ur Specific Starr 1.025, Urine Protein Negative, Urine Glucose (UA) Negative, Urine Ketones Negative, Urine Blood Negative, Urine Nitrate Negative, Urine Bilirubin Negative, Urine Urobilinogen 0.2, Ur Leukocyte Esterase Negative, Urine RBC Occasional, Urine WBC None, Ur Squamous Epith Cells 3-5, Urine Bacteria None, Urine Mucus Trace 11/01/20 11:43: Lactate 5.4 H 11/01/20 11:43: Urine Opiates Screen Negative, Urine Methadone Screen Negative, Ur Barbituates Screen Negative, Ur Phencyclidine Scrn Negative, Ur Amphetamines Screen Negative, U Benzodiazepines Scrn Positive H, Urine Cocaine Screen Negative, U Marijuana (THC) Screen Negative 11/01/20 11:45: WBC 36.3 H*, RBC 3.76 L, Hgb 11.7 L, Hct 36.0 L, MCV 95.6, MCH 31.0, MCHC 32.4, RDW 16.8, Plt Count 348, MPV 8.7, Neut % (Auto) 90.7 H, Lymph % (Auto) 5.8 L, [place] % (Auto) 2.8, Eos % (Auto) 0.4, Baso % (Auto) 0.4, Neut # (Auto) 32.9 H, Lymph # (Auto) 2.1, [place] # (Auto) 1.0, Eos # (Auto) 0.1, Baso # (Auto) 0.1, Total Counted 100, Neutrophils % (Manual) 93 H, Band Neutrophils % 1.0, Lymphocytes % (Manual) 2 L, Monocytes % (Manual) 4, Nucleated RBCs 2, Platelet Estimate Normal, Hypochromasia 3+, Anisocytosis 1+, Macrocytosis 1+ 11/01/20 11:45: Sodium 138, Potassium 2.7 L*, Chloride 105, Carbon Dioxide 17 L, Anion Gap 18.7 H, BUN 23 H, Creatinine 2.30 H, Estimated Creat Clear 27, Estimated GFR 22 L, Est GFR ( Amer) 27 L, Glucose 116 H, Calcium 8.0 L, Troponin I 0.12 H 11/01/20 11:45: Total Bilirubin 2.2 H, Direct Bilirubin 1.3 H, Conjugated Bilirubin 0.0, Indirect Bilirubin 0.9, Unconjugated Bilirubin 0.9, AST 89 H, ALT 36, Alkaline Phosphatase 200 H, Total Protein 6.6, Albumin 2.7 L 11/01/20 11:45: NT-Pro-B Natriuret Pep 5150 H 11/01/20 11:45: PT 20.0 H, INR 1.77 H 11/01/20 12:00: Specimen Source L radial, O2 % 100, ABG pH 7.04 L*, ABG pCO2 56.4 H, ABG pO2 135.6 H, ABG HCO3 14.9 L, ABG Total CO2 16.7 L, ABG O2 Saturation 98, ABG Base Excess -15.7 L, Vent Rate 16, Tidal Volume 400, PEEP 5 Medical History: Reports:: Anxiety (Alprazolam 0.5 mg 3 times daily as needed), Depression (Fluoxetine 20 mg a day), Hyperlipidemia, Hypertension, Seizures Denies:: Cancer, Diabetes Mellitus Type 1, Diabetes Mellitus Type 2, Internal Pacemaker, Lung Disease, MRSA Assessment and Plan -
--- NOTE | 2020-11-01 13:42 | PC.NURSE ---
levofed drip increased to 17mcg
--- NOTE | 2020-11-01 13:42 | PC.NURSE ---
[facility] to return call.
--- NOTE | 2020-11-01 14:00 | PC.NURSE ---
Addendum entered by Mikayla Arshad RN 11/01/20 14:01: notified primary nurse gissell felipe of increase of levophed gtt Original Note: levophed gtt increased to 18 mcg/min sbp 88 ER MD aware, will continue to monitor
--- NOTE | 2020-11-01 14:07 | PC.NURSE ---
Dr Mcgee returned call from .
--- NOTE | 2020-11-01 14:10 | CT_ITS ---
PROCEDURE INFORMATION: Exam: CT Chest Without Contrast; Diagnostic Exam date and time: 11/01/2020 2:10 PM Age: 55 years old Clinical indication: Dyspnea; Patient HX: Sepsis, intubated TECHNIQUE: Imaging protocol: Diagnostic computed tomography of the chest without contrast. Radiation optimization: All CT scans at this facility use at least one of these dose optimization techniques: automated exposure control; mA and/or kV adjustment per patient size (includes targeted exams where dose is matched to clinical indication); or iterative reconstruction. COMPARISON: 1. CR XR CHEST PORTABLE 09/09/2020 3:[address] ABDOMEN PELVIS WO CON 09/09/2020 3:23 PM FINDINGS: Tubes, catheters and devices: Endotracheal tube is in place with the tip above the level of the shaista. Nasogastric tube is in place. Lungs: Patchy airspace opacities noted within the upper lobes bilaterally and left lower lobe consistent with pneumonia. Interstitial prominence noted bilaterally. Scattered nodules present within both lungs measuring up to 7 mm within the right upper lobe. Pleural spaces: Large right pleural effusion. There is no evidence of pneumothorax. Heart: Unremarkable. No cardiomegaly. No pericardial effusion. Aorta: Unremarkable. No aortic aneurysm. Lymph nodes: Unremarkable. No enlarged lymph nodes. Diaphragm: There is nonspecific elevation of the right hemidiaphragm. Bones/joints: Compression deformity of T12 is present, age is indeterminate. Soft tissues: Unremarkable. IMPRESSION: 1. Large right pleural effusion. 2. Patchy airspace opacities noted within the upper lobes bilaterally and left lower lobe consistent with pneumonia. 3. Compression deformity of T12 is present, age is indeterminate. 4. Scattered nodules present within both lungs measuring up to 7 mm within the right upper lobe. Recommend CT Chest at 3-6 months. Subsequent management based on the most suspicious nodule(s). (Reference: [place]) REFERENCES: Lavernehocici H, et al. Guidelines for Management of Incidental Pulmonary Nodules Detected on CT Images: From the Fleischner Society 2017. Radiology. 2017;284(1):228-243.
--- NOTE | 2020-11-01 14:10 | CT_ITS ---
PROCEDURE INFORMATION: Exam: CT Abdomen And Pelvis Without Contrast Exam date and time: 11/01/2020 2:10 PM Age: 55 years old Clinical indication: Bloating; Additional info: Sepsis, TECHNIQUE: Imaging protocol: Computed tomography of the abdomen and pelvis without contrast. Radiation optimization: All CT scans at this facility use at least one of these dose optimization techniques: automated exposure control; mA and/or kV adjustment per patient size (includes targeted exams where dose is matched to clinical indication); or iterative reconstruction. COMPARISON: 1. CT ABDOMEN PELVIS WO CON 09/09/2020 3:[address] ABDOMEN WO CON 07/21/2019 1:16 PM FINDINGS: Tubes, catheters and devices: Peritoneal catheter is in place. Lungs: Lung findings discussed separately. Liver: Normal. No mass. Gallbladder and bile ducts: There has been a cholecystectomy. Pancreas: Normal. No ductal dilation. Spleen: Normal. No splenomegaly. Adrenal glands: Normal. No mass. Kidneys and ureters: Normal. No hydronephrosis. Stomach and bowel: Mild thickening of the reveles of the colon consistent with mild colitis. Appendix: Appendix is not seen. Intraperitoneal space: There is a moderate amount of free intraperitoneal fluid present. Vasculature: Unremarkable. No abdominal aortic aneurysm. Lymph nodes: There are multiple nonspecific nonpathologic but prominent lymph nodes in the mesentery. There are no mesenteric lymph nodes of pathologic dimensions. Urinary bladder: Travis catheter is in place. Reproductive: Unremarkable as visualized. Bones/joints: Compression deformity L1 is present, age is indeterminate. Soft tissues: Soft tissues are normal. IMPRESSION: 1. There is a moderate amount of free intraperitoneal fluid present. 2. Mild thickening of the reveles of the colon consistent with mild colitis. 3. Compression deformity L1 is present, age is indeterminate.
--- NOTE | 2020-11-01 14:11 | PC.NURSE ---
resp notified to get 2nd abg from pt
--- NOTE | 2020-11-01 14:13 | PC.NURSE ---
levophed increased to 20mcg
--- NOTE | 2020-11-01 14:24 | PC.NURSE ---
called [facility] for possible admission
--- NOTE | 2020-11-01 14:28 | PC.NURSE ---
[facility] called back stating they have no beds available but will place pt on waiting list
--- NOTE | 2020-11-01 14:29 | PC.NURSE ---
called [facility] for [facility] admission
[2020-11-01 14:30] LABS: ABG Base Excess -20.1 mmol/L (-2.4-2.3); ABG HCO3 11.6 mmhg (22.0-26.0); ABG Oxygen Saturation 89 % (90-100); ABG PO2 71.8 mmhg (80-100); ABG TCO2 13.2 mmhg (23-27)
[2020-11-01 14:33] LABS: Oxygen 60% %; Tidal Volume 300
[2020-11-01 14:34] LABS: PEEP 5; Vent Rate 16
[2020-11-01 14:38] LABS: ABG PH 6.97 mmol/L (7.35-7.45)
[2020-11-01 14:39] LABS: ABG PCO2 51.4 mmhg (35.0-45.0)
--- NOTE | 2020-11-01 14:46 | PC.NURSE ---
[facility] called back stating they don't have any ICU beds available at this time
--- NOTE | 2020-11-01 14:55 | PC.NURSE ---
contacted transfer center at this time, states that they are currently at capacity on beds. I asked about a waiting list stated they could take pt information and check with a their doctor to see if pt would be criteria for transfer and call us back. pt information given to transfer center staff, waiting instructional resource teacher back
--- NOTE | 2020-11-01 15:07 | XR_ITS ---
PROCEDURE: XR CHEST PORTABLE CLINICAL HISTORY: s/p L subclavian attempt, unsuccessful COMPARISON: CR XR CHEST PORTABLE from 09/18/2020 CR XR CHEST PORTABLE from 11/01/2020 CR XR CHEST PORTABLE from 11/01/2020 FINDINGS: The large right pleural effusion is again noted. There is more prominent diffuse ill-defined opacity right perihilar region and right lower lobe obscuring the right heart border with persistent ill-defined opacity left suprahilar region as well. There is no pneumothorax. The endotracheal tube remains in satisfactory position above the shaista. The NG tube is visualized extending off the lower edge of the field of view but noted to be within the stomach on previous abdominal film. IMPRESSION: Interval progression of the diffuse ill-defined opacity right perihilar region right lower lobe most consistent with acute and diffuse pneumonia with associated large right pleural effusion layering under the right lung and extending up and over the apex. Dictated by: Dr. Ty Damon MD 11/01/2020 15:26 Dr. Ty Damon MD in OV 11/01/2020 15:26
--- NOTE | 2020-11-01 15:09 | PC.NURSE ---
CT staff had called down inquiring about CTs ordered with contrast and pt kidney function not within normal range. Asked ER MD about CTs, states he would like repeat pt renal function panel r/t pt has been hydrated, states after those labs are resulted he will make decisions about CTs on pt. ordered place for renal function panel as verbal order ER MD, blood sent to lab for renal function panel and repeat troponin- notified lab staff of this, spoke with [facility] rad staff Kay of plan to waiting on repeat labs for CT
--- NOTE | 2020-11-01 15:16 | PC.NURSE ---
rad at BS for portable chest xray
[2020-11-01 15:22] LABS: Albumin Level 2.5 g/dl (3.5-5.0); Chloride 110 mmol/L (98-107); Potassium 3.1 mmoL/L (3.5-5.1); Sodium 139 mmol/L (136-145)
[2020-11-01 15:25] LABS: Anion Gap 19.1 mEq/L (5-15); Blood Urea Nitrogen 20 mg/dl (7-17); Calcium 7.5 mg/dl (8.4-10.2); Carbon Dioxide 13 mmol/L (22.0-30.0); Creatinine Clearance Estimated 29 mL/min (50-200); Estimated Glomerular Filt Rate 23 ml/min (>60); GFR (African American) 28 ML/MIN (>60); Glucose 115 mg/dl (74-100); Phosphorous 8.9 mg/dl (2.5-4.5)
--- NOTE | 2020-11-01 15:28 | PC.NURSE ---
Calling [facility] at this time.
--- NOTE | 2020-11-01 15:32 | PC.NURSE ---
[facility] to return call.
[2020-11-01 15:38] LABS: Troponin I 0.21 ng/ml (0.00-0.034)
--- NOTE | 2020-11-01 15:38 | PC.NURSE ---
spoke with Kay in radiology she was calling about pt CTs and pt repeat labs, states labs are still not okay for contrast, notified DAVID BRYANT. ER states to do CTs without contrast-relayed this information to Kay.
[2020-11-01 15:47] LABS: Reflex Lactic Add Lactic Reflex
--- NOTE | 2020-11-01 16:07 | PC.NURSE ---
pt transported to CT per myself, RT and Rad while in Ct pt bp dropped to sbp 67, recheck was sbp 72- levophed gtt increased to 22 mcg/min will continue to monitor pt return from CT at 1607
--- NOTE | 2020-11-01 16:11 | PC.NURSE ---
speaking with family.
--- NOTE | 2020-11-01 16:36 | PC.NURSE ---
Calling [facility] at this time.
--- NOTE | 2020-11-01 16:40 | PC.NURSE ---
Dr Valderrama speaking with [facility] at this time.
--- NOTE | 2020-11-01 17:06 | PC.NURSE ---
pt turned to lt side. bruising noted to lt flank area
[2020-11-01 17:12] LABS: ABG Base Excess -19.2 mmol/L (-2.4-2.3); ABG HCO3 12.3 mmhg (22.0-26.0); ABG Oxygen Saturation 80 % (90-100); ABG PO2 53.1 mmhg (80-100); ABG TCO2 13.9 mmhg (23-27)
[2020-11-01 17:14] LABS: Oxygen 70 %; PEEP 5; Source Cath Lab Sample; Tidal Volume 300; Vent Rate 20
[2020-11-01 17:16] LABS: ABG PCO2 52.9 mmhg (35.0-45.0); ABG PH 6.99 mmol/L (7.35-7.45)
--- NOTE | 2020-11-01 17:16 | PC.NURSE ---
RT Massey called critical ABG results at this time, notified ER
--- NOTE | 2020-11-01 17:23 | PC.NURSE ---
levophed increased to 24mcg
--- NOTE | 2020-11-01 17:23 | PC.NURSE ---
RT at BS making adjustment ot vent settings r/t new abg results
--- NOTE | 2020-11-01 17:26 | PC.NURSE ---
pt end tidal at 26
--- NOTE | 2020-11-01 17:41 | PC.NURSE ---
Received critical lactate from lab. ER physician made aware
--- NOTE | 2020-11-01 17:47 | PC.NURSE ---
CHANGED TIDAL VOLUME TO 400, PEEP 15 AND FIO2 80%
--- NOTE | 2020-11-01 18:00 | PC.NURSE ---
levophed increased to 26mcg
--- NOTE | 2020-11-01 18:15 | PC.NURSE ---
levophed increased to 28mcg. aware
[2020-11-01 18:57] LABS: Reflex Lactic (2 hrs) Add Lactic Reflex
--- NOTE | 2020-11-01 18:57 | PC.NURSE ---
levophed infusing at 28g
--- NOTE | 2020-11-01 18:57 | PC.NURSE ---
end tidal 21. md aware
--- NOTE | 2020-11-01 18:59 | PC.NURSE ---
vasopressin started at 1845 .03 units/min. 18ml/hr
[2020-11-01 19:11] LABS: ABG Base Excess -16.7 mmol/L (-2.4-2.3); ABG HCO3 11.9 mmhg (22.0-26.0); ABG Oxygen Saturation 86 % (90-100); ABG PCO2 33.9 mmhg (35.0-45.0); ABG PO2 53.7 mmhg (80-100)
[2020-11-01 19:12] LABS: Allen's Test Non Applicable; Oxygen 80 %; PEEP 15; Source Left Femoral; Tidal Volume 400; Vent Rate 20
[2020-11-01 19:14] LABS: ABG PH 7.16 mmol/L (7.35-7.45)
[2020-11-01 19:14] LABS: Troponin I 0.29 ng/ml (0.00-0.034)
--- NOTE | 2020-11-01 19:30 | PC.NURSE ---
1830: SPOKE WITH ELL[facility], [facility]. ORDER FOR VASOPRESSIN GTT TO MAINTAIN A MAP>65. E[facility]IOT STATED TO MIX 20 UNITS IN 200ML OF NS (DISCARD 50ML NS TO MAKE 200ML VOLUME). START GTT AT 0.03UNITS/MIN (18ML/HR) TITRATE AT 0.005UNITS/MIN (3ML/HR) MAX RATE: 0.1UNIT/MIN (60ML/HR) VASOPRESSIN GTT STARTED AT 1845. 185: MAP: 65 VASOPRESSIN GTT 18ML/HR
--- NOTE | 2020-11-01 19:56 | PC.NURSE ---
[facility] checking life flight out of [place] and will return call.
--- NOTE | 2020-11-01 20:02 | PC.NURSE ---
report called to [facility]
--- NOTE | 2020-11-01 20:05 | PC.NURSE ---
[facility] returning call, they are checking with [place] [employer] [facility] who [place] and was switching pilots and will call back once they check weather.
--- NOTE | 2020-11-01 20:16 | PC.NURSE ---
[facility] flight will be a significant amount of time. [facility] to call [facility] and check their status.
--- NOTE | 2020-11-01 20:32 | PC.NURSE ---
[facility] has accepted. Once they lift off they will have a 20 min ETA. They will call when they lift.
[2020-11-01 21:26] LABS: POC Glucose,Bedside 116 (70-110)
--- NOTE | 2020-11-01 21:26 | PC.NURSE ---
Addendum entered by Win Boone RN 11/01/20 21:39: Adjustmens made per [facility] Original Note: [place] flight here for pt. Bedside report given by this RN. PEEP adjusted to 10. Rate lowered from 20 to 16.
[2020-11-01 21:56] LABS: Lactic Acid Follow up (RFLX 2) 7.9 mmol/L (0.7-2.1)
--- NOTE | 2020-11-02 00:51 | PC.NURSE ---
[facility] called for update on pt. [facility] informed that pt had been accepted to [facility] in [place].
--- NOTE | 2020-11-02 06:40 | PC.NURSE ---
Remaining vial or propofol left in pt room wasted. Witnessed by MITZI Mendez.
== END 2020-11-01 21:40 | disposition short-term general hospital (02) ==
PROVIDERS: Emergency Provider Family Medicine; PCP Family Medicine
DX: G40.901 Epilepsy, unspecified, not intractable, with status epilepticus (principal); J96.01 Acute respiratory failure with hypoxia; A41.9 Sepsis, unspecified organism; I21.4 Non-ST elevation (NSTEMI) myocardial infarction; I46.9 Cardiac arrest, cause unspecified; F41.8 Other specified anxiety disorders; E03.9 Hypothyroidism, unspecified; E78.5 Hyperlipidemia, unspecified; I10 Essential (primary) hypertension; F17.210 Nicotine dependence, cigarettes, uncomplicated
CPT/HCPCS: 36556; 31500; 70450; 71045; 71250; 74018; 74176; 80048; 80069; 80076; 80305; 81001; 82803; 82962; 83605; 83880; 84484; 85007; 85025; 85610; 87040; 87070; 87077; 87186; 87205; 93005; 96365; 96367; 96375; 99291; C1751; J1953; J3370; U0003